=== PATIENT | male | born 1935 | race Caucasian/White ===

== ENCOUNTER → 2016-08-26 | Outpatient (CLI) | payer OTHER ==
[~2016-08-26] MED LIST: ACC10 PO; ASPCH81 PO; ATEN-173 PO; CLR10 PO; DTR5 PO; FAMO20TA11 PO; GLC500 PO; IBUP-1277 PO; NTRGSL/4 UT; NTRSLP4 SL; POLY335040 PO; PRAV20TA PO; REPA0.5T PO; alpha-lipoic acid PO; eye vitamin PO; metamucil PO
--- NOTE | 2016-08-26 11:46 | DIAGNOSTIC IMAGING REPORT ---
MRI OF THE LUMBAR SPINE WITHOUT IV CONTRAST CLINICAL HISTORY: Polyneuropathy. COMPARISON STUDY: Abdominal CT dated 10/19/2011. TECHNIQUE: MRI of the lumbar spine is performed utilizing various T1 and T2-weighted sequences in the axial and sagittal planes. IV contrast was not administered for this examination. The examination is significant degraded by open MRI technique. FINDINGS: Lumbar spine: Marrow signal intensity is heterogeneous. There is a [id number] chronic compression deformity of L1. No marrow edema is seen. This is new from the [address] scan. No retropulsed fragments are identified. Vertebral body height is otherwise maintained throughout the lumbar spine. Alignment is preserved. There is mild straightening of the lumbar lordosis. The transverse and spinous processes are intact as imaged. There is no evidence of spondylolysis. Anterior osteophytes are seen throughout. No destructive bony lesion is seen. Chronic degenerative endplate change with associated endplate edema is seen at L4-L5. There is partial sacralization of the L5 vertebral body. Intervertebral discs: There is degenerative disc desiccation seen throughout the lumbar spine. Advanced loss of height is noted at L3-L4 and L4-L5. Moderate loss of height is seen at the remaining lumbar levels. Spinal cord: Partially imaged spinal cord is normal in morphology and signal intensity. The conus medullaris terminates at the level of L1. The nerve roots of the cauda equina are normal in morphology. Fatty filum terminale is incidentally noted. L1-L2: There is posterior disc bulge with annular fissure. There is mild bilateral subarticular stenosis with no significant acquired compromise of the central canal at this level. Facet arthropathy causes mild bilateral neural foraminal stenosis. L2-L3: There is a small posterior disc bulge with annular fissure. Mild subarticular stenosis is observed. There is no significant acquired compromise of the central canal at this level. Facet arthropathy causes mild bilateral neural foraminal stenosis. L3-L4: There is a large posterior disc bulge with annular fissure. In conjunction with hypertrophy of the ligamentum flavum there is moderate to severe central canal stenosis at this level with a minimum AP diameter of 5 mm. There is severe bilateral subarticular stenosis with probable impingement on the exiting L3 and the transiting bilateral L4 nerve roots. Facet arthropathy causes mild to moderate bilateral neural foraminal stenosis. L4-L5: There is a large posterior disc bulge with annular fissure. In conjunction with hypertrophy of the ligamentum flavum there is moderate central canal stenosis at this level with a minimum AP diameter of 8 mm. There is bilateral subarticular stenosis, right greater than left. There is impingement on the exiting bilateral L4 and the transiting bilateral L5 nerve roots. Facet arthropathy causes severe right and moderate left neural foraminal stenosis. L5-S1: The central canal and neural foramina appear patent. Sacrum: The visualized sacrum shows heterogeneous marrow signal intensity. No marrow edema is identified. Soft tissues: There is fatty atrophy of the paraspinous musculature. The kidneys are atrophic. Right renal cysts are again noted. IMPRESSION: 1. There is a chronic compression deformity of L1. No retropulsed fragments are identified. 2. Moderate to advanced multilevel lumbosacral spondylosis. There is moderate to severe central canal stenosis at L3-L4 and moderate central canal stenosis at L4-L5. See discussion for detailed level by level analysis. 3. There is partial sacralization of L5. No destructive bony process is seen. Electronically signed by: Carlo Herring M.D. 08/26/2016 11:45 AM Dictated Date/Time: 08/26/2016 11:28 AM
== END | disposition home or self-care (01) ==
LOC: C.OPENMRI 10:08
PROVIDERS: ATTEND Internal Medicine
DX: M47.816 Spondylosis without myelopathy or radiculopathy, lumbar region (principal); M43.8X6 Other specified deforming dorsopathies, lumbar region; G63 Polyneuropathy in diseases classified elsewhere

== ENCOUNTER 2017-03-12 18:06 | Inpatient (IN) | payer OTHER ==
[~2017-03-12] VITALS: Ht 175.3 cm; Wt 78.3 kg
--- NOTE | 2017-03-12 18:45 | EMERGENCY ROOM VISIT NOTE ---
History Report prepared by Nereida: Subhash Serrano Under the Supervision of: Dr. Arnav Hernandez M.D. First contact with patient: 18:28 Chief Complaint: STROKE SYMPTOMS Stated Complaint: GARBLED SPEECH History of Present Illness The patient is a 81 year old male who presents to the Emergency Room with complaints of an episode of stroke-like symptoms occurring at 1730. His symptoms included difficulty with words, and slurred speech. Family member states he is unable to answer common questions was having difficult finding his words. Family member at bedside stated that the patient was unable to make any coherent words, he is having difficult finding his words and he was talking in slurred syllables. His symptoms at approximately 1750, he is now able to speak better and answer questions appropriately but he still has some slurred speech.. Per , the patient experienced a similar 15 minute long episode occurring two weeks ago. She notes that the patient has baseline visual problems on the right side due to macular degeneration. Source of History: patient, spouse/significant other () Onset: One hour ago Symptom Intensity: 20 minutes long Quality: other (stroke-like symptoms) Timing: other (episode) Review of Systems See HPI for pertinent positives and negatives. A total of ten systems were reviewed and were otherwise negative. Past Medical & Surgical Medical Problems: (1) A-fib (2) GERD (gastroesophageal reflux disease) (3) HTN (hypertension) (4) Macular degeneration (5) Slurred speech Family History No pertinent family history stated. Social History Smoking Status: Never Smoker Alcohol Use: other Drug Use: none Marital Status: Housing Status: lives with family Occupation Status: retired Current/Historical Medications Scheduled Aspirin (Aspirin Ec), 81 MG PO DAILY Atenolol (Tenormin), 25 MG PO DAILY Famotidine (Pepcid), 20 MG PO DAILY Loratadine (Claritin), 10 MG PO DAILY Metformin Hcl (Glucophage), 500 MG PO BID Multiple Vitamins W/ Minerals (Eye Vitamins), 1 CAP PO DAILY Nitroglycerin (Nitrostat), 0.4 MG UT PRN Oxybutynin Chloride (Ditropan), 5 MG PO BID Polyethylene Glycol 3350 (Miralax), 17 GM PO DAILY Pravastatin (Pravachol ), 20 MG PO DAILY Quinapril Hcl (Accupril), 20 MG PO DAILY Repaglinide (Prandin), 1 MG PO AC Tamsulosin Hcl (Flomax), 0.4 MG PO DAILY Allergies Coded Allergies: No Known Allergies (Unverified , 03/12/17) pt Physical Exam Vital Signs Date Time Temp Pulse Resp B/P (MAP) Pulse Ox O2 Delivery O2 Flow Rate FiO2 03/12/17 20:00 73 16 151/84 03/12/17 19:34 69 16 179/103 97 Room Air 03/12/17 19:01 69 16 166/94 97 Room Air 03/12/17 18:52 96 Room Air 03/12/17 18:40 68 03/12/17 18:10 36.8 69 16 105/62 91 Room Air Physical Exam GENERAL: Awake, alert, well-appearing, in no distress HENT: Normocephalic, Atraumatic. no hemotympanum bilaterally, gomez sign negative bilaterally. Oropharynx unremarkable. EYES: Normal conjunctiva. Sclera non-icteric. PERRL bilaterally. EOMI bilaterally. NECK: Supple. No nuchal rigidity. FROM. No JVD. No C-spine tenderness. RESPIRATORY: Clear to auscultation. CARDIAC: Regular rate, normal rhythm. Extremities warm and well perfused. Equal palpable radial pulses to the bilateral upper extremities. Equal palpable DP pulses to the bilateral lower extremities. ABDOMEN: Soft, non-distended. No tenderness to palpation. No rebound or guarding. No masses. Rovsig Negative. RECTAL: Deferred. MUSCULOSKELETAL: Chest examination reveals no tenderness. The back is symmetrical on inspection without obvious abnormality. There is no CVA tenderness to palpation. No joint edema. LOWER EXTREMITIES: Calves are equal size bilaterally and non-tender. No edema. No discoloration. NEURO: NIHSS of 3. 1 point for RUE limb ataxia. 1 point for mild aphasia. 1 point for mild dysarthria. SKIN: No rash or jaundice noted. Medical Decision & Procedures ER Provider Diagnostic Interpretation: Radiology results as stated below per my review and radiologist interpretation: HEAD CT NONCONTRAST Findings: The paranasal sinuses and mastoid air cells are clear. The calvarium and skull base are intact. There is no mass, hematoma, midline shift, acute infarct. White matter hypodensity is nonspecific but suggestive of microvascular ischemic change. The ventricles and sulci demonstrate mild age-related involutional changes. Impression: No acute intracranial abnormality. Atrophy and microvascular ischemic changes. Electronically signed by: Kareem Henderson M.D. 03/12/2017 7:01 PM CHEST ONE VIEW PORTABLE FINDINGS: The bones soft tissues and hemidiaphragms are normal. The cardiomediastinal silhouette is normal. The lungs are clear. The pulmonary vasculature is normal. IMPRESSION: Negative chest. The above report was generated using voice recognition software. It may contain grammatical, syntax or spelling errors. Electronically signed by: Renan Radford M.D. 03/12/2017 7:30 PM Laboratory Results 03/12/17 18:49 Red Blood Count 4.54, Mean Corpuscular Volume 92.5, Mean Corpuscular Hemoglobin 32.4, Mean Corpuscular Hemoglobin Concent 35.0, Mean Platelet Volume 9.8, Neutrophils (%) (Auto) 63.5, Lymphocytes (%) (Auto) 20.6, Monocytes (%) (Auto) 11.4, Eosinophils (%) (Auto) 3.3, Basophils (%) (Auto) 0.6, Neutrophils # (Auto ) 3.12, Lymphocytes # (Auto) 1.01, Monocytes # (Auto) 0.56, Eosinophils # (Auto ) 0.16, Basophils # (Auto) 0.03 03/12/17 18:49 Test 03/12/17 18:49 03/12/17 19:40 White Blood Count 4.91 K/uL (4.8-10.8) Red Blood Count 4.54 M/uL (4.7-6.1) Hemoglobin 14.7 g/dL (14.0-18.0) Hematocrit 42.0 % (42-52) Mean Corpuscular Volume 92.5 fL (80-100) Mean Corpuscular Hemoglobin 32.4 pg (25-34) Mean Corpuscular Hemoglobin Concent 35.0 g/dl (32-36) Platelet Count 174 K/uL (130-400) Mean Platelet Volume 9.8 fL (7.4-10.4) Neutrophils (%) (Auto) 63.5 % Lymphocytes (%) (Auto) 20.6 % Monocytes (%) (Auto) 11.4 % Eosinophils (%) (Auto) 3.3 % Basophils (%) (Auto) 0.6 % Neutrophils # (Auto) 3.12 K/uL (1.4-6.5) Lymphocytes # (Auto) 1.01 K/uL (1.2-3.4) Monocytes # (Auto) 0.56 K/uL (0.11-0.59) Eosinophils # (Auto) 0.16 K/uL (0-0.5) Basophils # (Auto) 0.03 K/uL (0-0.2) RDW Standard Deviation 45.0 fL (36.4-46.3) RDW Coefficient of Variation 13.3 % (11.5-14.5) Immature Granulocyte % (Auto) 0.6 % Immature Granulocyte # (Auto) 0.03 K/uL (0.00-0.02) Prothrombin Time 10.5 SECONDS (9.0-12.0) Bedside Prothrombin Time INR 1.0 (0.9-1.1) Prothromb Time International Ratio 1.0 (0.9-1.1) Activated Partial Thromboplast Time 25.4 SECONDS (21.0-31.0) Partial Thromboplastin Ratio 1.0 Anion Gap 6.0 mmol/L (3-11) Est Creatinine Clear Calc Drug Dose 52.3 ml/min Estimated GFR () 74.0 Estimated GFR (Non- 63.9 BUN/Creatinine Ratio 18.0 (10-20) Calcium Level 8.7 mg/dl (8.5-10.1) Magnesium Level 2.0 mg/dl (1.8-2.4) Total Creatine Kinase 53 U/L (39-308) Creatine Kinase MB 1.0 ng/ml (0.5-3.6) Creatine Kinase MB Ratio 1.9 (0-3.0) Troponin I < 0.015 ng/ml (0-0.045) Urine Color YELLOW Urine Appearance CLEAR (CLEAR) Urine pH 6.5 (4.5-7.5) Urine Specific [place] 1.010 (1.000-1.030) Urine Protein NEG (NEG) Urine Glucose (UA) NEG (NEG) Urine Ketones NEG (NEG) Urine Occult Blood NEG (NEG) Urine Nitrite NEG (NEG) Urine Bilirubin NEG (NEG) Urine Urobilinogen NEG (NEG) Urine Leukocyte Esterase NEG (NEG) Laboratory results reviewed by me Medications Administered ECG Indication: other (neuro symptoms) Rate (beats per minute): 68 Rhythm: sinus rhythm Findings: 1st degree AV block, no acute ischemic change, no ectopy, other (No ST depression or elevation. TX of 212. QRS of 140. QTC is normal. ) Comparison ECG Date: September 2011 Change: no significant change ED Course 1827: The patient was evaluated in room A4B. A complete history and physical exam was performed. Code stroke called 1901: Upon reassessment, the patients NIHSS is 2. 1 for limb ataxia, 1 for dysarthria, and 0 for aphasia. 1939: Discussed the patient's case with teleneurology. teleneurology and I agree that TPA is not indicated given the patient's rapidly improving symptoms. The patient's family discussed the case with the neurologist as well. The patient will be given 300 mg of Plavix per request of teleneuro and be admitted for MRI/MRA in AM. Medical Decision 1939: Discussed the patient's case with teleneurology. teleneurology and I agree that TPA is not indicated given the patient's rapidly improving symptoms. The patient's family discussed the case with the neurologist as well. The patient will be given 300 mg of Plavix per request of teleneuro and be admitted for MRI/MRA in AM. Hospitalist team agrees to admission Medication Reconcilliation Current Medication List: was personally reviewed by me Blood Pressure Screening Patient's blood pressure: Normal blood pressure Blood pressure disposition: Did not require urgent referral Consults Time Called: 1854 Consulting Physician: Dr. Jerez - Neurology Returned Call: [phone] Discussed the patient's case. Dr. Jerez will evaluate the patient via Telestroke. Additional Consults: Time Called: 2029 Consulted Physician: Dr. Satnam Cristobal Hospitalist Returned Call: [phone] Additional Comments: Discussed the patient's case. The patient will be evaluated for further treatment and disposition. Impression Primary Impression: TIA (transient ischemic attack) Critical Care I have personally spent greater than 60 minutes of critical care time in the direct management of this patient. This includes bedside care, interpretation of diagnostic studies, and testing, discussion with consultants, patient, and family members, and other required patient management activities. This 60 minutes is in excess of all separately billable procedures. Scribe Attestation The scribe's documentation has been prepared under my direction and personally reviewed by me in its entirety. I confirm that the note above accurately reflects all work, treatment, procedures, and medical decision making performed by me. .dragon Departure Information Dispostion Being Evaluated By Hospitalist Referrals Carlton Rowe D.O. (PCP) Patient Instructions My [facility] Stroke History Time Last Known Well 1730 Stroke t-PA Criteria Reviewed Does NOT meet criteria for t-PA Reason t-PA Not Given Treatment not indicated
--- NOTE | 2017-03-12 19:02 | DIAGNOSTIC IMAGING REPORT ---
HEAD CT NONCONTRAST CT DOSE: 638.56 mGycm HISTORY: Stroke symptoms. Difficulty speaking TECHNIQUE: Multiaxial CT images of the head were performed without the use of intravenous contrast. Automated exposure control was utilized for this study. A dose lowering technique was utilized adhering to the principles of ALARA. Comparison: None. Findings: The paranasal sinuses and mastoid air cells are clear. The calvarium and skull base are intact. There is no mass, hematoma, midline shift, acute infarct. White matter hypodensity is nonspecific but suggestive of microvascular ischemic change. The ventricles and sulci demonstrate mild age-related involutional changes. Impression: No acute intracranial abnormality. Atrophy and microvascular ischemic changes. Electronically signed by: Kareem Henderson M.D. 03/12/2017 7:01 PM Dictated Date/Time: 03/12/2017 6:59 PM
[2017-03-12 19:03] LABS: BASO % 0.6 %; BASO ABS # 0.03 K/uL (0-0.2); EOS % 3.3 %; EOS ABS # 0.16 K/uL (0-0.5); HEMOGLOBIN 14.7 g/dL (14.0-18.0); IG# 0.03 K/uL (0.00-0.02); LYMPH % 20.6 %; LYMPH ABS # 1.01 K/uL (1.2-3.4); MEAN CELL VOLUME 92.5 fL (80-100); MEAN CORPUSCULAR HEMOGLOBIN 32.4 pg (25-34); MEAN PLATELET VOLUME 9.8 fL (7.4-10.4); MONO % 11.4 %; MONO ABS # 0.56 K/uL (0.11-0.59); NEUT % 63.5 %; NEUT ABS # 3.12 K/uL (1.4-6.5); PLATELET COUNT 174 K/uL (130-400); RED CELL DISTRIBUTION WIDTH CV 13.3 % (11.5-14.5); WHITE BLOOD COUNT 4.91 K/uL (4.8-10.8)
[2017-03-12 19:13] LABS: PTT PATIENT 25.4 SECONDS (21.0-31.0)
[2017-03-12 19:25] LABS: BLOOD UREA NITROGEN 19 mg/dl (7-18); CALCIUM 8.7 mg/dl (8.5-10.1); CARBON DIOXIDE 27 mmol/L (21-32); CREATININE 1.07 mg/dl (0.60-1.40); GLUCOSE 163 mg/dl (70-99); POTASSIUM 4.7 mmol/L (3.5-5.1); SODIUM 136 mmol/L (136-145)
--- NOTE | 2017-03-12 19:31 | DIAGNOSTIC IMAGING REPORT ---
CHEST ONE VIEW PORTABLE CLINICAL HISTORY: Stroke mental status change COMPARISON STUDY: No previous studies for comparison. FINDINGS: The bones soft tissues and hemidiaphragms are normal. The cardiomediastinal silhouette is normal. The lungs are clear. The pulmonary vasculature is normal. IMPRESSION: Negative chest. The above report was generated using voice recognition software. It may contain grammatical, syntax or spelling errors. Electronically signed by: Renan Radford M.D. 03/12/2017 7:30 PM Dictated Date/Time: 03/12/2017 7:30 PM
[2017-03-12] MEDS ORDERED: REPA1TAB40 PO (19:55)
[2017-03-12] MEDS ORDERED: MULTCAP7 PO (19:55)
[2017-03-12] MEDS ORDERED: POLY335019 PO (19:55)
[2017-03-12] MEDS ORDERED: CLR10 PO (19:55)
[2017-03-12] MEDS ORDERED: GLC/500 PO (19:55)
[2017-03-12] MEDS ORDERED: PRAV20TA PO (19:55)
[2017-03-12] MEDS ORDERED: TAMS0.4C38 PO (19:55)
[2017-03-12] MEDS ORDERED: FAMO20TA11 PO (19:55)
[2017-03-12] MEDS ORDERED: NTRGSL/4 UT (19:55)
[2017-03-12] MEDS ORDERED: ACC/20 PO (19:55)
[2017-03-12] MEDS ORDERED: DTR/5 PO (19:55)
[2017-03-12] MEDS ORDERED: ASPI81TA28 PO (19:55)
[2017-03-12] MEDS ORDERED: ATEN-173 PO (19:55)
[2017-03-12] MEDS ORDERED: NURSING VERBAL MED ORDER ONE (20:00)
[2017-03-12] MEDS ORDERED: SODIUM CHLORIDE 0.9% 500ML 500 ML IV SCH (20:30)
[2017-03-12] MEDS ORDERED: CLOPIDOGREL BISULFATE 300 MG TAB PO SCH (21:00)
[2017-03-12] MEDS ORDERED: SODIUM CHLORIDE 0.9% 1000ML 1,000 ML IV SCH (21:30)
[2017-03-12 22:00] VITALS: BP 167/83; PULSE 73; TEMP 36.8; O2SAT 97; Ht 175.3 cm; Wt 78.3 kg
--- NOTE | 2017-03-12 22:06 | DIAGNOSTIC IMAGING REPORT ---
BILATERAL LOWER EXTREMITY VENOUS DOPPLER HISTORY: Difficulty speaking. rule out DVT COMPARISON STUDY: None. FINDINGS: There is normal compressibility, flow, and augmentation within the bilateral lower extremity deep venous systems. IMPRESSION: No DVT within the right or left lower extremity. Electronically signed by: Kareem Henderson M.D. 03/12/2017 10:05 PM Dictated Date/Time: 03/12/2017 10:04 PM
--- NOTE | 2017-03-12 22:07 | DIAGNOSTIC IMAGING REPORT ---
BILATERAL CAROTID DOPPLER STUDY HISTORY: slurred speech, rule out carotid stenosis COMPARISON: None. TECHNIQUE: Real-time, grayscale, and color Doppler sonography of the carotid arteries was performed. Imaging reviewed in the transverse and longitudinal planes. All measurements were calculated based on NASCET criteria. FINDINGS: Antegrade flow is seen in the bilateral vertebral arteries. The brachial pressures are hemodynamically similar. The peak systolic velocity within the right ICA is 89 cm/s. The right systolic ratio is 1. The peak systolic velocity within the left ICA is 75 cm/s. The left systolic ratio is 1. IMPRESSION: No hemodynamically significant stenosis seen within the carotid arteries. Electronically signed by: Kareem Henderson M.D. 03/12/2017 10:06 PM Dictated Date/Time: 03/12/2017 10:05 PM
--- NOTE | 2017-03-12 22:14 | History and Physical ---
History & Physical Date & Time of Service: Mar 12, 2017 at 22:08 Chief Complaint: Garbled Speech Primary Care Physician: Carlton Rowe D.O. History of Present Illness Slurred speech. Patient reports started around 5 PM on 03/12/17. Patient appears on exam to have facial droop of left face. Patient denies other symptoms of weakness or changes in sensation. stroke code called in ER, ED physician call stroke neurology on teleconference at [facility] who did not recommend TPA. Plavix 300 mg was given. Below is the CT head report: Head CT The paranasal sinuses and mastoid air cells are clear. The calvarium and skull base are intact. There is no mass, hematoma, midline shift, acute infarct. White matter hypodensity is nonspecific but suggestive of microvascular ischemic change. The ventricles and sulci demonstrate mild age-related involutional changes. Impression: No acute intracranial abnormality. Atrophy and microvascular ischemic changes Stroke neurology technical assistance consultant recommended MRI/MRA brain in the morning of 03/13/17 Past Medical/Surgical History Medical Problems: (1) A-fib Status: Chronic (2) GERD (gastroesophageal reflux disease) Status: Chronic (3) HTN (hypertension) Status: Chronic (4) Macular degeneration Status: Chronic Social History Smoking Status: Never Smoker Drug Use: none Marital Status: Housing status: lives with family Occupational Status: retired Immunizations History of Influenza Vaccine: N/A History of Tetanus Vaccine?: needs now History of Pneumococcal: Yes History of Hepatitis B Vaccine: No Multi-Drug Resistant Organisms History of MDRO: No Allergies Coded Allergies: No Known Allergies (Unverified , 03/12/17) pt Home Medications Scheduled Aspirin (Aspirin Ec), 81 MG PO DAILY Atenolol (Tenormin), 25 MG PO DAILY Famotidine (Pepcid), 20 MG PO DAILY Loratadine (Claritin), 10 MG PO DAILY Metformin Hcl (Glucophage), 500 MG PO BID Multiple Vitamins W/ Minerals (Eye Vitamins), 1 CAP PO DAILY Nitroglycerin (Nitrostat), 0.4 MG UT PRN Oxybutynin Chloride (Ditropan), 5 MG PO BID Polyethylene Glycol 3350 (Miralax), 17 GM PO DAILY Pravastatin (Pravachol ), 20 MG PO DAILY Quinapril Hcl (Accupril), 20 MG PO DAILY Repaglinide (Prandin), 1 MG PO AC Tamsulosin Hcl (Flomax), 0.4 MG PO DAILY Review of Systems Constitutional: No fever Eyes: No worsening of vision, No eye pain ENT: + problem reported (slurred speech), No hearing loss, No sore throat, No trouble swallowing Respiratory: No cough, No sputum, No wheezing, No shortness of breath, No dyspnea on exertion, No dyspnea at rest Cardiovascular: No chest pain, No edema, No claudication, No palpitations Abdomen: No pain, No nausea, No vomiting, No diarrhea, No constipation Genitourinary - Male: No dysuria Neurologic: + problem reported (slurred speech), No paralysis, No numbness/ tingling Psychiatric: No substance abuse Endocrine: No fatigue Hematologic / Lymphatic: No abnormal bleeding/bruising Integumentary: No rash, No itch Physical Exam Vital Signs Date Time Temp Pulse Resp B/P (MAP) Pulse Ox O2 Delivery O2 Flow Rate FiO2 03/12/17 20:31 175/82 03/12/17 20:30 67 13 03/12/17 20:00 73 16 151/84 03/12/17 19:34 69 16 179/103 97 Room Air 03/12/17 19:01 69 16 166/94 97 Room Air 03/12/17 18:52 96 Room Air 03/12/17 18:40 68 03/12/17 18:10 36.8 69 16 105/62 91 Room Air General Appearance: no apparent distress Head: normocephalic, atraumatic Eyes: normal inspection, EOMI, sclerae normal ENT: hearing grossly normal, pharynx normal, + pertinent finding (minimally slurred speech, left facial droop) Neck: supple, no adenopathy, no JVD, no carotid bruits, trachea midline Respiratory/Chest: chest non-tender, lungs clear, normal breath sounds, no respiratory distress, no accessory muscle use Cardiovascular: regular rate, rhythm, no edema, no JVD, normal peripheral pulses Abdomen/GI: normal bowel sounds, non tender, soft, no organomegaly, no pulsatile mass Back: normal inspection, no muscle spasm Extremities/Musculoskelatal: normal inspection, no calf tenderness, normal capillary refill, no pedal edema, normal range of motion, non-tender Neurologic/Psych: no motor/sensory deficits, alert, normal mood/affect, oriented x 3, + facial droop (left face), + pertinent finding (slurred speech) Skin: normal color, warm/dry, no rash Diagnostics Laboratory Results Results Past 24 Hours Test 03/12/17 18:49 03/12/17 19:40 Range/Units White Blood Count 4.91 4.8-10.8 K/uL Red Blood Count 4.54 4.7-6.1 M/uL Hemoglobin 14.7 14.0-18.0 g/dL Hematocrit 42.0 42-52 % Mean Corpuscular Volume 92.5 80-100 fL Mean Corpuscular Hemoglobin 32.4 25-34 pg Mean Corpuscular Hemoglobin Concent 35.0 32-36 g/dl Platelet Count 174 130-400 K/uL Mean Platelet Volume 9.8 7.4-10.4 fL Neutrophils (%) (Auto) 63.5 % Lymphocytes (%) (Auto) 20.6 % Monocytes (%) (Auto) 11.4 % Eosinophils (%) (Auto) 3.3 % Basophils (%) (Auto) 0.6 % Neutrophils # (Auto) 3.12 1.4-6.5 K/uL Lymphocytes # (Auto) 1.01 1.2-3.4 K/uL Monocytes # (Auto) 0.56 0.11-0.59 K/uL Eosinophils # (Auto) 0.16 0-0.5 K/uL Basophils # (Auto) 0.03 0-0.2 K/uL RDW Standard Deviation 45.0 36.4-46.3 fL RDW Coefficient of Variation 13.3 11.5-14.5 % Immature Granulocyte % (Auto) 0.6 % Immature Granulocyte # (Auto) 0.03 0.00-0.02 K/uL Prothrombin Time 10.5 9.0-12.0 SECONDS Bedside Prothrombin Time INR 1.0 0.9-1.1 Prothromb Time International Ratio 1.0 0.9-1.1 Activated Partial Thromboplast Time 25.4 21.0-31.0 SECONDS Partial Thromboplastin Ratio 1.0 Sodium Level 136 136-145 mmol/L Potassium Level 4.7 3.5-5.1 mmol/L Chloride Level 103 98-107 mmol/L Carbon Dioxide Level 27 21-32 mmol/L Anion Gap 6.0 3-11 mmol/L Blood Urea Nitrogen 19 7-18 mg/dl Creatinine 1.07 0.60-1.40 mg/dl Est Creatinine Clear Calc Drug Dose 52.3 ml/min Estimated GFR () 74.0 Estimated GFR (Non- 63.9 BUN/Creatinine Ratio 18.0 10-20 Random Glucose 163 70-99 mg/dl Calcium Level 8.7 8.5-10.1 mg/dl Magnesium Level 2.0 1.8-2.4 mg/dl Total Creatine Kinase 53 39-308 U/L Creatine Kinase MB 1.0 0.5-3.6 ng/ml Creatine Kinase MB Ratio 1.9 0-3.0 Troponin I < 0.015 0-0.045 ng/ml Urine Color YELLOW Urine Appearance CLEAR CLEAR Urine pH 6.5 4.5-7.5 Urine Specific Muse 1.010 1.000-1.030 Urine Protein NEG NEG Urine Glucose (UA) NEG NEG Urine Ketones NEG NEG Urine Occult Blood NEG NEG Urine Nitrite NEG NEG Urine Bilirubin NEG NEG Urine Urobilinogen NEG NEG Urine Leukocyte Esterase NEG NEG EKG Sinus rhythm with 1st degree A-V block Right bundle branch block Impression Assessment and Plan Slurred speech (and left facial droop?), stroke code called in ER, ED physician call stroke neurology on teleconference at [facility] who did not recommend TPA. Plavix 300 mg was given. Below is the CT head report: Head CT The paranasal sinuses and mastoid air cells are clear. The calvarium and skull base are intact. There is no mass, hematoma, midline shift, acute infarct. White matter hypodensity is nonspecific but suggestive of microvascular ischemic change. The ventricles and sulci demonstrate mild age-related involutional changes. Impression: No acute intracranial abnormality. Atrophy and microvascular ischemic changes Stroke neurology technical assistance consultant recommended MRI/MRA brain in the morning of . Patient expresses anxiety with being in tight spaces. May need Ativan for MRI/MRA requesting neurology service Sindi to follow the patient Carotid Ultrasound No hemodynamically significant stenosis seen within the carotid arteries Lower extremity US No DVT within the right or left lower extremity On telemetry monitoring Echocardiogram ordered Speech and Swallow evaluated ordered NPO except meds, ice chips and sips for now HTN: initially was not hypertensive in emergency room but blood pressure became elevated, IV vasotec ordered x 1, Hydralazine IV prn, restart home blood pressure medications of oral David inhibitor and atenolol Sinus rhythm with 1st degree A-V block Right bundle branch block, troponin negative x 1, repeat troponin check lipid panel, continue home statin and aspirin DM: hold metformin for now, start sliding scale insulin with fingerstick glucose , check HbA1c DVT ppx: SCD Code Status: DNR/DNI Family [phone], [phone] Level of Care Telemetry Resuscitation Status DO NOT RESUSCITATE VTE Prophylaxis VTE Risk Assessment Done? Y/N: Yes Risk Level: Moderate
[2017-03-12 23:50] VITALS: BP 193/93; PULSE 61; TEMP 36.5; O2SAT 97
[2017-03-13] VITALS (9 sets, daily range): BP systolic 125–187; BP diastolic 74–107; PULSE 48–64; TEMP 36.4–36.6; O2SAT 94–99
[2017-03-13] MEDS: SODIUM CHLORIDE 0.9% 1000ML 1,000 ML IV SCH ×3 (00:27→22:52)
[2017-03-13] MEDS ORDERED: ENALAPRILAT IV 1.25 MG in DEXTROSE 5% 25ML 25 ML IV STA (00:52)
[2017-03-13] MEDS ORDERED: NITROGLYCERIN 0.4 MG SL PER TAB CHARGE UT SCH (01:15)
[2017-03-13 01:50] LABS: BASO % 0.3 %; BASO ABS # 0.02 K/uL (0-0.2); EOS % 1.9 %; EOS ABS # 0.11 K/uL (0-0.5); IG# 0.04 K/uL (0.00-0.02); LYMPH % 15.9 %; LYMPH ABS # 0.93 K/uL (1.2-3.4); MEAN CELL VOLUME 92.3 fL (80-100); MEAN CORPUSCULAR HEMOGLOBIN 32.2 pg (25-34); MEAN PLATELET VOLUME 9.6 fL (7.4-10.4); MONO % 10.1 %; MONO ABS # 0.59 K/uL (0.11-0.59); NEUT % 71.1 %; NEUT ABS # 4.15 K/uL (1.4-6.5); PLATELET COUNT 159 K/uL (130-400); RED CELL DISTRIBUTION WIDTH CV 13.4 % (11.5-14.5); RED CELL DISTRIBUTION WIDTH SD 44.8 fL (36.4-46.3); WHITE BLOOD COUNT 5.84 K/uL (4.8-10.8)
[2017-03-13 02:03] LABS: PTT PATIENT 26.6 SECONDS (21.0-31.0)
[2017-03-13 02:11] LABS: MEAN CORPUSCULAR HGB CONC 34.9 g/dl (32-36)
[2017-03-13 02:23] LABS: ALBUMIN 3.3 gm/dl (3.4-5.0); ALKALINE PHOSPHATASE 66 U/L (45-117); ALT/SGPT 28 U/L (12-78); AST/SGOT 11 U/L (15-37); BLOOD UREA NITROGEN 15 mg/dl (7-18); CALCIUM 8.4 mg/dl (8.5-10.1); CARBON DIOXIDE 27 mmol/L (21-32); CHOLESTEROL 123 mg/dl (0-200); CREATININE 0.97 mg/dl (0.60-1.40); GLUCOSE 120 mg/dl (70-99); LDL CHOLESTEROL CALCULATED 54 mg/dl; POTASSIUM 4.4 mmol/L (3.5-5.1); SODIUM 138 mmol/L (136-145); TOTAL PROTEIN 6.3 gm/dl (6.4-8.2)
[2017-03-13] MEDS: TAMSULOSIN HCL 0.4 MG CAP PO SCH (08:36)
[2017-03-13] MEDS: ENALAPRIL MALEATE 10 MG TAB PO SCH (08:36)
[2017-03-13] MEDS: ASPIRIN 81 MG ECTAB PO SCH (08:37)
[2017-03-13] MEDS: PRAVASTATIN SOD 20 MG TAB PO SCH (08:37)
[2017-03-13] MEDS: LORAZEPAM INJ 1 MG in SYRINGE 0.5 ML IV PRN ×2 (09:45→22:50)
--- NOTE | 2017-03-13 11:09 | DIAGNOSTIC IMAGING REPORT ---
MRA HEAD WITHOUT CONTRAST HISTORY: Mental status change slurred speech TECHNIQUE: 3-D [id number] MRA of the brain was performed without contrast. COMPARISON STUDY: None. FINDINGS: Limited study technically as the patient could not tolerate the exam. Considerable motion artifact is present. Anterior and middle cerebral vasculature appears to be intact. There is a mild to moderate atherosclerotic change with several areas of moderate multifactorial narrowing. Degree of stenosis is not appreciated again within limitations of considerable patient motion. The vertebral basilar system demonstrates the left vertebral artery to be dominant. Right vertebral artery is relatively small residual with a congenital basis. The left posterior cerebral artery is fed primarily via the left posterior communicator. This also is an anatomic variant. IMPRESSION: 1. Very limited study due to considerable patient somatic motion. 2. Moderate atherosclerotic change throughout the bulk of the arterial structures although a major stenotic process centrally is not felt to be present. 3. High-resolution detail is not possible given the artifact present. The above report was generated using voice recognition software. It may contain grammatical, syntax or spelling errors. Electronically signed by: Renan Radford M.D. 03/13/2017 11:07 AM Dictated Date/Time: 03/13/2017 11:03 AM
[2017-03-13] MEDS ORDERED: DEXTROSE 50% 50 ML SYR IV PRN (12:15)
[2017-03-13] MEDS ORDERED: GLUCOSE 40% GEL 15 GM TUBE PO PRN (12:15)
[2017-03-13] MEDS ORDERED: GLUCOSE 10 TABS/TUBE PO PRN (12:15)
[2017-03-13] MEDS ORDERED: GLUCAGON FOR INJ 1 MG VIAL SQ PRN (12:15)
[2017-03-13] MEDS: INSULIN ASPART 100 UNITS/ML 3 ML PEN SC SCH ×3 (13:13→20:30)
--- NOTE | 2017-03-13 13:34 | NEUROLOGY CONSULTATION ---
DATE OF CONSULTATION: 03/13/2017 DATE OF CONSULTATION: 03/13/2017 REQUESTED BY: Dr. Raza. 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 He is known to Dr. Carlton Rowe and has chronic atrial fibrillation, gastroesophageal reflux, hypertension, macular degeneration and underlying diabetes with diabetic polyneuropathy and also has a gait disturbance that probably has a mixture of the polyneuropathy, some leukoencephalopathy, but was treated by Dr. Tran Lakhani on 2 occasions with Parkinsonian medications which he did not respond and both of which may have caused some hallucinations. In this setting, he was brought into the hospital for an episode of dysarthria and perhaps some left arm numbness which lasted perhaps 20 minutes, cleared largely and by the time he got here and was evaluated by the stroke team it was approved to the point that no treatment was recommended. CT scan showed very little other than some microvascular ischemic changes and an MRI and MRA were recommended. Only the MRA could be done. He became a little combative and agitated in the MRI and the actual MRI films were not completed. He has remained pretty much asymptomatic overnight. He does have a mild articulatory disturbance and apparently some low grade confusion, but according to the family members this is baseline. He had a similar event about 3 weeks ago which did not result in bringing him to the hospital and a similar event 2 years ago which apparently was not evaluated either although the family thinks he may have had an MRI at some point in the past that I cannot locate at least on the medical record from [facility]. SOCIAL HISTORY: Reveals him to be a never smoker. He does not consume ethanol. He lives with his family. He is retired. IMMUNIZATIONS: Up-to-date. He does not have a history of drug resistant organisms He does not have any allergies. HOME MEDICATIONS: Include aspirin, atenolol, famotidine, loratadine, metformin, multivitamin, nitroglycerin, oxybutynin, polyethylene, pravastatin, quinapril, Prandin and tamsulosin. He has been on Sinemet and I believe dopamine agonist in the past, though the records are not available and did not respond well to either one. REVIEW OF SYSTEMS: Reveals no recent fevers, sweats, chills. No new issues referable to the head, eyes, ears, nose and throat. 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 He has had some chronic low grade slurring of his speech but nothing new other than the transient worsening yesterday and 3 weeks ago. He has had no cardiovascular, pulmonary, genitourinary, or musculoskeletal issues otherwise, but does have a history of prostate CA, treated with radiation and now quiescent. PHYSICAL EXAMINATION: VITAL SIGNS: Revealed a blood pressure 175/82, pulse was 67, respirations 13 and was in no apparent distress. HEAD, EYES, EARS, NOSE, AND THROAT: No deformities on examination of head, eyes, ears, nose and throat. He had no significant vision function in the right eye. It was felt his speech was slightly slurred. There may have been a left facial asymmetry. LUNGS: Clear. HEART: Had a regular rhythm. No murmurs were appreciated. ABDOMEN: Soft and nontender. EXTREMITIES: Free of edema. NEUROLOGIC: Today neurologically he is awake, alert and oriented, has a mild articulatory disturbance but according to family, this is chronic. He has mild left facial asymmetry and according to family this may be chronic. I do not see any real drift or pronation of the upper extremities. There is no particular tremor, tics or choreiform activity. 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 Lower extremities are strong and uncoordinated movements appears to be good, but he has no reflexes at the ankles or knees. Toe signs are downgoing. Sensory exam is significantly altered with absence of vibratory of appreciation below the knees and significant loss of proprioception of the toes in addition to light touch, temperature and pinprick. Imaging studies have shown some likely longstanding anomalies in the posterior circulation without any clear-cut intracranial stenoses, aneurysms, etc., but motion and movements have degraded the image quality. 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 I do not see anything acute. History certainly suggests this man has had recurrent probable vascular events, possibly the right hemisphere in light of his concurrent left arm paraesthesia when the speech impediment occurs. This is occurring on aspirin and my suggestion would be to add Plavix to the drug regimen. It would be nice to get an MRI to be certain he has not had any acute events and we are waiting for the echocardiographic study to be sure there is no source of emboli and thus far his rhythm has apparently been sinus even though he does apparently have a history of atrial fibrillation. I will check back with him tomorrow, perhaps we will have a little more imaging data and the results of the echo at that point but for now my only recommendation would be to add Plavix and observe him. MOI
--- NOTE | 2017-03-13 15:00 | ECHOCARDIOGRAM REPORT ---
*NOTICE TO RECEIVING [employer] This information is strictly Confidential and protected under [place] law. [place] law prohibits you from making any further disclosure of this information unless further disclosure is expressly permitted by the written consent of the person to whom it pertains or is authorized by law. A general authorization for the release of medical or other information is not sufficient for this purpose. Hospital accepts no responsibility if the information is made available to any other person, INCLUDING THE PATIENT. Interpretation Summary * Name: MAURISIO HANCOCK Study Date: 03/13/2017 11:01 AM BP: 178/92 mmHg * Patient Location: [facility] HR: 64 * : 1935 (M/d/yyyy) Gender: Male Height: 69 in * Age: 81 yrs Ethnicity: CA Weight: 182 lb * Ordering Physician: Yifan Hay * Referring Physician: Self, Referred * Performed By: Kurt Church RDCS * * Reason For Study: Slurred speech, rule out emboli * BSA: 2.0 m2 * -- Conclusions -- * The left ventricle is normal in size. * There is mild concentric left ventricular hypertrophy. * The basal septum is thickened and angulated consistent with sigmoid septum. * The left ventricular wall motion is normal. * Left ventricular systolic function is normal. * The left atrial size is normal. * Aortic valve sclerosis mild, without significant aortic valvular stenosis. Procedure Details * A complete two-dimensional transthoracic echocardiogram was performed (2D, M-mode, Doppler and color flow Doppler). * The study was technically adequate. Left Ventricle * The left ventricle is normal in size. * There is mild concentric left ventricular hypertrophy. * The basal septum is thickened and angulated consistent with sigmoid septum. * Left ventricular systolic function is normal. * Ejection Fraction = 60-65%. * The left ventricular wall motion is normal. Right Ventricle * The right ventricle is normal in size and function. Atria * The left atrial size is normal. * Right atrial size is normal. * No ASD detected; PFO is not assessed. Mitral Valve * The mitral valve anatomy is normal. * There is no mitral valve stenosis. * There is trace mitral regurgitation. Tricuspid Valve * The tricuspid valve anatomy is normal. * There is no tricuspid stenosis. * There is trace tricuspid regurgitation. Aortic Valve * The aortic valve is trileaflet. * Aortic valve sclerosis mild, without significant aortic valvular stenosis. * No hemodynamically significant valvular aortic stenosis. * No aortic regurgitation is present. Pulmonic Valve * The pulmonic valve is not well visualized. Great Vessels * The aortic root is normal size. Pericardium/Pleural * There is no pericardial effusion. Great Vessels * Normal inferior vena cava diameter and respiratory variation suggests normal central venous pressure. MMode 2D Measurements and Calculations IVSd 1.1 cm IVSs 1.8 cm LVIDd 5.0 cm LVIDs 3.5 cm LVPWd 1.1 cm LVPWs 1.8 cm IVS/LVPW 1.0 FS 28.4 % EDV(Teich) 115.9 ml ESV(Teich) 52.5 ml EF(Teich) 54.7 % EDV(cubed) 121.8 ml ESV(cubed) 44.6 ml EF(cubed) 63.4 % % IVS thick 68.0 % % LVPW thick 67.7 % LV mass(C)d 199.6 grams LV mass(C)dI 100.6 grams/m\S\2 LV mass(C)s 271.2 grams LV mass(C)sI 136.7 grams/m\S\2 SV(Teich) 63.4 ml SI(Teich) 31.9 ml/m\S\2 SV(cubed) 77.2 ml SI(cubed) 38.9 ml/m\S\2 Ao root diam 3.7 cm Ao root area 10.7 cm\S\2 ACS 1.5 cm LA dimension 3.8 cm asc Aorta Diam 3.5 cm LA/Ao 1.0 LVAd ap4 20.3 cm\S\2 LVLd ap4 7.5 cm EDV(MOD-sp4) 46.2 ml EDV(sp4-el) 46.5 ml LVAs ap4 10.5 cm\S\2 LVLs ap4 5.5 cm ESV(MOD-sp4) 17.5 ml ESV(sp4-el) 17.0 ml EF(MOD-sp4) 62.1 % EF(sp4-el) 63.4 % LVAd ap2 19.8 cm\S\2 LVLd ap2 7.4 cm EDV(MOD-sp2) 43.5 ml EDV(sp2-el) 44.8 ml LVAs ap2 10.3 cm\S\2 LVLs ap2 5.8 cm ESV(MOD-sp2) 15.0 ml ESV(sp2-el) 15.5 ml EF(MOD-sp2) 65.6 % EF(sp2-el) 65.4 % LVLd %diff -1.59 % EDV(MOD-bp) 45.1 ml LVLs %diff 4.2 % ESV(MOD-bp) 16.4 ml EF(MOD-bp) 63.7 % SV(MOD-sp4) 28.7 ml SI(MOD-sp4) 14.4 ml/m\S\2 SV(MOD-sp2) 28.6 ml SI(MOD-sp2) 14.4 ml/m\S\2 SV(MOD-bp) 28.7 ml SI(MOD-bp) 14.5 ml/m\S\2 SV(sp4-el) 29.5 ml SI(sp4-el) 14.9 ml/m\S\2 SV(sp2-el) 29.3 ml SI(sp2-el) 14.7 ml/m\S\2 Doppler Measurements and Calculations MV E max jonathan 83.6 cm/sec MV A max jonathan 70.1 cm/sec MV E/A 1.2 MV dec time 0.20 sec Ao V2 max 143.8 cm/sec Ao max PG 8.3 mmHg Ao max PG (full) 5.7 mmHg LV V1 max PG 2.6 mmHg LV V1 max 80.6 cm/sec PA V2 max 79.8 cm/sec PA max PG 2.5 mmHg PI end-d jonathan 88.0 cm/sec
[2017-03-13] MEDS: HydrALAZINE HCL 20 MG/ML VIAL IV. PRN ×2 (16:58→23:51)
--- NOTE | 2017-03-13 19:07 | Progress Note ---
Internal Med Progress Note Date of Service: Mar 13, 2017. Provider Documentation: SUBJECTIVE: unable to complete MRI due to anxiety claustrophobia OBJECTIVE: Vital Signs-as noted below Exam: General-no sign of distress, Eyes-sclera non icteric ,PERRLA/EOMI ENT-NAD Neck-no thyromegaly , trachea midline Lungs-CTA , no wheeze or rales Heart-regular S1/S2 Abdomen-soft, non tender Extremities-no rash or deformity Neuro-no focal deficit Lab data as noted below. ASSESSMENT & PLAN: POSSIBLE TIA : presented with episode of slurred speech and left facial droop symptom resolved after 15 mins stroke code called in ER, ED physician call stroke neurology on teleconference at [place] who did not recommend TPA. Plavix 300 mg was given. Head CT with out contrast : The paranasal sinuses and mastoid air cells are clear. The calvarium and skull base are intact. There is no mass, hematoma, midline shift, acute infarct. White matter hypodensity is nonspecific but suggestive of microvascular ischemic change. The ventricles and sulci demonstrate mild age-related involutional changes. Impression: No acute intracranial abnormality. Atrophy and microvascular ischemic changes Carotid Ultrasound No hemodynamically significant stenosis seen within the carotid arteries Lower extremity US No DVT within the right or left lower extremity Neurology consulted , appreciate input recommend MRI/MRA of brain -pt could not complete today due anxiety added Plavix to regimen pt will cont Aspirin , Plavix , statin PT/OT Speech and Swallow eval appreciate -AHA diet HTN: ACEI and atenolol DM: hold metformin for now, sliding scale insulin with fingerstick glucose, HbA1c DVT ppx: SCD Code Status: DNR/DNI Family [phone], [phone] DISPOSITION lives at home -in [place] very supportive and 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 PT /OT eval requested possible discharge home with home PT medicine follow up with Dr Rowe Neurology follow up with Dr Lakhani Vital Signs: Date Time Temp Pulse Resp B/P (MAP) Pulse Ox O2 Delivery O2 Flow Rate FiO2 03/14/17 14:44 36.4 62 16 96 Room Air 03/14/17 12:15 Room Air 03/14/17 11:33 36.4 62 16 145/78 (100) 96 Room Air 03/14/17 08:19 36.5 84 16 170/87 (114) 96 Room Air 03/14/17 08:00 99 Room Air 03/14/17 08:00 Room Air 03/14/17 04:57 36.7 99 20 126/83 (97) 94 Room Air 03/14/17 04:00 Room Air 03/14/17 00:05 Room Air 03/13/17 23:45 36.5 64 20 177/89 (118) 98 Room Air 03/13/17 20:05 Room Air 03/13/17 16:46 182/74 (110) 152/74 (100) 03/13/17 16:37 36.5 48 16 187/93 (124) 97 Room Air 169/87 (114) 03/13/17 16:00 Room Air Lab Results: Results Past 24 Hours Test 03/13/17 16:26 03/13/17 19:52 03/14/17 08:17 03/14/17 12:18 Range/Units Bedside Glucose 130 160 140 136 70-99 mg/dl
[2017-03-14 04:57] VITALS: BP 126/83; PULSE 99; TEMP 36.7; O2SAT 94
[2017-03-14 08:00] VITALS: O2SAT 99
[2017-03-14 08:19] VITALS: BP 170/87; PULSE 84; TEMP 36.5; O2SAT 96
[2017-03-14] MEDS: INSULIN ASPART 100 UNITS/ML 3 ML PEN SC SCH ×2 (08:19→13:35)
[2017-03-14] MEDS: ENALAPRIL MALEATE 10 MG TAB PO SCH (08:20)
[2017-03-14] MEDS: ASPIRIN 81 MG ECTAB PO SCH (08:20)
[2017-03-14] MEDS: TAMSULOSIN HCL 0.4 MG CAP PO SCH (08:21)
[2017-03-14] MEDS: PRAVASTATIN SOD 20 MG TAB PO SCH (08:21)
[2017-03-14 11:33] VITALS: BP 145/78; PULSE 62; TEMP 36.4; O2SAT 96
--- NOTE | 2017-03-14 12:01 | DIAGNOSTIC IMAGING REPORT ---
Brain MRI WITH AND WITHOUT CONTRAST HISTORY: slurred speech TECHNIQUE: Multiplanar multisequence MRI of the brain was performed both before and after the intravenous administration of contrast. COMPARISON STUDY: Head CT 03/12/2017. FINDINGS: There is no mass, hematoma, midline shift, or acute infarct. The paranasal sinuses are clear. The mastoid air cells are clear. The ventricles and sulci demonstrate mild age-related involutional changes. Scattered foci of T2 hyperintensity seen within the periventricular and subcortical white matter are nonspecific but suggestive of mild microvascular ischemic changes. The major vascular flow voids at the skull base are well-maintained. IMPRESSION: No acute intracranial abnormality. Scattered foci of T2 hyperintensity seen within the periventricular and subcortical white matter are nonspecific but favor microvascular ischemic change. Electronically signed by: Kareem Henderson M.D. 03/14/2017 11:59 AM Dictated Date/Time: 03/14/2017 11:54 AM
--- NOTE | 2017-03-14 13:34 | PROGRESS NOTE ---
DATE: 03/14/2017 SUBJECTIVE: I did not see Ramu today. He was down in the MRI and is actually undergoing the examination without sedation. I have looked at some of the preliminary images. There looks to be some atrophy and some low grade chronic small vessel disease in the subcortical white matter and periventricular white matter, but I do not see any evidence for an acute event on diffusion imaging. Radiology has larger PACKS imaging units; however, they may be able to see a subtle abnormality assumed to be in the right hemisphere, but at this point I do not. The issue is somewhat academic. 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 They feel he is probably going to be better off at home and their assessment this morning is that he is more confused and more cooperative than he was. All things being equal my suggestion would be to let him be discharged today on the aspirin and Plavix and let him equilibrate in his home environment rather than keep him here in the hospital and subject into potentially sedative hypnotic medications, which apparently generally affect him adversely. I will defer his course to the interniste who may be keeping him for other reasons, but at this point, from a neurologic point of view I think it would be best to discharge him to the home environment, and he can follow up with his primary care physician and Dr. 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 MOI
[2017-03-14] MEDS ORDERED: CLOP1TAB15 PO (13:49)
--- NOTE | 2017-03-14 13:51 | Discharge Instructions ---
Discharge Instructions Date of Service Mar 14, 2017. Admission Reason for Admission: Slurred Speech Discharge Discharge Diagnosis / Problem: TIA /STROKE LIKE SYMPTOM Discharge Goals Goal(s): Decrease discomfort, Improve disease control, Diagnostic testing, Therapeutic intervention Activity Recommendations Activity Limitations: as noted below ( TOLERATED ) . Instructions / Follow-Up Instructions / Follow-Up Risk Factors for Stroke: You can reduce your chances of stroke by working with your medical provider to adopt a healthy lifestyle. Some specific ways to lower your chance of stroke are: * If you are a smoker, now is the time to stop smoking cigarettes * If you are diabetic, improve the control of your blood sugars * Avoid excessive amounts of alcohol * Control high blood pressure * Lose weight if you are overweight * Be sure to lead an active lifestyle * Eat a healthy diet low in salt, cholesterol and fat You should know about other risk factors for stroke that you are unable to control. These include: * Age 55 years or older * Male gender * Certain racial groups: , or / * Family History of Stroke, Mini stroke or Heart Attack * Sickle Cell Disease Follow Up: It is important for you to keep your follow up appointments with your medical provider. HOSPITAL FOLLOW UP : 03/22/2017 11:20 AM Carlton Rowe DO General Internal Medicine [facility] 06/17/2017 10:40 AM Tran Howard PA-C Neurology [facility] Current Hospital Diet Patient's current hospital diet: AHA Diet (Heart Healthy), Diabetes Type 2 Diet Discharge Diet Recommended Diet: AHA Diet (Heart Healthy), Diabetes Type 2 Diet Pending Studies Studies pending at discharge: no Laboratory Results Hemoglobin A1c Test 03/13/17 01:22 Range/Units Estimated Average Glucose 154 mg/dl Hemoglobin A1c 7.0 H 4.5-5.6 % Lipid Panel Test 03/13/17 01:22 Range/Units Triglycerides Level 96 0-150 mg/dl Cholesterol Level 123 0-200 mg/dl HDL Cholesterol 50 mg/dl Cholesterol/HDL Ratio 2.5 LDL Cholesterol, Calculated 54 mg/dl Medical Emergencies . Who to Call and When: Medical Emergencies: Call 911 immediately if you experience any of the following warning signs and symptoms of Stroke: * Sudden numbness or weakness of the face, arm or leg, especially on one side of the body * Sudden confusion, trouble speaking or understanding * Sudden trouble seeing in one or both eyes * Sudden trouble walking, dizziness, loss of balance or coordination * Sudden severe headache with no cause Do not delay calling 911 if you experience any warning signs or symptoms of a stroke. Delay in seeking medical attention may affect what treatments can be given to you. . Non-Emergent Contact Non-Emergency issues call your: Primary Care Provider . . "Provider Documentation" section prepared by Georgiana Raza. . Stroke Core Measures Reason no t-PA for Stroke: Treatment not indicated Reason no antithrom by day 2: Treatment provided - N/A Reason no antithrom at D/C: Treatment provided - N/A Reason no statin at D/C: Treatment provided - N/A Reason no anticoag w/a fib: Treatment not indicated VTE Core Measure Inpt VTE Proph given/why not?: Unfractionated heparin SQ
[2017-03-14 14:44] VITALS: BP 145/78; PULSE 62; TEMP 36.4; O2SAT 96
--- NOTE | 2017-03-14 15:54 | Discharge Summary ---
Discharge Summary Date of Service Mar 14, 2017. Discharge Summary Admission Date: Mar 12, 2017 at 20:24 Discharge Date: Mar 14, 2017 Discharge Disposition: Home Principal Diagnosis: TIA /STROKE LIKE SYMPTOM Procedures: MRI OF BRAIN : IMPRESSION: No acute intracranial abnormality. Scattered foci of T2 hyperintensity seen within the periventricular and subcortical white matter are nonspecific but favor microvascular ischemic change. Head CT with out contrast : The paranasal sinuses and mastoid air cells are clear. The calvarium and skull base are intact. There is no mass, hematoma, midline shift, acute infarct. White matter hypodensity is nonspecific but suggestive of microvascular ischemic change. The ventricles and sulci demonstrate mild age-related involutional changes. Impression: No acute intracranial abnormality. Atrophy and microvascular ischemic changes Carotid Ultrasound No hemodynamically significant stenosis seen within the carotid arteries Lower extremity US No DVT within the right or left lower extremity Consultations: NEUROLOGY DR MATTER Medication Reconciliation New Medications: Clopidogrel (Plavix) 75 Mg Tab 75 MG PO DAILY for 30 Days, #30 TAB 3 Refills Continued Medications: Aspirin (Aspirin Ec) 81 Mg Tab 81 MG PO DAILY Atenolol (Tenormin) 25 Mg Tab 25 MG PO DAILY, TAB Famotidine (Pepcid) 20 Mg Tab 20 MG PO DAILY, TAB Loratadine (Claritin) 10 Mg Tab 10 MG PO DAILY, TAB Metformin Hcl (Glucophage) 500 Mg Tab 500 MG PO BID, TAB Multiple Vitamins W/ Minerals (Eye Vitamins) 1 Cap Cap 1 CAP PO DAILY Nitroglycerin (Nitrostat) 0.4 Mg Tab 0.4 MG UT PRN, BTL Oxybutynin Chloride (Ditropan) 5 Mg Tab 5 MG PO BID, TAB Polyethylene Glycol 3350 (Miralax) 1 Pow Pow 17 GM PO DAILY, GM Pravastatin (Pravachol ) 20 Mg Tab 20 MG PO DAILY, TAB Quinapril Hcl (Accupril) 20 Mg Tab 20 MG PO DAILY, TAB Repaglinide (Prandin) 1 Mg Tab 1 MG PO AC, TAB Tamsulosin Hcl (Flomax) 0.4 Mg Cap 0.4 MG PO DAILY, CAP Admission Information HPI (per Admitting provider): Slurred speech. Patient reports started around 5 PM on 03/12/17. Patient appears on exam to have facial droop of left face. Patient denies other symptoms of weakness or changes in sensation. stroke code called in ER, ED physician call stroke neurology on teleconference at [facility] who did not recommend TPA. Plavix 300 mg was given. Below is the CT head report: Head CT The paranasal sinuses and mastoid air cells are clear. The calvarium and skull base are intact. There is no mass, hematoma, midline shift, acute infarct. White matter hypodensity is nonspecific but suggestive of microvascular ischemic change. The ventricles and sulci demonstrate mild age-related involutional changes. Impression: No acute intracranial abnormality. Atrophy and microvascular ischemic changes Stroke neurology organizational consultant recommended MRI/MRA brain in the morning of 03/13/17 Physical Exam (per Admitting): General Appearance: no apparent distress Head: normocephalic, atraumatic Eyes: normal inspection, EOMI, sclerae normal ENT: hearing grossly normal, pharynx normal, + pertinent finding (minimally slurred speech, left facial droop) Neck: supple, no adenopathy, no JVD, no carotid bruits, trachea midline Respiratory/Chest: chest non-tender, lungs clear, normal breath sounds, no respiratory distress, no accessory muscle use Cardiovascular: regular rate, rhythm, no edema, no JVD, normal peripheral pulses Abdomen/GI: normal bowel sounds, non tender, soft, no organomegaly, no pulsatile mass Back: normal inspection, no muscle spasm Extremities/Musculoskelatal: normal inspection, no calf tenderness, normal capillary refill, no pedal edema, normal range of motion, non-tender Neurologic/Psych: no motor/sensory deficits, alert, normal mood/affect, oriented x 3, + facial droop (left face), + pertinent finding (slurred speech) Skin: normal color, warm/dry, no rash Hospital Course POSSIBLE TIA : presented with episode of slurred speech and left facial droop symptom resolved after 15 mins stroke code called in ER, ED physician call stroke neurology on teleconference at [facility] who did not recommend TPA. Plavix 300 mg was [address]. Head CT with out contrast : The paranasal sinuses and mastoid air cells are clear. The calvarium and skull base are intact. There is no mass, hematoma, midline shift, acute infarct. White matter hypodensity is nonspecific but suggestive of microvascular ischemic change. The ventricles and sulci demonstrate mild age-related involutional changes. Impression: No acute intracranial abnormality. Atrophy and microvascular ischemic changes Carotid Ultrasound No hemodynamically significant stenosis seen within the carotid arteries Lower extremity US No DVT within the right or left lower extremity MRI OF BRAIN : IMPRESSION: No acute intracranial abnormality. Scattered foci of T2 hyperintensity seen within the periventricular and subcortical white matter are nonspecific but favor microvascular ischemic change. Neurology consulted , appreciate input added Plavix to regimen pt will cont Aspirin , Plavix , statin PT/OT eval appreciated stable to return home with home health Speech and Swallow eval appreciate -AHA diet CONFUSION /DELIRIUM : possible due to change environment /sun downing effect was agitated last night pulled out IV site very pleasant and Co operative today pt will be discharge home with family support ( lives with -very supportive and primary dialysis patient care technician ) HTN: BP stable cont ACEI and atenolol DM: resume metformin on discharge sliding scale insulin with fingerstick glucose, HbA1c DVT ppx: SCD Code Status: DNR/DNI Family [phone], [phone] DISPOSITION stable to be discharge home today medicine follow up with Dr Rowe Neurology follow up with Dr Lakhani Total time spent on discharge = 40 MINS This includes examination of the patient, discharge planning, medication reconciliation, and communication with other providers. Discharge Instructions Discharge Instructions Date of Service Mar 14, 2017. Admission Reason for Admission: Slurred Speech Discharge Discharge Diagnosis / Problem: TIA /STROKE LIKE SYMPTOM Discharge Goals Goal(s): Decrease discomfort, Improve disease control, Diagnostic testing, Therapeutic intervention Activity Recommendations Activity Limitations: as noted below ( TOLERATED ) . Instructions / Follow-Up Instructions / Follow-Up Risk Factors for Stroke: You can reduce your chances of stroke by working with your medical provider to adopt a healthy lifestyle. Some specific ways to lower your chance of stroke are: * If you are a smoker, now is the time to stop smoking cigarettes * If you are diabetic, improve the control of your blood sugars * Avoid excessive amounts of alcohol * Control high blood pressure * Lose weight if you are overweight * Be sure to lead an active lifestyle * Eat a healthy diet low in salt, cholesterol and fat You should know about other risk factors for stroke that you are unable to control. These include: * Age 55 years or older * Male gender * Certain racial groups: , or / * Family History of Stroke, Mini stroke or Heart Attack * Sickle Cell Disease Follow Up: It is important for you to keep your follow up appointments with your medical provider. HOSPITAL FOLLOW UP : 03/22/2017 11:20 AM Carlton Rowe DO General Internal Medicine [facility] 06/17/2017 10:40 AM Tran Howard PA-C Neurology [facility] Current Hospital Diet Patient's current hospital diet: AHA Diet (Heart Healthy), Diabetes Type 2 Diet Discharge Diet Recommended Diet: AHA Diet (Heart Healthy), Diabetes Type 2 Diet Pending Studies Studies pending at discharge: no Laboratory Results Hemoglobin A1c Test 03/13/17 01:22 Range/Units Estimated Average Glucose 154 mg/dl Hemoglobin A1c 7.0 H 4.5-5.6 % Lipid Panel Test 03/13/17 01:22 Range/Units Triglycerides Level 96 0-150 mg/dl Cholesterol Level 123 0-200 mg/dl HDL Cholesterol 50 mg/dl Cholesterol/HDL Ratio 2.5 LDL Cholesterol, Calculated 54 mg/dl Medical Emergencies . Who to Call and When: Medical Emergencies: Call 911 immediately if you experience any of the following warning signs and symptoms of Stroke: * Sudden numbness or weakness of the face, arm or leg, especially on one side of the body * Sudden confusion, trouble speaking or understanding * Sudden trouble seeing in one or both eyes * Sudden trouble walking, dizziness, loss of balance or coordination * Sudden severe headache with no cause Do not delay calling 911 if you experience any warning signs or symptoms of a stroke. Delay in seeking medical attention may affect what treatments can be given to you. . Non-Emergent Contact Non-Emergency issues call your: Primary Care Provider . . "Provider Documentation" section prepared by Georgiana Raza. . Stroke Core Measures Reason no t-PA for Stroke: Treatment not indicated Reason no antithrom by day 2: Treatment provided - N/A Reason no antithrom at D/C: Treatment provided - N/A Reason no statin at D/C: Treatment provided - N/A Reason no anticoag w/a fib: Treatment not indicated VTE Core Measure Inpt VTE Proph given/why not?: Unfractionated heparin SQ
== END 2017-03-14 15:09 | disposition home or self-care (01) | DRG 69 ==
LOC: C.EDB 18:07 → C.MED 20:24 → ENRESERV 20:30
PROVIDERS: ADMIT Hospitalist; ATTEND Hospitalist
DX: G45.9 Transient cerebral ischemic attack, unspecified (principal); Z79.82 Long term (current) use of aspirin; I10 Essential (primary) hypertension; E11.9 Type 2 diabetes mellitus without complications; R41.0 Disorientation, unspecified

== ENCOUNTER → 2017-06-09 | Outpatient (CLI) | payer OTHER ==
[~2017-06-09] MED LIST changes: +ACC/20 PO; -ACC10 PO; -ASPCH81 PO; +ASPI81TA28 PO; +CLOP1TAB15 PO; +DTR/5 PO; -DTR5 PO; +GLC/500 PO; -GLC500 PO; -IBUP-1277 PO; +MULTCAP7 PO; -NTRSLP4 SL; +POLY335019 PO; -POLY335040 PO; -REPA0.5T PO; +REPA1TAB40 PO; +TAMS0.4C38 PO; -alpha-lipoic acid PO; -eye vitamin PO; -metamucil PO
== END | disposition home or self-care (01) ==
LOC: C.PATHSPEC 16:32
PROVIDERS: ATTEND Physician Assistant
DX: L82.1 Other seborrheic keratosis (principal)

== ENCOUNTER 2019-04-30 13:27 | Inpatient (IN) ==
--- OUTSIDE RECORDS SUMMARY | 2019-04-30 13:31 | External Medical Summary | Continuity of Care Document ---
:1935 Author Name Shirley Barton, Provider Address Unavailable Unavailable , Care Team Providers Name Role Phone Unavailable Unavailable Unavailable [email or web address] Barby ANNE, Lynn Unavailable [email or web address] THERESA GUTHRIE Unavailable Unavailable Unavailable Unavailable Unavailable Problems Verruca (078.19) (B07.8) Actinic keratosis (702.0) (L57.0) Squamous cell carcinoma Basal cell carcinoma of skin of trunk (173.51) (C44.519) History of basal cell carcinoma (V10.83) (Z85.828) Psoriasis (696.1) (L40.9) Neoplasm of uncertain behavior of skin (238.2) (D48.5) History of SCC (squamous cell carcinoma) of skin (V10.83) (Z 85.828) History of basal cell carcinoma (V10.83) (Z85.828) Allergies and Adverse Reactions No Known Drug Allergies (Allergy) Medications Clobetasol Propionate 0.05 % External Oi ntment; APPLY AND GENTLY MASSAGE INTO AFFECTED AREA(S) TWICE DAILY. Oralia Ga Start: 13-Jan-2017 Quantity: 1 60 GM Tube Refills: 3 Clopidogrel Bisulfate 75 MG Oral Tablet , M.DPetr Refills: 0 Fluorouracil 5 % External Cream; Apply t o left forearm, back of left hand, and nose once daily at bedtime for 3 weeks OMID Dior Start: 09-Jun-2017 Quantity: 1 40 GM Tube Refills: 0 Fluocinonide 0.05 % External Ointment; A PPLY SPARINGLY TO AFFECTED AREA(S) ONCE DAILY Oralia Ga 60 GM Tube Quantity: 1 Refills: 2 Accupril 20 MG Oral Tablet , M.DPetr Refills: 0 FreeStyle Test Oralia WHEELER Refills: 0 MiraLax POWD , M.D. Refills: 0 Advil 200 MG Oral Tablet , M.D. Refills: 0 Nitrostat 0.4 MG Sublingual Tablet Sublingual , M.D. Refills: 0 Metamucil POWD , M.D. Refills: 0 Eye Vitamins CAPS , M.D. Refills: 0 Claritin 10 MG Oral Tablet , M.D. Refills: 0 Clopidogrel Bisulfate 75 MG Oral Tablet , M.D. Refills: 0 metFORMIN HCl - 500 MG Oral Tablet; TAKE 1 TABLET TWICE RONI Y. , M.D. Refills: 0 Famotidine 20 MG Oral Tablet; TAKE 1 TABLET DAILY DIRECTE D. , M.D. Refills: 0 Prandin 1 MG TABS; TAKE 1 TABLET 3 TIMES DAILY, 15-30 MINUTES BEFORE MEALS. , M.D. Refills: 0 Pravastatin Sodium 20 MG Oral Tablet; TAKE 1 TABLET DAILY DIRECTED. , M.D. Refills: 0 Tenormin 25 MG Oral Tablet; TAKE 1 TABLET DAILY. , M.D. Refills: 0 Oxybutynin Chloride 5 MG Oral Tablet , M.D. Refills: 0 Accupril 20 MG Oral Tablet , M.D. Refills: 0 Flomax 0.4 MG Oral Capsule , M.D. Refills: 0 Procedures Procedures not documented Immunizations Immunizations not documented Social History - Smoking Status Ex-smoker Plan of Treatment Planned Observations Planned Goals not documented Results No Known Results Results not documented Encounters Appointment; Lynn Dior PA-C 10-Aug-2017 9:00 Encounter Diagnosis: Problem not documented Appointment; Lynn Dior PA-C 09-Jun-2017 11:30 Encounter Diagnosis: Problem not documented
[2019-04-30] MEDS ORDERED: SODIUM CHLORIDE 0.9% 1000ML 500 ML IV ONE (13:34)
--- NOTE | 2019-04-30 13:44 | Emergency Department Note ---
Entered by Lakesha Monreal acting as a scribe for Gadiel Acuña DO History of Present Illness General Chief complaint: Weakness Stated complaint: tia Time Seen by Provider: 04/30/19 13:29 Source: patient and EMS History of Present Illness Onset (ago): hour(s) (5.5) Location: head Severity: similar to prior episodes Pain Consistency: + other (persistent ) Quality: + other (stroke-like symptoms ) Associated symptoms: + weakness and + other (positive now resolved unable to stand; positive unable to talk; positive facial droop; negative abdominal pain; positive increased urination ); no chest pain and no shortness of breath The patient is a 83 year old male who presents to the Emergency Room with complaints of persistent stroke-like symptoms that began 5.5 hours prior to arrival, per EMS. EMS states that the patient became weak today and was unable to stand or talk. EMS states that the paitent's symptoms began to improve and he was able to stand for EMS upon their arrival. EMS reports facial droop at this time. Per EMS, the patient has a history of TIAs, and states that these symptoms are similar to prior episodes for the patient. EMS states that the patient's sy mptoms usually resolve by this time, and state that today the patient's symptoms are not resolving. The patient denies chest pain, shortness of breath, and abdominal pain. He reports that he has been urinating more than usual. Home Medications Home Medications Medication Instructions Recorded Confirmed Type atenolol 25 mg PO DAILY 04/30/19 04/30/19 History clopidogrel 75 mg PO DAILY 04/30/19 04/30/19 History fluocinonide 1 applic TOPICAL BID 04/30/19 04/30/19 History ibuprofen [Advil] 200 mg PO HS PRN 04/30/19 04/30/19 History loratadine [Claritin] 10 mg PO DAILY PRN 04/30/19 04/30/19 History metformin 500 mg PO BID 04/30/19 04/30/19 History multivitamin with minerals 2 tab PO DAILY 04/30/19 04/30/19 History nitroglycerin [Nitrostat] 0.4 mg SUBLINGUAL DIRECTED PRN 04/30/19 04/30/19 History omeprazole 20 mg PO DAILYBB 04/30/19 04/30/19 History oxybutynin chloride 5 mg PO BID 04/30/19 04/30/19 History polyethylene glycol 3350 225 g PO DAILY PRN 04/30/19 04/30/19 History pravastatin 20 mg PO DAILY 04/30/19 04/30/19 History quinapril 20 mg PO DAILY 04/30/19 04/30/19 History repaglinide 1 mg PO AC 04/30/19 04/30/19 History tamsulosin 0.4 mg PO DAILY 04/30/19 04/30/19 History Allergies Allergy/AdvReac Type Severity Reaction Status Date / Time No Known Allergies Allergy Verified 04/30/19 15:04 Past Med/Surg History Medical History A-fib (Chronic) GERD (gastroesophageal reflux disease) (Chronic) HTN (hypertension) (Chronic) Macular degeneration (Chronic) Slurred speech Family History Other No pertinent family history in first degree relatives Social History Preferred Language: Surinamese Communication Ability: Effective Paperhanger Assistant Required: No Beliefs That Will Affect Care: None marital status: Current Living Situation: Spouse Other Information That Helps Us Care for You: No Feels Safe at Home: Yes Safety Concerns: Feels Safe At This Time Smoking Status: Former smoker Hx Alcohol Use: No Hx Substance Use: No Review of Systems See HPI for pertinent positives & negatives. and A total of 10 systems reviewed and were otherwise negative Physical Exam Vital Signs Vital Signs - 24 hr 04/30/19 13:34 04/30/19 13:37 04/30/19 13:40 Temperature 36.7 C Temperature Source Oral Pulse Rate 100 H 111 H 108 H Pulse Rate [Apical] 91 H Pulse Rate from SpO2 Sensor 114 H 110 H Pulse Rhythm Irregular Pulse Rhythm [Apical] Regular Pulse Strength Normal Pulse Strength [Apical] Normal Respiratory Rate 20 20 25 H Respiratory Effort / Characteristics Non-Labored Respiratory Depth Normal Blood Pressure 111/66 111/66 Blood Pressure [Left Arm] 111/66 Blood Pressure Mean 81 72 Blood Pressure Mean [Left Arm] 81 Blood Pressure Position Lying Blood Pressure Position [Left Arm] Lying Pulse Oximetry 95 96 96 Oxygen Delivery Method Room Air Sepsis Action Taken by Nursing No Action Required 04/30/19 13:41 04/30/19 13:50 04/30/19 14:00 Temperature Temperature Source Pulse Rate 95 H 100 H 97 H Pulse Rate [Apical] Pulse Rate from SpO2 Sensor 102 H Pulse Rhythm Pulse Rhythm [Apical] Pulse Strength Pulse Strength [Apical] Respiratory Rate 19 20 21 Respiratory Effort / Characteristics Respiratory Depth Blood Pressure 107/76 Blood Pressure [Left Arm] Blood Pressure Mean 92 Blood Pressure Mean [Left Arm] Blood Pressure Position Blood Pressure Position [Left Arm] Pulse Oximetry 96 Oxygen Delivery Method Sepsis Action Taken by Nursing 04/30/19 14:01 04/30/19 14:10 04/30/19 14:20 Temperature Temperature Source Pulse Rate 97 H 94 H 96 H Pulse Rate [Apical] Pulse Rate from SpO2 Sensor 98 H 102 H 99 H Pulse Rhythm Pulse Rhythm [Apical] Pulse Strength Pulse Strength [Apical] Respiratory Rate 21 19 18 Respiratory Effort / Characteristics Respiratory Depth Blood Pressure Blood Pressure [Left Arm] Blood Pressure Mean Blood Pressure Mean [Left Arm] Blood Pressure Position Blood Pressure Position [Left Arm] Pulse Oximetry 98 96 96 Oxygen Delivery Method Sepsis Action Taken by Nursing 04/30/19 14:30 04/30/19 14:31 Temperature Temperature Source Pulse Rate 100 H 96 H Pulse Rate [Apical] Pulse Rate from SpO2 Sensor 91 H 95 H Pulse Rhythm Pulse Rhythm [Apical] Pulse Strength Pulse Strength [Apical] Respiratory Rate 19 16 Respiratory Effort / Characteristics Respiratory Depth Blood Pressure 74/53 L Blood Pressure [Left Arm] Blood Pressure Mean 60 Blood Pressure Mean [Left Arm] Blood Pressure Position Blood Pressure Position [Left Arm] Pulse Oximetry 96 97 Oxygen Delivery Method Sepsis Action Taken by Nursing GENERAL: The patient is listless and slow to respond to questions. He responds appropriately but slowly. He does not appear to be uncomfortable. EYES: The conjunctivae are clear. The pupils are round and reactive. EARS, NOSE, MOUTH AND THROAT: The nose is without any evidence of any deformity. Mucous membranes are dry. NECK: The neck is nontender and supple. RESPIRATORY: Diminished breath sounds are noted at both bases. There is no tachypnea or conversational dyspnea. CARDIOVASCULAR: Regular rate and rhythm noted there no murmurs rubs or gallops normal S1 normal S2. GASTROINTESTINAL: The abdomen is soft. Abdomen is nontender. MUSCULOSKELETAL/EXTREMITIES: There is no evidence of gross deformity full range of motion is noted in the hips and shoulders. SKIN: Skin is cool and dry. There is pedal edema bilaterally. NEUROLOGIC: Patient is oriented to person place and situation. Strength is diminished but symmetric. There is no drift. Utility Assembler strength is symmetric. Course Course 1330: Past medical records reviewed. The patient was evaluated in room C10. A complete history and physical exam was performed. 1552: Upon reevaluation, the patient's blood pressure is improving. 1646: [facility] evaluation. Administered Medications Atenolol (Tenormin) 25 mg PO DAILY JAMES Stop: 05/31/19 08:59 Last Admin: 05/01/19 07:43 Dose: 25 mg Documented by: [id number] Clopidogrel Bisulfate (Plavix) 75 mg PO DAILY JAMES Stop: 05/31/19 08:59 Last Admin: 05/01/19 07:42 Dose: 75 mg Documented by: [id number] Fluocinonide (Lidex 0.5%) 1 appln EXT BID JAMES Stop: 05/30/19 20:59 Last Admin: 05/01/19 07:43 Dose: 1 appln Documented by: [id number] Admin: 04/30/19 23:11 Dose: 1 appln Documented by: [id number] Heparin Sodium (Porcine) (Heparin Sodium (Porcine)) 5,000 units SQ Q8 JAMES Stop: 05/31/19 05:59 Last Admin: 05/01/19 14:13 Dose: 5,000 units Documented by: [id number] Cosigned by: [id number] Admin: 05/01/19 05:53 Dose: 5,000 units Documented by: [id number] Cosigned by: [id number] Sodium Chloride (Nss 1000ml) 1,000 mls @ 80 mls/hr IV .[id number] JAMES Stop: 05/30/19 19:14 Last Admin: 05/01/19 19:42 Dose: 80 mls/hr Documented by: [id number] Infusion: 05/01/19 19:42 Dose: 80 mls/hr Documented by: [id number] Admin: 05/01/19 07:42 Dose: 80 mls/hr Documented by: [id number] Infusion: 05/01/19 07:42 Dose: 80 mls/hr Documented by: [id number] Infusion: 05/01/19 06:06 Dose: 80 mls/hr Documented by: [id number] Admin: 04/30/19 19:19 Dose: 80 mls/hr Documented by: [id number] Doxycycline Hyclate 100 mg/ (Dextrose) 110 mls @ 50 mls/hr IV Q12H JAMES Stop: 05/02/19 18:59 Last Admin: 05/01/19 18:01 Dose: 50 mls/hr Documented by: [id number] Infusion: 05/01/19 10:09 Dose: 0 mls/hr Documented by: [id number] Admin: 05/01/19 07:42 Dose: 50 mls/hr Documented by: [id number] Infusion: 04/30/19 23:40 Dose: 0 mls/hr Documented by: [id number] Admin: 04/30/19 19:19 Dose: 50 mls/hr Documented by: [id number] Piperacillin Sod/Tazobactam (Sod 3.375 gm/ Dextrose) 115 mls @ 28.75 mls/hr IV Q8H JAMES; Protocol Stop: 05/02/19 20:59 Last Infusion: 05/01/19 18:00 Dose: 0 mls/hr Documented by: [id number] Admin: 05/01/19 14:13 Dose: 29 mls/hr Documented by: [id number] Infusion: 05/01/19 10:09 Dose: 0 mls/hr Documented by: [id number] Admin: 05/01/19 05:52 Dose: 28.8 mls/hr Documented by: [id number] Infusion: 05/01/19 04:14 Dose: 0 mls/hr Documented by: [id number] Admin: 04/30/19 23:11 Dose: 28.8 mls/hr Documented by: [id number] Insulin Aspart (Novolog Flexpen) 0 units SC ACHS JAMES Stop: 05/30/19 22:34 Last Admin: 05/01/19 17:47 Dose: Not Given Documented by: [id number] Cosigned by: [id number] Admin: 05/01/19 12:37 Dose: Not Given Documented by: [id number] Cosigned by: [id number] Admin: 05/01/19 08:54 Dose: 2 units Documented by: [id number] Cosigned by: [id number] Admin: 04/30/19 23:10 Dose: 5 units Documented by: [id number] Cosigned by: [id number] Multivitamins/Minerals (Multivitamin W/ Minerals Tab) 1 tab PO DAILY JAMES Stop: 05/31/19 08:59 Last Admin: 05/01/19 07:43 Dose: 1 tab Documented by: [id number] Oxybutynin Chloride (Ditropan) 5 mg PO BID JAMES Stop: 05/31/19 08:59 Last Admin: 05/01/19 07:43 Dose: 5 mg Documented by: [id number] Pantoprazole Sodium (Protonix) 40 mg PO DAILYBB JAMES Stop: 05/31/19 06:29 Last Admin: 05/01/19 05:53 Dose: 40 mg Documented by: [id number] Tamsulosin HCl (Flomax) 0.4 mg PO DAILY JAMES Stop: 05/31/19 08:59 Last Admin: 05/01/19 07:43 Dose: 0.4 mg Documented by: [id number] Discontinued Medications Sodium Chloride (Nss 1000ml) 500 mls @ 999 mls/hr IV .Q31M ONE Stop: 04/30/19 14:04 Last Infusion: 04/30/19 20:11 Dose: 0 mls/hr Documented by: [id number] Admin: 04/30/19 14:15 Dose: 999 mls/hr Documented by: [id number] Sodium Chloride (Nss 1000ml) 1,000 mls @ 999 mls/hr IV .Q1H1M ONE Stop: 04/30/19 15:59 Last Infusion: 04/30/19 20:11 Dose: 0 mls/hr Documented by: [id number] Admin: 04/30/19 16:10 Dose: 999 mls/hr Documented by: [id number] Piperacillin Sod/Tazobactam Sod (Zosyn) 4.5 gm in 120 mls @ 240 mls/hr IV NOW ONE Stop: 04/30/19 15:28 Last Infusion: 04/30/19 20:11 Dose: 0 mls/hr Documented by: [id number] Admin: 04/30/19 15:33 Dose: 240 mls/hr Documented by: [id number] Magnesium Sulfate/Dextrose (Magnesium Sulfate / D5w) 1 gm in 100 mls @ 100 mls/hr IV Q1H JAMES Stop: 04/30/19 17:44 Last Infusion: 04/30/19 20:11 Dose: 0 mls/hr Documented by: [id number] Admin: 04/30/19 17:11 Dose: 100 mls/hr Documented by: [id number] Infusion: 04/30/19 17:10 Dose: 100 mls/hr Documented by: [id number] Admin: 04/30/19 16:10 Dose: 100 mls/hr Documented by: [id number] Sodium Chloride (Nss 1000ml) 1,000 mls @ 999 mls/hr IV .Q1H1M ONE Stop: 04/30/19 17:05 Last Infusion: 04/30/19 20:11 Dose: 0 mls/hr Documented by: [id number] Admin: 04/30/19 17:13 Dose: 999 mls/hr Documented by: [id number] Insulin Glargine (Lantus Solostar Pen) 5 units SC NOW STA Stop: 04/30/19 22:34 Last Admin: 04/30/19 23:10 Dose: 5 units Documented by: [id number] Cosigned by: [id number] Critical Care Time Critical Care Time: Yes Total Critical Care Time: 62 I have personally spent 62 minutes of critical care time in the direct management of this patient. This includes bedside care, interpretation of diagnostic studies, and testing, discussion with consultants, patient, and fami ly members, and other required patient management activities. This 62 minutes is in excess of all separately billable procedures. Medical Decision Making Differential Diagnosis Differential Diagnosis includes but is not limited to ischemic Stroke, hemorrhagic stroke, bells palsy, mass, neoplasm, migraine headache, seizure, subarachnoid hemorrhage, TIA, and transient global amnesia. Medical Records Attestation: I reviewed the patient's medical records. Home Medications Current Medication List: was personally reviewed by me Laboratory Data Attestation: I reviewed the patient's lab results. Result diagrams: 05/01/19 07:21 05/01/19 07:21 Lab Results 04/30/19 04/30/19 04/30/19 Range/Units 13:50 13:55 13:55 WBC 20.39 H (4.8-10.8) K/uL RBC 4.57 L (4.7-6.1) M/uL Hgb 14.5 (14.0-18.0) g/dL Hct 42.4 (42-52) % MCV 92.8 (80-100) fL MCH 31.7 (25-34) pg MCHC 34.2 (32-36) g/dL RDW Std Deviation 47.4 H (36.4-46.3) fL RDW Coeff of Adiel 14.1 (11.5-14.5) % Plt Count 160 (130-400) K/uL MPV 10.3 (7.4-10.4) fL Immature Gran % (Auto) 4.9 % Neut % (Auto) 88.3 % Lymph % (Auto) 1.5 % [place] % (Auto) 5.2 % Eos % (Auto) 0.0 % Baso % (Auto) 0.1 % Immature Gran # (Auto) 0.99 H (0.00-0.02) K/uL Neut # (Auto) 18.01 H (1.4-6.5) K/uL Lymph # (Auto) 0.31 L (1.2-3.4) K/uL [place] # (Auto) 1.06 H (0.11-0.59) K/uL Eos # (Auto) 0.00 (0-0.5) K/uL Baso # (Auto) 0.02 (0-0.2) K/uL PT 11.2 (9.0-12.0) Seconds INR 1.1 (0.9-1.1) APTT 24.2 (21.0-31.0) Seconds PTT Ratio 0.9 Sodium (136-145) mmol/L Potassium (3.5-5.1) mmol/L Chloride (98-107) mmol/L Carbon Dioxide (21-32) mmol/L Anion Gap (3-11) BUN (7-18) mg/dl Creatinine (0.6-1.4) mg/dl Est Cr Clr Drug Dosing ml/min Est GFR ( Amer) Est GFR (Non-Af Amer) BUN/Creatinine Ratio (10-20) Glucose (70-99) mg/dl Lactate (0.4-2.0) mmol/L Calcium (8.5-10.1) mg/dl Magnesium (1.8-2.4) mg/dl Total Bilirubin (0.2-1) mg/dl Direct Bilirubin (0-0.2) mg/dl AST (15-37) U/L ALT (12-78) U/L Alkaline Phosphatase (45-117) U/L Troponin I (0-0.045) ng/ml Total Protein (6.4-8.2) gm/dl Albumin (3.4-5.0) gm/dl Globulin (2.5-4.0) gm/dl Albumin/Globulin Ratio (0.9-2) Procalcitonin (0-0.5) ng/ml Influenza Type A (PCR) Neg for Influ A (Neg) Influenza Type B (PCR) Neg for Influ B (Neg) 04/30/19 04/30/19 04/30/19 Range/Units 13:55 14:49 14:49 WBC (4.8-10.8) K/uL RBC (4.7-6.1) M/uL Hgb (14.0-18.0) g/dL Hct (42-52) % MCV (80-100) fL MCH (25-34) pg MCHC (32-36) g/dL RDW Std Deviation (36.4-46.3) fL RDW Coeff of Adiel (11.5-14.5) % Plt Count (130-400) K/uL MPV (7.4-10.4) fL Immature Gran % (Auto) % Neut % (Auto) % Lymph % (Auto) % [place] % (Auto) % Eos % (Auto) % Baso % (Auto) % Immature Gran # (Auto) (0.00-0.02) K/uL Neut # (Auto) (1.4-6.5) K/uL Lymph # (Auto) (1.2-3.4) K/uL [place] # (Auto) (0.11-0.59) K/uL Eos # (Auto) (0-0.5) K/uL Baso # (Auto) (0-0.2) K/uL PT (9.0-12.0) Seconds INR (0.9-1.1) APTT (21.0-31.0) Seconds PTT Ratio Sodium 133 L (136-145) mmol/L Potassium (3.5-5.1) mmol/L Chloride 100 (98-107) mmol/L Carbon Dioxide 20 L (21-32) mmol/L Anion Gap 13.0 H (3-11) BUN 18 (7-18) mg/dl Creatinine 1.79 H (0.6-1.4) mg/dl Est Cr Clr Drug Dosing 32.2 ml/min Est GFR ( Amer) 39.2 Est GFR (Non-Af Amer) 33.8 BUN/Creatinine Ratio 9.9 L (10-20) Glucose 227 H (70-99) mg/dl Lactate 4.8 H* (0.4-2.0) mmol/L Calcium 8.4 L (8.5-10.1) mg/dl Magnesium (1.8-2.4) mg/dl Total Bilirubin 7.1 H (0.2-1) mg/dl Direct Bilirubin (0-0.2) mg/dl AST (15-37) U/L ALT 273 H (12-78) U/L Alkaline Phosphatase 414 H (45-117) U/L Troponin I 0.018 (0-0.045) ng/ml Total Protein 5.8 L (6.4-8.2) gm/dl Albumin 2.7 L (3.4-5.0) gm/dl Globulin 3.1 (2.5-4.0) gm/dl Albumin/Globulin Ratio 0.9 (0.9-2) Procalcitonin 40.47 H (0-0.5) ng/ml Influenza Type A (PCR) (Neg) Influenza Type B (PCR) (Neg) 04/30/19 04/30/19 04/30/19 Range/Units 14:49 16:33 16:33 WBC (4.8-10.8) K/uL RBC (4.7-6.1) M/uL Hgb (14.0-18.0) g/dL Hct (42-52) % MCV (80-100) fL MCH (25-34) pg MCHC (32-36) g/dL RDW Std Deviation (36.4-46.3) fL RDW Coeff of Adiel (11.5-14.5) % Plt Count (130-400) K/uL MPV (7.4-10.4) fL Immature Gran % (Auto) % Neut % (Auto) % Lymph % (Auto) % [place] % (Auto) % Eos % (Auto) % Baso % (Auto) % Immature Gran # (Auto) (0.00-0.02) K/uL Neut # (Auto) (1.4-6.5) K/uL Lymph # (Auto) (1.2-3.4) K/uL [place] # (Auto) (0.11-0.59) K/uL Eos # (Auto) (0-0.5) K/uL Baso # (Auto) (0-0.2) K/uL PT (9.0-12.0) Seconds INR (0.9-1.1) APTT (21.0-31.0) Seconds PTT Ratio Sodium (136-145) mmol/L Potassium 4.3 (3.5-5.1) mmol/L Chloride (98-107) mmol/L Carbon Dioxide (21-32) mmol/L Anion Gap (3-11) BUN (7-18) mg/dl Creatinine (0.6-1.4) mg/dl Est Cr Clr Drug Dosing ml/min Est GFR ( Amer) Est GFR (Non-Af Amer) BUN/Creatinine Ratio (10-20) Glucose (70-99) mg/dl Lactate 4.8 H* (0.4-2.0) mmol/L Calcium (8.5-10.1) mg/dl Magnesium 1.4 L (1.8-2.4) mg/dl Total Bilirubin (0.2-1) mg/dl Direct Bilirubin 6.4 H (0-0.2) mg/dl AST 177 H (15-37) U/L ALT (12-78) U/L Alkaline Phosphatase (45-117) U/L Troponin I (0-0.045) ng/ml Total Protein (6.4-8.2) gm/dl Albumin (3.4-5.0) gm/dl Globulin (2.5-4.0) gm/dl Albumin/Globulin Ratio (0.9-2) Procalcitonin (0-0.5) ng/ml Influenza Type A (PCR) (Neg) Influenza Type B (PCR) (Neg) Imaging Data Radiologist's Impression: Radiology results as stated below per my review and the radiologist's interpretation: XR chest 1V portable HISTORY: 83 years-old Male SEPSIS acute sepsis COMPARISON: Chest radiograph 03/12/2018 TECHNIQUE: Portable AP view of the chest FINDINGS: Cardiac silhouette is mildly enlarged. No pneumothorax, pleural effusion, focal airspace consolidation or overt pulmonary edema. Minimal left lung base atelecta sis. Degenerative changes of the shoulders and spine. IMPRESSION: No acute process. ACT 112: Negative or not required by law. The above report was generated using voice recognition software. It may contain grammatical, syntax or spelling errors. Electronically signed by: Garrett Perez M.D. 04/30/2019 2:[address] CT DOSE: 537.48 mGy.cm HISTORY: weakness TECHNIQUE: Multiaxial CT images of the head were performed without the use of intravenous contrast. Automated exposure control was utilized for this study. A dose lowering technique was utilized adhering to the principles of ALARA. Comparison: Head CT 03/12/2017. Findings: The paranasal sinuses and mastoid air cells are clear. The calvarium and skull base are intact. There is no mass, hematoma, midline shift, acute infarct. White matter hypodensity is nonspecific but suggestive of microvascular ischemic change. The ventricles and sulci demonstrate mild age-related inv olutional changes. Impression: No acute intracranial abnormality. Atrophy and microvascular ischemic changes. ACT 112: Negative or not required by law. Electronically signed by: Kareem Henderson M.D. 04/30/2019 3:40 PM [address] AND PELVIS CT WITHOUT CONTRAST CT DOSE: 462.56 mGy.cm HISTORY: Urinary tract infection. TECHNIQUE: Multiaxial CT images of the abdomen and pelvis were performed without contrast. A dose lowering technique was utilized adhering to the principles of ALARA. COMPARISON STUDY: Abdomen and pelvis CT 10/19/2011. FINDINGS: The heart is mildly enlarged. Bibasilar subsegmental atelectasis. No pneumoperitoneum. No pneumatosis. Hepatic steatosis. The unenhanced gallbladder, spleen, adrenal glands, and pancreas are unremarkable. A 7.9 cm right lower pole hypodense lesion. This has significantly increased in size. This is technically indeterminate on this noncontrast study but favors a cyst. No renal or ureteral stones. No hydronephrosis. There is mild bilateral perinephric edema, unchanged. This is likely chronic. Mild bladder wall thickening. A 5.7 cm fat-containing lesion within the right gluteus medius muscle. This likely represents a lipoma. This remains unchanged. The prostate gland is mildly enlarged. Suboptimal evaluation for bowel pathology due to the lack of intravenous and oral contrast. However, there is no definite bowel wall thickening or obstruction. Normal appendix. Extensive colonic diverticulosis. No evidence for diverticulitis. No retroperitoneal lymphadenopathy. IMPRESSION: 1. Mild bladder wall thickening. This may be due to underdistention or a cystitis. Recommend correlation with urinalysis. 2. Chronic bilateral perinephric edema, unchanged. 3. No renal or ureteral stones. No hydronephrosis. 4. Interval increase in size in the 7.9 cm right lower pole hypodense lesion. This is incompletely characterized on this noncontrast study but favors a cyst. 5. No definite bowel wall thickening or obstruction. 6. Extensive colonic diverticulosis. No evidence for diverticulitis. ACT 112: Negative or not required by law. Electronically signed by: Kareem Henderson M.D. 04/30/2019 3:30 PM ECG Data Attestation: I personally reviewed and interpreted this ECG as follows: Indication: + weakness Rate (beats per minute): 71 Rhythm: + sinus rhythm ECG Intervals/blocks: + First degree AV block ECG ST segments: + ST depression (diffuse) ECG Findings: + Q waves (anterior) Comparison ECG Date: from (03/12/17) Change: no significant change Additional Comments: REPEAT ECG: Atrial fibrillation with RVR with a rate of 106. Right bundle branch block. Inferior Q waves. Blood Pressure Blood Pressure Findings: Low blood pressure Blood Pressure Disposition: further management by hospitalist [facility] Narrative The patient is an 83-year-old male who presented to the emergency department for an evaluation of generalized weakness. His family members brought him to the emergency department for fear of stroke. The patient was globally weak and did not have any focal neurologic deficits. He was also hypotensive and appeared to have signs of sepsis. The patient was treated with IV fluids and IV antibiotics for presumed sepsis. I discussed the patient's laboratory and radiographic studies with the family members. The patient appears to have an elevation in his liver function studies although CT the abdomen and pelvis did not reveal any acute intra-abdominal pathology. Chest x-ray did not reveal signs of pneumonia. CT the head did not reveal any acute findings that would explain the patient's presentation. The patient was reevaluated multiple times. I discussed the patient's condition with his family members. I also discussed this case with the on-call [facility] hospitalist group. They have agreed to evaluate the patient in the emergency department for further management and disposition. Impression & Plan Sepsis, Abnormal results of liver function studies, Hyperbilirubinemia, Weakness, Hypomagnesemia Discharge Plan Visit Data *Final* Discharge Date/Time: 04/30/19 19:15 Chief Complaint: Weakness Stated Complaint: tia ED Provider: Gadiel Acuña Discharge Problem: Sepsis, Abnormal results of liver function studies, Hyperbilirubinemia, Weakness, Hypomagnesemia Patient Disposition: Admitted As Inpatient Discharge Instructions Interventions: ED Discharge Assessment Last Done: 04/30/19 19:15 Discharge Problem: Sepsis Qualifiers: Sepsis type: sepsis due to unspecified organism Sepsis acute organ dysfunction status: with acute organ dysfunction Severe sepsis acute organ dysfunction type: encephalopathy Severe sepsis shock status: without septic shock Qualified Code(s): A41.9 - Sepsis, unspecified organism The scribe's documentation has been prepared under my direction and personally reviewed by me in its entirety. I confirm that the note above accurately re flects all work, treatment, procedures, and medical decision making performed by me.
[2019-04-30 14:10] LABS: Basophils # (auto) 0.02 K/uL (0-0.2); Basophils % (auto) 0.1 %; Hematocrit (blood only) 42.4 % (42-52); Hemoglobin 14.5 g/dL (14.0-18.0); Immature Granulocytes # (auto) 0.99 K/uL (0.00-0.02); Immature Granulocytes % (auto) 4.9 %; Lymphocytes # (auto) 0.31 K/uL (1.2-3.4); Lymphocytes % (auto) 1.5 %; Mean Corpuscular Hemoglobin 31.7 pg (25-34); Mean Corpuscular Hgb Conc 34.2 g/dL (32-36); Mean Corpuscular Volume 92.8 fL (80-100); Mean Platelet Volume 10.3 fL (7.4-10.4); Monocytes # (auto) 1.06 K/uL (0.11-0.59); Monocytes % (auto) 5.2 %; Neutrophils # (auto) 18.01 K/uL (1.4-6.5); Neutrophils % (auto) 88.3 %; Platelet Count 160 K/uL (130-400); RDW Coefficient of Variation 14.1 % (11.5-14.5); RDW Standard Deviation 47.4 fL (36.4-46.3); Red Blood Count 4.57 M/uL (4.7-6.1); White Blood Count 20.39 K/uL (4.8-10.8)
--- NOTE | 2019-04-30 14:12 | XRay Report ---
XR chest 1V portable HISTORY: 83 years-old Male SEPSIS acute sepsis COMPARISON: Chest radiograph 03/12/2018 TECHNIQUE: Portable AP view of the chest FINDINGS: Cardiac silhouette is mildly enlarged. No pneumothorax, pleural effusion, focal airspace consolidatio n or overt pulmonary edema. Minimal left lung base atelectasis. Degenerative changes of the shoulders and spine. IMPRESSION: No acute process. ACT 112: Negative or not required by law. The above report was generated using voice recognition software. It may contain grammatical, syntax o r spelling errors. Electronically signed by: Garrett Perez M.D. 04/30/2019 2:10 PM
[2019-04-30 14:20] LABS: INR 1.1 (0.9-1.1); Partial Thromboplastin Ratio 0.9; Partial Thromboplastin Time 24.2 Seconds (21.0-31.0); Prothrombin Time 11.2 Seconds (9.0-12.0)
[2019-04-30 14:32] LABS: Albumin Level 2.7 gm/dl (3.4-5.0); BUN Creatinine Ratio 9.9 (10-20); Calcium 8.4 mg/dl (8.5-10.1); Creatinine Clr Calc Pharmacy 32.2 ml/min; Est GFR (African American) 39.2; Est GFR (Non-African American) 33.8
[2019-04-30 14:33] LABS: Influenza A virus by PCR Neg for Influ A (Neg); Influenza B virus by PCR Neg for Influ B (Neg)
[2019-04-30 14:33] LABS: Albumin Globulin Ratio 0.9 (0.9-2); Bilirubin,Total 7.1 mg/dl (0.2-1); Globulin 3.1 gm/dl (2.5-4.0); Total Protein 5.8 gm/dl (6.4-8.2); Troponin I 0.018 ng/ml (0-0.045)
[2019-04-30] MEDS ORDERED: PIPERACILL/TAZOBAC CONSULT ACTIVE PRN ×2 (14:59→20:07)
[2019-04-30] MEDS ORDERED: PIPERACILLIN/TAZOBACTAM 4.5 GM/120 ML BAG IV ONE (14:59)
[2019-04-30] MEDS ORDERED: SODIUM CHLORIDE 0.9% 1000ML 1,000 ML IV ONE ×2 (14:59→16:05)
[2019-04-30 15:25] LABS: Magnesium 1.4 mg/dl (1.8-2.4); Potassium 4.3 mmol/L (3.5-5.1)
--- NOTE | 2019-04-30 15:31 | CT Scan Report ---
ABDOMEN AND PELVIS CT WITHOUT CONTRAST CT DOSE: 462.56 mGy.cm HISTORY: Urinary tract infection. TECHNIQUE: Multiaxial CT images of the abdomen and pelvis were performed without contrast. A dose lo wering technique was utilized adhering to the principles of ALARA. COMPARISON STUDY: Abdomen and pelvis CT 10/19/2011. FINDINGS: The heart is mildly enlarged. Bibasilar subsegmental atelectasis. No pneumoperitoneum. No p neumatosis. Hepatic steatosis. The unenhanced gallbladder, spleen, adrenal glands, and pancreas are u nremarkable. A 7.9 cm right lower pole hypodense lesion. This has significantly increased in size. Th is is technically indeterminate on this noncontrast study but favors a cyst. No renal or ureteral sto shanta. No hydronephrosis. There is mild bilateral perinephric edema, unchanged. This is likely chronic. Mild bladder wall thickening. A 5.7 cm fat-containing lesion within the right gluteus medius muscle. This likely represents a lipoma. This remains unchanged. The prostate gland is mildly enlarged. Subo ptimal evaluation for bowel pathology due to the lack of intravenous and oral contrast. However, ther e is no definite bowel wall thickening or obstruction. Normal appendix. Extensive colonic diverticulo sis. No evidence for diverticulitis. No retroperitoneal lymphadenopathy. IMPRESSION: 1. Mild bladder wall thickening. This may be due to underdistention or a cystitis. Recommend correlat ion with urinalysis. 2. Chronic bilateral perinephric edema, unchanged. 3. No renal or ureteral stones. No hydronephrosis. 4. Interval increase in size in the 7.9 cm right lower pole hypodense lesion. This is incompletely ch aracterized on this noncontrast study but favors a cyst. 5. No definite bowel wall thickening or obstruction. 6. Extensive colonic diverticulosis. No evidence for diverticulitis. ACT 112: Negative or not required by law. Electronically signed by: Kareem Henderson M.D. 04/30/2019 3:30 PM
--- NOTE | 2019-04-30 15:41 | CT Scan Report ---
HEAD CT NONCONTRAST CT DOSE: 537.48 mGy.cm HISTORY: weakness TECHNIQUE: Multiaxial CT images of the head were performed without the use of intravenous contrast. A utomated exposure control was utilized for this study. A dose lowering technique was utilized adheri ng to the principles of ALARA. Comparison: Head CT 03/12/2017. Findings: The paranasal sinuses and mastoid air cells are clear. The calvarium and skull base are int act. There is no mass, hematoma, midline shift, acute infarct. White matter hypodensity is nonspecifi c but suggestive of microvascular ischemic change. The ventricles and sulci demonstrate mild age-rela germaine involutional changes. Impression: No acute intracranial abnormality. Atrophy and microvascular ischemic changes. ACT 112: Negative or not required by law. Electronically signed by: Kareem Henderson M.D. 04/30/2019 3:40 PM
[2019-04-30] MEDS: MAGNESIUM SULFATE / D5W 1 GM/100 ML BAG IV SCH ×2 (16:10→17:11)
--- NOTE | 2019-04-30 18:05 | History & Physical Report ---
Date of Service April 30, 2019 Assessment & Plan (1) Sepsis: Met Sepsis criteria on admission with Elevated WBC, Tachycardia, elevated Lactate and Procalcitonin Presented on admission with worsening weakness CXR showed no infiltrate CT abd/pelvis showed mild bladder wall thickening. This may be due to underdistention or a cystitis. Recommend correlation with urinalysis. UA positive for nitrite, + trace leukocyte and no bacteria WBC 20k on admission ( Lab collected at PCP yesterday showed WBC wnl ), Lactic acid 4.8 and procalcitonin 40.4 Received Zosyn in the ER Blood cx collected in the ER Will check urine cx Will continue IV Zosyn and adding Doxy Received IVF, will continue IVF Continue monitor closely Generalized Weakness Ambulatory dysfunction Related to acute illness CT head showed no acute intracranial abnormality PT/OT eval Fall precaution Hypotension BP ropped to 74/53 Mostly due to dehydration/sepsis Received 3L IVF fluid in the ER BP improves Continue IVF Will hold quinapril Acute Kidney injury Related to Sepis/dehydration Creatinine on admission 1.7 Quinapril on hold Continue IVF Will avoid nephrotoxic agents Monitor BMP Transaminitis CT abd showed no acute finding Denies any abdominal discomfort Will hold statin Consider Liver u/s if LFT worsening Monitor Liver enzymes DM type 2 Most recent Hab1c 7.5 on 04/29/19 Will hold oral DM med Will place on insulin sliding scale and lantus Monitor BS Hypomagnesemia Mg on admissin 1.4 Mg replaced Monitor BMP DVT px on Heparin subq Code Status Full code History of Present Illness Chief Complaint: Generalized Weakness Primary Care Provider: Carlton Rowe, 83 yo Male with PMH of Afib, HTN, type 2 DM, paroxysmal afib present to the ER for generalized weakness. Most of the history obtained from due to pt dementia. said that pt was doing fine last night. She said that pt woke up this morning, he felt very weak. He was so weak that he was not able to ambulate. said that he took 3 people to try to get him up this morning. said that early this morning, pt said that he felt cold and chills and was shaking. Pt saw his PCP yesterday for urinary frequency. UA was checked yesterday at PCP office was negative and culture was sent showed no growth. said that pt used his cane yesterday to ambulate. Denies any recent travel or sick contact. Denies any chest pain, palpitation, dizziness, fever and SOB. Allergies Allergy/AdvReac Type Severity Reaction Status Date / Time No Known Allergies Allergy Verified 04/30/19 15:04 Home Medications Home Medications Medication Instructions Recorded Confirmed Type atenolol 25 mg PO DAILY 04/30/19 04/30/19 History clopidogrel 75 mg PO DAILY 04/30/19 04/30/19 History fluocinonide 1 applic TOPICAL BID 04/30/19 04/30/19 History ibuprofen [Advil] 200 mg PO HS PRN 04/30/19 04/30/19 History loratadine [Claritin] 10 mg PO DAILY PRN 04/30/19 04/30/19 History metformin 500 mg PO BID 04/30/19 04/30/19 History multivitamin with minerals 2 tab PO DAILY 04/30/19 04/30/19 History nitroglycerin [Nitrostat] 0.4 mg SUBLINGUAL DIRECTED PRN 04/30/19 04/30/19 History omeprazole 20 mg PO DAILYBB 04/30/19 04/30/19 History oxybutynin chloride 5 mg PO BID 04/30/19 04/30/19 History polyethylene glycol 3350 225 g PO DAILY PRN 04/30/19 04/30/19 History pravastatin 20 mg PO DAILY 04/30/19 04/30/19 History quinapril 20 mg PO DAILY 04/30/19 04/30/19 History repaglinide 1 mg PO AC 04/30/19 04/30/19 History tamsulosin 0.4 mg PO DAILY 04/30/19 04/30/19 History Past Med/Surg History Medical History A-fib (Chronic) GERD (gastroesophageal reflux disease) (Chronic) HTN (hypertension) (Chronic) Macular degeneration (Chronic) Slurred speech Family History Other No pertinent family history in first degree relatives Social History Preferred Language: [place]otho Communication Ability: Effective Staffing Assistant Required: No Beliefs That Will Affect Care: None marital status: Current Living Situation: Spouse Other Information That Helps Us Care for You: No Feels Safe at Home: Yes Safety Concerns: Feels Safe At This Time Smoking Status: Former smoker Hx Alcohol Use: No Hx Substance Use: No Review of Systems Review of Systems: All systems reviewed & are unremarkable except as noted in HPI & below Physical Exam Physical Exam: General- No acute distress Head- atraumatic Eyes- PERRL, EOMI, ENT- decrease hearing function Neck- supple, no JVD Lungs- clear to auscultation Heart- regular rhythm; no murmur Abdomen- normal bowel sounds, soft, nontender Extremities- no calf tenderness Neuro- alert, oriented x 3; PERRL, EOMI; no facial palsy; no dysarthria, follow commands Skin- warm & dry Results & Data Vital Signs (Past 12 Hours) Vital Signs Temp Pulse Pulse Resp BP BP Pulse Ox 04/30/19 17:31 84 23 04/30/19 17:30 105 H 17 117/80 04/30/19 17:20 82 17 86 L 04/30/19 17:10 83 16 98 04/30/19 17:01 89 19 99 04/30/19 17:00 91 H 21 121/79 96 04/30/19 16:50 87 19 99 04/30/19 16:40 84 16 04/30/19 16:31 93 H 22 04/30/19 16:30 92 H 20 111/85 04/30/19 16:20 91 H 26 H 04/30/19 16:10 92 H 22 04/30/19 16:01 89 20 04/30/19 16:00 88 18 127/79 04/30/19 15:50 93 H 19 04/30/19 15:40 87 19 100 04/30/19 15:33 94 H 17 105/79 100 04/30/19 15:32 95 H 04/30/19 15:01 92 H 20 98 04/30/19 15:00 86 20 104/72 99 04/30/19 14:51 93 H 18 96/67 L 99 04/30/19 14:50 93 H 16 99 04/30/19 14:40 95 H 19 04/30/19 14:31 96 H 16 97 04/30/19 14:30 100 H 19 74/53 L 96 04/30/19 14:20 96 H 18 96 04/30/19 14:10 94 H 19 96 04/30/19 14:01 97 H 21 98 04/30/19 14:00 97 H 21 107/76 04/30/19 13:50 100 H 20 04/30/19 13:41 95 H 19 96 04/30/19 13:40 108 H 25 H 111/66 96 04/30/19 13:37 111 H 20 96 04/30/19 13:34 36.7 C 100 H 91 H 20 111/66 111/66 95 Diagnostic Findings XR chest 1V portable HISTORY: 83 years-old Male SEPSIS acute sepsis COMPARISON: Chest radiograph 03/12/2018 TECHNIQUE: Portable AP view of the chest FINDINGS: Cardiac silhouette is mildly enlarged. No pneumothorax, pleural effusion, focal airspace consolidation or overt pulmonary edema. Minimal left lung base atelectasis. Degenerative changes of the shoulders and spine. IMPRESSION: No acute process. ACT 112: Negative or not required by law. The above report was generated using voice recognition software. It may contain grammatical, syntax or spelling errors. Electronically signed by: Garrett Perez M.D. 04/30/2019 2:10 PM Dictated: 04/30/19 1408 Transcribed: 04/30/[address] DOSE: 537.48 mGy.cm HISTORY: weakness TECHNIQUE: Multiaxial CT images of the head were performed without the use of intravenous contrast. Automated exposure control was utilized for this study. A dose lowering technique was utilized adhering to the principles of ALARA. Comparison: Head CT 03/12/2017. Findings: The paranasal sinuses and mastoid air cells are clear. The calvarium and skull base are intact. There is no mass, hematoma, midline shift, acute infarct. White matter hypodensity is nonspecific but suggestive of microvascular ischemic change. The ventricles and sulci demonstrate mild age-related involutional changes. Impression: No acute intracranial abnormality. Atrophy and microvascular ischemic changes. ACT 112: Negative or not required by law. Electronically signed by: Kareem Henderson M.D. 04/30/2019 3:40 PM Dictated: 04/30/19 1537 Transcribed: 04/30/[address] WITHOUT CONTRAST CT DOSE: 462.56 mGy.cm HISTORY: Urinary tract infection. TECHNIQUE: Multiaxial CT images of the abdomen and pelvis were performed without contrast. A dose lowering technique was utilized adhering to the principles of ALARA. COMPARISON STUDY: Abdomen and pelvis CT 10/19/2011. FINDINGS: The heart is mildly enlarged. Bibasilar subsegmental atelectasis. No pneumoperitoneum. No pneumatosis. Hepatic steatosis. The unenhanced gallbladder, spleen, adrenal glands, and pancreas are unremarkable. A 7.9 cm right lower pole hypodense lesion. This has significantly increased in size. This is technically indeterminate on this noncontrast study but favors a cyst. No renal or ureteral stones. No hydronephrosis. There is mild bilateral perinephric edema, unchanged. This is likely chronic. Mild bladder wall thickening. A 5.7 cm fat-containing lesion within the right gluteus medius muscle. This likely represents a lipoma. This remains unchanged. The prostate gland is mildly enlarged. Suboptimal evaluation for bowel pathology due to the lack of intravenous and oral contrast. However, there is no definite bowel wall thickening or obstruction. Normal appendix. Extensive colonic diverticulosis. No evidence for diverticulitis. No retroperitoneal lymphadenopathy. IMPRESSION: 1. Mild bladder wall thickening. This may be due to underdistention or a cystitis. Recommend correlation with urinalysis. 2. Chronic bilateral perinephric edema, unchanged. 3. No renal or ureteral stones. No hydronephrosis. 4. Interval increase in size in the 7.9 cm right lower pole hypodense lesion. This is incompletely characterized on this noncontrast study but favors a cyst. 5. No definite bowel wall thickening or obstruction. 6. Extensive colonic diverticulosis. No evidence for diverticulitis. ACT 112: Negative or not required by law. Electronically signed by: Kareem Henderson M.D. 04/30/2019 3:30 PM Dictated: 04/30/19 1525 Transcribed: 04/30/19 1525 (1) Sepsis Sepsis acute organ dysfunction status: with acute organ dysfunction Sepsis type: sepsis due to unspecified organism Severe sepsis acute organ dysfunction type: encephalopathy Severe sepsis shock status: without septic shock Qualified Code(s): A41.9 - Sepsis, unspecified organism; R65.20 - Severe sepsis without septic shock; G93.40 - Encephalopathy, unspecified
[2019-04-30] MEDS: SODIUM CHLORIDE 0.9% 1000ML 1,000 ML IV SCH (19:19)
[2019-04-30] MEDS: DOXYCYCLINE HYCLATE 100 MG in DEXTROSE 5% 100 ML IV SCH (19:19)
[2019-04-30] MEDS ORDERED: INSULIN GLARGINE SOLOSTAR 100 UNITS/ML 3 ML PEN SC STA (22:33)
[2019-04-30] MEDS ORDERED: GLUCAGON FOR INJ 1 MG VIAL SQ PRN (22:33)
[2019-04-30] MEDS ORDERED: DEXTROSE 50% 50 ML SYRINGE IV PRN (22:33)
[2019-04-30] MEDS ORDERED: GLUCOSE 40% GEL 15 GM TUBE PO PRN (22:33)
[2019-04-30] MEDS ORDERED: CARBOHYDRATES FOR HYPOGLYCEMIA PO PRN (22:33)
[2019-04-30] MEDS ORDERED: GLUCOSE 10 TABS/TUBE PO PRN (22:33)
[2019-04-30 22:46] LABS: Appearance Urine Clear (Clear); Bacteria Urine Automated Negative (Negative); Blood Urine Negative (Negative); Color Urine Dark Yellow; Epithelial Cell Urine Auto 20-30 /lpf (0-5); Glucose Urine UA 2+ (Negative); Ketones Urine Trace (Negative); Leukocyte Esterase Urine Trace (Negative); Nitrite Urine Positive (Negative); Protein Urine 1+ (Negative); Specific Gravity Urine 1.023 (1.000-1.030); Urobilinogen Urine Positive (Negative); pH Urine 5.5 (4.5-7.5)
[2019-04-30 22:49] LABS: Bilirubin Urine 2+ (Negative)
[2019-04-30 22:50] LABS: Ictotest Urine Positive (Negative)
[2019-04-30] MEDS: INSULIN ASPART 100 UNITS/ML 3 ML PEN SC SCH (23:10)
[2019-04-30] MEDS: PIPERACILLIN/TAZOBACTAM 3.375 GM in DEXTROSE 5% 100 ML IV SCH (23:11)
[2019-04-30] MEDS: FLUOCINONIDE 0.05% CR 15 GM TUBE EXT SCH (23:11)
[2019-05-01] MEDS: PIPERACILLIN/TAZOBACTAM 3.375 GM in DEXTROSE 5% 100 ML IV SCH ×3 (05:52→21:54)
[2019-05-01] MEDS: HEPARIN SOD 5,000 UNIT/0.5 ML VIAL SQ SCH ×3 (05:53→21:03)
[2019-05-01] MEDS: PANTOprazole 40 MG TAB PO SCH (05:53)
[2019-05-01 07:37] LABS: Hemoglobin 13.8 g/dL (14.0-18.0); Mean Corpuscular Hemoglobin 32.1 pg (25-34); Mean Corpuscular Hgb Conc 34.5 g/dL (32-36); Mean Platelet Volume 10.2 fL (7.4-10.4); Platelet Count 151 K/uL (130-400); RDW Coefficient of Variation 14.9 % (11.5-14.5); RDW Standard Deviation 49.9 fL (36.4-46.3); White Blood Count 18.09 K/uL (4.8-10.8)
[2019-05-01] MEDS: CLOPIDOGREL BISULFATE 75 MG TAB PO SCH (07:42)
[2019-05-01] MEDS: SODIUM CHLORIDE 0.9% 1000ML 1,000 ML IV SCH ×2 (07:42→19:42)
[2019-05-01] MEDS: DOXYCYCLINE HYCLATE 100 MG in DEXTROSE 5% 100 ML IV SCH ×2 (07:42→18:01)
[2019-05-01] MEDS: OXYBUTYNIN CHLORIDE 5 MG TAB PO SCH ×2 (07:43→21:00)
[2019-05-01] MEDS: ATENOLOL 25 MG TABLET PO SCH (07:43)
[2019-05-01] MEDS: CEROVITE ADV FORMULA TAB PO SCH (07:43)
[2019-05-01] MEDS: TAMSULOSIN HCL 0.4 MG CAP PO SCH (07:43)
[2019-05-01] MEDS: FLUOCINONIDE 0.05% CR 15 GM TUBE EXT SCH ×2 (07:43→21:01)
[2019-05-01 08:17] LABS: Albumin Level 2.4 gm/dl (3.4-5.0); Calcium 8.1 mg/dl (8.5-10.1); Est GFR (African American) 44.5; Est GFR (Non-African American) 38.4
[2019-05-01 08:18] LABS: Albumin Globulin Ratio 0.7 (0.9-2); Bilirubin,Total 6.1 mg/dl (0.2-1); Globulin 3.2 gm/dl (2.5-4.0); Total Protein 5.6 gm/dl (6.4-8.2)
[2019-05-01] MEDS: INSULIN ASPART 100 UNITS/ML 3 ML PEN SC SCH ×4 (08:54→21:52)
--- NOTE | 2019-05-01 10:42 | Electrocardiogram Report ---
Test Reason : Blood Pressure : / mmHG Vent. Rate : 106 BPM Atrial Rate : 115 BPM P-R Int : 000 ms QRS Dur : 132 ms QT Int : 322 ms P-R-T Axes : 000 019 -47 degrees QTc Int : 427 ms Atrial fibrillation with rapid ventricular response Right bundle branch block Septal infarct , age undetermined Inferior infarct (cited on or before 12-MAR-2017) T wave abnormality, consider lateral ischemia Abnormal ECG When compared with ECG of 12-MAR-2017 19:04, Atrial fibrillation has replaced Sinus rhythm Vent. rate has increased BY 38 BPM Septal infarct is now Present Confirmed by Gadiel Osman ([id number]) on 05/01/2019 10:42:03 AM Referred By: Carlton Rowe Confirmed By:Gadiel Osman
--- NOTE | 2019-05-01 10:46 | Electrocardiogram Report ---
Test Reason : Blood Pressure : / mmHG Vent. Rate : 071 BPM Atrial Rate : 071 BPM P-R Int : 220 ms QRS Dur : 112 ms QT Int : 426 ms P-R-T Axes : 001 051 034 degrees QTc Int : 462 ms Sinus rhythm with 1st degree A-V block with Premature supraventricular complexes Right bundle branch block Possible Anteroseptal infarct (cited on or before 12-MAR-2017) Abnormal ECG When compared with ECG of 30-APR-2019 13:34, (unconfirmed) Significant changes have occurred Confirmed by Gadiel Osman ([id number]) on 05/01/2019 10:46:36 AM Referred By: Carlton Rowe Confirmed By:Gadiel Osman
--- NOTE | 2019-05-01 13:51 | Ultrasound Report ---
ABDOMINAL ULTRASOUND, RIGHT UPPER QUADRANT HISTORY: Elevated Liver enzymes. COMPARISON: Abdomen and pelvis CT 04/30/2019. FINDINGS: Pancreas: Obscured by overlying bowel gas. Liver: The liver is echogenic consistent with fatty change. 14.6 cm in length. No hepatic masses. Gallbladder: Borderline thickened and slightly irregular gallbladder wall measures 3 mm. Small amount of sludge wi thin the gallbladder. No gallstones. CBD: 5 mm. Right kidney: Bilobed parapelvic cyst is noted. IMPRESSION: 1. Hepatic steatosis. 2. Borderline thickened and slightly irregular gallbladder wall measuring 3 mm. Small amount of sludg e within the gallbladder. No gallstones. Clinical correlation recommended to assess for a developing acute cholecystitis. 3. The pancreas is obscured by overlying bowel gas. ACT 112: Negative or not required by law. Electronically signed by: Kareem Henderson M.D. 05/01/2019 1:50 PM
--- NOTE | 2019-05-01 16:25 | Hospitalist Progress Note ---
Date of Service May 01, 2019 Assessment & Plan (1) Sepsis: Met Sepsis criteria on admission with Elevated WBC, Tachycardia, elevated Lactate and Procalcitonin Presented on admission with worsening weakness CXR showed no infiltrate CT abd/pelvis showed mild bladder wall thickening. This may be due to underdistention or a cystitis. Recommend correlation with urinalysis. UA positive for nitrite, + trace leukocyte and no bacteria WBC 20k on admission ( Lab collected at PCP yesterday showed WBC wnl ), Lactic acid 4.8 and procalcitonin 40.4 Received Zosyn in the ER Blood cx and urine cx pending WBC trending down and lactic acid normal Continue IV Zosyn and Doxy for now Continue gentle hydration Continue monitor closely Generalized Weakness Ambulatory dysfunction Related to acute illness CT head showed no acute intracranial abnormality PT/OT eval Fall precaution Hypotension BP ropped to 74/53 Mostly due to dehydration/sepsis Received 3L IVF fluid in the ER BP improves Continue IVF Continue to hold quinapril Acute Kidney injury Related to Sepis/dehydration Creatinine on admission 1.7 Quinapril on hold Continue IVF Creatinine 1.6 today Will avoid nephrotoxic agents Monitor BMP Transaminitis CT abd showed no acute finding said that he was complaint of abdominal discomfort over the weekend that pt usually described as gas No pain on exam Liver U/S showed borderline thickened and slightly irregular gallbladder wall measuring 3 mm. Small amount of sludge within the gallbladder. No gallstones. GI consult Case discussed with GI team and agreed to get MRCP Continue to hold statin Monitor Liver enzymes and Lipase in am Will make NPO after midnight DM type 2 Most recent Hab1c 7.5 on 04/29/19 Continue to hold oral DM med on insulin sliding scale and lantus Monitor BS Hypomagnesemia Mg on admission 1.4 Mg 2.2 today Continue Monitor electrolytes DVT px on Heparin subq Code Status Full code Admission and Anticipated Discharge Date Admission Date: April 30, 2019 Subjective Pt was seen and examined Lying in bed with no distress Pt said that he feels much better today He said that his strength is a little better said that he was able to stand and using the walker to do therapy said that pt was complaint of abdominal discomfort over the weekend She said that pt described the discomfort as gas Currently denies any chest pain, palpitation, dizziness and SOB Physical Exam Physical Exam: General- No acute distress Head- atraumatic Eyes- PERRL, EOMI, ENT- decrease hearing function Neck- supple, no JVD Lungs- clear to auscultation Heart- regular rhythm; no murmur Abdomen- normal bowel sounds, soft, nontender Extremities- no calf tenderness Neuro- alert, oriented x 3; PERRL, EOMI; no facial palsy; no dysarthria, follow commands Skin- warm & dry Results & Data ([facility]) Vital Signs (Past 12 Hours) Vital Signs Temp Pulse Pulse Resp BP BP Pulse Ox 05/01/19 16:08 36.4 C L 80 20 142/99 H 97 05/01/19 15:10 77 05/01/19 11:28 36.4 C L 115 H 18 122/75 93 05/01/19 07:29 36.3 C L 75 18 128/92 99 05/01/19 05:00 36.9 C 78 20 133/87 99 (1) Sepsis Sepsis acute organ dysfunction status: with acute organ dysfunction Sepsis type: sepsis due to unspecified organism Severe sepsis acute organ dysfunction type: encephalopathy Severe sepsis shock status: without septic shock Qualified Code(s): A41.9 - Sepsis, unspecified organism; R65.20 - Severe sepsis without septic shock; G93.40 - Encephalopathy, unspecified
[2019-05-01] MEDS: INSULIN GLARGINE SOLOSTAR 100 UNITS/ML 3 ML PEN SQ SCH (21:51)
--- NOTE | 2019-05-01 21:58 | Magnetic Resonance Report ---
MRCP CLINICAL HISTORY: Elevated Liver Enzymes/ Gallbladder sludge TECHNIQUE: Utilizing a 1.5 Sophia magnet and dedicated coil, multiplanar, multiecho imaging of the [facility] er abdomen was performed utilizing heavily T2 weighted pulsing sequences without IV contrast. COMPARISON STUDY: MRCP October 25, 2011. CT of the abdomen and pelvis April 30, 2019. Right upper quad rant ultrasound May 01, 2019. FINDINGS: Imaged portions of the lower chest demonstrate trace bilateral pleural effusions and modera te cardiomegaly. No hepatic lesions are identified as unenhanced exam. There is no intra or extrahepa tic biliary ductal dilatation. This exam is mildly compromised by motion artifact. No common bile julia t calculi are identified. Pancreatic glandular atrophy is noted. There is no pancreatic ductal dilata tion. The course and caliber of the main pancreatic duct is normal. There are numerous T2 hyperintens e lesions within the pancreas, largest of which is a 1.2 cm lesion within the pancreatic head. Mild g allbladder wall thickening is noted. No gallstones are identified by MRI. No abdominal lymphadenopath y is present. 7.7 cm T2 hyperintense right renal lesion is suboptimally assessed on this unenhanced e xam but favors a cyst. There is no hydronephrosis. Caliber and wall thickness of visualized small and large bowel are normal. IMPRESSION: 1. No biliary or pancreatic ductal dilatation. No gallstones. No common bile duct calculi. 2. Mild gallbladder wall thickening, a nonspecific finding. 3. Numerous T2 hyperintense pancreatic lesions, the largest of which is a 1.2 cm pancreatic head les ion. 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 A follow-up MRCP in 6 months is recomm ended to ensure stability. ACT 112: Negative or not required by law. Electronically signed by: Michael Angela M.D. 05/01/2019 9:57 PM
[2019-05-02] MEDS: PIPERACILLIN/TAZOBACTAM 3.375 GM in DEXTROSE 5% 100 ML IV SCH ×3 (05:09→20:31)
[2019-05-02] MEDS: DOXYCYCLINE HYCLATE 100 MG in DEXTROSE 5% 100 ML IV SCH (05:51)
[2019-05-02] MEDS: HEPARIN SOD 5,000 UNIT/0.5 ML VIAL SQ SCH ×3 (05:52→20:29)
[2019-05-02] MEDS: PANTOprazole 40 MG TAB PO SCH (05:52)
[2019-05-02 06:54] LABS: Basophils # (auto) 0.01 K/uL (0-0.2); Basophils % (auto) 0.1 %; Eosinophils # (auto) 0.11 K/uL (0-0.5); Eosinophils % (auto) 0.9 %; Hemoglobin 13.2 g/dL (14.0-18.0); Immature Granulocytes # (auto) 0.06 K/uL (0.00-0.02); Immature Granulocytes % (auto) 0.5 %; Lymphocytes # (auto) 0.72 K/uL (1.2-3.4); Lymphocytes % (auto) 5.6 %; Mean Corpuscular Hemoglobin 31.5 pg (25-34); Mean Corpuscular Hgb Conc 33.8 g/dL (32-36); Mean Corpuscular Volume 93.1 fL (80-100); Mean Platelet Volume 10.6 fL (7.4-10.4); Monocytes % (auto) 3.9 %; Neutrophils # (auto) 11.53 K/uL (1.4-6.5); Platelet Count 151 K/uL (130-400); RDW Coefficient of Variation 14.6 % (11.5-14.5); RDW Standard Deviation 49.5 fL (36.4-46.3); Red Blood Count 4.19 M/uL (4.7-6.1); White Blood Count 12.93 K/uL (4.8-10.8)
[2019-05-02 07:24] LABS: Albumin Level 2.2 gm/dl (3.4-5.0); BUN Creatinine Ratio 21.5 (10-20); Calcium 7.8 mg/dl (8.5-10.1); Creatinine Clr Calc Pharmacy 48.5 ml/min; Est GFR (African American) 63.5; Est GFR (Non-African American) 54.8; Potassium 3.8 mmol/L (3.5-5.1)
[2019-05-02 07:29] LABS: Albumin Globulin Ratio 0.7 (0.9-2); Bilirubin,Total 4.3 mg/dl (0.2-1); Globulin 3.3 gm/dl (2.5-4.0); Total Protein 5.5 gm/dl (6.4-8.2)
[2019-05-02] MEDS: SODIUM CHLORIDE 0.9% 1000ML 1,000 ML IV SCH (08:45)
[2019-05-02] MEDS: INSULIN ASPART 100 UNITS/ML 3 ML PEN SC SCH ×4 (08:45→20:31)
[2019-05-02] MEDS: ATENOLOL 25 MG TABLET PO SCH (08:46)
[2019-05-02] MEDS: OXYBUTYNIN CHLORIDE 5 MG TAB PO SCH ×2 (08:46→20:29)
[2019-05-02] MEDS: TAMSULOSIN HCL 0.4 MG CAP PO SCH (08:46)
[2019-05-02] MEDS: FLUOCINONIDE 0.05% CR 15 GM TUBE EXT SCH ×2 (08:46→20:30)
[2019-05-02] MEDS: CLOPIDOGREL BISULFATE 75 MG TAB PO SCH (08:46)
[2019-05-02] MEDS: CEROVITE ADV FORMULA TAB PO SCH (08:46)
--- NOTE | 2019-05-02 12:44 | Gastrointestinal Consultation ---
Date of Consultation May 02, 2019 Assessment & Plan (1) Elevated LFTs: Likely secondary to sepsis, shock liver (some suggestion of symptoms of hypotension at home before arrival though no syncopal event) or LFTs may be caused by passage of microthiliasis as imaging with gallbladder sludge. 1. Trend LFTs daily 2. Recommend surgical consult to consider cholecystectomy. 3. Advance diet. 4. No indication for ERCP or other GI procedures at this time. Present on Admission?: Yes History of Present Illness Reason for Consultation: Elevated LFTs Requesting Physician: Dr. Herring Attending Physician: Guillermina Herring MD History of Present Illness Mr. Ramu Ordaz is an 83 yr old male pt of Dr. 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 I was able to speak with the pt as well as the . They tell me that the pt had some "indigestion," on last Wednesday (a week ago). On Wednesday, two days ago, he was weak (so family suspects possibly hypotension), and was first noticed to be jaundice yesterday. No current abdominal pain. He has not had any nausea, vomiting. He was noted to have dark urine and light stools over the weekend. He has not been on any antibiotics. No new medications. Although he has a hx of increased alcohol intake, for several years (2-3 beers/night), ion the past 3 yrs, he drinks very minimally, only drinks 1-2 alcoholic beverages/month. Regarding tylenol intake, 1gram/24 hrs: 500mg BID. US with gallbladder sludge and fatty liver, CT with fatty liver. US, CT and MRCP w/o bile duct abnormalities. LFTs are elevated, having peaked late yesterday: T Bili 7.1 (yesterday) ->4 (today), AST 177-> 255->135; ALT 273->316->257; Alk Phos 414->368->393. Allergies Allergy/AdvReac Type Severity Reaction Status Date / Time No Known Allergies Allergy Verified 04/30/19 15:04 Home Medications Home Medications Medication Instructions Recorded Confirmed Type atenolol 25 mg PO DAILY 04/30/19 04/30/19 History clopidogrel 75 mg PO DAILY 04/30/19 04/30/19 History fluocinonide 1 applic TOPICAL BID 04/30/19 04/30/19 History ibuprofen [Advil] 200 mg PO HS PRN 04/30/19 04/30/19 History loratadine [Claritin] 10 mg PO DAILY PRN 04/30/19 04/30/19 History metformin 500 mg PO BID 04/30/19 04/30/19 History multivitamin with minerals 2 tab PO DAILY 04/30/19 04/30/19 History nitroglycerin [Nitrostat] 0.4 mg SUBLINGUAL DIRECTED PRN 04/30/19 04/30/19 History omeprazole 20 mg PO DAILYBB 04/30/19 04/30/19 History oxybutynin chloride 5 mg PO BID 04/30/19 04/30/19 History polyethylene glycol 3350 225 g PO DAILY PRN 04/30/19 04/30/19 History pravastatin 20 mg PO DAILY 04/30/19 04/30/19 History quinapril 20 mg PO DAILY 04/30/19 04/30/19 History repaglinide 1 mg PO AC 04/30/19 04/30/19 History tamsulosin 0.4 mg PO DAILY 04/30/19 04/30/19 History Patient History Medical History A-fib (Chronic) GERD (gastroesophageal reflux disease) (Chronic) HTN (hypertension) (Chronic) Macular degeneration (Chronic) Slurred speech Family History Other No pertinent family history in first degree relatives Social History Preferred Language: [place] Communication Ability: Effective Information Management Specialist Required: No Beliefs That Will Affect Care: None marital status: Current Living Situation: Spouse Other Information That Helps Us Care for You: No Feels Safe at Home: Yes Safety Concerns: Feels Safe At This Time Smoking Status: Former smoker Hx Alcohol Use: No Hx Substance Use: No Review of Systems Review of Systems: ROS: Gen: + weakness, no fevers, may have some mild weight loss Eyes: + yellow eyes, no eye redness, or pain, no recent vision changes Resp: No SOB, no cough Cardio: No palpitations/irregular beats, no chest pain GI: See HPI : Freq urination on Wednesday but denies pain on urination; + dark urine Skin: +jaundice, no itching or new rashes Physical Exam Constitutional: Hypertensive at 152/96, otherwise VS normal, afebrile, O2 sat at 97 on room air. Mildly overweight. Was sleeping soundly, snoring on my arrival but wakened easily. Eyes: icterus; PERRL ENMT: external ear and nose normal, oropharynx normal Neck: trachea midline, no thyromegaly normal visual inspection Respiratory: normal respiratory effort, lungs clear to auscultation Cardiovascular: RRR, no murmur, no edema Gastrointestinal (Abdomen): normal bowel sounds, soft, nontender, no hepatosplenomegaly Skin: + jaundice Neurologic: PERRL, EOMI, accommodation nl, no face palsy, no dysarthria Psychiatric: Orientation: alert and oriented x 3 Affect: + flat affect Lymphatic: no cervical or axillary lymphadenopathy Results & Data ([facility]) Vital Signs (Past 12 Hours) Vital Signs Temp Pulse Resp BP BP Pulse Ox 05/02/19 11:41 36.5 C 72 18 152/96 H 97 05/02/19 07:15 37 C 71 18 151/98 H 100 05/02/19 03:00 36.9 C 94 H 16 109/75 94 05/02/19 01:01 36.4 C L 87 20 150/102 H 97 Laboratory Results WBC 20->12 See HPI Diagnostic Findings Non contrast CT abd/pelvis on 04/30/19: 1. Mild bladder wall thickening. This may be due to underdistention or a cystitis. Recommend correlation with urinalysis. 2. Chronic bilateral perinephric edema, unchanged. 3. No renal or ureteral stones. No hydronephrosis. 4. Interval increase in size in the 7.9 cm right lower pole hypodense lesion. This is incompletely characterized on this noncontrast study but favors a cyst. 5. No definite bowel wall thickening or obstruction. 6. Extensive colonic diverticulosis. No evidence for diverticulitis. Liver US 05/01/19: 1. Hepatic steatosis. 2. Borderline thickened and slightly irregular gallbladder wall measuring 3 mm. Small amount of sludge within the gallbladder. No gallstones. Clinical correlation recommended to assess for a developing acute cholecystitis. 3. The pancreas is obscured by overlying bowel gas. MRCP 05/02/19: 1. No biliary or pancreatic ductal dilatation. No gallstones. No common bile duct calculi. 2. Mild gallbladder wall thickening, a nonspecific finding. 3. Numerous T2 hyperintense pancreatic lesions, the largest of which is a 1.2 cm pancreatic head lesion. 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 A follow-up MRCP in 6 months is recommended to ensure stability.
--- NOTE | 2019-05-02 15:11 | Hospitalist Progress Note ---
Date of Service May 02, 2019 Assessment & Plan (1) Sepsis: Met Sepsis criteria on admission with Elevated WBC, Tachycardia, elevated Lactate and Procalcitonin Presented on admission with worsening weakness CXR showed no infiltrate CT abd/pelvis showed mild bladder wall thickening. This may be due to underdistention or a cystitis. Recommend correlation with urinalysis. UA positive for nitrite, + trace leukocyte and no bacteria WBC 20k on admission ( Lab collected at PCP on showed WBC wnl ), Lactic acid 4.8 and procalcitonin 40.4 Received Zosyn in the ER Blood cx no growth Urine cx growth pinpoint WBC continue trending down and lactic acid normal Will continue IV Zosyn for now Doxy discontinued today Will d/C IVF Continue monitor closely Generalized Weakness Ambulatory dysfunction Related to acute illness CT head showed no acute intracranial abnormality Continue PT/OT eval Fall precaution Clinically improves Hypotension BP ropped to 74/53 Mostly due to dehydration/sepsis Received 3L IVF fluid in the ER BP Stable IVF discontinued Will consider to resume quinapril if BP starts to elevate Acute Kidney injury Related to Sepis/dehydration Creatinine on admission 1.7 Quinapril on hold Received IVF Creatinine 1.2 today Will avoid nephrotoxic agents resolved Transaminitis CT abd showed no acute finding said that he was complaint of abdominal discomfort over the weekend that pt usually described as gas No Abdominal pain on exam Liver U/S showed borderline thickened and slightly irregular gallbladder wall measuring 3 mm. Small amount of sludge within the gallbladder. No gallstones. GI consult Case discussed with GI team and agreed to get MRCP yestereday MRCP showed no biliary or pancreatic ductal dilatation. No gallstones. No common bile duct calculi. gallbladder wall thickening, a nonspecific finding. Numerous T2 hyperintense pancreatic lesions, the largest of which is a 1.2 cm pancreatic head lesion. Continue to hold statin Liver enzymes continue trending down with AST 135, ALT 257 and ALK 393 Continue monitor liver enzymes Pancreatic Head Lesion MRCP showed Numerous T2 hyperintense pancreatic lesions, the largest of which is a 1.2 cm pancreatic head lesion. 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 Rowe Admission and Anticipated Discharge Date Admission Date: April 30, 2019 Subjective Pt was seen and examined Lying in bed with no distress with with at bedside Pt said that he feels much better said that he is almost back to his baseline He said that strength is better and walked with the therapist today Denies any chest pain, palpitation, dizziness, abdominal pain and SOB Physical Exam Physical Exam: General- No acute distress Head- atraumatic Eyes- PERRL, EOMI, ENT- decrease hearing function Neck- supple, no JVD Lungs- clear to auscultation Heart- regular rhythm; no murmur Abdomen- normal bowel sounds, soft, nontender Extremities- no calf tenderness Neuro- alert, oriented x 3; PERRL, EOMI; no facial palsy; no dysarthria, follow commands Skin- warm & dry Results & Data ([facility]) Vital Signs (Past 12 Hours) Vital Signs Temp Pulse Resp BP Pulse Ox 05/02/19 11:41 36.5 C 72 18 152/96 H 97 05/02/19 07:15 37 C 71 18 151/98 H 100 (1) Sepsis Sepsis acute organ dysfunction status: with acute organ dysfunction Sepsis type: sepsis due to unspecified organism Severe sepsis acute organ dysfunction type: encephalopathy Severe sepsis shock status: without septic shock Qualified Code(s): A41.9 - Sepsis, unspecified organism; R65.20 - Severe sepsis without septic shock; G93.40 - Encephalopathy, unspecified
[2019-05-02] MEDS: INSULIN GLARGINE SOLOSTAR 100 UNITS/ML 3 ML PEN SQ SCH (20:30)
[2019-05-03] MEDS: PIPERACILLIN/TAZOBACTAM 3.375 GM in DEXTROSE 5% 100 ML IV SCH ×3 (04:20→20:53)
[2019-05-03] MEDS: HEPARIN SOD 5,000 UNIT/0.5 ML VIAL SQ SCH ×3 (05:14→20:58)
[2019-05-03] MEDS: PANTOprazole 40 MG TAB PO SCH (05:14)
[2019-05-03 06:41] LABS: Est GFR (African American) 79.2; Est GFR (Non-African American) 68.3
[2019-05-03] MEDS: CEROVITE ADV FORMULA TAB PO SCH (08:45)
[2019-05-03] MEDS: OXYBUTYNIN CHLORIDE 5 MG TAB PO SCH ×2 (08:45→20:55)
[2019-05-03] MEDS: CLOPIDOGREL BISULFATE 75 MG TAB PO SCH (08:45)
[2019-05-03] MEDS: INSULIN ASPART 100 UNITS/ML 3 ML PEN SC SCH ×4 (08:45→20:57)
[2019-05-03] MEDS: TAMSULOSIN HCL 0.4 MG CAP PO SCH (08:45)
[2019-05-03] MEDS: ATENOLOL 25 MG TABLET PO SCH (08:45)
[2019-05-03] MEDS: FLUOCINONIDE 0.05% CR 15 GM TUBE EXT SCH ×2 (08:49→20:57)
[2019-05-03 09:20] LABS: Albumin Level 2.3 gm/dl (3.4-5.0); Bilirubin Direct 2.2 mg/dl (0-0.2); Bilirubin,Total 3.7 mg/dl (0.2-1); Total Protein 5.6 gm/dl (6.4-8.2)
--- NOTE | 2019-05-03 13:01 | Gastroenterology Progress Note ---
Date of Service May 03, 2019 Assessment & Plan (1) Elevated LFTs: Likely secondary to sepsis, shock liver (some suggestion of symptoms of hypotension at home before arrival though no syncopal event) or LFTs may be caused by passage of microthiliasis as imaging with gallbladder sludge. 1. Trend LFTs intermittently. 2. Consider surgical consult to consider cholecystectomy. Though pt's tells me they are not eager to procede with cholecystectomy. 3. Regular diet. 4. No indication for ERCP or other GI procedures at this time. 5. GI will sign off. Please notify us is new/worsening GI issues. Admission and Anticipated Discharge Date Admission Date: April 30, 2019 Subjective Mr. Ordaz is an 83 yr old male who was admitted with weakness, met sepsis crit erlucas. Did have two episodes of "indigestion," last week on and Wednesday (mentioned by today, only Tuesdays's episode mentioned when we talked yesterday). LFTs elevated, trending down. US with gallbladder sludge. MRCP w/o choledocholithiasis. Pt clinically improving - getting stronger. Review of Systems Review of Systems: ROS: Gen: improving but has some weakness, no fevers, may have some mild weight loss Eyes: + yellow eyes (improved), no eye redness, or pain, no recent vision changes Resp: No SOB, no cough Cardio: No palpitations/irregular beats, no chest pain GI: See HPI : Freq urination on Wednesday but denies pain on urination; + dark urine Skin: +jaundice, no itching or new rashes Physical Exam ENMT: external ear and nose normal, oropharynx normal Neck: trachea midline, no thyromegaly normal visual inspection Respiratory: normal respiratory effort, lungs clear to auscultation Cardiovascular: RRR, no murmur, no edema Gastrointestinal (Abdomen): normal bowel sounds, soft, nontender, no hepatosplenomegaly Skin: + jaundice Neurologic: PERRL, EOMI, accommodation nl, no face palsy, no dysarthria Psychiatric: Orientation: alert and oriented x 3 More personable affect and more interactive today than yesterday. Lymphatic: no cervical or axillary lymphadenopathy Results & Data ([facility]) Vital Signs (Past 12 Hours) Vital Signs Temp Pulse Pulse Resp BP BP Pulse Ox 03/04/20 11:00 36.4 C L 79 20 154/100 H 98 05/03/19 07:50 72 05/03/19 07:00 36.3 C L 80 20 176/104 H 167/103 H 99 05/03/19 04:00 36.5 C 74 20 155/96 H 92
--- NOTE | 2019-05-03 20:22 | Hospitalist Progress Note ---
Date of Service May 03, 2019 Assessment & Plan (1) Severe sepsis: Met criteria for sepsis at time of presentation per current [facility] guidelines- tachycardia, leukocytosis. Blood cultures were obtained. Received broad-spectrum antibiotic coverage with piperacillin/tazobactam. Initial serum lactate 4.8, repeat 4.8. Blood pressure as low as 74/53. Received fluid resuscitation with improvement of hemodynamics. Did not require pressor support. Procalcitonin was 40. LFTs were elevated, suggesting biliary tract source of infection as discussed below. No infiltrates on chest x-ray. UA showed only 5-10 WBCs, trace leukocyte Estrace, no bacteria. (2) Sepsis associated hypotension: Blood pressure as low as 74/53. Received fluid resuscitation with improvement of hemodynamics. Did not require pressor support. (3) Elevated LFTs: Onset of symptoms after eating a fatty meal. reports similar episode a few years ago. LFTs at time of admission showed a total bilirubin of 7.1, AST 177, ALT 273, alk merrill phosphatase 414. CT of abdomen did not show any obvious abnormalities of biliary tract. Abdominal ultrasound showed hepatic steatosis, borderline thickened and slightly irregular gallbladder wall measuring 3 mm, small amount of sludge within the gallbladder, no gallstones. MRCP showed mild gallbladder wall thickening, no biliary or pancreatic ductal dilatation, no cholelithiasis or choledocholithiasis. GI consulted. LFTs improving. No indication for ERCP. GI recommended consideration of cholecystectomy, but patient and family hope to avoid any procedures. Consider passed stone, possible cholecystitis, possible cholangitis despite absence of significant radiographic findings. Continue to follow. (4) Altered mental status: Confused at time of admission. No acute findings on CT of chest. Probable metabolic encephalopathy secondary to sepsis. Improving. (5) Hypertension: Hypotensive day of admission due to apparent sepsis. Quinapril held. Blood pressure is now improved and a bit high. Continue atenolol. Resume WILLIE inhibitor and titrate. (6) Atrial fibrillation: Rate controlled on atenolol. No anticoagulation because of fall risk. (7) Diabetes mellitus type 2, controlled: Diabetes mellitus type 2 managed with metformin. Hgb A1C in clinic on 04/29/19 7.5. Lantus/NovoLog per protocol. Fasting blood sugar this morning = 120. (8) Dementia: Ongoing monitoring for delirium. (9) DVT prophylaxis: SQ heparin. Ambulate. (10) Discharge planning issues: Anticipated discharge to home with home health services. Internal Medicine follow-up with Dr. Rowe. Admission and Anticipated Discharge Date Admission Date: April 30, 2019 Subjective Recheck for multiple problems. Patient seen in their room around 1600. visiting. Doing somewhat better. No fever. No further hypotension. Occasional cough. No abdominal pain, nausea, vomiting, diarrhea. No dysuria. Confusion improved, but not back to baseline. Review of Systems: Constitutional- as noted above. Cardiac- no chest pain. Pulmonary- as noted above. GI- as noted above. - as noted above. Otherwise, as noted above. Physical Exam Constitutional: no acute distress Respiratory: no respiratory distress Auscultation: lungs clear to auscultation bilaterally Cardiovascular: Rate/Rhythm: + irregularly irregular Heart Sounds: no gallop Vessels: no JVD Extremities: + edema (trace pretibial); no calf tenderness Gastrointestinal (Abdomen): normal bowel sounds, soft, nontender, no hepatosplenomegaly Musculoskeletal: Extremities: no cyanosis Skin: no rashes, warm and dry Psychiatric: Orientation: + not alert (somnolent, but arousable and conversant) and + not oriented x 3 (confuse, oriented to person, hospital, not exact date) Results & Data ([facility]) Vital Signs (Past 12 Hours) Vital Signs Temp Pulse Pulse Resp BP BP Pulse Ox 05/03/19 19:01 36.6 C 79 19 164/94 H 95 05/03/19 16:00 68 05/03/19 15:24 36.7 C 70 16 144/89 H 96 05/03/19 11:00 36.4 C L 79 20 154/100 H 98 Laboratory Results Total bilirubin 3.7, direct bilirubin 2.2, AST 73, ALT 27, alkaline phosphatase 462.
[2019-05-03] MEDS ORDERED: lisinopriL 5 MG TAB PO ONE (20:45)
[2019-05-03] MEDS: INSULIN GLARGINE SOLOSTAR 100 UNITS/ML 3 ML PEN SQ SCH (20:56)
[2019-05-03] MEDS ORDERED: MoRPHine SULFATE 2 MG/ML CARP IV STA (23:55)
[2019-05-04] MEDS: PIPERACILLIN/TAZOBACTAM 3.375 GM in DEXTROSE 5% 100 ML IV SCH ×2 (04:30→12:38)
[2019-05-04] MEDS: HEPARIN SOD 5,000 UNIT/0.5 ML VIAL SQ SCH ×3 (06:01→21:10)
[2019-05-04] MEDS: PANTOprazole 40 MG TAB PO SCH (06:04)
[2019-05-04 06:22] LABS: Hematocrit (blood only) 40.8 % (42-52); Hemoglobin 13.8 g/dL (14.0-18.0); Mean Corpuscular Hemoglobin 31.5 pg (25-34); Mean Corpuscular Hgb Conc 33.8 g/dL (32-36); Mean Corpuscular Volume 93.2 fL (80-100); Mean Platelet Volume 10.1 fL (7.4-10.4); Platelet Count 159 K/uL (130-400); RDW Coefficient of Variation 14.4 % (11.5-14.5); Red Blood Count 4.38 M/uL (4.7-6.1)
[2019-05-04 06:55] LABS: Albumin Level 2.1 gm/dl (3.4-5.0); Bilirubin Direct 1.9 mg/dl (0-0.2); Calcium 8.3 mg/dl (8.5-10.1); Creatinine Clr Calc Pharmacy 66.9 ml/min; Est GFR (African American) 91.6; Est GFR (Non-African American) 79.1; Potassium 3.6 mmol/L (3.5-5.1)
[2019-05-04 07:00] LABS: Albumin Globulin Ratio 0.6 (0.9-2); Bilirubin,Total 3.1 mg/dl (0.2-1); Globulin 3.6 gm/dl (2.5-4.0); Total Protein 5.7 gm/dl (6.4-8.2)
[2019-05-04] MEDS: INSULIN ASPART 100 UNITS/ML 3 ML PEN SC SCH ×4 (08:49→21:10)
[2019-05-04] MEDS: CEROVITE ADV FORMULA TAB PO SCH (08:51)
[2019-05-04] MEDS: OXYBUTYNIN CHLORIDE 5 MG TAB PO SCH ×2 (08:51→21:11)
[2019-05-04] MEDS: CLOPIDOGREL BISULFATE 75 MG TAB PO SCH (08:51)
[2019-05-04] MEDS: ATENOLOL 25 MG TABLET PO SCH (08:51)
[2019-05-04] MEDS: lisinopriL 5 MG TAB PO SCH (08:51)
[2019-05-04] MEDS: TAMSULOSIN HCL 0.4 MG CAP PO SCH (08:51)
[2019-05-04] MEDS: FLUOCINONIDE 0.05% CR 15 GM TUBE EXT SCH ×2 (08:51→21:11)
[2019-05-04] MEDS: INSULIN GLARGINE SOLOSTAR 100 UNITS/ML 3 ML PEN SQ SCH (21:10)
[2019-05-04] MEDS ORDERED: lisinopriL 5 MG TAB PO ONE (21:15)
--- NOTE | 2019-05-04 21:48 | Hospitalist Progress Note ---
Date of Service May 04, 2019 Assessment & Plan (1) Severe sepsis: Met criteria for sepsis at time of presentation per current CMS guidelines- tachycardia, leukocytosis. Blood cultures were obtained. Received broad-spectrum antibiotic coverage with piperacillin/tazobactam. Initial serum lactate 4.8, repeat 4.8. Blood pressure as low as 74/53. Received fluid resuscitation with improvement of hemodynamics. Did not require pressor support. Procalcitonin was 40. LFTs were elevated, suggesting biliary tract source of infection as discussed below. No infiltrates on chest x-ray. UA showed only 5-10 WBCs, trace leukocyte Estrace, no bacteria. (2) Sepsis associated hypotension: Blood pressure as low as 74/53. Received fluid resuscitation with improvement of hemodynamics. Did not require pressor support. (3) Elevated LFTs: Onset of symptoms after eating a fatty meal. reports similar episode a few years ago. LFTs at time of admission showed a total bilirubin of 7.1, AST 177, ALT 273, alk merrill phosphatase 414. CT of abdomen did not show any obvious abnormalities of biliary tract. Abdominal ultrasound showed hepatic steatosis, borderline thickened and slightly irregular gallbladder wall measuring 3 mm, small amount of sludge within the gallbladder, no gallstones. MRCP showed mild gallbladder wall thickening, no biliary or pancreatic ductal dilatation, no cholelithiasis or choledocholithiasis. GI consulted. No indication for ERCP. GI recommended consideration of cholecystectomy, but patient and family hope to avoid any procedures. Consider passed stone, possible cholecystitis, possible cholangitis despite absence of significant radiographic findings. LFTs improving: Laboratory Tests 04/30/19 04/30/19 05/01/19 13:55 14:49 07:21 Total Bilirubin 7.1 H 6.1 H AST 177 H 225 H ALT 273 H 316 H Alkaline Phosphatase 414 H 368 H 05/02/19 05/03/19 05/04/19 06:25 05:47 05:57 Total Bilirubin 4.3 H 3.7 H 3.1 H AST 135 H 73 H 51 H ALT 257 H 207 H 159 H Alkaline Phosphatase 393 H 462 H 428 H Continue to follow. (4) Altered mental status: Confused at time of admission. No acute findings on CT of chest. Probable metabolic encephalopathy secondary to sepsis. Improving. (5) Hypertension: Hypotensive day of admission due to apparent sepsis. Quinapril held. Blood pressure is now improved and a bit high. Continue atenolol. Resuming WILLIE inhibitor and titrating dose. (6) Atrial fibrillation: Rate controlled on atenolol. No anticoagulation because of fall risk. (7) Diabetes mellitus type 2, controlled: Diabetes mellitus type 2 managed with metformin. Hgb A1C in clinic on 04/29/19 7.5. Lantus/NovoLog per protocol. Fasting blood sugar this morning = 115. (8) Dementia: Ongoing monitoring for delirium. (9) DVT prophylaxis: SQ heparin. Ambulate. (10) Discharge planning issues: Anticipated discharge to home with home health services. Internal Medicine follow-up with Dr. Rowe. Admission and Anticipated Discharge Date Admission Date: April 30, 2019 Subjective Recheck for multiple problems. Patient seen in their room around 1450. visiting. Napping- not unusual for him. Appetite fair. Occasional cough. No nausea, vomiting, diarrhea. No abdominal pain. No dysuria. Still somewhat more confused than baseline. Review of Systems: Constitutional- as noted above. Cardiac- no chest pain. Pulmonary- as noted above. GI- as noted above. - as noted above. Otherwise, as noted above. Physical Exam Constitutional: no acute distress Eyes: + scleral abnormality (icteric) Respiratory: no respiratory distress Auscultation: lungs clear to auscultation bilaterally Cardiovascular: Rate/Rhythm: + irregularly irregular Heart Sounds: no gallop Vessels: no JVD Extremities: + edema (trace pretibial); no calf tenderness Gastrointestinal (Abdomen): normal bowel sounds, soft, nontender, no hepatosplenomegaly Musculoskeletal: Extremities: no cyanosis Skin: no rashes, warm and dry Psychiatric: Orientation: + not alert (somnolent, but arousable and conversant) and + not oriented x 3 (mild-moderate confusion) Results & Data ([facility]) Vital Signs (Past 12 Hours) Vital Signs Temp Pulse Pulse Resp BP Pulse Ox 05/04/19 19:44 36.4 C L 77 20 176/106 H 97 05/04/19 16:00 62 05/04/19 15:54 36.5 C 82 20 112/76 98 05/04/19 11:24 36.5 C 71 18 158/105 H 98 Laboratory Results Laboratory Results - last 24 hr 05/04/19 05/04/19 05/04/19 05:57 05:57 05:57 WBC 6.80 RBC 4.38 L Hgb 13.8 L Hct 40.8 L MCV 93.2 MCH 31.5 MCHC 33.8 RDW Std Deviation 49.0 H RDW Coeff of Daiel 14.4 Plt Count 159 MPV 10.1 Sodium 138 Potassium 3.6 Chloride 108 H Carbon Dioxide 24 Anion Gap 6.0 BUN 17 Creatinine 0.86 Est Cr Clr Drug Dosing 66.9 Est GFR ( Amer) 91.6 Est GFR (Non-Af Amer) 79.1 BUN/Creatinine Ratio 20.0 Glucose 112 H POC Glucose Calcium 8.3 L Total Bilirubin 3.1 H Direct Bilirubin 1.9 H AST 51 H ALT 159 H Alkaline Phosphatase 428 H Total Protein 5.7 L Albumin 2.1 L Globulin 3.6 Albumin/Globulin Ratio 0.6 L Procalcitonin 3.70 H 05/04/19 05/04/19 05/04/19 07:36 11:30 16:35 WBC RBC Hgb Hct MCV MCH MCHC RDW Std Deviation RDW Coeff of Adiel Plt Count MPV Sodium Potassium Chloride Carbon Dioxide Anion Gap BUN Creatinine Est Cr Clr Drug Dosing Est GFR ( Amer) Est GFR (Non-Af Amer) BUN/Creatinine Ratio Glucose POC Glucose 115 H 185 H 141 H Calcium Total Bilirubin Direct Bilirubin AST ALT Alkaline Phosphatase Total Protein Albumin Globulin Albumin/Globulin Ratio Procalcitonin 05/04/19 20:16 WBC RBC Hgb Hct MCV MCH MCHC RDW Std Deviation RDW Coeff of Adiel Plt Count MPV Sodium Potassium Chloride Carbon Dioxide Anion Gap BUN Creatinine Est Cr Clr Drug Dosing Est GFR ( Amer) Est GFR (Non-Af Amer) BUN/Creatinine Ratio Glucose POC Glucose 141 H Calcium Total Bilirubin Direct Bilirubin AST ALT Alkaline Phosphatase Total Protein Albumin Globulin Albumin/Globulin Ratio Procalcitonin
[2019-05-05] MEDS: PANTOprazole 40 MG TAB PO SCH (05:45)
[2019-05-05] MEDS: HEPARIN SOD 5,000 UNIT/0.5 ML VIAL SQ SCH ×3 (05:45→20:52)
[2019-05-05 06:24] LABS: Hematocrit (blood only) 43.3 % (42-52); Hemoglobin 14.7 g/dL (14.0-18.0); Mean Corpuscular Hemoglobin 31.7 pg (25-34); Mean Corpuscular Hgb Conc 33.9 g/dL (32-36); Mean Corpuscular Volume 93.3 fL (80-100); Mean Platelet Volume 10.3 fL (7.4-10.4); Platelet Count 176 K/uL (130-400); RDW Coefficient of Variation 14.5 % (11.5-14.5); RDW Standard Deviation 49.1 fL (36.4-46.3); Red Blood Count 4.64 M/uL (4.7-6.1); White Blood Count 7.52 K/uL (4.8-10.8)
[2019-05-05 06:54] LABS: Albumin Level 2.3 gm/dl (3.4-5.0); Bilirubin Direct 1.3 mg/dl (0-0.2); Calcium 8.7 mg/dl (8.5-10.1); Creatinine Clr Calc Pharmacy 70.8 ml/min; Est GFR (African American) 93.9; Potassium 3.7 mmol/L (3.5-5.1)
[2019-05-05 07:06] LABS: Albumin Globulin Ratio 0.6 (0.9-2); Bilirubin,Total 2.4 mg/dl (0.2-1); Globulin 3.8 gm/dl (2.5-4.0); Total Protein 6.1 gm/dl (6.4-8.2)
[2019-05-05] MEDS: ATENOLOL 25 MG TABLET PO SCH (08:14)
[2019-05-05] MEDS: TAMSULOSIN HCL 0.4 MG CAP PO SCH (08:14)
[2019-05-05] MEDS: lisinopriL 5 MG TAB PO SCH (08:14)
[2019-05-05] MEDS: AMOXICILLIN/CLAVULANATE 875 MG TAB PO SCH ×2 (08:15→17:22)
[2019-05-05] MEDS: OXYBUTYNIN CHLORIDE 5 MG TAB PO SCH ×2 (08:15→20:52)
[2019-05-05] MEDS: INSULIN ASPART 100 UNITS/ML 3 ML PEN SC SCH ×4 (08:15→20:53)
[2019-05-05] MEDS: FLUOCINONIDE 0.05% CR 15 GM TUBE EXT SCH ×2 (08:15→20:52)
[2019-05-05] MEDS: CEROVITE ADV FORMULA TAB PO SCH (08:15)
[2019-05-05] MEDS: CLOPIDOGREL BISULFATE 75 MG TAB PO SCH (08:15)
[2019-05-05] MEDS: INSULIN GLARGINE SOLOSTAR 100 UNITS/ML 3 ML PEN SQ SCH (20:52)
--- NOTE | 2019-05-05 22:40 | Hospitalist Progress Note ---
Date of Service May 05, 2019 Assessment & Plan (1) Severe sepsis: Met criteria for sepsis at time of presentation per current [facility] guidelines- tachycardia, leukocytosis. Blood cultures were obtained. Received broad-spectrum antibiotic coverage with piperacillin/tazobactam. Initial serum lactate 4.8, repeat 4.8. Blood pressure as low as 74/53. Received fluid resuscitation with improvement of hemodynamics. Did not require pressor support. Procalcitonin was 40. LFTs were elevated, suggesting biliary tract source of infection as discussed below. No infiltrates on chest x-ray. UA showed only 5-10 WBCs, trace leukocyte esterace, no bacteria. (2) Sepsis associated hypotension: Blood pressure as low as 74/53. Received fluid resuscitation with improvement of hemodynamics. Did not require pressor support. (3) Elevated LFTs: Onset of symptoms after eating a fatty meal. reports similar episode a few years ago. LFTs at time of admission showed a total bilirubin of 7.1, AST 177, ALT 273, al kaline phosphatase 414. CT of abdomen did not show any obvious abnormalities of biliary tract. Abdominal ultrasound showed hepatic steatosis, borderline thickened and slightly irregular gallbladder wall measuring 3 mm, small amount of sludge within the gallbladder, no gallstones. MRCP showed mild gallbladder wall thickening, no biliary or pancreatic ductal dilatation, no cholelithiasis or choledocholithiasis. GI consulted. No indication for ERCP. GI recommended consideration of cholecystectomy, but patient and family hope to avoid any procedures. Consider passed stone, possible cholecystitis, possible cholangitis despite absence of significant radiographic findings. LFTs improving: Laboratory Tests 04/30/19 04/30/19 05/05/19 13:55 14:49 05:52 Total Bilirubin 7.1 H 2.4 H AST 177 H 51 H ALT 273 H 142 H Alkaline Phosphatase 414 H 433 H Continue to follow. (4) Altered mental status: Confused at time of admission. No acute findings on CT of chest. Probable metabolic encephalopathy secondary to sepsis. Improving. (5) Hypertension: Hypotensive day of admission due to apparent sepsis. Quinapril held. Blood pressure is now improved and a bit high. Continue atenolol. Resuming WILLIE inhibitor and titrating dose. (6) Atrial fibrillation: Rate controlled on atenolol. No anticoagulation because of fall risk. (7) Diabetes mellitus type 2, controlled: Diabetes mellitus type 2 managed with metformin. Hgb A1C in clinic on 04/29/19 7.5. Lantus/NovoLog per protocol. Fasting blood sugar this morning = 130. (8) Dementia: Ongoing monitoring for delirium. Uses Advil PM as home- advised to avoid meds with diphenydramine. Uses oxybutynin for urinary frequency- advised trial without if urinary symptoms permit. (9) DVT prophylaxis: SQ heparin. Ambulate. (10) Discharge planning issues: Anticipated discharge to home with home health services. Internal Medicine follow-up with Dr. Rowe. Admission and Anticipated Discharge Date Admission Date: April 30, 2019 Subjective Recheck for multiple problems. Patient seen in their room around 1600. visiting. Feels better. More alert today. Occasional cough without SOB. No nausea, vomiting, diarrhea. No abdominal pain. No dysuria. Ambulating in room with walker. Review of Systems: Constitutional- as noted above. Cardiac- no chest pain. Pulmonary- as noted above. GI- as noted above. - as noted above. Otherwise, as noted above. 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) Results & Data ([facility]) Vital Signs (Past 12 Hours) Vital Signs Temp Pulse Pulse Resp BP Pulse Ox 05/05/19 19:15 36.8 C 82 19 159/80 H 98 05/05/19 16:00 70 05/05/19 15:25 36.6 C 65 18 143/91 H 97 05/05/19 12:12 36.5 C 75 18 154/95 H 97 Laboratory Results Laboratory Results - last 24 hr 05/05/19 05/05/19 05/05/19 05:52 05:52 07:37 WBC 7.52 RBC 4.64 L Hgb 14.7 Hct 43.3 MCV 93.3 MCH 31.7 MCHC 33.9 RDW Std Deviation 49.1 H RDW Coeff of Adiel 14.5 Plt Count 176 MPV 10.3 Sodium 138 Potassium 3.7 Chloride 107 Carbon Dioxide 23 Anion Gap 7.0 BUN 16 Creatinine 0.81 Est Cr Clr Drug Dosing 70.8 Est GFR ( Amer) 93.9 Est GFR (Non-Af Amer) 81.0 BUN/Creatinine Ratio 20.0 Glucose 122 H POC Glucose 130 H Calcium 8.7 Total Bilirubin 2.4 H Direct Bilirubin 1.3 H AST 51 H ALT 142 H Alkaline Phosphatase 433 H Total Protein 6.1 L Albumin 2.3 L Globulin 3.8 Albumin/Globulin Ratio 0.6 L 05/05/19 05/05/19 05/05/19 11:39 16:54 20:10 WBC RBC Hgb Hct MCV MCH MCHC RDW Std Deviation RDW Coeff of Adiel Plt Count MPV Sodium Potassium Chloride Carbon Dioxide Anion Gap BUN Creatinine Est Cr Clr Drug Dosing Est GFR ( Amer) Est GFR (Non-Af Amer) BUN/Creatinine Ratio Glucose POC Glucose 198 H 148 H 156 H Calcium Total Bilirubin Direct Bilirubin AST ALT Alkaline Phosphatase Total Protein Albumin Globulin Albumin/Globulin Ratio
[2019-05-06] MEDS ORDERED: ACETAMINOPHEN 325 MG TAB PO PRN (04:26)
[2019-05-06] MEDS ORDERED: TRAMADOL HCL 50 MG TABLET PO STA (04:45)
[2019-05-06] MEDS: PANTOprazole 40 MG TAB PO SCH (05:57)
[2019-05-06] MEDS: HEPARIN SOD 5,000 UNIT/0.5 ML VIAL SQ SCH ×2 (05:57→13:41)
[2019-05-06] MEDS: CEROVITE ADV FORMULA TAB PO SCH (07:35)
[2019-05-06] MEDS: OXYBUTYNIN CHLORIDE 5 MG TAB PO SCH (07:35)
[2019-05-06] MEDS: TAMSULOSIN HCL 0.4 MG CAP PO SCH (07:36)
[2019-05-06] MEDS: AMOXICILLIN/CLAVULANATE 875 MG TAB PO SCH (07:36)
[2019-05-06] MEDS: ATENOLOL 25 MG TABLET PO SCH (07:36)
[2019-05-06] MEDS: lisinopriL 5 MG TAB PO SCH (07:36)
[2019-05-06] MEDS: CLOPIDOGREL BISULFATE 75 MG TAB PO SCH (07:36)
[2019-05-06] MEDS ORDERED: cloNIDine HCL 0.1 MG TAB PO ONE (08:02)
[2019-05-06] MEDS: FLUOCINONIDE 0.05% CR 15 GM TUBE EXT SCH (08:35)
[2019-05-06] MEDS: INSULIN ASPART 100 UNITS/ML 3 ML PEN SC SCH ×2 (08:36→12:39)
[2019-05-06] MEDS ORDERED: lisinopriL 10 MG TAB PO SCH (09:00)
[2019-05-06 10:52] VITALS: TEMP 97.7
--- NOTE | 2019-05-06 14:51 | Hospitalist Progress Note ---
Date of Service May 06, 2019 Assessment & Plan (1) Severe sepsis: Met criteria for sepsis at time of presentation per current CMS guidelines- tachycardia, leukocytosis. Blood cultures were obtained. Received broad-spectrum antibiotic coverage with piperacillin/tazobactam. Initial serum lactate 4.8, repeat 4.8. Blood pressure as low as 74/53. Received fluid resuscitation with improvement of hemodynamics. Did not require pressor support. Procalcitonin was 40. LFTs were elevated, suggesting biliary tract source of infection as discussed below. No infiltrates on chest x-ray. UA showed only 5-10 WBCs, trace leukocyte esterace, no bacteria. (2) Sepsis associated hypotension: Blood pressure as low as 74/53. Received fluid resuscitation with improvement of hemodynamics. Did not require pressor support. (3) Elevated LFTs: Onset of symptoms after eating a fatty meal. reports similar episode a few years ago. LFTs at time of admission showed a total bilirubin of 7.1, AST 177, ALT 273, al kaline phosphatase 414. CT of abdomen did not show any obvious abnormalities of biliary tract. Abdominal ultrasound showed hepatic steatosis, borderline thickened and slightly irregular gallbladder wall measuring 3 mm, small amount of sludge within the gallbladder, no gallstones. MRCP showed mild gallbladder wall thickening, no biliary or pancreatic ductal dilatation, no cholelithiasis or choledocholithiasis. GI consulted. No indication for ERCP. GI recommended consideration of cholecystectomy, but patient and family hope to avoid any procedures. Consider passed stone, possible cholecystitis, possible cholangitis despite absence of significant radiographic findings. LFTs improving: Laboratory Tests 04/30/19 04/30/19 05/05/19 13:55 14:49 05:52 Total Bilirubin 7.1 H 2.4 H AST 177 H 51 H ALT 273 H 142 H Alkaline Phosphatase 414 H 433 H Continue to follow. (4) Altered mental status: Confused at time of admission. No acute findings on CT of chest. Probable metabolic encephalopathy secondary to sepsis. Improving. (5) Hypertension: Hypotensive day of admission due to apparent sepsis. Quinapril held. Blood pressure improved and high at times. Continue atenolol. Resumed WILLIE inhibitor and titrated dose. (6) Atrial fibrillation: Rate controlled on atenolol. No anticoagulation because of fall risk. (7) Diabetes mellitus type 2, controlled: Diabetes mellitus type 2 managed with metformin. Hgb A1C in clinic on 2/29/20 7.5. Lantus/NovoLog per protocol. Fasting blood sugar this morning = 178. (8) Dementia: Ongoing monitoring for delirium. Uses Advil PM as home- advised to avoid meds with diphenydramine. Uses oxybutynin for urinary frequency- advised trial without if urinary symptoms permit. (9) DVT prophylaxis: SQ heparin. Ambulate. (10) Discharge planning issues: Discharge to home with home health services. Internal Medicine follow-up with Dr. Rowe. Admission and Anticipated Discharge Date Admission Date: April 30, 2019 Subjective Recheck for multiple problems. Patient seen in their room around 1400. visiting. Feels better. More alert today. Minimal cough. No SOB. Good appetite. No nausea, vomiting, diarrhea. No abdominal pain. No dysuria. Transferring and ambulating with walker + minimal assistance. Patient would like to go home. feels comfortable caring for him and feels that he will do best in home environment. Physical Exam Constitutional: no acute distress Eyes: + scleral abnormality (icteric) Respiratory: no respiratory distress Auscultation: lungs clear to auscultation bilaterally Cardiovascular: Rate/Rhythm: + irregularly irregular Heart Sounds: no gallop Vessels: no JVD Extremities: + edema (trace pretibial); no calf tenderness Gastrointestinal (Abdomen): normal bowel sounds, soft, nontender, no hepatosplenomegaly Musculoskeletal: Extremities: no cyanosis Skin: no rashes, warm and dry Psychiatric: Orientation: alert; + not oriented x 3 (mild confusion) Results & Data ([facility]) Vital Signs (Past 12 Hours) Vital Signs Temp Pulse Pulse Resp BP BP Pulse Ox 05/06/19 10:51 36.5 C 81 18 158/94 H 98 05/06/19 08:45 88 160/114 H 162/97 H 05/06/19 07:17 80 05/06/19 07:16 36.7 C 76 18 176/118 H 176/100 H 97 05/06/19 03:13 36.6 C 70 18 147/91 H 100 Laboratory Results Laboratory Results - last 24 hr 05/06/19 05/06/19 07:44 11:41 POC Glucose 178 H 209 H
[2019-05-06 15:23] VITALS: BP 128/80; PULSE 73; O2SAT 99
--- NOTE | 2019-05-06 22:04 | Discharge Summary ---
Date of Service Date of Admission: 04/30/19 Date of Discharge: 05/06/19 Admission HPI Per Admitting Provider 83 yo Male with PMH of Afib, HTN, type 2 DM, paroxysmal afib present to the ER for generalized weakness. Most of the history obtained from due to pt dementia. said that pt was doing fine last night. She said that pt woke up this morning, he felt very weak. He was so weak that he was not able to ambulate. said that he took 3 people to try to get him up this morning. said that early this morning, pt said that he felt cold and chills and was shaking. Pt saw his PCP yesterday for urinary frequency. UA was checked yesterday at PCP office was negative and culture was sent showed no growth. said that pt used his cane yesterday to ambulate. Denies any recent travel or sick contact. Denies any chest pain, palpitation, dizziness, fever and SOB. 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 Blood cultures were obtained. Received broad-spectrum antibiotic coverage with piperacillin/tazobactam. Initial serum lactate 4.8, repeat 4.8. Blood pressure as low as 74/53. Received fluid resuscitation with improvement of hemodynamics. Did not require pressor support. Procalcitonin was 40. LFTs were elevated, suggesting biliary tract source of infection as discussed below. No infiltrates on chest x-ray. UA showed only 5-10 WBCs, trace leukocyte esterace, no bacteria. (2) Sepsis associated hypotension: Blood pressure as low as 74/53. Received fluid resuscitation with improvement of hemodynamics. Did not require pressor support. (3) Elevated LFTs: Onset of symptoms after eating a fatty meal. reports similar episode a few years ago. LFTs at time of admission showed a total bilirubin of 7.1, AST 177, ALT 273, alkaline phosphatase 414. CT of abdomen did not show any obvious abnormalities of biliary tract. Abdominal ultrasound showed hepatic steatosis, borderline thickened and slightly irregular gallbladder wall measuring 3 mm, small amount of sludge within the gallbladder, no gallstones. MRCP showed mild gallbladder wall thickening, no biliary or pancreatic ductal dilatation, no cholelithiasis or choledocholithiasis. GI consulted. No indication for ERCP. GI recommended consideration of cholecystectomy, but patient and family hope to avoid any procedures. Consider passed stone, possible cholecystitis, possible cholangitis despite absence of significant radiographic findings. LFTs improving: Laboratory Tests 04/30/19 04/30/19 05/05/19 13:55 14:49 05:52 Total Bilirubin 7.1 H 2.4 H AST 177 H 51 H ALT 273 H 142 H Alkaline Phosphatase 414 H 433 H Continue to follow. (4) Altered mental status: Confused at time of admission. No acute findings on CT of chest. Probable metabolic encephalopathy secondary to sepsis. Improving. (5) Hypertension: Hypotensive day of admission due to apparent sepsis. Quinapril held. Blood pressure improved and high at times. Continue atenolol. Resumed WILLIE inhibitor and titrated dose. (6) Atrial fibrillation: Rate controlled on atenolol. No anticoagulation because of fall risk. (7) Diabetes mellitus type 2, controlled: Diabetes mellitus type 2 managed with metformin + repaglinide. Hgb A1C in clinic on 04/29/19 7.5. Lantus/NovoLog per protocol. Fasting blood sugar day of discharge 178. Discharged on usual regimen. (8) Dementia: Ongoing monitoring for delirium. Uses Advil PM as home- advised to avoid meds with diphenydramine. Uses oxybutynin for urinary frequency- advised trial without if urinary symptoms permit. (9) Pancreatic lesion: MRCP 05/01/19 showed "Numerous T2 hyperintense pancreatic lesions, the largest of which is a 1.2 cm pancreatic head lesion. 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 A follow-up MRCP in 6 months is recommended to ensure stability. Discussed with patient and . Recheck MRCP in 6 months. (10) DVT prophylaxis: SQ heparin. Ambulate. (11) Discharge planning issues: Discharge to home with home health services. Internal Medicine follow-up with Dr. Rowe. Total Time Total Time Spent Total Time Spent (In Minutes): 50 Discharge Plan Discharge Items Patient Disposition: Home - Home Health Services Reason For Visit: weakness Discharge Diagnosis: probable sepsis from infection in bile duct or gallbladder Condition on Discharge: Fair Activity: As commented below Activity Comment: Be careful when walking. Use a walker. Non-emergency contact: Primary Care Provider and Hospitalist Call non-emergency contact if: you have any medication questions, your symptoms worsen and your temperature is above 101 Follow-up/Referrals: Carlton Rowe DO [Primary Care Provider] - (05/12/2019 3:00 PM Carlton Rowe DO ) Diet: Carb Consistent or DM2, Heart Healthy and Low Fat Addtl Attending Provider Instructions: MEDICATION CHANGES: Stop Advil PM- it can cause sleepiness, confusion, bladder problems. Avoid any medications that contain diphenhydramine (Advil PM, Tylenol PM, Benadryl, and others). Tamsulosin (Flomax) can make you dizzy and cause falls. Take it at bedtime to minimize side effects. Amoxicillin / clavulanic acid twice a day with food until gone. SUMMARY OF TEST RESULTS: Tests suggested probable sepsis from a gallbladder or bile duct infection. MRI scan showed some small spots in you pancreas. RECOMMENDATIONS FOR FOLLOW-UP: Repeat MRCP (MRI scan of pancreas) recommended in [address] Rowe to schedule. Please ask Dr. Rowe to check lab tests in clinic: comprehensive metabolic profile CBC OTHER INSTRUCTIONS: Seek medical attention if you have: * temperature above 101 * chest pain or trouble breathing * abdominal pain, nausea, vomiting * diarrhea, dark stools or bloody stools * any unanswered questions or concerns Call 911 if symptoms are severe. Please take good care of yourself. Call if you have any questions or problems. You can reach a [facility] hospitalist on duty at [facility] 24 hours a day by calling [phone]. My cell # is [phone]. Pending Studies at Discharge: No Stand-Alone Forms: [facility], Smoking Cessation Medications and DC Order Prescriptions: New amoxicillin-pot clavulanate [Augmentin] 875-125 mg tablet 1 tab PO BID Qty: 8 RF: 0 Continued metformin 500 mg Tablet 500 mg PO BID RF: 0 atenolol 25 mg Tablet 25 mg PO DAILY RF: 0 clopidogrel 75 mg Tablet 75 mg PO DAILY RF: 0 tamsulosin 0.4 mg Capsule 0.4 mg PO HS RF: 0 nitroglycerin [Nitrostat] 0.4 mg Tablet, Sublingual 0.4 mg sublingual DIRECTED PRN (Reason: Chest Pain) RF: 0 omeprazole 20 mg Capsule,Delayed Release(Dr/Ec) 20 mg PO DAILYBB RF: 0 quinapril 20 mg Tablet 20 mg PO DAILY RF: 0 pravastatin 20 mg Tablet 20 mg PO DAILY RF: 0 multivitamin with minerals Tablet 2 tab PO DAILY RF: 0 polyethylene glycol 3350 17 gram/dose Powder 225 g PO DAILY PRN (Reason: SEVERE CONSTIPATION) RF: 0 oxybutynin chloride 5 mg Tablet 5 mg PO BID RF: 0 fluocinonide 0.05 % Cream 1 applic TOPICAL BID RF: 0 loratadine [Claritin] 10 mg Tablet 10 mg PO DAILY PRN (Reason: Congestion) RF: 0 repaglinide 1 mg Tablet 1 mg PO AC RF: 0 Discontinued ibuprofen [Advil] 200 mg Tablet 200 mg PO HS PRN (Reason: NEEDED) RF: 0 Discharge Orders: Discharge Order (Routine); Ordered 05/06/19 Ordered By: Julio Ponce Admission Data Admit Date/Time: 04/30/19 18:06 Attending Provider: Julio Ponce Admit Provider: Guillermina Herring Primary Care Provider: Carlton Rowe Other Providers: Guillermina Herring ; Ira Miller ; [facility] ; [facility] Other Interventions: Discharge Summary Assessment (RN) Last Done: 05/06/19 15:20 DC Date/Time DO NOT enter until pt leaves facility: 05/06/19 16:02
== END 2019-05-06 16:02 | disposition home health service (06) | DRG 872 ==
LOC: ED 13:27 → 2N 18:06 → SUATTDRO 18:06 → 2N 19:15

== ENCOUNTER 2020-03-05 14:05 | Inpatient (IN) ==
[2020-03-05] MEDS ORDERED: SODIUM CHLORIDE 0.9% 1000ML 1,000 ML IV ONE ×2 (14:11→16:15)
[2020-03-05] MEDS ORDERED: ACETAMINOPHEN 650 MG SUPP PR STA (14:14)
--- NOTE | 2020-03-05 14:40 | Emergency Department Note ---
Impression & Plan Sepsis, Ascending cholangitis, Acute alteration in mental status, Fever ED Provider Note NAME: MAURISIO HANCOCK AGE: 84 SEX: M : 1935 ARRIVES VIA: Ambulance INFORMANT: Patient, prehospital personnel, the patient's significant other ED PROVIDER(S): Gadiel Acuña DO CHIEF COMPLAINT: Altered mental status HPI: Patient is an 84-year-old male who presented to the emergency department for an evaluation of altered mental status. The history is obtained from the prehospital personnel as well as the patient's significant other. The patient does have some underlying dementia as well as diabetes. He also has a history of atrial fibrillation. His states that he had a very similar episode in April of this year where he was evaluated in the emergency department for possible stroke. I did receive a prehospital notification about this patient. The patient was febrile. The patient was noted to have slurred speech. The patient's significant other states that he was complaining of some abdominal pain earlier today but took antiacid and felt better. There is been no nausea or vomiting. There was no history of fever. His significant other states that since the first of the year the patient's been having altered mental status as well as generalized weakness. He is had difficulty ambulating. He does have a history of essential tremor but this is been noticed to be worsened over the last few days. He denies having any chest pain. He said no difficulty breathing. He has no exposure to COVID-19 or cough according to the prehospital personnel or the significant other. ROS: See above HPI for pertinent positives & negatives. A total of 10 systems reviewed and were otherwise negative. PAST MEDICAL HISTORY: See Below PAST SURGICAL HISTORY: See Below FAMILY HISTORY: See Below SOCIAL HISTORY: See Below HOME MEDICATIONS: See Below ALLERGIES: See Below VITALS: See Below PHYSICAL EXAMINATION: GENERAL: Patient is listless and does not follow commands. He appears to be mildly anxious. EYES: The conjunctivae are clear. The pupils are round and reactive. EARS, NOSE, MOUTH AND THROAT: The nose is without any evidence of any deformity. Mucous membranes are dry. NECK: The neck is nontender and supple. RESPIRATORY: Shallow respirations were noted. Diminished breath sounds noted throughout. CARDIOVASCULAR: Tachycardic and irregular heart sounds were noted to auscultation. GASTROINTESTINAL: Abdomen is moderately distended. There is right-sided tenderness to palpation but no guarding rigidity. MUSCULOSKELETAL/EXTREMITIES: There is no evidence of gross deformity full range of motion is noted in the hips and shoulders. SKIN: Skin is warm. Skin is dry. There is venous stasis changes in both lower extremities. Pedal edema was noted bilaterally. NEUROLOGIC: Patient is able to follow commands with moving extremities. He does not answer questions appropriately. MEDICAL DECISION MAKING: The patient is an 84-year-old male who presented to the emergency department for an acute alteration of mental status. According to his significant other over the last 4 to 5 days the patient has been noticing difficulty ambulating. She has been having very significant difficulty trying to get him out of bed. She is noticed that he is also had some slurred speech. The patient arrived and was found to have hypotension as well as fever. He was treated with the usual sepsis protocol. He was treated with IV fluids and IV antibiotics. He was reevaluated multiple times. He was found to have abnormal liver function studies which could be consistent with cholangitis however the patient's CAT scan did not show any acute abnormality. It is difficult to ascertain if another radiographic study would be required. I discussed the patient's condition with his significant other. At this time the patient's significant other states that the patient has had similar episodes in the past and was felt to have a liver infection. At that time they did not wish to pursue surgical intervention and they continue to want the patient to be comfortable but still not sure they want surgical intervention. I discussed the patient's laboratory and radiographic studies with the on-call [facility] hospitalist group. They have agreed to evaluate the patient in the emergency department for further management and disposition. The patient did have a central line placed and was started on IV pressors. Triage Nursing notes reviewed. Prior medical records reviewed Vital Signs: reviewed and remarkable for hypotension and tachycardia. Differential diagnosis: Infection, hypoglycemia, electrolyte abnormalities, overdose, toxicologic, cardiac sources, intracerebral event, neurologic, trauma, as well as other pathologies. ER treatment provided: See below Diagnostics interpreted by me: ECG: EKG was obtained in the emergency department. My interpretation is atrial fibrillation at 142 bpm. There were no PVCs noted. Right bundle branch block pattern was noted. Diffuse ST segment depressions were also noted. This was compared to a tracing from April 292019. Atrial fibrillation has replaced sinus rhythm. The right bundle branch block pattern appears new as well. Cardiac Monitoring: An order was placed for continuous cardiac monitoring. The monitor shows a rate of 125 bpm with atrial fibrillation rhythm. Laboratory studies: As stated above and show below. Imaging studies: See below Consultation(s): [id number]: I discussed this case with Janine Rowan who is on-call for the [facility] Hospitalist group. ED COURSE: Procedures: Femoral Central Venous Catheter Indication: Sepsis Catheter Type: Triple-lumen Location: Right femoral vein Verbal consent was obtained after the risks and benefits were explained, including but not limited to intra-abdominal injury, vessel injury, bleeding, scarring, infection, pain, and bone/joint/nerve damage. At this time, the risks of the procedure are less than the risks of NOT performing the procedure. A ti me out was taken and the correct patient and site identified. The patient was placed in the supine position and the skin was prepped in the standard fashion with chlorhexidine and full sterile drapes applied. The proper landmarks were identified with ultrasound, anesthetized with 1% lidocaine without epinephrine, and the needle was inserted through the skin in the standard fashion. The needle was carefully advanced into blood vessel lumen with ultrasound guidance. The guidewire was placed uneventfully. The vessel is dilated and the catheter was placed. It was sutured into position. There was good blood return from all ports. The patient tolerated the procedure well and there were no com plications. Critical Care: I have personally spent greater than 65 minutes of critical care time in the direct management of this patient. This includes bedside care, interpretation of diagnostic studies, and testing, discussion with consultants, patient, and family members, and other required patient management activities. This 65 minutes is in excess of all separately billable procedures. 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 repeat MRCP recommended in 6 months Family History Other No pertinent family history in first degree relatives Social History Smoking Status: Unknown if ever smoked Hx Alcohol Use: No Hx Substance Use: No Preferred Language: Maltese Communication Ability: Unable Co Founder Required: No Beliefs That Will Affect Care: None marital status: Current Living Situation: Spouse Feels Safe at Home: Yes Assistive Devices: Glasses and Walker Allergies Allergies Allergy/AdvReac Type Severity Reaction Status Date / Time No Known Allergies Allergy Verified 03/05/20 15:50 Home Meds Home Medications Medication Instructions Recorded Confirmed atenolol 25 mg PO DAILY 04/30/19 03/05/20 clopidogrel 75 mg PO DAILY 04/30/19 03/05/20 loratadine [Claritin] 10 mg PO DAILY PRN 04/30/19 03/05/20 metformin 1,000 mg PO BID 04/30/19 03/05/20 multivitamin with minerals 2 tab PO DAILY 04/30/19 03/05/20 nitroglycerin [Nitrostat] 0.4 mg SUBLINGUAL DIRECTED PRN 04/30/19 03/05/20 omeprazole 20 mg PO DAILYBB 04/30/19 03/05/20 oxybutynin chloride 5 mg PO BID 04/30/19 03/05/20 pravastatin 20 mg PO DAILY 04/30/19 03/05/20 quinapril 20 mg PO DAILY 04/30/19 03/05/20 repaglinide 1 mg PO AC 04/30/19 03/05/20 tamsulosin 0.4 mg PO HS 04/30/19 03/05/20 acetaminophen [Tylenol Extra 500 mg PO TID 03/05/20 03/05/20 Strength] furosemide 40 mg PO QAM 03/05/20 03/05/20 Results & Data (ED) Vital Signs Vital Signs - 24 hr 03/05/20 14:07 03/05/20 14:26 03/05/20 14:30 Temperature Temperature Source Pulse Rate 146 H 143 H 139 H Pulse Rate [Apical] Pulse Rate from SpO2 Sensor Pulse Rhythm [Apical] Respiratory Rate 19 Respiratory Effort / Characteristics Respiratory Depth Blood Pressure 100/73 Blood Pressure [Left Arm] Blood Pressure Mean 78 Blood Pressure Mean [Left Arm] Blood Pressure Position [Left Arm] Pulse Oximetry Oxygen Delivery Method Oxygen Flow Rate Sepsis Recent Fever Within 48 Hours Sepsis New/Unexplained Change in Mental Status Sepsis Action Taken by Nursing 03/05/20 14:34 03/05/20 14:35 03/05/20 14:40 Temperature Temperature Source Pulse Rate 119 H 134 H 146 H Pulse Rate [Apical] Pulse Rate from SpO2 Sensor 155 H Pulse Rhythm [Apical] Respiratory Rate 22 Respiratory Effort / Characteristics Respiratory Depth Blood Pressure 75/39 L 77/62 L Blood Pressure [Left Arm] Blood Pressure Mean 56 65 Blood Pressure Mean [Left Arm] Blood Pressure Position [Left Arm] Pulse Oximetry 96 Oxygen Delivery Method Oxygen Flow Rate Sepsis Recent Fever Within 48 Hours Sepsis New/Unexplained Change in Mental Status Sepsis Action Taken by Nursing 03/05/20 14:46 03/05/20 14:50 03/05/20 14:51 Temperature 39.3 C H Temperature Source Rectal Pulse Rate 121 H 121 H 116 H Pulse Rate [Apical] Pulse Rate from SpO2 Sensor 138 H 125 H Pulse Rhythm [Apical] Respiratory Rate 29 H 24 Respiratory Effort / Characteristics Respiratory Depth Blood Pressure 90/68 L 100/73 Blood Pressure [Left Arm] Blood Pressure Mean 70 82 Blood Pressure Mean [Left Arm] Blood Pressure Position [Left Arm] Pulse Oximetry 96 96 98 Oxygen Delivery Method Room Air Oxygen Flow Rate Sepsis Recent Fever Within 48 Hours Yes Sepsis New/Unexplained Change in Mental Status Yes Sepsis Action Taken by Nursing Physician Notified 03/05/20 16:30 03/05/20 16:37 Temperature Temperature Source Pulse Rate Pulse Rate [Apical] 86 92 H Pulse Rate from SpO2 Sensor Pulse Rhythm [Apical] Regular Respiratory Rate 24 24 Respiratory Effort / Characteristics Non-Labored Non-Labored Spontaneous Respiratory Depth Normal Normal Blood Pressure Blood Pressure [Left Arm] 63/42 L 91/69 L Blood Pressure Mean Blood Pressure Mean [Left Arm] 49 76 Blood Pressure Position [Left Arm] Lying Pulse Oximetry Oxygen Delivery Method Oxymask Oxygen Flow Rate 6 Sepsis Recent Fever Within 48 Hours Sepsis New/Unexplained Change in Mental Status Sepsis Action Taken by Fpc Medications Current Medication List: was personally reviewed by me Laboratory Data Attestation: I reviewed the patient's lab results. Result diagrams: 03/05/20 14:27 03/05/20 14:27 Lab Results 03/05/20 03/05/20 03/05/20 Range/Units 14:27 14:27 14:27 WBC 3.31 L (4.8-10.8) K/uL RBC 4.41 L (4.7-6.1) M/uL Hgb 14.3 (14.0-18.0) g/dL POC Hgb (14.0-18.0) g/dl Hct 42.6 (42-52) % POC Hct (42-52) % MCV 96.6 (80-100) fL MCH 32.4 (25-34) pg MCHC 33.6 (32-36) g/dL RDW Std Deviation 49.9 H (36.4-46.3) fL RDW Coeff of Adiel 14.0 (11.5-14.5) % Plt Count 146 (130-400) K/uL MPV 9.1 (7.4-10.4) fL Immature Gran % (Auto) 0.0 % Neut % (Auto) 94.9 % Lymph % (Auto) 3.3 % [place] % (Auto) 1.5 % Eos % (Auto) 0.3 % Baso % (Auto) 0.0 % Neut # (Auto) 3.14 (1.4-6.5) K/uL Lymph # (Auto) 0.11 L (1.2-3.4) K/uL [place] # (Auto) 0.05 L (0.11-0.59) K/uL Eos # (Auto) 0.01 (0-0.5) K/uL Baso # (Auto) 0.00 (0-0.2) K/uL Immature Gran # (Auto) 0.00 (0.00-0.02) K/uL PT 11.4 (9.0-12.0) Seconds INR 1.1 (0.9-1.1) APTT 24.8 (21.0-31.0) Seconds PTT Ratio 0.9 VBG pH (7.36-7.41) VBG pCO2 (38-50) mmHg VBG pO2 mmHg VBG HCO3 mmol/L VBG O2 Saturation % VBG Base Excess mEq/L Barometric Pressure mm/Hg POC Sodium (135-144) mmol/L Sodium 136 (136-145) mmol/L POC Potassium (3.3-5.0) mmol/L Potassium 4.0 (3.5-5.1) mmol/L POC Chloride (101-112) mmol/L Chloride 101 (98-107) mmol/L Carbon Dioxide 18 L (21-32) mmol/L POC Total CO2 (24-31) mmol/L Anion Gap 17.0 H (3-11) POC Anion Gap (16-25) mmol/L POC BUN (7-18) mg/dl BUN 20 H (7-18) mg/dl Creatinine 1.85 H (0.6-1.4) mg/dl POC Creatinine (0.6-1.3) mg/dl Est Cr Clr Drug Dosing 30.5 ml/min Est GFR ( Amer) 37.4 Est GFR (Non-Af Amer) 32.3 BUN/Creatinine Ratio 10.8 (10-20) Glucose 244 H (70-99) mg/dl POC Glucose (other) (70-99) mg/dl Lactate (0.4-2.0) mmol/L Calcium 8.9 (8.5-10.1) mg/dl POC Ioniz Calcium Niall (1.12-1.32) mmol/l Magnesium 1.6 L (1.8-2.4) mg/dl Total Bilirubin 5.1 H (0.2-1) mg/dl AST 422 H (15-37) U/L ALT 433 H (12-78) U/L Alkaline Phosphatase 184 H (45-117) U/L Troponin I < 0.015 (0-0.045) ng/ml NT-Pro-B Natriuret Pep 4413 H (0-1800) pg/ml Total Protein 6.2 L (6.4-8.2) gm/dl Albumin 3.2 L (3.4-5.0) gm/dl Globulin 3.0 (2.5-4.0) gm/dl Albumin/Globulin Ratio 1.1 (0.9-2) Procalcitonin (0-0.5) ng/ml Urine Color Urine Appearance (Clear) Urine pH (4.5-7.5) Ur Specific Graham (1.000-1.030) Urine Protein (Negative) Urine Glucose (UA) (Negative) Urine Ketones (Negative) Urine Blood (Negative) Urine Nitrite (Negative) Urine Bilirubin (Negative) Urine Urobilinogen (Negative) Ur Leukocyte Esterase (Negative) Urine WBC (Auto) (0-5) /hpf Urine RBC (Auto) (0-4) /hpf U Hyaline Cast (Auto) (0-5) /lpf U Epithel Cells (Auto) (0-5) /lpf Urine Bacteria (Auto) (Negative) Ur Renal Epithelial Cell COVID-19 Eval Order SARS-CoV-2, RNA, NAAT (NEGATIVE) 03/05/20 03/05/20 03/05/20 Range/Units 14:27 14:27 14:27 WBC (4.8-10.8) K/uL RBC (4.7-6.1) M/uL Hgb (14.0-18.0) g/dL POC Hgb (14.0-18.0) g/dl Hct (42-52) % POC Hct (42-52) % MCV (80-100) fL MCH (25-34) pg MCHC (32-36) g/dL RDW Std Deviation (36.4-46.3) fL RDW Coeff of Adiel (11.5-14.5) % Plt Count (130-400) K/uL MPV (7.4-10.4) fL Immature Gran % (Auto) % Neut % (Auto) % Lymph % (Auto) % [place] % (Auto) % Eos % (Auto) % Baso % (Auto) % Neut # (Auto) (1.4-6.5) K/uL Lymph # (Auto) (1.2-3.4) K/uL [place] # (Auto) (0.11-0.59) K/uL Eos # (Auto) (0-0.5) K/uL Baso # (Auto) (0-0.2) K/uL Immature Gran # (Auto) (0.00-0.02) K/uL PT (9.0-12.0) Seconds INR (0.9-1.1) APTT (21.0-31.0) Seconds PTT Ratio VBG pH 7.27 L (7.36-7.41) VBG pCO2 44 (38-50) mmHg VBG pO2 16 mmHg VBG HCO3 20 mmol/L VBG O2 Saturation < 60.0 % VBG Base Excess -6.8 mEq/L Barometric Pressure 729.2 mm/Hg POC Sodium (135-144) mmol/L Sodium (136-145) mmol/L POC Potassium (3.3-5.0) mmol/L Potassium (3.5-5.1) mmol/L POC Chloride (101-112) mmol/L Chloride (98-107) mmol/L Carbon Dioxide (21-32) mmol/L POC Total CO2 (24-31) mmol/L Anion Gap (3-11) POC Anion Gap (16-25) mmol/L POC BUN (7-18) mg/dl BUN (7-18) mg/dl Creatinine (0.6-1.4) mg/dl POC Creatinine (0.6-1.3) mg/dl Est Cr Clr Drug Dosing ml/min Est GFR ( Amer) Est GFR (Non-Af Amer) BUN/Creatinine Ratio (10-20) Glucose (70-99) mg/dl POC Glucose (other) (70-99) mg/dl Lactate 12.7 H* (0.4-2.0) mmol/L Calcium (8.5-10.1) mg/dl POC Ioniz Calcium Niall (1.12-1.32) mmol/l Magnesium (1.8-2.4) mg/dl Total Bilirubin (0.2-1) mg/dl AST (15-37) U/L ALT (12-78) U/L Alkaline Phosphatase (45-117) U/L Troponin I (0-0.045) ng/ml NT-Pro-B Natriuret Pep (0-1800) pg/ml Total Protein (6.4-8.2) gm/dl Albumin (3.4-5.0) gm/dl Globulin (2.5-4.0) gm/dl Albumin/Globulin Ratio (0.9-2) Procalcitonin 42.07 H (0-0.5) ng/ml Urine Color Urine Appearance (Clear) Urine pH (4.5-7.5) Ur Specific Graham (1.000-1.030) Urine Protein (Negative) Urine Glucose (UA) (Negative) Urine Ketones (Negative) Urine Blood (Negative) Urine Nitrite (Negative) Urine Bilirubin (Negative) Urine Urobilinogen (Negative) Ur Leukocyte Esterase (Negative) Urine WBC (Auto) (0-5) /hpf Urine RBC (Auto) (0-4) /hpf U Hyaline Cast (Auto) (0-5) /lpf U Epithel Cells (Auto) (0-5) /lpf Urine Bacteria (Auto) (Negative) Ur Renal Epithelial Cell COVID-19 Eval Order SARS-CoV-2, RNA, NAAT (NEGATIVE) 03/05/20 03/05/20 03/05/20 Range/Units 14:41 14:45 15:14 WBC (4.8-10.8) K/uL RBC (4.7-6.1) M/uL Hgb (14.0-18.0) g/dL POC Hgb 14.6 (14.0-18.0) g/dl Hct (42-52) % POC Hct 43 (42-52) % MCV (80-100) fL MCH (25-34) pg MCHC (32-36) g/dL RDW Std Deviation (36.4-46.3) fL RDW Coeff of Adiel (11.5-14.5) % Plt Count (130-400) K/uL MPV (7.4-10.4) fL Immature Gran % (Auto) % Neut % (Auto) % Lymph % (Auto) % [place] % (Auto) % Eos % (Auto) % Baso % (Auto) % Neut # (Auto) (1.4-6.5) K/uL Lymph # (Auto) (1.2-3.4) K/uL [place] # (Auto) (0.11-0.59) K/uL Eos # (Auto) (0-0.5) K/uL Baso # (Auto) (0-0.2) K/uL Immature Gran # (Auto) (0.00-0.02) K/uL PT (9.0-12.0) Seconds INR (0.9-1.1) APTT (21.0-31.0) Seconds PTT Ratio VBG pH (7.36-7.41) VBG pCO2 (38-50) mmHg VBG pO2 mmHg VBG HCO3 mmol/L VBG O2 Saturation % VBG Base Excess mEq/L Barometric Pressure mm/Hg POC Sodium 135 (135-144) mmol/L Sodium (136-145) mmol/L POC Potassium 4.0 (3.3-5.0) mmol/L Potassium (3.5-5.1) mmol/L POC Chloride 100 L (101-112) mmol/L Chloride (98-107) mmol/L Carbon Dioxide (21-32) mmol/L POC Total CO2 18 L (24-31) mmol/L Anion Gap (3-11) POC Anion Gap 21.0 (16-25) mmol/L POC BUN 20 H (7-18) mg/dl BUN (7-18) mg/dl Creatinine (0.6-1.4) mg/dl POC Creatinine 1.3 (0.6-1.3) mg/dl Est Cr Clr Drug Dosing ml/min Est GFR ( Amer) Est GFR (Non-Af Amer) BUN/Creatinine Ratio (10-20) Glucose (70-99) mg/dl POC Glucose (other) 255 H (70-99) mg/dl Lactate (0.4-2.0) mmol/L Calcium (8.5-10.1) mg/dl POC Ioniz Calcium Niall 1.09 L (1.12-1.32) mmol/l Magnesium (1.8-2.4) mg/dl Total Bilirubin (0.2-1) mg/dl AST (15-37) U/L ALT (12-78) U/L Alkaline Phosphatase (45-117) U/L Troponin I (0-0.045) ng/ml NT-Pro-B Natriuret Pep (0-1800) pg/ml Total Protein (6.4-8.2) gm/dl Albumin (3.4-5.0) gm/dl Globulin (2.5-4.0) gm/dl Albumin/Globulin Ratio (0.9-2) Procalcitonin (0-0.5) ng/ml Urine Color Dark Yellow Urine Appearance Clear (Clear) Urine pH 7.0 (4.5-7.5) Ur Specific [place] 1.018 (1.000-1.030) Urine Protein Negative (Negative) Urine Glucose (UA) Negative (Negative) Urine Ketones Trace H (Negative) Urine Blood 2+ H (Negative) Urine Nitrite Negative (Negative) Urine Bilirubin Negative (Negative) Urine Urobilinogen Negative (Negative) Ur Leukocyte Esterase Negative (Negative) Urine WBC (Auto) 1-5 (0-5) /hpf Urine RBC (Auto) 10-30 H (0-4) /hpf U Hyaline Cast (Auto) 5-10 H (0-5) /lpf U Epithel Cells (Auto) >30 H (0-5) /lpf Urine Bacteria (Auto) Negative (Negative) Ur Renal Epithelial Cell Not Reportable COVID[facility] SARS-CoV-2, RNA, NAAT (NEGATIVE) 03/05/20 03/05/20 Range/Units 15:14 16:52 WBC (4.8-10.8) K/uL RBC (4.7-6.1) M/uL Hgb (14.0-18.0) g/dL POC Hgb (14.0-18.0) g/dl Hct (42-52) % POC Hct (42-52) % MCV (80-100) fL MCH (25-34) pg MCHC (32-36) g/dL RDW Std Deviation (36.4-46.3) fL RDW Coeff of Adiel (11.5-14.5) % Plt Count (130-400) K/uL MPV (7.4-10.4) fL Immature Gran % (Auto) % Neut % (Auto) % Lymph % (Auto) % [place] % (Auto) % Eos % (Auto) % Baso % (Auto) % Neut # (Auto) (1.4-6.5) K/uL Lymph # (Auto) (1.2-3.4) K/uL [place] # (Auto) (0.11-0.59) K/uL Eos # (Auto) (0-0.5) K/uL Baso # (Auto) (0-0.2) K/uL Immature Gran # (Auto) (0.00-0.02) K/uL PT (9.0-12.0) Seconds INR (0.9-1.1) APTT (21.0-31.0) Seconds PTT Ratio VBG pH (7.36-7.41) VBG pCO2 (38-50) mmHg VBG pO2 mmHg VBG HCO3 mmol/L VBG O2 Saturation % VBG Base Excess mEq/L Barometric Pressure mm/Hg POC Sodium (135-144) mmol/L Sodium (136-145) mmol/L POC Potassium (3.3-5.0) mmol/L Potassium (3.5-5.1) mmol/L POC Chloride (101-112) mmol/L Chloride (98-107) mmol/L Carbon Dioxide (21-32) mmol/L POC Total CO2 (24-31) mmol/L Anion Gap (3-11) POC Anion Gap (16-25) mmol/L POC BUN (7-18) mg/dl BUN (7-18) mg/dl Creatinine (0.6-1.4) mg/dl POC Creatinine (0.6-1.3) mg/dl Est Cr Clr Drug Dosing ml/min Est GFR ( Amer) Est GFR (Non-Af Amer) BUN/Creatinine Ratio (10-20) Glucose (70-99) mg/dl POC Glucose (other) (70-99) mg/dl Lactate 9.4 H* (0.4-2.0) mmol/L Calcium (8.5-10.1) mg/dl POC Ioniz Calcium Niall (1.12-1.32) mmol/l Magnesium (1.8-2.4) mg/dl Total Bilirubin (0.2-1) mg/dl AST (15-37) U/L ALT (12-78) U/L Alkaline Phosphatase (45-117) U/L Troponin I (0-0.045) ng/ml NT-Pro-B Natriuret Pep (0-1800) pg/ml Total Protein (6.4-8.2) gm/dl Albumin (3.4-5.0) gm/dl Globulin (2.5-4.0) gm/dl Albumin/Globulin Ratio (0.9-2) Procalcitonin (0-0.5) ng/ml Urine Color Urine Appearance (Clear) Urine pH (4.5-7.5) Ur Specific [place] (1.000-1.030) Urine Protein (Negative) Urine Glucose (UA) (Negative) Urine Ketones (Negative) Urine Blood (Negative) Urine Nitrite (Negative) Urine Bilirubin (Negative) Urine Urobilinogen (Negative) Ur Leukocyte Esterase (Negative) Urine WBC (Auto) (0-5) /hpf Urine RBC (Auto) (0-4) /hpf U Hyaline Cast (Auto) (0-5) /lpf U Epithel Cells (Auto) (0-5) /lpf Urine Bacteria (Auto) (Negative) Ur Renal Epithelial Cell COVID-19 Eval Order SARS-CoV-2, RNA, NAAT NEGATIVE (NEGATIVE) Administered Medications Norepinephrine Bitartrate (Levophed/D5w) 8 mg in 508 mls @ 16.631 mls/hr IV .Q24H JAMES; Protocol Stop: 04/04/20 16:14 Last Titration: 03/05/20 19:10 Dose: 0.1 mcg/kg/min, 33.3 mls/hr Documented by: [id number] Cosigned by: [id number] Titration: 03/05/20 17:16 Dose: 0.1 mcg/kg/min, 33.3 mls/hr Documented by: [id number] Titration: 03/05/20 17:02 Dose: 0.05 mcg/kg/min, 16.6 mls/hr Documented by: [id number] Titration: 03/05/20 16:36 Dose: 0.1 mcg/kg/min, 33.3 mls/hr Documented by: [id number] Admin: 03/05/20 16:28 Dose: 0.05 mcg/kg/min, 16.6 mls/hr Documented by: [id number] Cosigned by: [id number] Discontinued Medications Acetaminophen (Acetaminophen 650 Mg Supp) 650 mg AL NOW STA Stop: 03/05/20 14:15 Last Admin: 03/05/20 15:20 Dose: 650 mg Documented by: [id number] Sodium Chloride (Nss 1000ml) 1,000 mls @ 999 mls/hr IV .Q1H1M ONE Stop: 03/05/20 15:11 Last Infusion: 03/05/20 16:20 Dose: 0 mls/hr Documented by: [id number] Admin: 03/05/20 15:19 Dose: 999 mls/hr Documented by: [id number] Piperacillin Sod/Tazobactam Sod (Zosyn) 4.5 gm in 120 mls @ 240 mls/hr IV NOW ONE Stop: 03/05/20 15:12 Last Infusion: 03/05/20 16:40 Dose: 0 mls/hr Documented by: [id number] Admin: 03/05/20 15:20 Dose: 240 mls/hr Documented by: [id number] Magnesium Sulfate/Dextrose (Magnesium Sulfate / D5w) 1 gm in 100 mls @ 100 mls/hr IV Q1H JAMES Stop: 03/05/20 17:13 Last Admin: 03/05/20 18:30 Dose: 100 mls/hr Documented by: [id number] Infusion: 03/05/20 18:03 Dose: 0 mls/hr Documented by: [id number] Admin: 03/05/20 15:20 Dose: 100 mls/hr Documented by: [id number] Sodium Chloride (Nss 1000ml) 1,000 mls @ 999 mls/hr IV .Q1H1M ONE Stop: 03/05/20 17:15 Last Infusion: 03/05/20 17:30 Dose: 0 mls/hr Documented by: [id number] Admin: 03/05/20 16:29 Dose: 999 mls/hr Documented by: [id number] Vancomycin HCl 1,750 mg/ (Sodium Chloride) 535 mls @ 200 mls/hr IV NOW ONE Stop: 03/05/20 18:55 Last Infusion: 03/05/20 19:12 Dose: 0 mls/hr Documented by: [id number] Admin: 03/05/20 16:31 Dose: 200 mls/hr Documented by: [id number] Sodium Chloride (Nss 1000ml) 500 mls @ 999 mls/hr IV .Q31M ONE Stop: 03/05/20 18:22 Last Infusion: 03/05/20 19:10 Dose: 0 mls/hr Documented by: [id number] Admin: 03/05/20 18:39 Dose: 999 mls/hr Documented by: [id number] Miscellaneous (Stat Iv Infusion Titration Per Protocol) 1 ea N/A NOW STA Stop: 03/05/20 16:16 Last Admin: 03/05/20 18:30 Dose: 1 ea Documented by: [id number] Miscellaneous Information (Consult Pharmacy) 1 ea N/A NOW STA Stop: 03/05/20 17:53 Last Admin: 03/05/20 19:16 Dose: Not Given Documented by: [id number] Imaging Data Radiologist's Impression: Patient: MAURISIO HANCOCK Date: 03/05/20MR#: [id number][id number][id number]: Date: [address] [place] [address] Zip: [place], [place] [address]Hbg: 84Location: EDSex: MRoom/Bed:Att Phy:Diagnosis: ILLNESSPri Phy: Carlton Rowe, DOService Date: 03/05/20Fam Phy:Interpreting Phy: Kareem Henderson [facility] Phy: Ordering Phy: Gadiel Acuña DO cc: ~ HEAD CT NONCONTRAST CT DOSE: HISTORY: Altered mental status. TECHNIQUE: Multiaxial CT images of the head were performed without the use of intravenous contrast. Automated exposure control was utilized for this study. A dose lowering technique was utilized adhering to the principles of ALARA. Comparison: Head CT 04/30/2019. Findings: The paranasal sinuses and mastoid air cells are clear. The calvarium and skull base are intact. There is no mass, hematoma, midline shift, acute infarct. White matter hypodensity is nonspecific but suggestive of microvascular ischemic change. The ventricles and sulci demonstrate moderate age-related invol utional changes. Impression: No significant change compared to the prior study. No acute intracranial abnormality. ACT 112: Negative or not required by law. Electronically signed by: Kareem Henderson M.D. 03/05/2020 3:50 PM Dictated: 03/05/20 1546Transcribed: 03/05/20 1546 Patient: MAURISIO HANCOCK Date: 03/05/20MR#: [id number]: [address] [facility] ID:[id number]: Date: [address] [place] [address] Zip: [place], [place] [address]Xbz: [id number]: EDSex: MRoom/Bed:Att Phy:Diagnosis: ILLNESSPri Phy: Carlton Rowe, DOService Date: 03/05/20Fa Phy:Interpreting Phy: Carlo Herring [facility] Phy: Ordering Phy: Gadiel Acuña DO cc: ~ CT SCAN OF THE ABDOMEN AND PELVIS WITHOUT IV CONTRAST CLINICAL HISTORY: Right-sided abdominal pain. COMPARISON STUDY: Abdominal CT dated 04/30/2019. TECHNIQUE: CT scan of the abdomen and pelvis is performed from the lung bases to the proximal femora. Images are reviewed in the axial, sagittal, and coronal planes. IV contrast was not administered for this examination. Note that the examination was performed in suboptimal fashion without oral and IV contrast. The examination is also degraded by motion artifact, and by streak artifact from the arms which could not be elevated above the abdomen. A dose lowering technique was utilized adhering to the principles of ALARA. CT DOSE: 1973.62 mGycm FINDINGS: Lung bases: The heart is enlarged and without pericardial effusion. The coronary arteries are densely calcified. The lung bases are clear noting dependent atelectasis. There is a small hiatal hernia. Liver: Evaluation of the liver is degraded by motion artifact. The unenhanced liver is mildly enlarged and demonstrates diffusely diminished attenuation consistent with hepatic steatosis. Fatty sparing is noted adjacent to gallbladder fossa. There is no intrahepatic biliary ductal dilatation. Gallbladder: Unremarkable. Spleen: Normal in size and attenuation. Pancreas: The unenhanced pancreas is atrophic and grossly unremarkable. Adrenal glands: Unremarkable. Kidneys: The unenhanced kidneys demonstrate cortical atrophy and are without hydronephrosis. There are no renal calculi identified. Right renal cysts are unchanged and measure up to 5.7 cm. Abdominal vasculature: There is advanced atherosclerotic calcification and mild ectasia of the abdominal aorta. Bowel: There is moderate colonic diverticulosis without CT evidence of acute diverticulitis. No bowel obstruction is seen. There is a small duodenal diverticulum. Mild fecal retention is seen throughout the colon. The appendix is well-visualized and normal. Peritoneum: There is no intraperitoneal free air or abdominal ascites. Lymphadenopathy: None. Pelvic viscera: The prostate gland is enlarged and heterogeneous measuring 5.[address] The bladder is decompressed around a Cadet catheter. Intraluminal gas is likely related to instrumentation. The bladder wall appears thickened and trabeculated suggesting chronic outlet obstruction. There are small bilateral fat-containing inguinal hernias. Skeletal structures: The skeletal structures are osteopenic. There are chronic compression deformities of T11 and L1. Moderate to advanced lumbosacral spondylosis is observed. No lytic or blastic lesions are seen. IMPRESSION: 1. Suboptimal examination without oral and IV contrast. The examination is also compromised by streak and motion artifact. 2. No acute infectious or inflammatory findings are identified in the abdomen or pelvis. 3. Hepatomegaly and hepatic steatosis. 4. Mild colonic fecal retention. No bowel obstruction is seen. 5. Moderate colonic diverticulosis without CT evidence of acute diverticulitis. 6. Additional findings as above. ACT 112: Negative or not required by law. Electronically signed by: Carlo Herring M.D. 03/05/2020 3:50 PM Dictated: 03/05/20 154Transcribed: 03/05/20 154 Patient: MAURISIO HANCOCK Date: 03/05/20#: [id number][facility] [address] [facility] ID[facility][id number]: [facility] Zip: [place], [place] [address]Etf: [address]Location: EDSex: MRoom/Bed:Att Phy:Diagnosis: ILLNESSPri Phy: Carlton Rowe, DOService Date: 03/05/20Fa Phy:Interpreting Phy: Kareem Henderson MDAdmit Phy: Ordering Phy: Gadiel Acuña, DO cc: ~ XR chest 1V portable HISTORY: SEPSIS COMPARISON: Chest 04/30/2019. FINDINGS: No pneumothorax. No pleural effusions. There are low lung volumes. The heart remains enlarged. No new focal lung consolidations to suggest pneumonia. No evidence for pulmonary edema. The right lung is clear. Possible 1.7 cm nodule within the left upper lobe. IMPRESSION: 1. No acute process within the chest. 2. Possible 1.7 cm left upper lobe nodule. Follow-up nonemergent chest CT is recommended for further evaluation. 3. Stable mild cardiomegaly. ACT 112: Positive. There are findings on this exam that require communication between the performing entity and the patient following Patient Test Result Information Act [place] Act 112) guidelines. Electronically signed by: Kareem Henderson M.D. 03/05/2020 3:02 PM Dictated: 03/05/20 1501Transcribed: 03/05/20 1501 Blood Pressure Blood Pressure Findings: Low blood pressure Discharge Plan Visit Data Chief Complaint: Illness ED Provider: Gadiel Acuña Discharge Problem: Sepsis, Ascending cholangitis, Acute alteration in mental status, Fever Patient Disposition: Admitted As Inpatient Condition: Fair Discharge Instructions Interventions: ED Discharge Assessment Last Done: 03/05/20 17:26
[2020-03-05 14:43] LABS: Eosinophils # (auto) 0.01 K/uL (0-0.5); Eosinophils % (auto) 0.3 %; Hematocrit (blood only) 42.6 % (42-52); Hemoglobin 14.3 g/dL (14.0-18.0); Lymphocytes # (auto) 0.11 K/uL (1.2-3.4); Lymphocytes % (auto) 3.3 %; Mean Corpuscular Hemoglobin 32.4 pg (25-34); Mean Corpuscular Hgb Conc 33.6 g/dL (32-36); Mean Corpuscular Volume 96.6 fL (80-100); Mean Platelet Volume 9.1 fL (7.4-10.4); Monocytes # (auto) 0.05 K/uL (0.11-0.59); Monocytes % (auto) 1.5 %; Neutrophils # (auto) 3.14 K/uL (1.4-6.5); Neutrophils % (auto) 94.9 %; Platelet Count 146 K/uL (130-400); RDW Standard Deviation 49.9 fL (36.4-46.3); Red Blood Count 4.41 M/uL (4.7-6.1); White Blood Count 3.31 K/uL (4.8-10.8)
[2020-03-05] MEDS ORDERED: PIPERACILLIN/TAZOBACTAM 4.5 GM/120 ML BAG IV ONE (14:43)
[2020-03-05] MEDS ORDERED: PIPERACILL/TAZOBAC CONSULT ACTIVE PRN (14:43)
[2020-03-05 14:47] LABS: Base Excess VBG -6.8 mEq/L; HCO3 VBG 20 mmol/L; PCO2 VBG 44 mmHg (38-50); PO2 VBG 16 mmHg; pH VBG 7.27 (7.36-7.41)
[2020-03-05 14:48] LABS: Oxygen Saturation VBG < 60.0 %
[2020-03-05 14:53] LABS: INR 1.1 (0.9-1.1); Partial Thromboplastin Ratio 0.9; Partial Thromboplastin Time 24.8 Seconds (21.0-31.0); Prothrombin Time 11.4 Seconds (9.0-12.0)
[2020-03-05 14:53] LABS: iSTAT Creatinine 1.3 mg/dl (0.6-1.3); iSTAT Hemoglobin 14.6 g/dl (14.0-18.0); iSTAT Ionized Calcium 1.09 mmol/l (1.12-1.32)
--- NOTE | 2020-03-05 15:04 | XRay Report ---
XR chest 1V portable HISTORY: SEPSIS COMPARISON: Chest 04/30/2019. FINDINGS: No pneumothorax. No pleural effusions. There are low lung volumes. The heart remains enlarg ed. No new focal lung consolidations to suggest pneumonia. No evidence for pulmonary edema. The right lung is clear. Possible 1.7 cm nodule within the left upper lobe. IMPRESSION: 1. No acute process within the chest. 2. Possible 1.7 cm left upper lobe nodule. Follow-up nonemergent chest CT is recommended for further evaluation. 3. Stable mild cardiomegaly. ACT 112: Positive. There are findings on this exam that require communication between the performing entity and the patient following Patient Test Result Information Act [place] Act 112) guidelines. Electronically signed by: Kareem Henderson M.D. 03/05/2020 3:02 PM
[2020-03-05 15:06] LABS: Alanine Aminotransferase 433 U/L (12-78); Albumin Level 3.2 gm/dl (3.4-5.0); BUN Creatinine Ratio 10.8 (10-20); Blood Urea Nitrogen 20 mg/dl (7-18); Calcium 8.9 mg/dl (8.5-10.1); Carbon Dioxide 18 mmol/L (21-32); Chloride 101 mmol/L (98-107); Creatinine Clr Calc Pharmacy 30.5 ml/min; Est GFR (African American) 37.4; Est GFR (Non-African American) 32.3; Glucose 244 mg/dl (70-99); Magnesium 1.6 mg/dl (1.8-2.4); Sodium 136 mmol/L (136-145)
[2020-03-05 15:13] LABS: Albumin Globulin Ratio 1.1 (0.9-2); Alkaline Phosphatase 184 U/L (45-117); Bilirubin,Total 5.1 mg/dl (0.2-1); NT Pro B Type Natriuretic Pept 4413 pg/ml (0-1800); Total Protein 6.2 gm/dl (6.4-8.2); Troponin I < 0.015 ng/ml (0-0.045)
[2020-03-05 15:20] LABS: Appearance Urine Clear (Clear); Bacteria Urine Automated Negative (Negative); Bilirubin Urine Negative (Negative); Blood Urine 2+ (Negative); Color Urine Dark Yellow; Epithelial Cell Urine Auto >30 /lpf (0-5); Glucose Urine UA Negative (Negative); Ketones Urine Trace (Negative); Leukocyte Esterase Urine Negative (Negative); Nitrite Urine Negative (Negative); Protein Urine Negative (Negative); Specific Gravity Urine 1.018 (1.000-1.030); Urobilinogen Urine Negative (Negative)
[2020-03-05] MEDS: MAGNESIUM SULFATE / D5W 1 GM/100 ML BAG IV SCH ×2 (15:20→18:30)
--- NOTE | 2020-03-05 15:51 | CT Scan Report ---
CT SCAN OF THE ABDOMEN AND PELVIS WITHOUT IV CONTRAST CLINICAL HISTORY: Right-sided abdominal pain. COMPARISON STUDY: Abdominal CT dated 04/30/2019. TECHNIQUE: CT scan of the abdomen and pelvis is performed from the lung bases to the proximal femora. Images are reviewed in the axial, sagittal, and coronal planes. IV contrast was not administered for this examination. Note that the examination was performed in suboptimal fashion without oral and IV contrast. The examination is also degraded by motion artifact, and by streak artifact from the arms w hich could not be elevated above the abdomen. A dose lowering technique was utilized adhering to the principles of ALARA. CT DOSE: 1973.62 mGycm FINDINGS: Lung bases: The heart is enlarged and without pericardial effusion. The coronary arteries are densely calcified. The lung bases are clear noting dependent atelectasis. There is a small hiatal hernia. Liver: Evaluation of the liver is degraded by motion artifact. The unenhanced liver is mildly enlarge d and demonstrates diffusely diminished attenuation consistent with hepatic steatosis. Fatty sparing is noted adjacent to gallbladder fossa. There is no intrahepatic biliary ductal dilatation. Gallbladder: Unremarkable. Spleen: Normal in size and attenuation. Pancreas: The unenhanced pancreas is atrophic and grossly unremarkable. Adrenal glands: Unremarkable. Kidneys: The unenhanced kidneys demonstrate cortical atrophy and are without hydronephrosis. There ar e no renal calculi identified. Right renal cysts are unchanged and measure up to 5.7 cm. Abdominal vasculature: There is advanced atherosclerotic calcification and mild ectasia of the abdomi nal aorta. Bowel: There is moderate colonic diverticulosis without CT evidence of acute diverticulitis. No bowel obstruction is seen. There is a small duodenal diverticulum. Mild fecal retention is seen throughout the colon. The appendix is well-visualized and normal. Peritoneum: There is no intraperitoneal free air or abdominal ascites. Lymphadenopathy: None. Pelvic viscera: The prostate gland is enlarged and heterogeneous measuring 5.[address] The bladder is decompressed around a Cadet catheter. Intraluminal gas is likely related to instr umentation. The bladder wall appears thickened and trabeculated suggesting chronic outlet obstruction . There are small bilateral fat-containing inguinal hernias. Skeletal structures: The skeletal structures are osteopenic. There are chronic compression deformitie s of T11 and L1. Moderate to advanced lumbosacral spondylosis is observed. No lytic or blastic lesion s are seen. IMPRESSION: 1. Suboptimal examination without oral and IV contrast. The examination is also compromised by streak and motion artifact. 2. No acute infectious or inflammatory findings are identified in the abdomen or pelvis. 3. Hepatomegaly and hepatic steatosis. 4. Mild colonic fecal retention. No bowel obstruction is seen. 5. Moderate colonic diverticulosis without CT evidence of acute diverticulitis. 6. Additional findings as above. ACT 112: Negative or not required by law. Electronically signed by: Carlo Herring M.D. 03/05/2020 3:50 PM
--- NOTE | 2020-03-05 15:52 | CT Scan Report ---
HEAD CT NONCONTRAST CT DOSE: HISTORY: Altered mental status. TECHNIQUE: Multiaxial CT images of the head were performed without the use of intravenous contrast. A utomated exposure control was utilized for this study. A dose lowering technique was utilized adheri ng to the principles of ALARA. Comparison: Head CT 04/30/2019. Findings: The paranasal sinuses and mastoid air cells are clear. The calvarium and skull base are int act. There is no mass, hematoma, midline shift, acute infarct. White matter hypodensity is nonspecifi c but suggestive of microvascular ischemic change. The ventricles and sulci demonstrate moderate age- related involutional changes. Impression: No significant change compared to the prior study. No acute intracranial abnormality. ACT 112: Negative or not required by law. Electronically signed by: Kareem Henderson M.D. 03/05/2020 3:50 PM
--- NOTE | 2020-03-05 15:54 | Electrocardiogram Report ---
Test Reason : Blood Pressure : / mmHG Vent. Rate : 142 BPM Atrial Rate : 163 BPM P-R Int : 000 ms QRS Dur : 116 ms QT Int : 320 ms P-R-T Axes : 000 063 -44 degrees QTc Int : 492 ms Poor data quality, interpretation may be adversely affected Atrial fibrillation with rapid ventricular response Low voltage QRS Right bundle branch block T wave abnormality, consider lateral ischemia Abnormal ECG When compared with ECG of 30-APR-2019 15:19, Significant changes have occurred Confirmed by Gadiel Osman ([id number]) on 03/05/2020 3:54:24 PM Referred By: Confirmed By:Gadiel Osman
[2020-03-05 15:55] LABS: Aspartate Aminotransferase 422 U/L (15-37)
[2020-03-05] MEDS ORDERED: VANCOMYCIN HCL 1,750 MG in SODIUM CHLORIDE 0.9% 500 ML IV ONE (16:15)
[2020-03-05] MEDS ORDERED: VANCOMYCIN CONSULT ACTIVE PRN (16:15)
[2020-03-05] MEDS ORDERED: STAT IV Infusion **Titration per Protocol STA (16:15)
[2020-03-05] MEDS: NOREPINEPHRINE/D5W 8 MG/508 ML BAG IV SCH (16:28)
--- NOTE | 2020-03-05 17:15 | History & Physical Report ---
Date of Service March 05, 2020 Assessment & Plan (1) Septic shock: (2) Ascending cholangitis: (3) Acute metabolic encephalopathy: (4) Pancreatic lesion: (5) Metabolic acidosis: (6) Atrial fibrillation with rapid ventricular response: (7) Dementia: (8) Hypertension: This is an 84-year-old male with PMH of vascular dementia, paroxysmal atrial fibrillation, hypertension, type 2 diabetes, IPMN, history of prostate cancer and other medical problems listed below who presents from home with abdominal pain and fatigue since yesterday and was found to have septic shock and A Fib with RVR. Initially hypotensive with SBP in 70s. Received 2.5 L NSS but remained hypotensive and central line with placed and Levophed started with improvement of BP Hypoxic initially but improved with oxymask. Now 98% on 4L mask Febrile at 39.3 C. Lactic acid significantly elevated at 12.7, procalcitonin elevated at 42, T bili 5.1. AST 422. ALT 433 CT abd/pelvis without contrast limited but no abnormalities of biliary tract or pancreas seen History of sepsis and elevated LFTs in the past - found to have numerous hyperintense pancreatic lesions consistent with IPMN on imaging. Repeat MRCP recommended but family did not pursue due to patient's age/advanced dementia Discussed case with GI, who will follow. Not a candidate for MRCP until more stable. Family hesitant when discussing any intervention like ERCP Continue broad spectrum antibiotic coverage with zosyn, vanc. 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 fib with RVR but improved to 110s with IV fluids Dementia Vascular dementia at baseline with some behavioral disturbances Discussed goals of care with and daughter, who confirmed patient's previously stated wishes for DNR/DNI. Okay to continue IV fluids, antibiotics and pressor support with continued conversation during admission DVT Ppx: SQ heparin Code status: DNR PCP: Jae Dispo: Admitted to ICU. Discharge planning ordered. Patient seen in collaboration with Dr. Herring. Please see addendum. History of Present Illness Chief Complaint: abdominal pain,, weakness Primary Care Provider: Carlton fierro, DO This is an 84-year-old male with PMH of vascular dementia, paroxysmal atrial fibrillation, hypertension, type 2 diabetes, IPMN, history of prostate cancer and other medical problems listed below who presents from home with abdominal pain and fatigue since yesterday. states that patient was oriented to self at baseline but otherwise confused. She has noticed decline since New Year's where patient is more fatigued and generally weak. Was complaining of abdominal pain yesterday. Had a similar admission back in April when patient presented with lethargy and confusion and was admitted to [facility] with sepsis. No abnormalities were present in the biliary tract on CT. The patient had mild gallbladder wall thickening, no biliary or pancreatic duct dilatation on MRCP. Patient had numerous hyperintense pancreatic lesions consistent with IPMN. Follow up MRCP was recommended in 6 months but was not pursued due to frail condition. In ED, patient found to be hypotensive and hypoxic. Received 2 L NSS remained hypotensive so central line was placed and nor epi started with improvement of BP. Heart rate initially 146 with ECG showing A. fib with RVR but improved to 110s with IV fluids. Saturating 95% on oxygen mask 6 L/min. Leukocytosis of 3.31. VBG pH 7.27. Lactic acid significantly elevated at 12.7. Procalcitonin elevated at 42. T bili 5.1. AST 422 ALT 433. Discussed case with Dr. Toussaint who will manage patient in ICU while receiving pressor support. Unable to obtain ROS 2/2 cognitive state. Discussed goals of care with and daughter, who confirmed patient's previously stated wishes for DNR/DNI. Okay to continue IV fluids, antibiotics and pressor support with continued conversation during admission. Allergies Allergy/AdvReac Type Severity Reaction Status Date / Time No Known Allergies Allergy Verified 03/05/20 15:50 Home Medications Medication Instructions Recorded Confirmed Type atenolol 25 mg PO DAILY 04/30/19 03/05/20 History clopidogrel 75 mg PO DAILY 04/30/19 03/05/20 History loratadine [Claritin] 10 mg PO DAILY PRN 04/30/19 03/05/20 History metformin 1,000 mg PO BID 04/30/19 03/05/20 History multivitamin with minerals 2 tab PO DAILY 04/30/19 03/05/20 History nitroglycerin [Nitrostat] 0.4 mg SUBLINGUAL DIRECTED PRN 04/30/19 03/05/20 History omeprazole 20 mg PO DAILYBB 04/30/19 03/05/20 History oxybutynin chloride 5 mg PO BID 04/30/19 03/05/20 History pravastatin 20 mg PO DAILY 04/30/19 03/05/20 History quinapril 20 mg PO DAILY 04/30/19 03/05/20 History repaglinide 1 mg PO AC 04/30/19 03/05/20 History tamsulosin 0.4 mg PO HS 04/30/19 03/05/20 History acetaminophen [Tylenol Extra 500 mg PO TID 03/05/20 03/05/20 History Strength] furosemide 40 mg PO QAM 03/05/20 03/05/20 History atenolol 25 mg PO QAM #30 tab 03/12/20 Rx potassium chloride 20 meq PO BID #473 ml 03/12/20 Rx 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 repeat MRCP recommended in 6 months Surgical History H/O prostate biopsy Family History Other No pertinent family history in first degree relatives Social History Smoking Status: Unknown if ever smoked Hx Alcohol Use: No Hx Substance Use: No Preferred Language: Indonesian Communication Ability: Impaired Medical Information Specialist Required: No Beliefs That Will Affect Care: None marital status: Current Living Situation: Spouse Feels Safe at Home: Yes Assistive Devices: Denture - Upper and Denture - Lower Review of Systems Review of Systems: Unobtainable due to cognitive status Physical Exam Physical Exam: General Appearance: vitals as above, acutely ill, does not respond to commands Head: normocephalic, atraumatic Eyes: normal inspection, PERRL, conjunctivae normal, anicteric sclerae ENT: external ear and nose normal, oropharynx normal Neck: normal visual inspection, trachea midline, no thyromegaly Respiratory: normal respiratory effort, lungs clear to auscultation but diminished at bases. No rales or rhonchi. No accessory muscle use Cardiovascular: Tachycardic, regular rate and rhythm, no murmur appreciated, normal peripheral pulses, no BLE edema. Vessels: no JVD Chest: normal inspection of chest Abdomen/GI: normal bowel sounds, TTP of RUQ but no guarding, no hepatosplenomegaly Extremities/Musculoskeletal: Venous stasis changes to BLE. No cyanosis or clubbing, extremities motor strength 5/5 Neurologic: PERRL, grimacing and nodding hear but unable to follow commands. Moves all extremities spontaneously Psychiatric: Lethargic, not able to answer questions appropriately Skin: no rashes, normal color, cool extremities with dusky appearance Results & Data Results & Data ([facility]) Vital Signs (Past 12 Hours) Vital Signs Temp Pulse Pulse Resp BP BP Pulse Ox 03/05/20 17:06 120 H 24 90/63 L 92 03/05/20 16:37 92 H 24 91/69 L 03/05/20 16:30 86 24 63/42 L 03/05/20 14:51 39.3 C H 116 H 24 100/73 98 03/05/20 14:50 121 H 29 H 96 03/05/20 14:46 121 H 90/68 L 96 03/05/20 14:40 146 H 03/05/20 14:35 134 H 22 77/62 L 03/05/20 14:34 119 H 75/39 L 96 03/05/20 14:30 139 H 03/05/20 14:26 143 H 03/05/20 14:07 146 H 19 100/73 Laboratory Results Short CBC 03/05/20 03/05/20 03/05/20 Range/Units 14:27 14:27 20:31 WBC 3.31 L (4.8-10.8) K/uL Hgb 14.3 (14.0-18.0) g/dL Hct 42.6 (42-52) % Plt Count 146 (130-400) K/uL Creatinine 1.85 H 1.83 H (0.6-1.4) mg/dl BMP 03/05/20 03/05/20 14:27 20:31 Sodium 136 137 Potassium 4.0 3.8 Chloride 101 107 Carbon Dioxide 18 L 18 L BUN 20 H 22 H Creatinine 1.85 H 1.83 H Glucose 244 H 253 H Calcium 8.9 7.6 L Cardiac Enzymes 03/05/20 Range/Units 14:27 Troponin I < 0.015 (0-0.045) ng/ml Liver Function 03/05/20 Range/Units 14:27 Total Bilirubin 5.1 H (0.2-1) mg/dl AST 422 H (15-37) U/L ALT 433 H (12-78) U/L Alkaline Phosphatase 184 H (45-117) U/L Albumin 3.2 L (3.4-5.0) gm/dl Urine 03/05/20 Range/Units 14:45 Urine Color Dark Yellow Urine Appearance Clear (Clear) Urine pH 7.0 (4.5-7.5) Ur Specific [place] 1.018 (1.000-1.030) Urine Protein Negative (Negative) Urine Glucose (UA) Negative (Negative) Diagnostic Findings Head CT: Impression: No significant change compared to the prior study. No acute intracranial abnormality. CT abd/pelvis: IMPRESSION: 1. Suboptimal examination without oral and IV contrast. The examination is also compromised by streak and motion artifact. 2. No acute infectious or inflammatory findings are identified in the abdomen or pelvis. 3. Hepatomegaly and hepatic steatosis. 4. Mild colonic fecal retention. No bowel obstruction is seen. 5. Moderate colonic diverticulosis without CT evidence of acute diverticulitis. 6. Additional findings as above. CXR: IMPRESSION: 1. No acute process within the chest. 2. Possible 1.7 cm left upper lobe nodule. Follow-up nonemergent chest CT is recommended for further evaluation. 3. Stable mild cardiomegaly. Code Status & VTE Plan VTE Prophylaxis Plan VTE Prophylaxis will be ordered: Yes Supervising Physician Co-Signing Physician Notes Pt was seen and examined. Agreed with Janine ANNE exam, assessment and plan. 84-year-old male with PMH of vascular dementia, paroxysmal atrial fibrillation, hypertension, type 2 diabetes, IPMN, history of prostate cancer was brought to the ER for abdominal pain and fatigue started yesterday. History obtained from at bedside due since pt was snoring. said that for the last few days, pt has been feeling very weak and fatigue. said that pt was admitted for sepsis back in April for sepsis. said that pt was complaint of abdominal discomfort that started last night. Lab in the ER showed elevated procalcitonin 42, Lactic acid 12.7, AST [address] abd/pelvis without contrast limited but no abnormalities of biliary tract or pancreas seen. Pt was found to be hypotensive. Received IV fluid and was started on pressors. Case discussed with the that does not want any heroic or surgical intervention. okay to continue IV fluids, antibiotics and pressor support. Will manage in the ICU for septic shock and possible acute cholangitis. ICU team was notified. Case discussed with GI. Received IV abx in the ER with IV Zosyn and Vancomycin, Will continue broad spectrum abx. Continue IVF. Will continue pressors since BP in the low side. Will monitor closely in the ICU. MD Nima
[2020-03-05] MEDS ORDERED: SODIUM CHLORIDE 0.9% 1000ML 500 ML IV ONE (17:52)
[2020-03-05] MEDS ORDERED: CONSULT PHARMACY STA (17:52)
[2020-03-05] MEDS ORDERED: ICU PROTOCOL FOR HYPERGLYCEMIA PRN (17:52)
--- NOTE | 2020-03-05 18:25 | Pharmacy Report ---
Pharmacy Abx Initial Consult - Date of Service March 05, 2020 - Pharmacy Dosing Scope Date of Consult: 03/05/20 Consultation requested by: Janine Rowan PA-C Pharmacy is consulted to initiate Vancomycin + Zosyn IV dosing therapy, order appropriate labs and adjust drug dose/frequency. - Subjective The patient is a 84 year old M admitted on 03/05/20 16:58. - Objective Height: 5 ft 11 in Weight: 87.5 kg Vital Signs (Past 12hrs): Vital Signs Temp Pulse Pulse Resp BP BP Pulse Ox 03/05/20 18:00 36.7 C 118 H 86/60 L 98 03/05/20 17:06 120 H 24 90/63 L 92 03/05/20 16:37 92 H 24 91/69 L 03/05/20 16:30 86 24 63/42 L 03/05/20 14:51 39.3 C H 116 H 24 100/73 98 03/05/20 14:50 121 H 29 H 96 03/05/20 14:46 121 H 90/68 L 96 03/05/20 14:40 146 H 03/05/20 14:35 134 H 22 77/62 L 03/05/20 14:34 119 H 75/39 L 96 03/05/20 14:30 139 H 03/05/20 14:26 143 H 03/05/20 14:07 146 H 19 100/73 Lab Results (24hrs): Laboratory Tests (24 Hours) 03/05/20 03/05/20 03/05/20 14:27 14:27 14:27 WBC 3.31 L Neut # (Auto) 3.14 Creatinine 1.85 H Est Cr Clr Drug Dosing 30.5 Procalcitonin 42.07 H Micro Results: 03/05/20 14:27 Aerobic Blood Culture - Pending Blood Anaerobic Blood Culture - Pending 03/05/20 14:27 Aerobic Blood Culture - Pending Blood Anaerobic Blood Culture - Pending - Risk Factors for Resistance * None - Assessment & Plan Assessment 84 year old M admitted today from home secondary to abdominal pain and fatigue. * PMHx significant for dementia, Afib, HTN, T2DM, IPMN, and h/o prostate cancer. * Chest XR unremarkable. CT A/P showed hyperintense pancreatic lesions consistent with IPMN. * Leukopenia upon admission (3.31k). SCr was 1.85 mg/dL which is significantly elevated from baseline SCr of 1.0 mg/dL. Lactate was 12.7 initially and trended down to 9.4. Procalcitonin at 42.07. * Blood cultures pending. Empiric vanc and zosyn ordered (48 hour stop date). Plan Vancomycin IV * Loading dose: 1750 mg (20 mg/kg) * Given patient's current SANJEEV, calculated an estimated half life of ~24 hours for vancomycin. Even with improved POC SCr that was drawn after admission, half life was still ~17 hours. Therefore, I will order a random vancomycin level for tomorrow morning with AM labs which will be approximately 12 hours after loading dose. * Goal trough level: 15 to 20 mcg/mL Piperacillin/tazobactam * 4.5 g bolus administered over 30 minutes, then 4.5 g IV extended infusion every 8 hours for CrCl greater than 20 mL/min * Aggressive dosing selected due to severity of illness. Pharmacy will continue to follow and will adjust dose/frequency as necessary. Thank you.
--- NOTE | 2020-03-05 19:41 | Critical Care Consultation ---
Date of Consultation March 05, 2020 Assessment & Plan (1) Admitted to intensive care unit: Reason Critically Ill: 84-year-old male presents to the ICU with septic shock requiring vasopressor support. Neuro - Dementia/metabolic encephalopathypatient confused at baseline per family report but is normally alert to person. Family reports Cardiac - Hypotension/shocksuspect this is most likely septic etiology, see ID management below -Last echo from 2018 with EF 65%, will repeat on this admission -Troponin negative -Random cortisol level appropriately elevated -Currently maintaining maps greater than 65 with Levophed drip. Central line inserted in ED, will hold on A-line insertion for the time being. -Patient to remain in ICU for management of vasopressors at this time A. fib RVRnot currently issue, will maximize electrolytes and continuous monitoring on telemetry -Patient does have history of proximal A. fib and does not appear to be on any long-term anticoagulation Respiratory - Hypoxiacurrently maintaining oxygen saturation on 3 L oxygen mask -Noted that patient is DNI if he were to decompensate -Chest x-ray without active disease -Continuous monitoring on pulse ox GI - N.p.o. 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 A repeat MRCP was recommended but family did not pursue due to patient's advanced age/advanced dementia GI following, currently patient not candidate for MRCP until more stable. According to hospitalist note, family hesitant when discussing interventions such as ERCP. RENAL/LYTES - AKImost likely ATN secondary to hypotension -Creatinine elevated 1.8, showed some mild improvement with IV fluids resuscitation -Maintain maps greater than 65 -Avoid nephrotoxins and renally adjust medication -Trend BMPs Replete electrolytes as indicated - Foleystrict I's note ENDO - DM type IIholding oral home meds and will transition to subcu insulin -Follow-up A1c -ICU hyperglycemic protocol No history of thyroid disease HEME - H&H within normal limits, monitor routine CBCs ID - Sepsis?Patient with significantly elevated procalcitonin and lactate with fever of 39.3 and hypotension on admission -UA unremarkable, blood cultures pending -CT abdomen without obvious source of infection, and no active disease noted on chest x-ray -Continue broad-spectrum antibiotic, vancomycin and Zosyn LINES/IV ACCESS - Right femoral central venous catheter DVT PROPHYLAXIS - SCDs, heparin CODE STATUSDNR/DNI I have personally spent 45 minutes of critical care time in the direct management of this patient. This is a life/limb threatening event. This includes time spent evaluating patient, direct bedside care, chart review, placing orders, interpretation of diagnostic studies, discussion with consultants, patient, and family members, as well as other required patient management activities. This time is exclusive of all separately billable procedures, and teaching time and separate from and in addition to any other critical care service time. Thank you for allowing us to participate in the care of this patient. Please refer to my attending physician's documentation for any further recommendations. (2) Septic shock: (3) Metabolic acidosis: (4) Acute metabolic encephalopathy: (5) Pancreatic lesion: (6) Diabetes mellitus type 2, controlled: (7) Atrial fibrillation: (8) Dementia: (9) Hypertension: (10) Elevated LFTs: (11) GERD (gastroesophageal reflux disease): History of Present Illness Attending Physician: Guillermina Herring MD History of Present Illness Patient is a 84-year-old male with PMH of vascular dimension, proximal A. fib, HTN, DM type II, IPMN, and history of prostate cancer. He was brought into the emergency department by his who states that the patient has become increasingly fatigued since New Year's and has been complaining of abdominal pain and fatigue since yesterday. Patient's baseline mental status is confused and oriented to self. He had a previous admission in April where he was treated for sepsis. He was found to be hypotensive and hypoxic in the emergency department and was placed on supplemental oxygen and vasopressors. A central line was inserted in the ED. He had a very elevated lactate of 12.7 and a pro- Bill that was elevated at 42. LFTs were also elevated and he had an SANJEEV. Patient is DNR/DNI CODE STATUS, however family was okay with continuing pressor support and medical management. Patient had admitted to the ICU for further management at this time. Allergies Allergy/AdvReac Type Severity Reaction Status Date / Time No Known Allergies Allergy Verified 03/05/20 15:50 Home Medications Medication Instructions Recorded Confirmed Type atenolol 25 mg PO DAILY 04/30/19 03/05/20 History clopidogrel 75 mg PO DAILY 04/30/19 03/05/20 History loratadine [Claritin] 10 mg PO DAILY PRN 04/30/19 03/05/20 History metformin 1,000 mg PO BID 04/30/19 03/05/20 History multivitamin with minerals 2 tab PO DAILY 04/30/19 03/05/20 History nitroglycerin [Nitrostat] 0.4 mg SUBLINGUAL DIRECTED PRN 04/30/19 03/05/20 History omeprazole 20 mg PO DAILYBB 04/30/19 03/05/20 History oxybutynin chloride 5 mg PO BID 04/30/19 03/05/20 History pravastatin 20 mg PO DAILY 04/30/19 03/05/20 History quinapril 20 mg PO DAILY 04/30/19 03/05/20 History repaglinide 1 mg PO AC 04/30/19 03/05/20 History tamsulosin 0.4 mg PO HS 04/30/19 03/05/20 History acetaminophen [Tylenol Extra 500 mg PO TID 03/05/20 03/05/20 History Strength] furosemide 40 mg PO QAM 03/05/20 03/05/20 History Patient History Medical History (Updated 03/06/20 @ 00:14 by JOHNNY Ruzi) Atrial fibrillation Dementia Diabetes mellitus type 2, controlled GERD (gastroesophageal reflux disease) HTN (hypertension) Hypertension Macular degeneration 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 repeat MRCP recommended in 6 months Surgical History H/O prostate biopsy Family History Other No pertinent family history in first degree relatives Social History Smoking Status: Unknown if ever smoked Hx Alcohol Use: No Hx Substance Use: No Preferred Language: Nigerien Communication Ability: Unable Redevelopment Manager Required: No Beliefs That Will Affect Care: None marital status: Current Living Situation: Spouse Feels Safe at Home: Yes Assistive Devices: Denture - Upper Review of Systems Review of Systems: Unobtainable due to cognitive status Physical Exam Constitutional: + lethargic and + overweight Confused Eyes: PERRL, conjunctivae normal, anicteric sclerae ENMT: external ear and nose normal, oropharynx normal Neck: trachea midline, no thyromegaly Respiratory: normal respiratory effort, lungs clear to auscultation symmetric chest movement Auscultation: no crackles and no wheezes Cardiovascular: RRR, no murmur, no edema Heart Sounds: normal S1 and normal S2 Vessels: no JVD Extremities: normal capillary refill +1 pedal edema bilaterally Gastrointestinal (Abdomen): Abdomen obese, distended, not firm. Nontender and without guarding with deep palpation. Bowel sounds auscultated all 4 quadrants Skin: No rashes, skin is warm and dry. No ulcers, lesions, or wounds identified on exam Neurologic: Exam limited due to patient's confusion/lethargy. PERRLA, no facial droop, cough gag corneals intact. Moves all extremities equally. Does have a mild tremor in upper extremities which according to history is chronic. Psychiatric: Patient confused and lethargic. Is arousable to voice but does not answer questions appropriately or follow commands. Genitourinary: Indwelling Cadet catheter present Results & Data Results & Data ([facility]) Vital Signs (Past 12 Hours) Vital Signs Temp Pulse Pulse Resp BP BP Pulse Ox 03/05/20 18:20 112 H 19 98 03/05/20 18:13 122 H 20 123/78 98 03/05/20 18:10 115 H 20 98 03/05/20 18:00 36.7 C 124 H 118 H 19 86/60 L 99 03/05/20 17:52 113 H 21 86/60 L 99 03/05/20 17:50 116 H 17 100 03/05/20 17:48 114 H 10 L 03/05/20 17:06 120 H 24 90/63 L 92 03/05/20 16:37 92 H 24 91/69 L 03/05/20 16:30 86 24 63/42 L 03/05/20 14:51 39.3 C H 116 H 24 100/73 98 03/05/20 14:50 121 H 29 H 96 03/05/20 14:46 121 H 90/68 L 96 03/05/20 14:40 146 H 03/05/20 14:35 134 H 22 77/62 L 03/05/20 14:34 119 H 75/39 L 96 03/05/20 14:30 139 H 03/05/20 14:26 143 H 03/05/20 14:07 146 H 19 100/73 Coding Level of Care Code Critical Care 1st 30-74 mins Diagnoses Admitted to intensive care unit Z78.9 Septic shock A41.9; R65.21 Metabolic acidosis E87.2 Acute metabolic encephalopathy G93.41 Pancreatic lesion K86.9 Diabetes mellitus type 2, controlled E11.9 Atrial fibrillation I48.91 Dementia F03.90 Hypertension I10 Elevated LFTs R94.5 GERD (gastroesophageal reflux disease) K21.9
[2020-03-05] MEDS: PIPERACILLIN/TAZOBACTAM 4.5 GM in DEXTROSE 5% 100 ML IV SCH (20:41)
[2020-03-05 20:55] LABS: BUN Creatinine Ratio 11.7 (10-20); Calcium 7.6 mg/dl (8.5-10.1); Creatinine Clr Calc Pharmacy 30.9 ml/min; Est GFR (African American) 37.9; Est GFR (Non-African American) 32.7; Magnesium 2.3 mg/dl (1.8-2.4); Phosphorus 1.9 mg/dl (2.5-4.9); Potassium 3.8 mmol/L (3.5-5.1)
[2020-03-05] MEDS ORDERED: GLUCOSE 40% GEL 15 GM TUBE PO PRN (21:16)
[2020-03-05] MEDS ORDERED: GLUCOSE 10 TABS/TUBE PO PRN (21:16)
[2020-03-05] MEDS ORDERED: POTASSIUM PHOS 3 MMOL/1 ML INFUSION IV STA (21:16)
[2020-03-05] MEDS ORDERED: GLUCAGON FOR INJ 1 MG VIAL SQ PRN (21:16)
[2020-03-05] MEDS ORDERED: CARBOHYDRATES FOR HYPOGLYCEMIA PO PRN (21:16)
[2020-03-05] MEDS ORDERED: PHARMACY GLYCEMIC MGMT CONSULT PRN (21:28)
[2020-03-05] MEDS ORDERED: POTASSIUM PHOSPHATE 9 MMOL in SODIUM CHLORIDE 0.9% 250 ML IV ONE (21:30)
[2020-03-05] MEDS: INSULIN ASPART 100 UNITS/ML 3 ML PEN SC SCH (21:52)
[2020-03-06] MEDS ORDERED: INSULIN ASPART 100 UNITS/ML 3 ML PEN SC SCH
[2020-03-06] MEDS: NORMOSOL-R 1,000 ML IV SCH ×3 (01:02→20:08)
[2020-03-06] MEDS: INSULIN ASPART 100 UNITS/ML 3 ML PEN SC SCH ×6 (02:08→20:14)
[2020-03-06] MEDS: PIPERACILLIN/TAZOBACTAM 4.5 GM in DEXTROSE 5% 100 ML IV SCH ×3 (03:44→20:08)
[2020-03-06 05:22] LABS: Hematocrit (blood only) 40.3 % (42-52); Hemoglobin 13.6 g/dL (14.0-18.0); Mean Corpuscular Hemoglobin 32.2 pg (25-34); Mean Corpuscular Hgb Conc 33.7 g/dL (32-36); Mean Corpuscular Volume 95.5 fL (80-100); Mean Platelet Volume 10.2 fL (7.4-10.4); Platelet Count 152 K/uL (130-400); RDW Coefficient of Variation 14.7 % (11.5-14.5); RDW Standard Deviation 51.5 fL (36.4-46.3); Red Blood Count 4.22 M/uL (4.7-6.1); White Blood Count 26.47 K/uL (4.8-10.8)
[2020-03-06] MEDS: HEPARIN SOD 5,000 UNIT/0.5 ML VIAL SQ SCH ×3 (05:35→22:28)
[2020-03-06 06:21] LABS: Albumin Level 2.5 gm/dl (3.4-5.0); BUN Creatinine Ratio 15.2 (10-20); Bilirubin,Total 5.6 mg/dl (0.2-1); Calcium 7.6 mg/dl (8.5-10.1); Creatinine Clr Calc Pharmacy 32.6 ml/min; Est GFR (African American) 40.5; Globulin 2.6 gm/dl (2.5-4.0); Magnesium 2.5 mg/dl (1.8-2.4); Phosphorus 3.1 mg/dl (2.5-4.9); Potassium 3.8 mmol/L (3.5-5.1); Total Protein 5.1 gm/dl (6.4-8.2)
[2020-03-06 07:22] LABS: Estimated Average Glucose 143 mg/dl; Hemoglobin A1C 6.6 % (4.5-5.6)
[2020-03-06] MEDS ORDERED: INSULIN GLARGINE SOLOSTAR 100 UNITS/ML 3 ML PEN SC ONE (08:00)
[2020-03-06] MEDS ORDERED: INFLUENZA VACCINE HIGH DOSE 65+ 0.7 ML SYR IM ONE (09:00)
[2020-03-06] MEDS ORDERED: VANCOMYCIN HCL 1,250 MG in SODIUM CHLORIDE 0.9% 250 ML IV ONE (09:00)
--- NOTE | 2020-03-06 09:49 | Critical Care Progress Note ---
Date of Service March 06, 2020 Assessment & Plan (1) Admitted to intensive care unit: Reason Critically Ill: 84-year-old male presents to the ICU with septic shock requiring vasopressor support. Neuro - Dementia/metabolic encephalopathypatient confused at baseline per family report but is normally alert to person. Family reports Cardiac - Hypotension/shocksuspect this is most likely septic etiology, see ID management below -Last echo from 2018 with EF 65%, repeat echo completed on 1/6 AM -Vasoactive requirements coming down Central line inserted in ED, will hold on A-line insertion for the time being. A. fib RVRnot currently issue, will maximize electrolytes and continuous monitoring on telemetry -Patient does have history of proximal A. fib and does not appear to be on any long-term anticoagulation Respiratory - Hypoxiaresolved -Noted that patient is DNI if he were to decompensate -On room air GI - N.p.o. 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 A repeat MRCP was recommended but family did not pursue due to patient's advanced age/advanced dementia Discussed with GI, similar presentation previously no desire for active interventions they have signed off appreciate their input RENAL/LYTES - AKIimproving Relative hypokalemia -20 M EQ's KCl x1 - Foleystrict I's note ENDO - DM type IIholding oral home meds and will transition to subcu insulin -A1c: 6.6 -ICU hyperglycemic protocol No history of thyroid disease HEME - H&H within normal limits, monitor routine CBCs ID - Sepsisgram-negative bacteremia -UA unremarkable, blood cultures pending -Discontinue vancomycin, continue Zosyn until speciation and sensitivities LINES/IV ACCESS - Right femoral central venous catheter placed 1/ DVT PROPHYLAXIS - SCDs, heparin CODE STATUSDNR/DNI Patient was discussed in multidisciplinary rounds I have personally spent 45 minutes of critical care time in the direct management of this patient. This is a life/limb threatening event. This includes time spent evaluating patient, direct bedside care, chart review, placing orders, interpretation of diagnostic studies, discussion with consultants, patient, and family members, as well as other required patient management activities. This time is exclusive of all separately billable procedures, and teaching time and separate from and in addition to any other critical care service time. (2) Septic shock: (3) Metabolic acidosis: (4) Acute metabolic encephalopathy: (5) Pancreatic lesion: (6) Diabetes mellitus type 2, controlled: (7) Atrial fibrillation: (8) Dementia: (9) Hypertension: (10) Elevated LFTs: (11) GERD (gastroesophageal reflux disease): Admission and Anticipated Discharge Date Admission Date: March 05, 2020 Subjective Patient not able to participate with expressing complaints, no overnight events. Review of Systems Review of Systems: Unobtainable due to reduced consciousness Results & Data Results & Data ([facility]) Vital Signs (Past 12 Hours) Vital Signs Temp Pulse Resp BP Pulse Ox 03/06/20 09:01 37.1 C 89 21 97 03/06/20 09:00 37.1 C 84 22 135/67 98 03/06/20 08:45 37.1 C 92 H 20 109/66 97 03/06/20 08:30 37.2 C 87 23 97 03/06/20 08:29 37.2 C 95 H 21 111/82 97 03/06/20 08:16 37.1 C 94 H 21 98 03/06/20 08:15 37.1 C 103 H 20 110/97 96 03/06/20 08:01 37.1 C 21 97 03/06/20 07:59 37.1 C 23 109/97 97 03/06/20 07:46 37.1 C 119 H 20 96 03/06/20 07:45 37.1 C 92 H 20 109/82 95 03/06/20 07:31 37.1 C 84 21 96 03/06/20 07:29 37.1 C 85 20 122/91 96 03/06/20 07:15 37.1 C 102 H 24 96 03/06/20 07:14 37.1 C 99 H 20 139/72 97 03/06/20 07:00 37.1 C 93 H 21 98 03/06/20 06:14 37.2 C 93 H 21 94/72 L 95 03/06/20 06:00 37.2 C 85 24 96 03/06/20 05:59 37.2 C 92 H 25 H 106/74 96 03/06/20 05:44 37.3 C 92 H 19 100/78 98 03/06/20 05:30 37.3 C 92 H 26 H 95 03/06/20 05:29 37.3 C 92 H 24 86/68 L 94 03/06/20 05:14 37.3 C 93 H 24 99/67 L 97 03/06/20 05:00 37.3 C 92 H 28 H 96 03/06/20 04:59 37.3 C 91 H 26 H 95/72 L 96 03/06/20 04:47 37.4 C 91 H 26 H 97 03/06/20 04:46 37.4 C 86 25 H 80/61 L 97 03/06/20 04:44 37.4 C 91 H 26 H 73/60 L 97 03/06/20 04:30 37.4 C 94 H 19 97 03/06/20 04:29 37.4 C 88 26 H 85/64 L 96 03/06/20 04:14 37.4 C 91 H 25 H 117/75 97 03/06/20 04:00 37.5 C 98 H 25 H 95 03/06/20 03:59 37.5 C 88 22 89/64 L 96 03/06/20 03:44 37.5 C 91 H 26 H 99/73 L 96 03/06/20 03:30 37.5 C 102 H 18 98 03/06/20 03:29 37.5 C 96 H 18 90/69 L 96 03/06/20 03:14 37.6 C H 96 H 30 H 93/71 L 95 03/06/20 03:00 37.6 C H 96 H 22 96 03/06/20 02:59 37.6 C H 95 H 25 H 91/68 L 96 03/06/20 02:44 37.6 C H 104 H 28 H 90/66 L 96 03/06/20 02:30 37.6 C H 101 H 26 H 96 03/06/20 02:29 37.6 C H 94 H 28 H 116/80 95 03/06/20 02:14 37.7 C H 97 H 25 H 107/78 96 03/06/20 02:00 37.7 C H 114 H 16 96 03/06/20 01:59 37.7 C H 100 H 17 105/76 96 03/06/20 01:44 37.7 C H 106 H 27 H 96/84 L 97 03/06/20 01:30 37.8 C H 97 H 28 H 95 03/06/20 01:29 37.8 C H 108 H 25 H 95/73 L 95 03/06/20 01:14 37.8 C H 101 H 24 95/72 L 96 03/06/20 01:13 101 H 03/06/20 01:00 37.9 C H 101 H 25 H 95 03/06/20 00:59 37.9 C H 107 H 25 H 95/68 L 94 03/06/20 00:45 38.0 C H 101 H 29 H 95 03/06/20 00:44 38.0 C H 98 H 28 H 96/69 L 95 03/06/20 00:33 38.1 C H 104 H 28 H 91/67 L 95 03/06/20 00:30 38.2 C H 100 H 26 H 95 03/06/20 00:29 38.2 C H 97 H 26 H 95 03/06/20 00:27 38.2 C H 105 H 30 H 93/71 L 95 03/06/20 00:24 38.2 C H 108 H 30 H 69/48 L 95 03/06/20 00:18 100 H 31 H 68/51 L 95 03/06/20 00:17 117 H 29 H 74/56 L 93 03/06/20 00:01 93 H 27 H 96 03/06/20 00:00 94 H 24 75/61 L 95 03/05/20 23:59 93 H 28 H 79/53 L 97 03/05/20 23:44 98 H 25 H 83/58 L 100 03/05/20 23:30 99 H 24 100 03/05/20 23:28 112 H 22 91/65 L 100 03/05/20 23:13 107 H 24 87/54 L 100 03/05/20 23:00 101 H 23 100 03/05/20 22:59 97 H 24 82/60 L 100 03/05/20 22:43 103 H 21 87/65 L 100 03/05/20 22:30 98 H 21 100 03/05/20 22:29 101 H 21 91/66 L 100 03/05/20 22:16 98 H 23 88/55 L 100 03/05/20 22:14 97 H 26 H 100 03/05/20 22:00 99 H 23 100 03/05/20 21:58 101 H 23 78/56 L 99 Laboratory Results 03/06/20 03/06/20 03/06/20 Range/Units 08:20 07:55 05:34 WBC (4.8-10.8) K/uL RBC (4.7-6.1) M/uL Hgb (14.0-18.0) g/dL POC Hgb (14.0-18.0) g/dl Hct (42-52) % POC Hct (42-52) % MCV (80-100) fL MCH (25-34) pg MCHC (32-36) g/dL RDW Std Deviation (36.4-46.3) fL RDW Coeff of Adiel (11.5-14.5) % Plt Count (130-400) K/uL MPV (7.4-10.4) fL Immature Gran % (Auto) % Neut % (Auto) % Lymph % (Auto) % [place] % (Auto) % Eos % (Auto) % Baso % (Auto) % Neut # (Auto) (1.4-6.5) K/uL Lymph # (Auto) (1.2-3.4) K/uL [place] # (Auto) (0.11-0.59) K/uL Eos # (Auto) (0-0.5) K/uL Baso # (Auto) (0-0.2) K/uL Immature Gran # (Auto) (0.00-0.02) K/uL PT (9.0-12.0) Seconds INR (0.9-1.1) APTT (21.0-31.0) Seconds PTT Ratio VBG pH (7.36-7.41) VBG pCO2 (38-50) mmHg VBG pO2 mmHg VBG HCO3 mmol/L VBG O2 Saturation % VBG Base Excess mEq/L Barometric Pressure mm/Hg POC Sodium (135-144) mmol/L Sodium (136-145) mmol/L POC Potassium (3.3-5.0) mmol/L Potassium (3.5-5.1) mmol/L POC Chloride (101-112) mmol/L Chloride (98-107) mmol/L Carbon Dioxide (21-32) mmol/L POC Total CO2 (24-31) mmol/L Anion Gap (3-11) POC Anion Gap (16-25) mmol/L POC BUN (7-18) mg/dl BUN (7-18) mg/dl Creatinine (0.6-1.4) mg/dl POC Creatinine (0.6-1.3) mg/dl Est Cr Clr Drug Dosing ml/min Est GFR ( Amer) Est GFR (Non-Af Amer) BUN/Creatinine Ratio (10-20) Glucose (70-99) mg/dl POC Glucose 152 H 224 H (70-99) mg/dl POC Glucose (other) (70-99) mg/dl Estimat Average Glucose mg/dl Hemoglobin A1c (4.5-5.6) % Lactate 5.8 H* (0.4-2.0) mmol/L Calcium (8.5-10.1) mg/dl POC Ioniz Calcium Niall (1.12-1.32) mmol/l Phosphorus (2.5-4.9) mg/dl Magnesium (1.8-2.4) mg/dl Total Bilirubin (0.2-1) mg/dl AST (15-37) U/L ALT (12-78) U/L Alkaline Phosphatase (45-117) U/L Ammonia (11-32) umol/L Troponin I (0-0.045) ng/ml NT-Pro-B Natriuret Pep (0-1800) pg/ml Total Protein (6.4-8.2) gm/dl Albumin (3.4-5.0) gm/dl Globulin (2.5-4.0) gm/dl Albumin/Globulin Ratio (0.9-2) Procalcitonin (0-0.5) ng/ml Random Cortisol mcg/dl Urine Color Urine Appearance (Clear) Urine pH (4.5-7.5) Ur Specific [place] (1.000-1.030) Urine Protein (Negative) Urine Glucose (UA) (Negative) Urine Ketones (Negative) Urine Blood (Negative) Urine Nitrite (Negative) Urine Bilirubin (Negative) Urine Urobilinogen (Negative) Ur Leukocyte Esterase (Negative) Urine WBC (Auto) (0-5) /hpf Urine RBC (Auto) (0-4) /hpf U Hyaline Cast (Auto) (0-5) /lpf U Epithel Cells (Auto) (0-5) /lpf Urine Bacteria (Auto) (Negative) Ur Renal Epithelial Cell Nasal Screen MRSA (PCR) (Negative) Random Vancomycin mcg/ml COVID-19 Eval Order SARS-CoV-2, RNA, NAAT (NEGATIVE) 03/06/20 03/06/20 03/06/20 Range/Units 04:37 04:37 04:37 WBC 26.47 H D (4.8-10.8) K/uL RBC 4.22 L (4.7-6.1) M/uL Hgb 13.6 L (14.0-18.0) g/dL POC Hgb (14.0-18.0) g/dl Hct 40.3 L (42-52) % POC Hct (42-52) % MCV 95.5 (80-100) fL MCH 32.2 (25-34) pg MCHC 33.7 (32-36) g/dL RDW Std Deviation 51.5 H (36.4-46.3) fL RDW Coeff of Adiel 14.7 H (11.5-14.5) % Plt Count 152 (130-400) K/uL MPV 10.2 (7.4-10.4) fL Immature Gran % (Auto) % Neut % (Auto) % Lymph % (Auto) % [place] % (Auto) % Eos % (Auto) % Baso % (Auto) % Neut # (Auto) (1.4-6.5) K/uL Lymph # (Auto) (1.2-3.4) K/uL [place] # (Auto) (0.11-0.59) K/uL Eos # (Auto) (0-0.5) K/uL Baso # (Auto) (0-0.2) K/uL Immature Gran # (Auto) (0.00-0.02) K/uL PT (9.0-12.0) Seconds INR (0.9-1.1) APTT (21.0-31.0) Seconds PTT Ratio VBG pH (7.36-7.41) VBG pCO2 (38-50) mmHg VBG pO2 mmHg VBG HCO3 mmol/L VBG O2 Saturation % VBG Base Excess mEq/L Barometric Pressure mm/Hg POC Sodium (135-144) mmol/L Sodium (136-145) mmol/L POC Potassium (3.3-5.0) mmol/L Potassium (3.5-5.1) mmol/L POC Chloride (101-112) mmol/L Chloride (98-107) mmol/L Carbon Dioxide (21-32) mmol/L POC Total CO2 (24-31) mmol/L Anion Gap (3-11) POC Anion Gap (16-25) mmol/L POC BUN (7-18) mg/dl BUN (7-18) mg/dl Creatinine (0.6-1.4) mg/dl POC Creatinine (0.6-1.3) mg/dl Est Cr Clr Drug Dosing ml/min Est GFR ( Amer) Est GFR (Non-Af Amer) BUN/Creatinine Ratio (10-20) Glucose (70-99) mg/dl POC Glucose (70-99) mg/dl POC Glucose (other) (70-99) mg/dl Estimat Average Glucose 143 mg/dl Hemoglobin A1c 6.6 H (4.5-5.6) % Lactate (0.4-2.0) mmol/L Calcium (8.5-10.1) mg/dl POC Ioniz Calcium Niall (1.12-1.32) mmol/l Phosphorus (2.5-4.9) mg/dl Magnesium (1.8-2.4) mg/dl Total Bilirubin (0.2-1) mg/dl AST (15-37) U/L ALT (12-78) U/L Alkaline Phosphatase (45-117) U/L Ammonia (11-32) umol/L Troponin I (0-0.045) ng/ml NT-Pro-B Natriuret Pep (0-1800) pg/ml Total Protein (6.4-8.2) gm/dl Albumin (3.4-5.0) gm/dl Globulin (2.5-4.0) gm/dl Albumin/Globulin Ratio (0.9-2) Procalcitonin (0-0.5) ng/ml Random Cortisol mcg/dl Urine Color Urine Appearance (Clear) Urine pH (4.5-7.5) Ur Specific [place] (1.000-1.030) Urine Protein (Negative) Urine Glucose (UA) (Negative) Urine Ketones (Negative) Urine Blood (Negative) Urine Nitrite (Negative) Urine Bilirubin (Negative) Urine Urobilinogen (Negative) Ur Leukocyte Esterase (Negative) Urine WBC (Auto) (0-5) /hpf Urine RBC (Auto) (0-4) /hpf U Hyaline Cast (Auto) (0-5) /lpf U Epithel Cells (Auto) (0-5) /lpf Urine Bacteria (Auto) (Negative) Ur Renal Epithelial Cell Nasal Screen MRSA (PCR) (Negative) Random Vancomycin 16.4 mcg/ml COVID-19 Eval Order SARS-CoV-2, RNA, NAAT (NEGATIVE) 03/06/20 03/06/20 03/06/20 Range/Units 04:37 02:05 00:17 WBC (4.8-10.8) K/uL RBC (4.7-6.1) M/uL Hgb (14.0-18.0) g/dL POC Hgb (14.0-18.0) g/dl Hct (42-52) % POC Hct (42-52) % MCV (80-100) fL MCH (25-34) pg MCHC (32-36) g/dL RDW Std Deviation (36.4-46.3) fL RDW Coeff of Adiel (11.5-14.5) % Plt Count (130-400) K/uL MPV (7.4-10.4) fL Immature Gran % (Auto) % Neut % (Auto) % Lymph % (Auto) % [place] % (Auto) % Eos % (Auto) % Baso % (Auto) % Neut # (Auto) (1.4-6.5) K/uL Lymph # (Auto) (1.2-3.4) K/uL [place] # (Auto) (0.11-0.59) K/uL Eos # (Auto) (0-0.5) K/uL Baso # (Auto) (0-0.2) K/uL Immature Gran # (Auto) (0.00-0.02) K/uL PT (9.0-12.0) Seconds INR (0.9-1.1) APTT (21.0-31.0) Seconds PTT Ratio VBG pH (7.36-7.41) VBG pCO2 (38-50) mmHg VBG pO2 mmHg VBG HCO3 mmol/L VBG O2 Saturation % VBG Base Excess mEq/L Barometric Pressure mm/Hg POC Sodium (135-144) mmol/L Sodium 136 (136-145) mmol/L POC Potassium (3.3-5.0) mmol/L Potassium 3.8 (3.5-5.1) mmol/L POC Chloride (101-112) mmol/L Chloride 106 (98-107) mmol/L Carbon Dioxide 22 (21-32) mmol/L POC Total CO2 (24-31) mmol/L Anion Gap 8.0 (3-11) POC Anion Gap (16-25) mmol/L POC BUN (7-18) mg/dl BUN 26 H (7-18) mg/dl Creatinine 1.73 H (0.6-1.4) mg/dl POC Creatinine (0.6-1.3) mg/dl Est Cr Clr Drug Dosing 32.6 ml/min Est GFR ( Amer) 40.5 Est GFR (Non-Af Amer) 35.0 BUN/Creatinine Ratio 15.2 (10-20) Glucose 173 H (70-99) mg/dl POC Glucose 222 H (70-99) mg/dl POC Glucose (other) (70-99) mg/dl Estimat Average Glucose mg/dl Hemoglobin A1c (4.5-5.6) % Lactate 7.0 H* (0.4-2.0) mmol/L Calcium 7.6 L (8.5-10.1) mg/dl POC Ioniz Calcium Niall (1.12-1.32) mmol/l Phosphorus 3.1 D (2.5-4.9) mg/dl Magnesium 2.5 H (1.8-2.4) mg/dl Total Bilirubin 5.6 H (0.2-1) mg/dl AST 235 H (15-37) U/L ALT 400 H (12-78) U/L Alkaline Phosphatase 145 H (45-117) U/L Ammonia (11-32) umol/L Troponin I (0-0.045) ng/ml NT-Pro-B Natriuret Pep (0-1800) pg/ml Total Protein 5.1 L (6.4-8.2) gm/dl Albumin 2.5 L (3.4-5.0) gm/dl Globulin 2.6 (2.5-4.0) gm/dl Albumin/Globulin Ratio 1.0 (0.9-2) Procalcitonin (0-0.5) ng/ml Random Cortisol mcg/dl Urine Color Urine Appearance (Clear) Urine pH (4.5-7.5) Ur Specific [place] (1.000-1.030) Urine Protein (Negative) Urine Glucose (UA) (Negative) Urine Ketones (Negative) Urine Blood (Negative) Urine Nitrite (Negative) Urine Bilirubin (Negative) Urine Urobilinogen (Negative) Ur Leukocyte Esterase (Negative) Urine WBC (Auto) (0-5) /hpf Urine RBC (Auto) (0-4) /hpf U Hyaline Cast (Auto) (0-5) /lpf U Epithel Cells (Auto) (0-5) /lpf Urine Bacteria (Auto) (Negative) Ur Renal Epithelial Cell Nasal Screen MRSA (PCR) (Negative) Random Vancomycin mcg/ml COVID-19 Eval Order SARS-CoV-2, RNA, NAAT (NEGATIVE) 03/05/20 03/05/20 03/05/20 Range/Units 21:49 20:31 20:31 WBC (4.8-10.8) K/uL RBC (4.7-6.1) M/uL Hgb (14.0-18.0) g/dL POC Hgb (14.0-18.0) g/dl Hct (42-52) % POC Hct (42-52) % MCV (80-100) fL MCH (25-34) pg MCHC (32-36) g/dL RDW Std Deviation (36.4-46.3) fL RDW Coeff of Adiel (11.5-14.5) % Plt Count (130-400) K/uL MPV (7.4-10.4) fL Immature Gran % (Auto) % Neut % (Auto) % Lymph % (Auto) % [place] % (Auto) % Eos % (Auto) % Baso % (Auto) % Neut # (Auto) (1.4-6.5) K/uL Lymph # (Auto) (1.2-3.4) K/uL [place] # (Auto) (0.11-0.59) K/uL Eos # (Auto) (0-0.5) K/uL Baso # (Auto) (0-0.2) K/uL Immature Gran # (Auto) (0.00-0.02) K/uL PT (9.0-12.0) Seconds INR (0.9-1.1) APTT (21.0-31.0) Seconds PTT Ratio VBG pH (7.36-7.41) VBG pCO2 (38-50) mmHg VBG pO2 mmHg VBG HCO3 mmol/L VBG O2 Saturation % VBG Base Excess mEq/L Barometric Pressure mm/Hg POC Sodium (135-144) mmol/L Sodium 137 (136-145) mmol/L POC Potassium (3.3-5.0) mmol/L Potassium 3.8 (3.5-5.1) mmol/L POC Chloride (101-112) mmol/L Chloride 107 (98-107) mmol/L Carbon Dioxide 18 L (21-32) mmol/L POC Total CO2 (24-31) mmol/L Anion Gap 12.0 H (3-11) POC Anion Gap (16-25) mmol/L POC BUN (7-18) mg/dl BUN 22 H (7-18) mg/dl Creatinine 1.83 H (0.6-1.4) mg/dl POC Creatinine (0.6-1.3) mg/dl Est Cr Clr Drug Dosing 30.9 ml/min Est GFR ( Amer) 37.9 Est GFR (Non-Af Amer) 32.7 BUN/Creatinine Ratio 11.7 (10-20) Glucose 253 H (70-99) mg/dl POC Glucose 256 H (70-99) mg/dl POC Glucose (other) (70-99) mg/dl Estimat Average Glucose mg/dl Hemoglobin A1c (4.5-5.6) % Lactate (0.4-2.0) mmol/L Calcium 7.6 L (8.5-10.1) mg/dl POC Ioniz Calcium Niall (1.12-1.32) mmol/l Phosphorus 1.9 L (2.5-4.9) mg/dl Magnesium 2.3 (1.8-2.4) mg/dl Total Bilirubin (0.2-1) mg/dl AST (15-37) U/L ALT (12-78) U/L Alkaline Phosphatase (45-117) U/L Ammonia 29.1 (11-32) umol/L Troponin I (0-0.045) ng/ml NT-Pro-B Natriuret Pep (0-1800) pg/ml Total Protein (6.4-8.2) gm/dl Albumin (3.4-5.0) gm/dl Globulin (2.5-4.0) gm/dl Albumin/Globulin Ratio (0.9-2) Procalcitonin (0-0.5) ng/ml Random Cortisol mcg/dl Urine Color Urine Appearance (Clear) Urine pH (4.5-7.5) Ur Specific [place] (1.000-1.030) Urine Protein (Negative) Urine Glucose (UA) (Negative) Urine Ketones (Negative) Urine Blood (Negative) Urine Nitrite (Negative) Urine Bilirubin (Negative) Urine Urobilinogen (Negative) Ur Leukocyte Esterase (Negative) Urine WBC (Auto) (0-5) /hpf Urine RBC (Auto) (0-4) /hpf U Hyaline Cast (Auto) (0-5) /lpf U Epithel Cells (Auto) (0-5) /lpf Urine Bacteria (Auto) (Negative) Ur Renal Epithelial Cell Nasal Screen MRSA (PCR) (Negative) Random Vancomycin mcg/ml COVID-19 Eval Order SARS-CoV-2, RNA, NAAT (NEGATIVE) 03/05/20 03/05/20 03/05/20 Range/Units 20:31 20:30 17:50 WBC (4.8-10.8) K/uL RBC (4.7-6.1) M/uL Hgb (14.0-18.0) g/dL POC Hgb (14.0-18.0) g/dl Hct (42-52) % POC Hct (42-52) % MCV (80-100) fL MCH (25-34) pg MCHC (32-36) g/dL RDW Std Deviation (36.4-46.3) fL RDW Coeff of Adiel (11.5-14.5) % Plt Count (130-400) K/uL MPV (7.4-10.4) fL Immature Gran % (Auto) % Neut % (Auto) % Lymph % (Auto) % [place] % (Auto) % Eos % (Auto) % Baso % (Auto) % Neut # (Auto) (1.4-6.5) K/uL Lymph # (Auto) (1.2-3.4) K/uL [place] # (Auto) (0.11-0.59) K/uL Eos # (Auto) (0-0.5) K/uL Baso # (Auto) (0-0.2) K/uL Immature Gran # (Auto) (0.00-0.02) K/uL PT (9.0-12.0) Seconds INR (0.9-1.1) APTT (21.0-31.0) Seconds PTT Ratio VBG pH (7.36-7.41) VBG pCO2 (38-50) mmHg VBG pO2 mmHg VBG HCO3 mmol/L VBG O2 Saturation % VBG Base Excess mEq/L Barometric Pressure mm/Hg POC Sodium (135-144) mmol/L Sodium (136-145) mmol/L POC Potassium (3.3-5.0) mmol/L Potassium (3.5-5.1) mmol/L POC Chloride (101-112) mmol/L Chloride (98-107) mmol/L Carbon Dioxide (21-32) mmol/L POC Total CO2 (24-31) mmol/L Anion Gap (3-11) POC Anion Gap (16-25) mmol/L POC BUN (7-18) mg/dl BUN (7-18) mg/dl Creatinine (0.6-1.4) mg/dl POC Creatinine (0.6-1.3) mg/dl Est Cr Clr Drug Dosing ml/min Est GFR ( Amer) Est GFR (Non-Af Amer) BUN/Creatinine Ratio (10-20) Glucose (70-99) mg/dl POC Glucose (70-99) mg/dl POC Glucose (other) (70-99) mg/dl Estimat Average Glucose mg/dl Hemoglobin A1c (4.5-5.6) % Lactate 7.7 H* (0.4-2.0) mmol/L Calcium (8.5-10.1) mg/dl POC Ioniz Calcium Niall (1.12-1.32) mmol/l Phosphorus (2.5-4.9) mg/dl Magnesium (1.8-2.4) mg/dl Total Bilirubin (0.2-1) mg/dl AST (15-37) U/L ALT (12-78) U/L Alkaline Phosphatase (45-117) U/L Ammonia (11-32) umol/L Troponin I (0-0.045) ng/ml NT-Pro-B Natriuret Pep (0-1800) pg/ml Total Protein (6.4-8.2) gm/dl Albumin (3.4-5.0) gm/dl Globulin (2.5-4.0) gm/dl Albumin/Globulin Ratio (0.9-2) Procalcitonin (0-0.5) ng/ml Random Cortisol 71.69 mcg/dl Urine Color Urine Appearance (Clear) Urine pH (4.5-7.5) Ur Specific [place] (1.000-1.030) Urine Protein (Negative) Urine Glucose (UA) (Negative) Urine Ketones (Negative) Urine Blood (Negative) Urine Nitrite (Negative) Urine Bilirubin (Negative) Urine Urobilinogen (Negative) Ur Leukocyte Esterase (Negative) Urine WBC (Auto) (0-5) /hpf Urine RBC (Auto) (0-4) /hpf U Hyaline Cast (Auto) (0-5) /lpf U Epithel Cells (Auto) (0-5) /lpf Urine Bacteria (Auto) (Negative) Ur Renal Epithelial Cell Nasal Screen MRSA (PCR) Negative (Negative) Random Vancomycin mcg/ml COVID-19 Eval Order SARS-CoV-2, RNA, NAAT (NEGATIVE) 03/05/20 03/05/20 03/05/20 Range/Units 16:52 15:14 15:14 WBC (4.8-10.8) K/uL RBC (4.7-6.1) M/uL Hgb (14.0-18.0) g/dL POC Hgb (14.0-18.0) g/dl Hct (42-52) % POC Hct (42-52) % MCV (80-100) fL MCH (25-34) pg MCHC (32-36) g/dL RDW Std Deviation (36.4-46.3) fL RDW Coeff of Adiel (11.5-14.5) % Plt Count (130-400) K/uL MPV (7.4-10.4) fL Immature Gran % (Auto) % Neut % (Auto) % Lymph % (Auto) % [place] % (Auto) % Eos % (Auto) % Baso % (Auto) % Neut # (Auto) (1.4-6.5) K/uL Lymph # (Auto) (1.2-3.4) K/uL [place] # (Auto) (0.11-0.59) K/uL Eos # (Auto) (0-0.5) K/uL Baso # (Auto) (0-0.2) K/uL Immature Gran # (Auto) (0.00-0.02) K/uL PT (9.0-12.0) Seconds INR (0.9-1.1) APTT (21.0-31.0) Seconds PTT Ratio VBG pH (7.36-7.41) VBG pCO2 (38-50) mmHg VBG pO2 mmHg VBG HCO3 mmol/L VBG O2 Saturation % VBG Base Excess mEq/L Barometric Pressure mm/Hg POC Sodium (135-144) mmol/L Sodium (136-145) mmol/L POC Potassium (3.3-5.0) mmol/L Potassium (3.5-5.1) mmol/L POC Chloride (101-112) mmol/L Chloride (98-107) mmol/L Carbon Dioxide (21-32) mmol/L POC Total CO2 (24-31) mmol/L Anion Gap (3-11) POC Anion Gap (16-25) mmol/L POC BUN (7-18) mg/dl BUN (7-18) mg/dl Creatinine (0.6-1.4) mg/dl POC Creatinine (0.6-1.3) mg/dl Est Cr Clr Drug Dosing ml/min Est GFR ( Amer) Est GFR (Non-Af Amer) BUN/Creatinine Ratio (10-20) Glucose (70-99) mg/dl POC Glucose (70-99) mg/dl POC Glucose (other) (70-99) mg/dl Estimat Average Glucose mg/dl Hemoglobin A1c (4.5-5.6) % Lactate 9.4 H* (0.4-2.0) mmol/L Calcium (8.5-10.1) mg/dl POC Ioniz Calcium Niall (1.12-1.32) mmol/l Phosphorus (2.5-4.9) mg/dl Magnesium (1.8-2.4) mg/dl Total Bilirubin (0.2-1) mg/dl AST (15-37) U/L ALT (12-78) U/L Alkaline Phosphatase (45-117) U/L Ammonia (11-32) umol/L Troponin I (0-0.045) ng/ml NT-Pro-B Natriuret Pep (0-1800) pg/ml Total Protein (6.4-8.2) gm/dl Albumin (3.4-5.0) gm/dl Globulin (2.5-4.0) gm/dl Albumin/Globulin Ratio (0.9-2) Procalcitonin (0-0.5) ng/ml Random Cortisol mcg/dl Urine Color Urine Appearance (Clear) Urine pH (4.5-7.5) Ur Specific [place] (1.000-1.030) Urine Protein (Negative) Urine Glucose (UA) (Negative) Urine Ketones (Negative) Urine Blood (Negative) Urine Nitrite (Negative) Urine Bilirubin (Negative) Urine Urobilinogen (Negative) Ur Leukocyte Esterase (Negative) Urine WBC (Auto) (0-5) /hpf Urine RBC (Auto) (0-4) /hpf U Hyaline Cast (Auto) (0-5) /lpf U Epithel Cells (Auto) (0-5) /lpf Urine Bacteria (Auto) (Negative) Ur Renal Epithelial Cell Nasal Screen MRSA (PCR) (Negative) Random Vancomycin mcg/ml COVID-19 Eval Order Covid19 IDNow [facility] SARS-CoV-2, RNA, NAAT NEGATIVE (NEGATIVE) 03/05/20 03/05/20 03/05/20 Range/Units 14:45 14:41 14:27 WBC (4.8-10.8) K/uL RBC (4.7-6.1) M/uL Hgb (14.0-18.0) g/dL POC Hgb 14.6 (14.0-18.0) g/dl Hct (42-52) % POC Hct 43 (42-52) % MCV (80-100) fL MCH (25-34) pg MCHC (32-36) g/dL RDW Std Deviation (36.4-46.3) fL RDW Coeff of Adiel (11.5-14.5) % Plt Count (130-400) K/uL MPV (7.4-10.4) fL Immature Gran % (Auto) % Neut % (Auto) % Lymph % (Auto) % [place] % (Auto) % Eos % (Auto) % Baso % (Auto) % Neut # (Auto) (1.4-6.5) K/uL Lymph # (Auto) (1.2-3.4) K/uL [place] # (Auto) (0.11-0.59) K/uL Eos # (Auto) (0-0.5) K/uL Baso # (Auto) (0-0.2) K/uL Immature Gran # (Auto) (0.00-0.02) K/uL PT (9.0-12.0) Seconds INR (0.9-1.1) APTT (21.0-31.0) Seconds PTT Ratio VBG pH 7.27 L (7.36-7.41) VBG pCO2 44 (38-50) mmHg VBG pO2 16 mmHg VBG HCO3 20 mmol/L VBG O2 Saturation < 60.0 % VBG Base Excess -6.8 mEq/L Barometric Pressure 729.2 mm/Hg POC Sodium 135 (135-144) mmol/L Sodium (136-145) mmol/L POC Potassium 4.0 (3.3-5.0) mmol/L Potassium (3.5-5.1) mmol/L POC Chloride 100 L (101-112) mmol/L Chloride (98-107) mmol/L Carbon Dioxide (21-32) mmol/L POC Total CO2 18 L (24-31) mmol/L Anion Gap (3-11) POC Anion Gap 21.0 (16-25) mmol/L POC BUN 20 H (7-18) mg/dl BUN (7-18) mg/dl Creatinine (0.6-1.4) mg/dl POC Creatinine 1.3 (0.6-1.3) mg/dl Est Cr Clr Drug Dosing ml/min Est GFR ( Amer) Est GFR (Non-Af Amer) BUN/Creatinine Ratio (10-20) Glucose (70-99) mg/dl POC Glucose (70-99) mg/dl POC Glucose (other) 255 H (70-99) mg/dl Estimat Average Glucose mg/dl Hemoglobin A1c (4.5-5.6) % Lactate (0.4-2.0) mmol/L Calcium (8.5-10.1) mg/dl POC Ioniz Calcium Niall 1.09 L (1.12-1.32) mmol/l Phosphorus (2.5-4.9) mg/dl Magnesium (1.8-2.4) mg/dl Total Bilirubin (0.2-1) mg/dl AST (15-37) U/L ALT (12-78) U/L Alkaline Phosphatase (45-117) U/L Ammonia (11-32) umol/L Troponin I (0-0.045) ng/ml NT-Pro-B Natriuret Pep (0-1800) pg/ml Total Protein (6.4-8.2) gm/dl Albumin (3.4-5.0) gm/dl Globulin (2.5-4.0) gm/dl Albumin/Globulin Ratio (0.9-2) Procalcitonin (0-0.5) ng/ml Random Cortisol mcg/dl Urine Color Dark Yellow Urine Appearance Clear (Clear) Urine pH 7.0 (4.5-7.5) Ur Specific [place] 1.018 (1.000-1.030) Urine Protein Negative (Negative) Urine Glucose (UA) Negative (Negative) Urine Ketones Trace H (Negative) Urine Blood 2+ H (Negative) Urine Nitrite Negative (Negative) Urine Bilirubin Negative (Negative) Urine Urobilinogen Negative (Negative) Ur Leukocyte Esterase Negative (Negative) Urine WBC (Auto) 1-5 (0-5) /hpf Urine RBC (Auto) 10-30 H (0-4) /hpf U Hyaline Cast (Auto) 5-10 H (0-5) /lpf U Epithel Cells (Auto) >30 H (0-5) /lpf Urine Bacteria (Auto) Negative (Negative) Ur Renal Epithelial Cell Not Reportable Nasal Screen MRSA (PCR) (Negative) Random Vancomycin mcg/ml COVID-19 Eval Order SARS-CoV-2, RNA, NAAT (NEGATIVE) 03/05/20 03/05/20 03/05/20 Range/Units 14:27 14:27 14:27 WBC (4.8-10.8) K/uL RBC (4.7-6.1) M/uL Hgb (14.0-18.0) g/dL POC Hgb (14.0-18.0) g/dl Hct (42-52) % POC Hct (42-52) % MCV (80-100) fL MCH (25-34) pg MCHC (32-36) g/dL RDW Std Deviation (36.4-46.3) fL RDW Coeff of Adiel (11.5-14.5) % Plt Count (130-400) K/uL MPV (7.4-10.4) fL Immature Gran % (Auto) % Neut % (Auto) % Lymph % (Auto) % [place]land % (Auto) % Eos % (Auto) % Baso % (Auto) % Neut # (Auto) (1.4-6.5) K/uL Lymph # (Auto) (1.2-3.4) K/uL [place] # (Auto) (0.11-0.59) K/uL Eos # (Auto) (0-0.5) K/uL Baso # (Auto) (0-0.2) K/uL Immature Gran # (Auto) (0.00-0.02) K/uL PT (9.0-12.0) Seconds INR (0.9-1.1) APTT (21.0-31.0) Seconds PTT Ratio VBG pH (7.36-7.41) VBG pCO2 (38-50) mmHg VBG pO2 mmHg VBG HCO3 mmol/L VBG O2 Saturation % VBG Base Excess mEq/L Barometric Pressure mm/Hg POC Sodium (135-144) mmol/L Sodium 136 (136-145) mmol/L POC Potassium (3.3-5.0) mmol/L Potassium 4.0 (3.5-5.1) mmol/L POC Chloride (101-112) mmol/L Chloride 101 (98-107) mmol/L Carbon Dioxide 18 L (21-32) mmol/L POC Total CO2 (24-31) mmol/L Anion Gap 17.0 H (3-11) POC Anion Gap (16-25) mmol/L POC BUN (7-18) mg/dl BUN 20 H (7-18) mg/dl Creatinine 1.85 H (0.6-1.4) mg/dl POC Creatinine (0.6-1.3) mg/dl Est Cr Clr Drug Dosing 30.5 ml/min Est GFR ( Amer) 37.4 Est GFR (Non-Af Amer) 32.3 BUN/Creatinine Ratio 10.8 (10-20) Glucose 244 H (70-99) mg/dl POC Glucose (70-99) mg/dl POC Glucose (other) (70-99) mg/dl Estimat Average Glucose mg/dl Hemoglobin A1c (4.5-5.6) % Lactate 12.7 H* (0.4-2.0) mmol/L Calcium 8.9 (8.5-10.1) mg/dl POC Ioniz Calcium Niall (1.12-1.32) mmol/l Phosphorus (2.5-4.9) mg/dl Magnesium 1.6 L (1.8-2.4) mg/dl Total Bilirubin 5.1 H (0.2-1) mg/dl AST 422 H (15-37) U/L ALT 433 H (12-78) U/L Alkaline Phosphatase 184 H (45-117) U/L Ammonia (11-32) umol/L Troponin I < 0.015 (0-0.045) ng/ml NT-Pro-B Natriuret Pep 4413 H (0-1800) pg/ml Total Protein 6.2 L (6.4-8.2) gm/dl Albumin 3.2 L (3.4-5.0) gm/dl Globulin 3.0 (2.5-4.0) gm/dl Albumin/Globulin Ratio 1.1 (0.9-2) Procalcitonin 42.07 H (0-0.5) ng/ml Random Cortisol mcg/dl Urine Color Urine Appearance (Clear) Urine pH (4.5-7.5) Ur Specific [place] (1.000-1.030) Urine Protein (Negative) Urine Glucose (UA) (Negative) Urine Ketones (Negative) Urine Blood (Negative) Urine Nitrite (Negative) Urine Bilirubin (Negative) Urine Urobilinogen (Negative) Ur Leukocyte Esterase (Negative) Urine WBC (Auto) (0-5) /hpf Urine RBC (Auto) (0-4) /hpf U Hyaline Cast (Auto) (0-5) /lpf U Epithel Cells (Auto) (0-5) /lpf Urine Bacteria (Auto) (Negative) Ur Renal Epithelial Cell Nasal Screen MRSA (PCR) (Negative) Random Vancomycin mcg/ml COVID-19 Eval Order SARS-CoV-2, RNA, NAAT (NEGATIVE) 03/05/20 03/05/20 Range/Units 14:27 14:27 WBC 3.31 L (4.8-10.8) K/uL RBC 4.41 L (4.7-6.1) M/uL Hgb 14.3 (14.0-18.0) g/dL POC Hgb (14.0-18.0) g/dl Hct 42.6 (42-52) % POC Hct (42-52) % MCV 96.6 (80-100) fL MCH 32.4 (25-34) pg MCHC 33.6 (32-36) g/dL RDW Std Deviation 49.9 H (36.4-46.3) fL RDW Coeff of Adiel 14.0 (11.5-14.5) % Plt Count 146 (130-400) K/uL MPV 9.1 (7.4-10.4) fL Immature Gran % (Auto) 0.0 % Neut % (Auto) 94.9 % Lymph % (Auto) 3.3 % Garland % (Auto) 1.5 % Eos % (Auto) 0.3 % Baso % (Auto) 0.0 % Neut # (Auto) 3.14 (1.4-6.5) K/uL Lymph # (Auto) 0.11 L (1.2-3.4) K/uL [place] # (Auto) 0.05 L (0.11-0.59) K/uL Eos # (Auto) 0.01 (0-0.5) K/uL Baso # (Auto) 0.00 (0-0.2) K/uL Immature Gran # (Auto) 0.00 (0.00-0.02) K/uL PT 11.4 (9.0-12.0) Seconds INR 1.1 (0.9-1.1) APTT 24.8 (21.0-31.0) Seconds PTT Ratio 0.9 VBG pH (7.36-7.41) VBG pCO2 (38-50) mmHg VBG pO2 mmHg VBG HCO3 mmol/L VBG O2 Saturation % VBG Base Excess mEq/L Barometric Pressure mm/Hg POC Sodium (135-144) mmol/L Sodium (136-145) mmol/L POC Potassium (3.3-5.0) mmol/L Potassium (3.5-5.1) mmol/L POC Chloride (101-112) mmol/L Chloride (98-107) mmol/L Carbon Dioxide (21-32) mmol/L POC Total CO2 (24-31) mmol/L Anion Gap (3-11) POC Anion Gap (16-25) mmol/L POC BUN (7-18) mg/dl BUN (7-18) mg/dl Creatinine (0.6-1.4) mg/dl POC Creatinine (0.6-1.3) mg/dl Est Cr Clr Drug Dosing ml/min Est GFR ( Amer) Est GFR (Non-Af Amer) BUN/Creatinine Ratio (10-20) Glucose (70-99) mg/dl POC Glucose (70-99) mg/dl POC Glucose (other) (70-99) mg/dl Estimat Average Glucose mg/dl Hemoglobin A1c (4.5-5.6) % Lactate (0.4-2.0) mmol/L Calcium (8.5-10.1) mg/dl POC Ioniz Calcium Niall (1.12-1.32) mmol/l Phosphorus (2.5-4.9) mg/dl Magnesium (1.8-2.4) mg/dl Total Bilirubin (0.2-1) mg/dl AST (15-37) U/L ALT (12-78) U/L Alkaline Phosphatase (45-117) U/L Ammonia (11-32) umol/L Troponin I (0-0.045) ng/ml NT-Pro-B Natriuret Pep (0-1800) pg/ml Total Protein (6.4-8.2) gm/dl Albumin (3.4-5.0) gm/dl Globulin (2.5-4.0) gm/dl Albumin/Globulin Ratio (0.9-2) Procalcitonin (0-0.5) ng/ml Random Cortisol mcg/dl Urine Color Urine Appearance (Clear) Urine pH (4.5-7.5) Ur Specific [place] (1.000-1.030) Urine Protein (Negative) Urine Glucose (UA) (Negative) Urine Ketones (Negative) Urine Blood (Negative) Urine Nitrite (Negative) Urine Bilirubin (Negative) Urine Urobilinogen (Negative) Ur Leukocyte Esterase (Negative) Urine WBC (Auto) (0-5) /hpf Urine RBC (Auto) (0-4) /hpf U Hyaline Cast (Auto) (0-5) /lpf U Epithel Cells (Auto) (0-5) /lpf Urine Bacteria (Auto) (Negative) Ur Renal Epithelial Cell Nasal Screen MRSA (PCR) (Negative) Random Vancomycin mcg/ml COVID-19 Eval Order SARS-CoV-2, RNA, NAAT (NEGATIVE) Coding Level of Care Code Critical Care 1st 30-74 mins Diagnoses Admitted to intensive care unit Z78.9 Septic shock A41.9; R65.21 Metabolic acidosis E87.2 Acute metabolic encephalopathy G93.41 Pancreatic lesion K86.9 Diabetes mellitus type 2, controlled E11.9 Atrial fibrillation I48.91 Dementia F03.90 Hypertension I10 Elevated LFTs R94.5 GERD (gastroesophageal reflux disease) K21.9
[2020-03-06] MEDS ORDERED: POTASSIUM CHLORIDE / WTR 20 MEQ/100 ML PLCT IV ONE (10:00)
--- NOTE | 2020-03-06 11:10 | Gastrointestinal Consultation ---
Date of Consultation March 06, 2020 Assessment & Plan (1) Septic shock: Pt is a 84 y/o male admitted w septic shock, currently on pressors, and broad spectrum antibx. LFTs up, blood cx growing gram negative bacilli. 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 Non contrasted CT abd/pelvis during this admission also w/o biliary dilation or CBD dilation though study non optimal due to lack of contrast and motion degraded artifact. - Continue Zosyn IV, pressor support - Trend LFTs - Suspect possible cholangitis. I discussed plans of care w pt's family ( and daughter) and review options of repeating MRCP (once pt can cooperate w e xam), and possible ERCP. Family however would like us to proceed w conservative measures only and avoid additional MRI studies & invasive procedures. - Please recall GI prn Supervising Physician Co-Signing Physician Notes I have seen and examined the patient and discussed the management with JOHNNY Tai. Consult for elevated lft's Chart review PE oriented to person but not to place, time, HEENT - perrla, abd - soft nt nd +bs Labs reviewed/prior mrcp reviewed/recent imaging (ct non contrast) reviewed Agree with further plan of care as delineated in Ghada's assessment and plan. History of Present Illness Reason for Consultation: Suspect cholangitis Requesting Physician: Dr. Arden Toussaint Attending Physician: Dr. Gem Curtis History of Present Illness Pt is a 84 y/o male w PMHx as noted above who presented to ED yesterday w c/o abd pain and increasing fatigue, weakness per family's report. Upon evaluation noted to be in septic shock managed w IVF and pressors, Zosyn IV. Labs notable for WBC of 26K, Lactic acid 5, procalcitonin 42. LFTs elevated: Tbili 5.6, AST 235, ALT 400, alk phos 145. Blood cx growing gram negative bacilli. Had similar symptoms during admission back in April. He had MRCP back in April showed no signs of gallstone, CBD calculi, + mild gallbladder wall thickening. There were numerous pancreas lesion, largest is 1.2cm pancreatic head lesion, favoring side branch IPMN. Recommended for f/u MRCP in 6 months. GI was involved in pt's case back in April , ERCP deferred at that time. During this admission, he had non contrasted CT abd/pelvis w/o acute infectious/inflammatory findings in abd/pelvis, + hepatomegaly, hepatic steatosis. On exam, pt appears confused, oriented mostly only self. No tenderness on palpation to abdomen. Allergies Allergy/AdvReac Type Severity Reaction Status Date / Time No Known Allergies Allergy Verified 03/05/20 15:50 Home Medications Medication Instructions Recorded Confirmed Type atenolol 25 mg PO DAILY 04/30/19 03/05/20 History clopidogrel 75 mg PO DAILY 04/30/19 03/05/20 History loratadine [Claritin] 10 mg PO DAILY PRN 04/30/19 03/05/20 History metformin 1,000 mg PO BID 04/30/19 03/05/20 History multivitamin with minerals 2 tab PO DAILY 04/30/19 03/05/20 History nitroglycerin [Nitrostat] 0.4 mg SUBLINGUAL DIRECTED PRN 04/30/19 03/05/20 History omeprazole 20 mg PO DAILYBB 04/30/19 03/05/20 History oxybutynin chloride 5 mg PO BID 04/30/19 03/05/20 History pravastatin 20 mg PO DAILY 04/30/19 03/05/20 History quinapril 20 mg PO DAILY 04/30/19 03/05/20 History repaglinide 1 mg PO AC 04/30/19 03/05/20 History tamsulosin 0.4 mg PO HS 04/30/19 03/05/20 History acetaminophen [Tylenol Extra 500 mg PO TID 03/05/20 03/05/20 History Strength] furosemide 40 mg PO QAM 03/05/20 03/05/20 History Patient History Medical History Atrial fibrillation Dementia Diabetes mellitus type 2, controlled GERD (gastroesophageal reflux disease) HTN (hypertension) Hypertension Macular degeneration 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 repeat MRCP recommended in 6 months Surgical History H/O prostate biopsy Family History Other No pertinent family history in first degree relatives Social History Smoking Status: Unknown if ever smoked Hx Alcohol Use: No Hx Substance Use: No Preferred Language: Bulgarian Communication Ability: Unable General Cargo Clerk Required: No Beliefs That Will Affect Care: None marital status: Current Living Situation: Spouse Feels Safe at Home: Yes Assistive Devices: Denture - Upper Review of Systems Review of Systems: All systems reviewed & are unremarkable except as noted in HPI & below Physical Exam Constitutional: + frail appearing, well groomed, cooperative and comfortable Eyes: PERRL, conjunctivae normal, anicteric sclerae ENMT: external ear and nose normal, oropharynx normal Respiratory: no respiratory distress and does not use accessory muscles Auscultation: + diminished lung sounds Cardiovascular: RRR, no murmur, no edema Gastrointestinal (Abdomen): Inspection/Auscultation: + hypoactive bowel sounds Percussion/Palpation: abdomen soft; abdomen nontender Skin: no rashes, warm and dry no jaundice Psychiatric: oriented to self only Lymphatic: no lymphedema Results & Data ([facility]) Vital Signs (Past 12 Hours) Vital Signs Temp Pulse Resp BP Pulse Ox 03/06/20 09:01 37.1 C 89 21 97 03/06/20 09:00 37.1 C 84 22 135/67 98 03/06/20 08:45 37.1 C 92 H 20 109/66 97 03/06/20 08:30 37.2 C 87 23 97 03/06/20 08:29 37.2 C 95 H 21 111/82 97 03/06/20 08:16 37.1 C 94 H 21 98 03/06/20 08:15 37.1 C 103 H 20 110/97 96 03/06/20 08:01 37.1 C 21 97 03/06/20 07:59 37.1 C 23 109/97 97 03/06/20 07:46 37.1 C 119 H 20 96 03/06/20 07:45 37.1 C 92 H 20 109/82 95 03/06/20 07:31 37.1 C 84 21 96 03/06/20 07:29 37.1 C 85 20 122/91 96 03/06/20 07:15 37.1 C 102 H 24 96 03/06/20 07:14 37.1 C 99 H 20 139/72 97 03/06/20 07:00 37.1 C 93 H 21 98 03/06/20 06:14 37.2 C 93 H 21 94/72 L 95 03/06/20 06:00 37.2 C 85 24 96 03/06/20 05:59 37.2 C 92 H 25 H 106/74 96 03/06/20 05:44 37.3 C 92 H 19 100/78 98 03/06/20 05:30 37.3 C 92 H 26 H 95 03/06/20 05:29 37.3 C 92 H 24 86/68 L 94 03/06/20 05:14 37.3 C 93 H 24 99/67 L 97 03/06/20 05:00 37.3 C 92 H 28 H 96 03/06/20 04:59 37.3 C 91 H 26 H 95/72 L 96 03/06/20 04:47 37.4 C 91 H 26 H 97 03/06/20 04:46 37.4 C 86 25 H 80/61 L 97 03/06/20 04:44 37.4 C 91 H 26 H 73/60 L 97 03/06/20 04:30 37.4 C 94 H 19 97 03/06/20 04:29 37.4 C 88 26 H 85/64 L 96 03/06/20 04:14 37.4 C 91 H 25 H 117/75 97 03/06/20 04:00 37.5 C 98 H 25 H 95 03/06/20 03:59 37.5 C 88 22 89/64 L 96 03/06/20 03:44 37.5 C 91 H 26 H 99/73 L 96 03/06/20 03:30 37.5 C 102 H 18 98 03/06/20 03:29 37.5 C 96 H 18 90/69 L 96 03/06/20 03:14 37.6 C H 96 H 30 H 93/71 L 95 03/06/20 03:00 37.6 C H 96 H 22 96 03/06/20 02:59 37.6 C H 95 H 25 H 91/68 L 96 03/06/20 02:44 37.6 C H 104 H 28 H 90/66 L 96 03/06/20 02:30 37.6 C H 101 H 26 H 96 03/06/20 02:29 37.6 C H 94 H 28 H 116/80 95 03/06/20 02:14 37.7 C H 97 H 25 H 107/78 96 03/06/20 02:00 37.7 C H 114 H 16 96 03/06/20 01:59 37.7 C H 100 H 17 105/76 96 03/06/20 01:44 37.7 C H 106 H 27 H 96/84 L 97 03/06/20 01:30 37.8 C H 97 H 28 H 95 03/06/20 01:29 37.8 C H 108 H 25 H 95/73 L 95 03/06/20 01:14 37.8 C H 101 H 24 95/72 L 96 03/06/20 01:13 101 H 03/06/20 01:00 37.9 C H 101 H 25 H 95 03/06/20 00:59 37.9 C H 107 H 25 H 95/68 L 94 03/06/20 00:45 38.0 C H 101 H 29 H 95 03/06/20 00:44 38.0 C H 98 H 28 H 96/69 L 95 03/06/20 00:33 38.1 C H 104 H 28 H 91/67 L 95 03/06/20 00:30 38.2 C H 100 H 26 H 95 03/06/20 00:29 38.2 C H 97 H 26 H 95 03/06/20 00:27 38.2 C H 105 H 30 H 93/71 L 95 03/06/20 00:24 38.2 C H 108 H 30 H 69/48 L 95 03/06/20 00:18 100 H 31 H 68/51 L 95 03/06/20 00:17 117 H 29 H 74/56 L 93 03/06/20 00:01 93 H 27 H 96 03/06/20 00:00 94 H 24 75/61 L 95 03/05/20 23:59 93 H 28 H 79/53 L 97 03/05/20 23:44 98 H 25 H 83/58 L 100 03/05/20 23:30 99 H 24 100 03/05/20 23:28 112 H 22 91/65 L 100 03/05/20 23:13 107 H 24 87/54 L 100
--- NOTE | 2020-03-06 11:17 | Hospitalist Progress Note ---
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 Initially hypotensive with SBP in 70s. Received 2.5 L NSS but remained hypotensive and central line with placed and Levophed started with improvement of BP Hypoxic initially but improved with oxymask. Now 98% on 4L mask Febrile at 39.3 C. Lactic acid significantly elevated at 12.7, procalcitonin elevated at 42, T bili 5.1. AST 422. ALT 433 CT abd/pelvis without contrast limited but no abnormalities of biliary tract or pancreas seen History of sepsis and elevated LFTs in the past - found to have numerous hyperintense pancreatic lesions consistent with IPMN on imaging. Repeat MRCP recommended but family did not pursue due to patient's age/advanced dementia Discussed case with GI, who will follow. Not a candidate for MRCP until more stable. Family hesitant when discussing any intervention like ERCP Continue broad spectrum antibiotic coverage with zosyn, vanc. 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 fib with RVR but improved to 110s with IV fluids, HR currently 89 Dementia Vascular dementia at baseline with some behavioral disturbances Goals of care d/w with and daughter by Dr Cochran who confirmed patient's previously stated wishes for DNR/DNI. Okay to continue IV fluids, antibiotics and pressor support with continued conversation during admission DVT Ppx: SQ heparin Code status: DNR PCP: Jae Dispo: ICU. Discharge planning ordered. Case D/W briefly c ICU team Labs Checked ROS-Offers no reliable history Physical Exam Gen-Somnolent, NAD, Afebrile Head-NCAT, EOMI, PERRLA, Anicteric Sclera, No Posterior Pharyngeal Erythema Neck-Supple, No JVD, No Thyromegaly, No Masses, No LAD, No Bruits Lungs-Clear to Auscultation Bilaterally, No Rales, No Rhonchi, No Wheezing, No Crepitus Chest-No S4, +S1, +S2, No S3, No Murmurs, No Rubs, No Gallops, No Ectopy Abdomen-Soft, Bowel Sounds Present, Non Tender, Non Distended, No Hepatomegaly, No Splenomegaly, No Palpable Masses, No Rebound, No Rigidity, No Guarding Musculoskeletal-Full Range of Motion Bilaterally, No CVAT Extremities-No Cyanosis, No Clubbing, No Edema Nuero-Cranial Nerves II-XII grossly intact, Motor WNL, DTRs WNL, Strength WNL, Non Focal Psych-Cooperative Admission and Anticipated Discharge Date Admission Date: March 05, 2020 Results & Data Results & Data ([facility]) Vital Signs (Past 12 Hours) Vital Signs Temp Pulse Resp BP Pulse Ox 03/06/20 09:01 37.1 C 89 21 97 03/06/20 09:00 37.1 C 84 22 135/67 98 03/06/20 08:45 37.1 C 92 H 20 109/66 97 03/06/20 08:30 37.2 C 87 23 97 03/06/20 08:29 37.2 C 95 H 21 111/82 97 03/06/20 08:16 37.1 C 94 H 21 98 03/06/20 08:15 37.1 C 103 H 20 110/97 96 03/06/20 08:01 37.1 C 21 97 03/06/20 07:59 37.1 C 23 109/97 97 03/06/20 07:46 37.1 C 119 H 20 96 03/06/20 07:45 37.1 C 92 H 20 109/82 95 03/06/20 07:31 37.1 C 84 21 96 03/06/20 07:29 37.1 C 85 20 122/91 96 03/06/20 07:15 37.1 C 102 H 24 96 03/06/20 07:14 37.1 C 99 H 20 139/72 97 03/06/20 07:00 37.1 C 93 H 21 98 03/06/20 06:14 37.2 C 93 H 21 94/72 L 95 03/06/20 06:00 37.2 C 85 24 96 03/06/20 05:59 37.2 C 92 H 25 H 106/74 96 03/06/20 05:44 37.3 C 92 H 19 100/78 98 03/06/20 05:30 37.3 C 92 H 26 H 95 03/06/20 05:29 37.3 C 92 H 24 86/68 L 94 03/06/20 05:14 37.3 C 93 H 24 99/67 L 97 03/06/20 05:00 37.3 C 92 H 28 H 96 03/06/20 04:59 37.3 C 91 H 26 H 95/72 L 96 03/06/20 04:47 37.4 C 91 H 26 H 97 03/06/20 04:46 37.4 C 86 25 H 80/61 L 97 03/06/20 04:44 37.4 C 91 H 26 H 73/60 L 97 03/06/20 04:30 37.4 C 94 H 19 97 03/06/20 04:29 37.4 C 88 26 H 85/64 L 96 03/06/20 04:14 37.4 C 91 H 25 H 117/75 97 03/06/20 04:00 37.5 C 98 H 25 H 95 03/06/20 03:59 37.5 C 88 22 89/64 L 96 03/06/20 03:44 37.5 C 91 H 26 H 99/73 L 96 03/06/20 03:30 37.5 C 102 H 18 98 03/06/20 03:29 37.5 C 96 H 18 90/69 L 96 03/06/20 03:14 37.6 C H 96 H 30 H 93/71 L 95 03/06/20 03:00 37.6 C H 96 H 22 96 03/06/20 02:59 37.6 C H 95 H 25 H 91/68 L 96 03/06/20 02:44 37.6 C H 104 H 28 H 90/66 L 96 03/06/20 02:30 37.6 C H 101 H 26 H 96 03/06/20 02:29 37.6 C H 94 H 28 H 116/80 95 03/06/20 02:14 37.7 C H 97 H 25 H 107/78 96 03/06/20 02:00 37.7 C H 114 H 16 96 03/06/20 01:59 37.7 C H 100 H 17 105/76 96 03/06/20 01:44 37.7 C H 106 H 27 H 96/84 L 97 03/06/20 01:30 37.8 C H 97 H 28 H 95 03/06/20 01:29 37.8 C H 108 H 25 H 95/73 L 95 03/06/20 01:14 37.8 C H 101 H 24 95/72 L 96 03/06/20 01:13 101 H 03/06/20 01:00 37.9 C H 101 H 25 H 95 03/06/20 00:59 37.9 C H 107 H 25 H 95/68 L 94 03/06/20 00:45 38.0 C H 101 H 29 H 95 03/06/20 00:44 38.0 C H 98 H 28 H 96/69 L 95 03/06/20 00:33 38.1 C H 104 H 28 H 91/67 L 95 03/06/20 00:30 38.2 C H 100 H 26 H 95 03/06/20 00:29 38.2 C H 97 H 26 H 95 03/06/20 00:27 38.2 C H 105 H 30 H 93/71 L 95 03/06/20 00:24 38.2 C H 108 H 30 H 69/48 L 95 03/06/20 00:18 100 H 31 H 68/51 L 95 03/06/20 00:17 117 H 29 H 74/56 L 93 03/06/20 00:01 93 H 27 H 96 03/06/20 00:00 94 H 24 75/61 L 95 03/05/20 23:59 93 H 28 H 79/53 L 97 03/05/20 23:44 98 H 25 H 83/58 L 100 03/05/20 23:30 99 H 24 100 03/05/20 23:28 112 H 22 91/65 L 100
--- NOTE | 2020-03-06 13:18 | XCELERA ---
[id number] \\[id number]
[2020-03-06] MEDS: DEXTROSE 50% 50 ML SYRINGE IV PRN ×2 (16:49→20:13)
[2020-03-06] MEDS: NOREPINEPHRINE/D5W 8 MG/508 ML BAG IV SCH (18:22)
[2020-03-07] MEDS: INSULIN ASPART 100 UNITS/ML 3 ML PEN SC SCH ×6 (01:02→20:53)
[2020-03-07] MEDS: NOREPINEPHRINE/D5W 8 MG/508 ML BAG IV SCH (01:03)
[2020-03-07] MEDS ORDERED: ALBUT/IPRATROP 3MG/0.5MG NEB 3 ML VIAL ONE (01:18)
[2020-03-07] MEDS: ALBUT/IPRATROP 3MG/0.5MG NEB 3 ML VIAL NEB PRN ×2 (01:22→13:35)
[2020-03-07] MEDS: NORMOSOL-R 1,000 ML IV SCH ×3 (03:59→20:52)
[2020-03-07] MEDS: PIPERACILLIN/TAZOBACTAM 4.5 GM in DEXTROSE 5% 100 ML IV SCH ×3 (04:34→20:52)
[2020-03-07 05:03] LABS: INR 1.2 (0.9-1.1)
[2020-03-07] MEDS: HEPARIN SOD 5,000 UNIT/0.5 ML VIAL SQ SCH ×3 (05:12→21:49)
[2020-03-07 05:16] LABS: Albumin Level 2.2 gm/dl (3.4-5.0); BUN Creatinine Ratio 18.3 (10-20); Calcium 7.6 mg/dl (8.5-10.1); Creatinine Clr Calc Pharmacy 46.3 ml/min; Est GFR (African American) 61.8; Est GFR (Non-African American) 53.4; Magnesium 2.6 mg/dl (1.8-2.4); Potassium 4.1 mmol/L (3.5-5.1)
[2020-03-07 05:44] LABS: Albumin Globulin Ratio 0.8 (0.9-2); Bilirubin,Total 3.8 mg/dl (0.2-1); Globulin 2.9 gm/dl (2.5-4.0); Total Protein 5.1 gm/dl (6.4-8.2)
[2020-03-07 07:33] LABS: Hematocrit (blood only) 37.1 % (42-52); Hemoglobin 12.7 g/dL (14.0-18.0); Mean Corpuscular Hemoglobin 32.4 pg (25-34); Mean Corpuscular Hgb Conc 34.2 g/dL (32-36); Mean Corpuscular Volume 94.6 fL (80-100); Mean Platelet Volume 10.2 fL (7.4-10.4); Platelet Count 104 K/uL (130-400); RDW Standard Deviation 52.2 fL (36.4-46.3); Red Blood Count 3.92 M/uL (4.7-6.1); White Blood Count 14.53 K/uL (4.8-10.8)
[2020-03-07 07:53] LABS: Basophils # (auto) 0.02 K/uL (0-0.2); Basophils % (auto) 0.1 %; Echinocytes 1+; Eosinophils # (auto) 0.02 K/uL (0-0.5); Eosinophils % (auto) 0.1 %; Immature Granulocytes % (auto) 6.9 %; Lymphocytes # (auto) 0.54 K/uL (1.2-3.4); Lymphocytes % (auto) 3.7 %; Monocytes # (auto) 0.67 K/uL (0.11-0.59); Monocytes % (auto) 4.6 %; Neutrophils # (auto) 12.28 K/uL (1.4-6.5); Neutrophils % (auto) 84.6 %; Toxic Vacuolation 1+
--- NOTE | 2020-03-07 08:06 | Critical Care Progress Note ---
Date of Service March 07, 2020 Assessment & Plan (1) Admitted to intensive care unit: Reason Critically Ill: 84-year-old male presents to the ICU with septic shock requiring vasopressor support. Neuro - Dementia/metabolic encephalopathy: Improved Cardiac - Hypotension/shock: Resolved A. fib RVRnot currently issue, -Patient does have history of proximal A. fib and does not appear to be on any long-term anticoagulation Respiratory - Hypoxiaresolved -Noted that patient is DNI if he were to decompensate -On room air GI - N.p.o.: Speech and swallow eval -Can have diet patient was not intubated at baseline Transaminitismost likely related to shock liver in the setting of hypotension -Patient did demonstrate hepatomegaly and hepatic steatosis on CT abdomen, Patient has history of numerous hyperintense pancreatic lesions consistent with IPMN on imaging. A repeat MRCP was recommended but family did not pursue due to patient's advanced age/advanced dementia Discussed with GI, similar presentation previously no desire for active interventions they have signed off appreciate their input RENAL/LYTES - AKIresolved -9 mmol K-Phos - Foleystrict I's note -Discontinue Cadet ENDO - DM type IIholding oral home meds and will transition to subcu insulin -A1c: 6.6 -ICU hyperglycemic protocol No history of thyroid disease HEME - H&H within normal limits, monitor routine CBCs ID - Sepsisgram-negative bacteremia -Repeat blood cultures ordered -Discontinue vancomycin, continue Zosyn until speciation and sensitivities LINES/IV ACCESS - Right femoral central venous catheter placed /: Discontinue today DVT PROPHYLAXIS - SCDs, heparin CODE STATUSDNR/DNI Patient was discussed in multidisciplinary rounds Patient remains off vasoactive's which have been discontinued early this morning he will be stable for downgrade out of the ICU later this afternoon I have personally spent 45 minutes of critical care time in the direct management of this patient. This is a life/limb threatening event. This includes time spent evaluating patient, direct bedside care, chart review, placing orders, interpretation of diagnostic studies, discussion with consultants, patient, and family members, as well as other required patient management activities. This time is exclusive of all separately billable procedures, and teaching time and separate from and in addition to any other critical care service time. (2) Septic shock: (3) Metabolic acidosis: (4) Acute metabolic encephalopathy: (5) Pancreatic lesion: (6) Diabetes mellitus type 2, controlled: (7) Atrial fibrillation: (8) Dementia: (9) Hypertension: (10) Elevated LFTs: (11) GERD (gastroesophageal reflux disease): Admission and Anticipated Discharge Date Admission Date: March 05, 2020 Subjective Mental status continues to improve Review of Systems Review of Systems: Unobtainable due to reduced consciousness Physical Exam Physical Exam: General: Alert. nontoxic. Skin: Warm, dry, Head: Atraumatic Ears, nose, mouth and throat: airway patent Cardiovascular: Normal peripheral perfusion Respiratory: no respiratory distress Gastrointestinal: Non distended Musculoskeletal: No deformity Results & Data Results & Data ([facility]) Vital Signs (Past 12 Hours) Vital Signs Temp Pulse Pulse Resp BP Pulse Ox 03/07/20 07:30 37.3 C 91 H 20 98 03/07/20 07:14 37.3 C 90 18 97/59 L 97 03/07/20 06:44 37.4 C 98 H 19 81/55 L 95 03/07/20 06:15 37.5 C 100 H 20 131/67 94 03/07/20 05:48 37.6 C H 103 H 17 125/77 95 03/07/20 05:30 37.6 C H 107 H 18 95 03/07/20 05:18 37.6 C H 106 H 20 133/83 96 03/07/20 05:00 37.5 C 106 H 25 H 97 03/07/20 04:49 37.5 C 103 H 24 108/88 96 03/07/20 04:30 37.5 C 96 H 17 96 03/07/20 04:14 37.4 C 101 H 17 122/74 96 03/07/20 03:44 37.4 C 101 H 17 120/73 95 03/07/20 03:30 37.3 C 102 H 17 95 03/07/20 03:13 37.4 C 114 H 17 111/69 94 03/07/20 02:44 37.4 C 109 H 19 89/67 L 95 03/07/20 02:30 37.4 C 121 H 20 95 03/07/20 02:19 37.3 C 107 H 24 134/96 95 03/07/20 01:45 37.3 C 103 H 18 158/99 H 94 03/07/20 01:22 92 H 18 95 03/07/20 00:43 37.3 C 88 20 79/54 L 95 03/07/20 00:32 37.3 C 84 24 91/58 L 97 03/07/20 00:30 37.3 C 84 22 96 03/07/20 00:29 37.3 C 80 21 66/42 L 97 03/07/20 00:14 37.3 C 81 20 78/56 L 97 03/06/20 23:44 37.3 C 85 20 83/61 L 96 03/06/20 23:11 94 H 03/06/20 23:00 37.3 C 82 20 98 03/06/20 22:44 37.3 C 81 25 H 90/58 L 100 03/06/20 22:30 37.3 C 90 18 98 03/06/20 22:13 37.3 C 86 20 98/61 L 98 03/06/20 22:00 37.3 C 93 H 20 98 03/06/20 21:17 37.5 C 88 20 88/57 L 96 03/06/20 20:44 37.6 C H 90 17 93/70 L 97 03/06/20 20:13 37.6 C H 101 H 27 H 111/76 95 Laboratory Results 03/07/20 03/07/20 03/07/20 Range/Units 07:45 04:48 04:46 WBC 14.53 H (4.8-10.8) K/uL RBC 3.92 L (4.7-6.1) M/uL Hgb 12.7 L (14.0-18.0) g/dL Hct 37.1 L (42-52) % MCV 94.6 (80-100) fL MCH 32.4 (25-34) pg MCHC 34.2 (32-36) g/dL RDW Std Deviation 52.2 H (36.4-46.3) fL RDW Coeff of Adiel 15.0 H (11.5-14.5) % Plt Count 104 L (130-400) K/uL MPV 10.2 (7.4-10.4) fL Immature Gran % (Auto) 6.9 % Neut % (Auto) 84.6 % Lymph % (Auto) 3.7 % [place] % (Auto) 4.6 % Eos % (Auto) 0.1 % Baso % (Auto) 0.1 % Neut # (Auto) 12.28 H (1.4-6.5) K/uL Lymph # (Auto) 0.54 L (1.2-3.4) K/uL [place] # (Auto) 0.67 H (0.11-0.59) K/uL Eos # (Auto) 0.02 (0-0.5) K/uL Baso # (Auto) 0.02 (0-0.2) K/uL Immature Gran # (Auto) 1.00 H (0.00-0.02) K/uL Toxic Vacuolation 1+ Echinocytes 1+ PT 13.0 H (9.0-12.0) Seconds INR 1.2 H (0.9-1.1) Sodium (136-145) mmol/L Potassium (3.5-5.1) mmol/L Chloride (98-107) mmol/L Carbon Dioxide (21-32) mmol/L Anion Gap (3-11) BUN (7-18) mg/dl Creatinine (0.6-1.4) mg/dl Est Cr Clr Drug Dosing ml/min Est GFR ( Amer) Est GFR (Non-Af Amer) BUN/Creatinine Ratio (10-20) Glucose (70-99) mg/dl POC Glucose 91 (70-99) mg/dl Lactate (0.4-2.0) mmol/L Calcium (8.5-10.1) mg/dl Phosphorus (2.5-4.9) mg/dl Magnesium (1.8-2.4) mg/dl Total Bilirubin (0.2-1) mg/dl AST (15-37) U/L ALT (12-78) U/L Alkaline Phosphatase (45-117) U/L Total Protein (6.4-8.2) gm/dl Albumin (3.4-5.0) gm/dl Globulin (2.5-4.0) gm/dl Albumin/Globulin Ratio (0.9-2) 03/07/20 03/07/20 03/07/20 Range/Units 04:46 04:00 00:21 WBC (4.8-10.8) K/uL RBC (4.7-6.1) M/uL Hgb (14.0-18.0) g/dL Hct (42-52) % MCV (80-100) fL MCH (25-34) pg MCHC (32-36) g/dL RDW Std Deviation (36.4-46.3) fL RDW Coeff of Adiel (11.5-14.5) % Plt Count (130-400) K/uL MPV (7.4-10.4) fL Immature Gran % (Auto) % Neut % (Auto) % Lymph % (Auto) % [place] % (Auto) % Eos % (Auto) % Baso % (Auto) % Neut # (Auto) (1.4-6.5) K/uL Lymph # (Auto) (1.2-3.4) K/uL Kingman # (Auto) (0.11-0.59) K/uL Eos # (Auto) (0-0.5) K/uL Baso # (Auto) (0-0.2) K/uL Immature Gran # (Auto) (0.00-0.02) K/uL Toxic Vacuolation Echinocytes PT (9.0-12.0) Seconds INR (0.9-1.1) Sodium 137 (136-145) mmol/L Potassium 4.1 (3.5-5.1) mmol/L Chloride 108 H (98-107) mmol/L Carbon Dioxide 24 (21-32) mmol/L Anion Gap 5.0 (3-11) BUN 22 H (7-18) mg/dl Creatinine 1.22 D (0.6-1.4) mg/dl Est Cr Clr Drug Dosing 46.3 ml/min Est GFR ( Amer) 61.8 Est GFR (Non-Af Amer) 53.4 BUN/Creatinine Ratio 18.3 (10-20) Glucose 92 (70-99) mg/dl POC Glucose 92 77 (70-99) mg/dl Lactate (0.4-2.0) mmol/L Calcium 7.6 L (8.5-10.1) mg/dl Phosphorus 2.0 L D (2.5-4.9) mg/dl Magnesium 2.6 H (1.8-2.4) mg/dl Total Bilirubin 3.8 H (0.2-1) mg/dl AST 116 H (15-37) U/L ALT 283 H (12-78) U/L Alkaline Phosphatase 149 H (45-117) U/L Total Protein 5.1 L (6.4-8.2) gm/dl Albumin 2.2 L (3.4-5.0) gm/dl Globulin 2.9 (2.5-4.0) gm/dl Albumin/Globulin Ratio 0.8 L (0.9-2) 03/06/20 03/06/20 03/06/20 Range/Units 20:27 20:10 20:09 WBC (4.8-10.8) K/uL RBC (4.7-6.1) M/uL Hgb (14.0-18.0) g/dL Hct (42-52) % MCV (80-100) fL MCH (25-34) pg MCHC (32-36) g/dL RDW Std Deviation (36.4-46.3) fL RDW Coeff of Adiel (11.5-14.5) % Plt Count (130-400) K/uL MPV (7.4-10.4) fL Immature Gran % (Auto) % Neut % (Auto) % Lymph % (Auto) % [place] % (Auto) % Eos % (Auto) % Baso % (Auto) % Neut # (Auto) (1.4-6.5) K/uL Lymph # (Auto) (1.2-3.4) K/uL Kingman # (Auto) (0.11-0.59) K/uL Eos # (Auto) (0-0.5) K/uL Baso # (Auto) (0-0.2) K/uL Immature Gran # (Auto) (0.00-0.02) K/uL Toxic Vacuolation Echinocytes PT (9.0-12.0) Seconds INR (0.9-1.1) Sodium (136-145) mmol/L Potassium (3.5-5.1) mmol/L Chloride (98-107) mmol/L Carbon Dioxide (21-32) mmol/L Anion Gap (3-11) BUN (7-18) mg/dl Creatinine (0.6-1.4) mg/dl Est Cr Clr Drug Dosing ml/min Est GFR ( Amer) Est GFR (Non-Af Amer) BUN/Creatinine Ratio (10-20) Glucose (70-99) mg/dl POC Glucose 106 H 62 L* 55 L* (70-99) mg/dl Lactate (0.4-2.0) mmol/L Calcium (8.5-10.1) mg/dl Phosphorus (2.5-4.9) mg/dl Magnesium (1.8-2.4) mg/dl Total Bilirubin (0.2-1) mg/dl AST (15-37) U/L ALT (12-78) U/L Alkaline Phosphatase (45-117) U/L Total Protein (6.4-8.2) gm/dl Albumin (3.4-5.0) gm/dl Globulin (2.5-4.0) gm/dl Albumin/Globulin Ratio (0.9-2) 03/06/20 03/06/20 03/06/20 Range/Units 16:46 16:20 16:19 WBC (4.8-10.8) K/uL RBC (4.7-6.1) M/uL Hgb (14.0-18.0) g/dL Hct (42-52) % MCV (80-100) fL MCH (25-34) pg MCHC (32-36) g/dL RDW Std Deviation (36.4-46.3) fL RDW Coeff of Adiel (11.5-14.5) % Plt Count (130-400) K/uL MPV (7.4-10.4) fL Immature Gran % (Auto) % Neut % (Auto) % Lymph % (Auto) % [place] % (Auto) % Eos % (Auto) % Baso % (Auto) % Neut # (Auto) (1.4-6.5) K/uL Lymph # (Auto) (1.2-3.4) K/uL [place] # (Auto) (0.11-0.59) K/uL Eos # (Auto) (0-0.5) K/uL Baso # (Auto) (0-0.2) K/uL Immature Gran # (Auto) (0.00-0.02) K/uL Toxic Vacuolation Echinocytes PT (9.0-12.0) Seconds INR (0.9-1.1) Sodium (136-145) mmol/L Potassium (3.5-5.1) mmol/L Chloride (98-107) mmol/L Carbon Dioxide (21-32) mmol/L Anion Gap (3-11) BUN (7-18) mg/dl Creatinine (0.6-1.4) mg/dl Est Cr Clr Drug Dosing ml/min Est GFR ( Amer) Est GFR (Non-Af Amer) BUN/Creatinine Ratio (10-20) Glucose (70-99) mg/dl POC Glucose 89 57 L* 69 L* (70-99) mg/dl Lactate (0.4-2.0) mmol/L Calcium (8.5-10.1) mg/dl Phosphorus (2.5-4.9) mg/dl Magnesium (1.8-2.4) mg/dl Total Bilirubin (0.2-1) mg/dl AST (15-37) U/L ALT (12-78) U/L Alkaline Phosphatase (45-117) U/L Total Protein (6.4-8.2) gm/dl Albumin (3.4-5.0) gm/dl Globulin (2.5-4.0) gm/dl Albumin/Globulin Ratio (0.9-2) 03/06/20 03/06/20 Range/Units 11:18 08:20 WBC (4.8-10.8) K/uL RBC (4.7-6.1) M/uL Hgb (14.0-18.0) g/dL Hct (42-52) % MCV (80-100) fL MCH (25-34) pg MCHC (32-36) g/dL RDW Std Deviation (36.4-46.3) fL RDW Coeff of Adiel (11.5-14.5) % Plt Count (130-400) K/uL MPV (7.4-10.4) fL Immature Gran % (Auto) % Neut % (Auto) % Lymph % (Auto) % [place] % (Auto) % Eos % (Auto) % Baso % (Auto) % Neut # (Auto) (1.4-6.5) K/uL Lymph # (Auto) (1.2-3.4) K/uL [place] # (Auto) (0.11-0.59) K/uL Eos # (Auto) (0-0.5) K/uL Baso # (Auto) (0-0.2) K/uL Immature Gran # (Auto) (0.00-0.02) K/uL Toxic Vacuolation Echinocytes PT (9.0-12.0) Seconds INR (0.9-1.1) Sodium (136-145) mmol/L Potassium (3.5-5.1) mmol/L Chloride (98-107) mmol/L Carbon Dioxide (21-32) mmol/L Anion Gap (3-11) BUN (7-18) mg/dl Creatinine (0.6-1.4) mg/dl Est Cr Clr Drug Dosing ml/min Est GFR ( Amer) Est GFR (Non-Af Amer) BUN/Creatinine Ratio (10-20) Glucose (70-99) mg/dl POC Glucose 113 H (70-99) mg/dl Lactate 5.8 H* (0.4-2.0) mmol/L Calcium (8.5-10.1) mg/dl Phosphorus (2.5-4.9) mg/dl Magnesium (1.8-2.4) mg/dl Total Bilirubin (0.2-1) mg/dl AST (15-37) U/L ALT (12-78) U/L Alkaline Phosphatase (45-117) U/L Total Protein (6.4-8.2) gm/dl Albumin (3.4-5.0) gm/dl Globulin (2.5-4.0) gm/dl Albumin/Globulin Ratio (0.9-2) Coding Level of Care Code Critical Care 1st 30-74 mins Diagnoses Admitted to intensive care unit Z78.9 Septic shock A41.9; R65.21 Metabolic acidosis E87.2 Acute metabolic encephalopathy G93.41 Pancreatic lesion K86.9 Diabetes mellitus type 2, controlled E11.9 Atrial fibrillation I48.91 Dementia F03.90 Hypertension I10 Elevated LFTs R94.5 GERD (gastroesophageal reflux disease) K21.9
[2020-03-07] MEDS ORDERED: INSULIN GLARGINE SOLOSTAR 100 UNITS/ML 3 ML PEN SC SCH (09:00)
--- NOTE | 2020-03-07 11:20 | Hospitalist Progress Note ---
Date of Service March 07, 2020 Assessment & Plan (1) Septic shock: (2) Ascending cholangitis: (3) Acute metabolic encephalopathy: (4) Pancreatic lesion: (5) Metabolic acidosis: (6) Atrial fibrillation with rapid ventricular response: (7) Dementia: (8) Hypertension: This is an 84-year-old male with PMH of vascular dementia, paroxysmal atrial fibrillation, hypertension, type 2 diabetes, IPMN, history of prostate cancer and other medical problems listed below who presents from home with abdominal pain and fatigue since one [employer] and was found to have septic shock and A Fib with RVR. He has grown out pansensitive E. coli in his blood, repeat blood cultures been ordered for today, his white blood cell count is coming down. Initially hypotensive with SBP in 70s. Received 2.5 L NSS but remained hypotensive and central line with placed and Levophed started with improvement o f BP Hypoxic initially but improved with oxymask. Now 98% on 4L mask Febrile at 39.3 C. Lactic acid significantly elevated at 12.7, procalcitonin elevated at 42, T bili 5.1. AST 422. ALT 433 CT abd/pelvis without contrast limited but no abnormalities of biliary tract or pancreas seen History of sepsis and elevated LFTs in the past - found to have numerous hyperintense pancreatic lesions consistent with IPMN on imaging. Repeat MRCP recommended but family did not pursue due to patient's age/advanced dementia Discussed case with GI, who will follow. Not a candidate for MRCP until more stable. Family hesitant when discussing any intervention like ERCP Continue antibiotic per ICU team Pressor management per caregiver services home, currently off pressors and maintaining his MAP Atrial fibrillation with RVR HR initially 146 with ECG showing A. fib with RVR but improved to 110s with IV fluids, HR currently 87 Dementia Vascular dementia at baseline with some behavioral disturbances Goals of care d/w with and daughter by Dr Cochran who confirmed patient's previously stated wishes for DNR/DNI. Okay to continue IV fluids, antibiotics and pressor support with continued conversation during admission DVT Ppx: SQ heparin Code status: DNR PCP: Jae Dispo: ICU. Discharge planning ordered. Case D/W briefly c ICU team Labs Checked Possibly go to telemetry tomorrow ROS-he states that he is feeling a lot better, ready to eat, denies nausea vomiting fevers chills chest pain shortness of breath melena hematochezia hematemesis hemoptysis hematuria odynophagia dysphagia cough or sputum production. Physical Exam Gen-more alert today, NAD, Afebrile, pleasant Head-NCAT, EOMI, PERRLA, Anicteric Sclera, No Posterior Pharyngeal Erythema Neck-Supple, No JVD, No Thyromegaly, No Masses, No LAD, No Bruits Lungs-Clear to Auscultation Bilaterally, No Rales, No Rhonchi, No Wheezing, No Crepitus Chest-No S4, +S1, +S2, No S3, No Murmurs, No Rubs, No Gallops, No Ectopy Abdomen-Soft, Bowel Sounds Present, Non Tender, Non Distended, No Hepatomegaly, No Splenomegaly, No Palpable Masses, No Rebound, No Rigidity, No Guarding Musculoskeletal-Full Range of Motion Bilaterally, No CVAT Extremities-No Cyanosis, No Clubbing, No Edema Nuero-Cranial Nerves II-XII grossly intact, Motor WNL, DTRs WNL, Strength WNL, Non Focal Psych-Cooperative Admission and Anticipated Discharge Date Admission Date: March 05, 2020 Results & Data Results & Data ([facility]) Vital Signs (Past 12 Hours) Vital Signs Temp Pulse Pulse Resp BP Pulse Ox 03/07/20 09:37 37.2 C 87 23 102/64 99 03/07/20 09:25 37.3 C 99 H 23 86/59 L 97 03/07/20 09:14 37.3 C 95 H 17 85/54 L 97 03/07/20 08:44 37.3 C 91 H 21 96/57 L 95 03/07/20 08:14 37.2 C 87 20 112/69 96 03/07/20 07:44 37.2 C 92 H 22 87/64 L 99 03/07/20 07:30 37.3 C 91 H 20 98 03/07/20 07:14 37.3 C 90 18 97/59 L 97 03/07/20 06:44 37.4 C 98 H 19 81/55 L 95 03/07/20 06:15 37.5 C 100 H 20 131/67 94 03/07/20 05:48 37.6 C H 103 H 17 125/77 95 03/07/20 05:30 37.6 C H 107 H 18 95 03/07/20 05:18 37.6 C H 106 H 20 133/83 96 03/07/20 05:00 37.5 C 106 H 25 H 97 03/07/20 04:49 37.5 C 103 H 24 108/88 96 03/07/20 04:30 37.5 C 96 H 17 96 03/07/20 04:14 37.4 C 101 H 17 122/74 96 03/07/20 03:44 37.4 C 101 H 17 120/73 95 03/07/20 03:30 37.3 C 102 H 17 95 03/07/20 03:13 37.4 C 114 H 17 111/69 94 03/07/20 02:44 37.4 C 109 H 19 89/67 L 95 03/07/20 02:30 37.4 C 121 H 20 95 03/07/20 02:19 37.3 C 107 H 24 134/96 95 03/07/20 01:45 37.3 C 103 H 18 158/99 H 94 03/07/20 01:22 92 H 18 95 03/07/20 00:43 37.3 C 88 20 79/54 L 95 03/07/20 00:32 37.3 C 84 24 91/58 L 97 03/07/20 00:30 37.3 C 84 22 96 03/07/20 00:29 37.3 C 80 21 66/42 L 97 03/07/20 00:14 37.3 C 81 20 78/56 L 97 03/06/20 23:44 37.3 C 85 20 83/61 L 96
[2020-03-07] MEDS: ATENOLOL 25 MG TABLET PO SCH (11:50)
[2020-03-07] MEDS ORDERED: POTASSIUM PHOSPHATE 9 MMOL in SODIUM CHLORIDE 0.9% 250 ML IV ONE (12:00)
--- NOTE | 2020-03-07 15:02 | Pharmacy Report ---
Pharmacy Glycemic Short Note 2 - Date of Service March 07, 2020 - Glycemic Short BSG Results (Last 24 hours): 03/06/20 03/06/20 03/06/20 16:19 16:20 16:46 Glucose POC Glucose 69 L* 57 L* 89 03/06/20 03/06/20 03/06/20 20:09 20:10 20:27 Glucose POC Glucose 55 L* 62 L* 106 H 03/07/20 03/07/20 03/07/20 00:21 04:00 04:46 Glucose 92 POC Glucose 77 92 03/07/20 03/07/20 07:45 11:42 Glucose POC Glucose 91 78 OUTPATIENT ANTIDIABETIC REGIMEN: * Metformin 1gm BID * Repaglinide 1mg PO TID w/ meals * A1c = 6.6% ASSESSMENT: * Well controlled type 2 diabetic, remains in ICU for septic shock, bacteremia, possible ascending cholangitis * Broad spectrum abx continue, Norepi has been weaned off and he is ordered a diet. * Patient was acutely hyperglycemic on admission and failed to correct with multiple SQ Novolog doses. Lantus "moderate" stress dosing was given yesterday AM. Unfortunately this led to multiple episodes of hypoglycemia (BSGs 55-69). BSGs did recover however w/ treatment and fasting BSG 92 this AM. Will hold basal insulin at this time and follow fasting AM BSGs * Novolog will continue, dosing per "moderate" stress PLAN FOR INPATIENT GLYCEMIC CONTROL: * Hold outpatient oral diabetes medications * Basal insulin * None at this time * Bolus insulin * NovoLog per scale ACHS or Q6hrs while NPO * Goal Range: Low 110 mg/dL - High 140 mg/dL * Correction Factor: 25 mg/dL/unit * Nutritional / Prandial insulin per carb ratio of 1 unit per 10 grams CHO consumed PLAN FOR DISCHARGE: * May resume home regimen of metformin and repaglinide if no contraindications present
[2020-03-08] MEDS: ALBUT/IPRATROP 3MG/0.5MG NEB 3 ML VIAL NEB PRN ×2 (00:08→10:56)
[2020-03-08] MEDS: PIPERACILLIN/TAZOBACTAM 4.5 GM in DEXTROSE 5% 100 ML IV SCH (04:33)
[2020-03-08] MEDS: NORMOSOL-R 1,000 ML IV SCH (04:54)
[2020-03-08] MEDS: HEPARIN SOD 5,000 UNIT/0.5 ML VIAL SQ SCH ×3 (05:24→21:09)
[2020-03-08 05:28] LABS: Basophils # (auto) 0.01 K/uL (0-0.2); Basophils % (auto) 0.1 %; Eosinophils # (auto) 0.03 K/uL (0-0.5); Eosinophils % (auto) 0.2 %; Hematocrit (blood only) 37.2 % (42-52); Hemoglobin 12.9 g/dL (14.0-18.0); Immature Granulocytes # (auto) 0.04 K/uL (0.00-0.02); Immature Granulocytes % (auto) 0.3 %; Lymphocytes # (auto) 0.38 K/uL (1.2-3.4); Lymphocytes % (auto) 3.1 %; Mean Corpuscular Hemoglobin 32.5 pg (25-34); Mean Corpuscular Hgb Conc 34.7 g/dL (32-36); Mean Corpuscular Volume 93.7 fL (80-100); Mean Platelet Volume 10.5 fL (7.4-10.4); Monocytes # (auto) 0.61 K/uL (0.11-0.59); Neutrophils # (auto) 11.05 K/uL (1.4-6.5); Neutrophils % (auto) 91.3 %; Platelet Count 104 K/uL (130-400); RDW Coefficient of Variation 14.8 % (11.5-14.5); RDW Standard Deviation 50.9 fL (36.4-46.3); Red Blood Count 3.97 M/uL (4.7-6.1); White Blood Count 12.12 K/uL (4.8-10.8)
[2020-03-08 06:07] LABS: Albumin Level 2.4 gm/dl (3.4-5.0); Bilirubin Direct 4.5 mg/dl (0-0.2); Bilirubin,Total 5.7 mg/dl (0.2-1); Calcium 7.6 mg/dl (8.5-10.1); Creatinine Clr Calc Pharmacy 62.3 ml/min; Est GFR (African American) 77.7; Magnesium 2.8 mg/dl (1.8-2.4); Phosphorus 1.9 mg/dl (2.5-4.9); Total Protein 5.5 gm/dl (6.4-8.2)
--- NOTE | 2020-03-08 07:46 | Critical Care Progress Note ---
Date of Service March 08, 2020 Assessment & Plan (1) Admitted to intensive care unit: Reason Critically Ill: 84-year-old male presents to the ICU with septic shock requiring vasopressor support. Neuro - Dementia/metabolic encephalopathy: Improved Cardiac - Hypotension/shock: Resolved A. fib RVRnot currently issue, -Patient does have history of proximal A. fib and does not appear to be on any long-term anticoagulation Respiratory - Hypoxiaresolved -Noted that patient is DNI if he were to decompensate -On room air GI - N.p.o.: Speech and swallow eval -Can have diet patient was not intubated at baseline Transaminitismost likely related to shock liver in the setting of hypotension -Patient did demonstrate hepatomegaly and hepatic steatosis on CT abdomen, Patient has history of numerous hyperintense pancreatic lesions consistent with IPMN on imaging. A repeat MRCP was recommended but family did not pursue due to patient's advanced age/advanced dementia Discussed with GI, similar presentation previously no desire for active interventions they have signed off appreciate their input RENAL/LYTES - AKIresolved - Foleystrict I's note -Discontinue [facility]et ENDO - DM type IIholding oral home meds and will transition to subcu insulin -A1c: 6.6 -ICU hyperglycemic protocol No history of thyroid disease HEME - H&H within normal limits, monitor routine CBCs ID - Sepsisgram-negative bacteremia -Repeat blood cultures ordered -Discontinue vancomycin, de-escalate to Rocephin day 3/14 -Could consider Omnicef since the patient has defervesced and blood cultures remain negative to date LINES/IV ACCESS - DVT PROPHYLAXIS - SCDs, heparin CODE STATUSDNR/DNI Patient is stable for downgrade out of ICU (2) Septic shock: (3) Metabolic acidosis: (4) Acute metabolic encephalopathy: (5) Pancreatic lesion: (6) Diabetes mellitus type 2, controlled: (7) Atrial fibrillation: (8) Dementia: (9) Hypertension: (10) Elevated LFTs: (11) GERD (gastroesophageal reflux disease): Admission and Anticipated Discharge Date Admission Date: March 05, 2020 Subjective Patient not able to participate with expressing complaints, no overnight events. Review of Systems Review of Systems: Unobtainable due to reduced consciousness Results & Data Results & Data ([facility]) Vital Signs (Past 12 Hours) Vital Signs Temp Pulse Pulse Resp BP Pulse Ox 01/08/21 01:30 94 H 20 95 03/08/20 01:00 93 H 18 96 03/08/20 00:50 92 H 23 136/92 95 03/08/20 00:30 99 H 19 95 03/08/20 00:08 91 H 20 96 03/08/20 00:00 36.7 C 94 H 21 88 L 03/07/20 23:50 93 H 19 125/78 96 03/07/20 23:30 90 22 94 03/07/20 23:00 120 H 19 95 03/07/20 22:50 93 H 22 112/81 94 03/07/20 22:30 92 H 29 H 94 03/07/20 22:00 84 22 95 03/07/20 21:51 93 H 20 95 03/07/20 21:30 94 H 20 97 03/07/20 21:00 102 H 20 94 03/07/20 20:45 89 20 133/73 96 03/07/20 20:30 86 26 H 96 03/07/20 20:14 87 20 132/88 95 03/07/20 20:00 36.8 C 78 18 96 03/07/20 19:45 87 18 103/76 96 Coding Level of Care Code 31065 Subseq Hosp Care Lvl 3 Diagnoses Admitted to intensive care unit Z78.9 Septic shock A41.9; R65.21 Metabolic acidosis E87.2 Acute metabolic encephalopathy G93.41 Pancreatic lesion K86.9 Diabetes mellitus type 2, controlled E11.9 Atrial fibrillation I48.91 Dementia F03.90 Hypertension I10 Elevated LFTs R94.5 GERD (gastroesophageal reflux disease) K21.9
--- NOTE | 2020-03-08 07:52 | Hospitalist Progress Note ---
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 He has grown out pansensitive E. coli and Klebsiella Oxytoca in his blood, repeat blood cultures been ordered and are NGTD, his white blood cell count is flat today. Initially hypotensive with SBP in 70s. Received 2.5 L NSS but remained hypotensive and central line with placed and Levophed started with improvement of BP Hypoxic initially but improved with oxymask. Now 98% on 4L mask Febrile at 39.3 C. Lactic acid significantly elevated at 12.7, procalcitonin elevated at 42, T bili 5.1. AST 422. ALT 433 CT abd/pelvis without contrast limited but no abnormalities of biliary tract or pancreas seen History of sepsis and elevated LFTs in the past - found to have numerous hyperintense pancreatic lesions consistent with IPMN on imaging. Repeat MRCP recommended but family did not pursue due to patient's age/advanced dementia Discussed case with GI, who will follow. Not a candidate for MRCP until more stable. Family hesitant when discussing any intervention like ERCP Continue antibiotics Off Pressors and transfer to [facility] Atrial fibrillation with RVR HR initially 146 with ECG showing A. fib with RVR but improved to 110s with IV fluids, HR currently 94 Dementia Vascular dementia at baseline with some behavioral disturbances Goals of care d/w with and daughter by Dr Cochran who confirmed patient's previously stated wishes for DNR/DNI. DVT Ppx: SQ heparin Code status: DNR PCP: Jae Dispo: ICU. Discharge planning ordered. Case D/W briefly c ICU RNs Labs Checked Telemetry today ROS-No Headache, No Visual Changes, No Nausea, No Vomiting, No Fever, No Chills, No Neck Pain or Stiffness, No Chest Pain, No Palpitations, No SOB, No [place], No Cough, No Sputum, No Wheezing, No Abdominal Pain, No Diarrhea, No Hematemesis, No Hemoptysis, No Unexpected Weight Loss, No Flank pain, No Melena, No Hematochezia, No Frequency, No Urgency, No Burning, No Hematuria, No Rashes, No Diaphoresis. Appetite is Normal Physical Exam Gen-AAO x 3, NAD, Afebrile, Demented Head-NCAT, EOMI, PERRLA, Anicteric Sclera, No Posterior Pharyngeal Erythema Neck-Supple, No JVD, No Thyromegaly, No Masses, No LAD, No Bruits Lungs-Clear to Auscultation Bilaterally, No Rales, No Rhonchi, No Wheezing, No Crepitus Chest-No S4, +S1, +S2, No S3, No Murmurs, No Rubs, No Gallops, No Ectopy Abdomen-Soft, Bowel Sounds Present, Non Tender, Non Distended, No Hepatomegaly, No Splenomegaly, No Palpable Masses, No Rebound, No Rigidity, No Guarding Musculoskeletal-Full Range of Motion Bilaterally, No CVAT Extremities-No Cyanosis, No Clubbing, No Edema Nuero-Cranial Nerves II-XII grossly intact, Motor WNL, DTRs WNL, Strength WNL, Non Focal Psych-Normal Mood Admission and Anticipated Discharge Date Admission Date: March 05, 2020 Results & Data Results & Data ([facility]) Vital Signs (Past 12 Hours) Vital Signs Temp Pulse Pulse Resp BP Pulse Ox 03/08/20 01:30 94 H 20 95 03/08/20 01:00 93 H 18 96 03/08/20 00:50 92 H 23 136/92 95 03/08/20 00:30 99 H 19 95 03/08/20 00:08 91 H 20 96 03/08/20 00:00 36.7 C 94 H 21 88 L 03/07/20 23:50 93 H 19 125/78 96 03/07/20 23:30 90 22 94 03/07/20 23:00 120 H 19 95 03/07/20 22:50 93 H 22 112/81 94 03/07/20 22:30 92 H 29 H 94 03/07/20 22:00 84 22 95 03/07/20 21:51 93 H 20 95 03/07/20 21:30 94 H 20 97 01/07/21 21:00 102 H 20 94 03/07/20 20:45 89 20 133/73 96 03/07/20 20:30 86 26 H 96 03/07/20 20:14 87 20 132/88 95 03/07/20 20:00 36.8 C 78 18 96
[2020-03-08] MEDS: INSULIN ASPART 100 UNITS/ML 3 ML PEN SC SCH ×4 (08:44→21:47)
[2020-03-08] MEDS: cefTRIAXone SODIUM 2,000 MG in DEXTROSE 5% 50 ML IV SCH (08:46)
[2020-03-08] MEDS: ATENOLOL 25 MG TABLET PO SCH (08:46)
[2020-03-08] MEDS: CLOPIDOGREL BISULFATE 75 MG TAB PO SCH (12:05)
[2020-03-08] MEDS: REPAGLINIDE 1 MG TAB PO SCH ×2 (12:06→16:46)
[2020-03-08] MEDS: PRAVASTATIN SOD 20 MG TAB PO SCH (12:06)
[2020-03-08] MEDS: OXYBUTYNIN CHLORIDE 5 MG TAB PO SCH ×2 (12:07→21:09)
[2020-03-08] MEDS: FUROSEMIDE 40 MG TAB PO SCH (12:07)
[2020-03-08] MEDS ORDERED: FUROSEMIDE 40 MG in SYRINGE 0 ML IV ONE (16:15)
[2020-03-08] MEDS: DEXTROSE 50% 50 ML SYRINGE IV PRN (17:36)
[2020-03-08] MEDS: TAMSULOSIN HCL 0.4 MG CAP PO SCH (21:09)
[2020-03-09] MEDS: HEPARIN SOD 5,000 UNIT/0.5 ML VIAL SQ SCH ×3 (06:07→22:20)
[2020-03-09 07:43] LABS: Albumin Globulin Ratio 0.7 (0.9-2); BUN Creatinine Ratio 20.5 (10-20); Bilirubin,Total 5.8 mg/dl (0.2-1); Creatinine Clr Calc Pharmacy 64.2 ml/min; Est GFR (African American) 80.6; Est GFR (Non-African American) 69.5; Potassium 3.2 mmol/L (3.5-5.1)
[2020-03-09] MEDS: INSULIN ASPART 100 UNITS/ML 3 ML PEN SC SCH ×4 (08:17→21:01)
[2020-03-09] MEDS: DEXTROSE 50% 50 ML SYRINGE IV PRN (08:19)
[2020-03-09 08:23] LABS: Base Excess ABG 2.2 mEq/L (-9-1.8); HCO3 ABG 26 mmol/L (19-24); Oxygen Saturation ABG 84.1 % (90-95); PCO2 ABG 38 mmHg (35-46); PO2 ABG 50 mmHg (80-95); pH ABG 7.46 (7.35-7.45)
[2020-03-09 08:24] LABS: Allen Test Pos (Pos)
[2020-03-09] MEDS: OXYBUTYNIN CHLORIDE 5 MG TAB PO SCH ×2 (08:31→21:15)
[2020-03-09] MEDS: REPAGLINIDE 1 MG TAB PO SCH ×3 (08:31→16:29)
[2020-03-09] MEDS: CEROVITE ADV FORMULA TAB PO SCH (08:32)
[2020-03-09] MEDS: PRAVASTATIN SOD 20 MG TAB PO SCH (08:32)
[2020-03-09] MEDS: FUROSEMIDE 40 MG TAB PO SCH (08:32)
[2020-03-09] MEDS: ATENOLOL 25 MG TABLET PO SCH (08:32)
[2020-03-09] MEDS: CLOPIDOGREL BISULFATE 75 MG TAB PO SCH (08:32)
[2020-03-09] MEDS: ENALAPRIL MALEATE 10 MG TAB PO SCH (08:33)
[2020-03-09] MEDS: cefTRIAXone SODIUM 2,000 MG in DEXTROSE 5% 50 ML IV SCH (08:48)
--- NOTE | 2020-03-09 10:23 | Hospitalist Progress Note ---
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 He has grown out pansensitive E. coli and Klebsiella Oxytoca in his blood, repeat blood cultures been ordered and are NGTD Initially hypotensive with SBP in 70s. Received 2.5 L NSS but remained hypotensive and central line with placed and Levophed started with improvement of BP Hypoxic initially but improved with oxymask. Now 98% on 4L mask Febrile at 39.3 C. Lactic acid significantly elevated at 12.7, procalcitonin elevated at 42, T bili 5.1. AST 422. ALT 433 CT abd/pelvis without contrast limited but no abnormalities of biliary tract or pancreas seen History of sepsis and elevated LFTs in the past - found to have numerous hyperintense pancreatic lesions consistent with IPMN on imaging. Repeat MRCP recommended but family did not pursue due to patient's age/advanced dementia Discussed case with GI, who will follow. Not a candidate for MRCP until more stable. Family hesitant when discussing any intervention like ERCP Continue antibiotics On Tele Atrial fibrillation with RVR HR initially 146 with ECG showing A. fib with RVR but improved to 110s with IV fluids, HR currently 94 Dementia Vascular dementia at baseline with some behavioral disturbances Goals of care d/w with and daughter by Dr Cochran who confirmed patient's previously stated wishes for DNR/DNI. DVT Ppx: SQ heparin Code status: DNR PCP: Jae Dispo: ICU. Discharge planning ordered. He is unresponsive and jaundiced today, I told his that he is rapidly declining and the prognosis is grave, Continue what we're doing, but do not intubate or perform CPR, PICC ordered Labs Checked ROS-Offers no history Physical Exam Gen-Somnolent, Afebrile, Demented, Jaundiced, follows some commands Head-NCAT, EOMI, PERRLA, Dry MM, +icteric Sclera, No Posterior Pharyngeal Erythema Neck-Supple, No JVD, No Thyromegaly, No Masses, No LAD, No Bruits Lungs-Clear to Auscultation Bilaterally, No Rales, No Rhonchi, No Wheezing, No Crepitus Chest-No S4, +S1, +S2, No S3, No Murmurs, No Rubs, No Gallops, No Ectopy Abdomen-Soft, Bowel Sounds Present, Non Tender, Non Distended, No Hepatomegaly, No Splenomegaly, No Palpable Masses, No Rebound, No Rigidity, No Guarding Musculoskeletal-Full Range of Motion Bilaterally, No CVAT Extremities-No Cyanosis, No Clubbing, No Edema Nuero-Cranial Nerves II-XII grossly intact, Motor WNL, DTRs WNL, Strength WNL, Non Focal Psych-Unresponsive Admission and Anticipated Discharge Date Admission Date: March 05, 2020 Results & Data Results & Data ([facility]) Vital Signs (Past 12 Hours) Vital Signs Temp Pulse Resp BP Pulse Ox 03/09/20 07:52 36.6 C 84 18 127/82 94 03/08/20 22:48 36.5 C 86 18 125/81 96
[2020-03-09] MEDS: TAMSULOSIN HCL 0.4 MG CAP PO SCH (22:20)
[2020-03-10] MEDS: HEPARIN SOD 5,000 UNIT/0.5 ML VIAL SQ SCH ×3 (06:22→21:57)
[2020-03-10 06:58] LABS: Hemoglobin 12.6 g/dL (14.0-18.0); Mean Corpuscular Hemoglobin 32.1 pg (25-34); Mean Corpuscular Hgb Conc 34.1 g/dL (32-36); Mean Corpuscular Volume 94.4 fL (80-100); Mean Platelet Volume 10.7 fL (7.4-10.4); Nucleated RBC # (auto) 0.02 K/uL (0-0); Nucleated RBC % (auto) 0.4 %; Platelet Count 115 K/uL (130-400); RDW Coefficient of Variation 15.2 % (11.5-14.5); RDW Standard Deviation 52.6 fL (36.4-46.3); Red Blood Count 3.92 M/uL (4.7-6.1); White Blood Count 5.26 K/uL (4.8-10.8)
[2020-03-10 07:06] LABS: INR 1.1 (0.9-1.1); Prothrombin Time 11.5 Seconds (9.0-12.0)
[2020-03-10 07:18] LABS: Basophils # (auto) 0.02 K/uL (0-0.2); Basophils % (auto) 0.4 %; Eosinophils # (auto) 0.22 K/uL (0-0.5); Eosinophils % (auto) 4.2 %; Immature Granulocytes # (auto) 0.29 K/uL (0.00-0.02); Immature Granulocytes % (auto) 5.5 %; Lymphocytes # (auto) 0.89 K/uL (1.2-3.4); Lymphocytes % (auto) 16.9 %; Monocytes # (auto) 0.54 K/uL (0.11-0.59); Monocytes % (auto) 10.3 %; Neutrophils % (auto) 62.7 %
[2020-03-10 07:27] LABS: Albumin Level 2.3 gm/dl (3.4-5.0); BUN Creatinine Ratio 22.4 (10-20); Calcium 8.5 mg/dl (8.5-10.1); Creatinine Clr Calc Pharmacy 74.6 ml/min; Est GFR (African American) 92.8; Est GFR (Non-African American) 80.1; Potassium 3.4 mmol/L (3.5-5.1)
[2020-03-10 07:31] LABS: Albumin Globulin Ratio 0.7 (0.9-2); Bilirubin,Total 3.7 mg/dl (0.2-1); Globulin 3.1 gm/dl (2.5-4.0); Total Protein 5.4 gm/dl (6.4-8.2)
[2020-03-10] MEDS: CEROVITE ADV FORMULA TAB PO SCH (09:03)
[2020-03-10] MEDS: PRAVASTATIN SOD 20 MG TAB PO SCH (09:03)
[2020-03-10] MEDS: CLOPIDOGREL BISULFATE 75 MG TAB PO SCH (09:03)
[2020-03-10] MEDS: FUROSEMIDE 40 MG TAB PO SCH (09:03)
[2020-03-10] MEDS: ENALAPRIL MALEATE 10 MG TAB PO SCH (09:03)
[2020-03-10] MEDS: REPAGLINIDE 1 MG TAB PO SCH ×3 (09:04→17:39)
[2020-03-10] MEDS: ATENOLOL 25 MG TABLET PO SCH (09:04)
[2020-03-10] MEDS: cefTRIAXone SODIUM 2,000 MG in DEXTROSE 5% 50 ML IV SCH (09:07)
[2020-03-10] MEDS: INSULIN ASPART 100 UNITS/ML 3 ML PEN SC SCH ×4 (09:19→20:41)
[2020-03-10] MEDS: OXYBUTYNIN CHLORIDE 5 MG TAB PO SCH ×2 (09:38→20:38)
--- NOTE | 2020-03-10 09:59 | Hospitalist Progress Note ---
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 He has grown out pansensitive E. coli and Klebsiella Oxytoca in his blood, repeat blood cultures are NGTD Initially hypotensive with SBP in 70s. Received 2.5 L NSS but remained hypotensive and central line with placed and Levophed started with improvement of BP Hypoxic initially but improved with oxymask. Now 98% on 4L mask Febrile at 39.3 C. Lactic acid significantly elevated at 12.7, procalcitonin elevated at 42, T bili 5.1. AST 422. ALT 433 CT abd/pelvis without contrast limited but no abnormalities of biliary tract or pancreas seen History of sepsis and elevated LFTs in the past - found to have numerous hyperintense pancreatic lesions consistent with IPMN on imaging. Repeat MRCP recommended but family did not pursue due to patient's age/advanced dementia Discussed case with GI, who will follow. Not a candidate for MRCP until more stable. Family hesitant when discussing any intervention like ERCP Continue antibiotics WBC normal now and LFTs are trending down On Tele Atrial fibrillation with RVR HR initially 146 with ECG showing A. fib with RVR but improved to 110s with IV fluids, HR currently 89 Dementia Vascular dementia at baseline with some behavioral disturbances Goals of care d/w with and daughter by Dr Cochran who confirmed patient's previously stated wishes for DNR/DNI. DVT Ppx: SQ heparin Code status: DNR PCP: Jae Dispo: ICU. Discharge planning ordered. More responsive and cooperative, following commands today, still jaundiced today, I told his 03/09 that he the prognosis is poor, Continue what we're doing, but do not intubate or perform CPR, PICC ordered 03/10 Labs Checked ROS-Offers no history Physical Exam Gen-More alert, Afebrile, Demented, Jaundiced, follows commands Head-NCAT, EOMI, PERRLA, Dry MM, +icteric Sclera, No Posterior Pharyngeal Erythema Neck-Supple, No JVD, No Thyromegaly, No Masses, No LAD, No Bruits Lungs-Clear to Auscultation Bilaterally, No Rales, No Rhonchi, No Wheezing, No Crepitus Chest-No S4, +S1, +S2, No S3, No Murmurs, No Rubs, No Gallops, No Ectopy Abdomen-Soft, Bowel Sounds Present, Non Tender, Non Distended, No Hepatomegaly, No Splenomegaly, No Palpable Masses, No Rebound, No Rigidity, No Guarding Musculoskeletal-Full Range of Motion Bilaterally, No CVAT Extremities-No Cyanosis, No Clubbing, No Edema Nuero-Cranial Nerves II-XII grossly intact, Motor WNL, DTRs WNL, Strength WNL, Non Focal Psych-Somnolent Admission and Anticipated Discharge Date Admission Date: March 05, 2020 Results & Data Results & Data ([facility]) Vital Signs (Past 12 Hours) Vital Signs Temp Pulse Resp BP BP Pulse Ox 03/10/20 08:39 36.5 C 89 18 136/87 98 03/10/20 04:07 114/81 03/09/20 22:49 36.6 C 90 16 154/100 H 100
--- NOTE | 2020-03-10 15:35 | Pharmacy Report ---
Pharmacy Glycemic Sign Off Nt - Date of Service March 10, 2020 - Assessment & Plan ASSESSMENT: * Pharmacy was consulted by Sandip Richards on 03/05/20 for glycemic control and to write orders per [facility] inpatient glycemic control protocol. * Patient has been requiring minimal insulin for adequate glycemic control * He was given 0-5 units of Novolog per day for the past 4 days * Basal insulin was discontinued on 03/07 (he only received one dose on 03/06) * Carb coverage was removed on 03/08 * BSGs are all at/below goal range * Do not anticipate further changes in patient status that would quickly deteriorate glycemic control (i.e. patient to be NPO for upcoming procedure, steroids tapering, starting tube feedings, etc). * Please see recommendations for outpatient antidiabetic regimen below. PLAN FOR INPATIENT GLYCEMIC CONTROL: No changes needed to current regimen. * No basal * Continue NovoLog per scale ACHS/Q6hrs while NPO * Goal range = 120 -160 mg/dl * CF = 30 mg/dl/unit * CR = none * Pharmacy is signing off of glycemic consult and will no longer be making adjustments to inpatient regimen. Please feel free to re-consult if needed. Thank you.
[2020-03-10] MEDS: TAMSULOSIN HCL 0.4 MG CAP PO SCH (20:38)
[2020-03-11 05:58] LABS: Basophils # (auto) 0.02 K/uL (0-0.2); Basophils % (auto) 0.3 %; Eosinophils # (auto) 0.21 K/uL (0-0.5); Eosinophils % (auto) 3.4 %; Hematocrit (blood only) 34.9 % (42-52); Immature Granulocytes # (auto) 0.29 K/uL (0.00-0.02); Immature Granulocytes % (auto) 4.7 %; Lymphocytes # (auto) 0.89 K/uL (1.2-3.4); Lymphocytes % (auto) 14.5 %; Mean Corpuscular Hemoglobin 32.6 pg (25-34); Mean Corpuscular Hgb Conc 34.4 g/dL (32-36); Mean Corpuscular Volume 94.8 fL (80-100); Mean Platelet Volume 10.5 fL (7.4-10.4); Monocytes # (auto) 0.65 K/uL (0.11-0.59); Monocytes % (auto) 10.6 %; Neutrophils # (auto) 4.06 K/uL (1.4-6.5); Neutrophils % (auto) 66.5 %; Platelet Count 138 K/uL (130-400); RDW Coefficient of Variation 15.2 % (11.5-14.5); RDW Standard Deviation 52.1 fL (36.4-46.3); Red Blood Count 3.68 M/uL (4.7-6.1); White Blood Count 6.12 K/uL (4.8-10.8)
[2020-03-11] MEDS: HEPARIN SOD 5,000 UNIT/0.5 ML VIAL SQ SCH ×3 (06:19→21:10)
[2020-03-11 06:47] LABS: INR 1.1 (0.9-1.1); Prothrombin Time 11.7 Seconds (9.0-12.0)
[2020-03-11 06:57] LABS: Albumin Level 2.1 gm/dl (3.4-5.0); BUN Creatinine Ratio 19.6 (10-20); Calcium 8.5 mg/dl (8.5-10.1); Creatinine Clr Calc Pharmacy 86.1 ml/min; Est GFR (African American) 98.5; Potassium 3.3 mmol/L (3.5-5.1)
[2020-03-11 07:04] LABS: Albumin Globulin Ratio 0.7 (0.9-2); Bilirubin,Total 2.8 mg/dl (0.2-1); Total Protein 5.1 gm/dl (6.4-8.2)
[2020-03-11] MEDS: INSULIN ASPART 100 UNITS/ML 3 ML PEN SC SCH ×4 (08:51→21:10)
[2020-03-11] MEDS: OXYBUTYNIN CHLORIDE 5 MG TAB PO SCH ×2 (08:52→21:09)
[2020-03-11] MEDS: REPAGLINIDE 1 MG TAB PO SCH ×3 (08:52→18:05)
[2020-03-11] MEDS: CLOPIDOGREL BISULFATE 75 MG TAB PO SCH (08:53)
[2020-03-11] MEDS: PRAVASTATIN SOD 20 MG TAB PO SCH (08:54)
[2020-03-11] MEDS: ATENOLOL 25 MG TABLET PO SCH (08:54)
[2020-03-11] MEDS: CEROVITE ADV FORMULA TAB PO SCH (08:54)
[2020-03-11] MEDS: ENALAPRIL MALEATE 10 MG TAB PO SCH (08:54)
[2020-03-11] MEDS: cefTRIAXone SODIUM 2,000 MG in DEXTROSE 5% 50 ML IV SCH (09:03)
--- NOTE | 2020-03-11 09:04 | Hospitalist Progress Note ---
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 He has grown out pansensitive E. coli and Klebsiella Oxytoca in his blood, repeat blood cultures are NGTD Initially hypotensive with SBP in 70s. Received 2.5 L NSS but remained hypotensive and central line with placed and Levophed started with improvement of BP Hypoxic initially but improved with oxymask. Now 98% on 4L mask Febrile at 39.3 C. Lactic acid significantly elevated at 12.7, procalcitonin elevated at 42, T bili 5.1. AST 422. ALT 433 CT abd/pelvis without contrast limited but no abnormalities of biliary tract or pancreas seen History of sepsis and elevated LFTs in the past - found to have numerous hyperintense pancreatic lesions consistent with IPMN on imaging. Repeat MRCP recommended but family did not pursue due to patient's age/advanced dementia Discussed case with GI, who will follow. Not a candidate for MRCP until more stable. Family hesitant when discussing any intervention like ERCP Continue antibiotics WBC normal now and LFTs are trending down Atrial fibrillation with RVR HR initially 146 with ECG showing A. fib with RVR but improved to 110s with IV fluids, HR currently 77 Dementia Vascular dementia at baseline with some behavioral disturbances Goals of care d/w with and daughter by Dr Cochran who confirmed patient's previously stated wishes for DNR/DNI. DVT Ppx: SQ heparin Code status: DNR PCP: Jae Dispo: ICU. Discharge planning ordered. More responsive and cooperative, Improves mentally each day, not jaundiced today, I told his 03/09 that he the prognosis is poor, Continue what we're doing, but do not intubate or perform CPR, PICC ordered 03/10 for blood draws, meds Labs Checked ROS-Offers no reliable history, Demented Physical Exam Gen-More alert, Afebrile, Demented, follows commands Head-NCAT, EOMI, PERRLA, Dry MM, +icteric Sclera, No Posterior Pharyngeal Erythema Neck-Supple, No JVD, No Thyromegaly, No Masses, No LAD, No Bruits Lungs-Clear to Auscultation Bilaterally, No Rales, No Rhonchi, No Wheezing, No Crepitus Chest-No S4, +S1, +S2, No S3, No Murmurs, No Rubs, No Gallops, No Ectopy Abdomen-Soft, Bowel Sounds Present, Non Tender, Non Distended, No Hepatomegaly, No Splenomegaly, No Palpable Masses, No Rebound, No Rigidity, No Guarding Musculoskeletal-Full Range of Motion Bilaterally, No CVAT Extremities-No Cyanosis, No Clubbing, No Edema Nuero-Cranial Nerves II-XII grossly intact, Motor WNL, DTRs WNL, Strength WNL, Non Focal Psych-More conversant today Admission and Anticipated Discharge Date Admission Date: March 05, 2020 Results & Data Results & Data ([facility]) Vital Signs (Past 12 Hours) Vital Signs Temp Pulse Resp BP BP Pulse Ox 03/11/20 07:12 36.7 C 77 18 145/85 H 97 03/10/20 23:13 36.7 C 86 16 139/87 96
[2020-03-11] MEDS: POTASSIUM CHLORIDE 20 MEQ/15 ML UDC PO SCH ×2 (09:57→21:08)
[2020-03-11] MEDS: POTASSIUM CHLORIDE / WTR 10 MEQ/100 ML PLCT IV SCH ×2 (09:58→11:16)
[2020-03-11] MEDS: FUROSEMIDE 40 MG TAB PO SCH (10:05)
[2020-03-11] MEDS: TAMSULOSIN HCL 0.4 MG CAP PO SCH (21:09)
[2020-03-12 05:49] LABS: Hematocrit (blood only) 34.5 % (42-52); Hemoglobin 11.7 g/dL (14.0-18.0); Mean Corpuscular Hemoglobin 32.6 pg (25-34); Mean Corpuscular Hgb Conc 33.9 g/dL (32-36); Mean Corpuscular Volume 96.1 fL (80-100); Mean Platelet Volume 10.6 fL (7.4-10.4); Platelet Count 156 K/uL (130-400); RDW Coefficient of Variation 15.5 % (11.5-14.5); RDW Standard Deviation 54.1 fL (36.4-46.3); Red Blood Count 3.59 M/uL (4.7-6.1); White Blood Count 6.98 K/uL (4.8-10.8)
[2020-03-12] MEDS: HEPARIN SOD 5,000 UNIT/0.5 ML VIAL SQ SCH ×3 (06:25→21:54)
[2020-03-12 06:29] LABS: Albumin Globulin Ratio 0.6 (0.9-2); BUN Creatinine Ratio 19.2 (10-20); Bilirubin,Total 2.3 mg/dl (0.2-1); Calcium 7.8 mg/dl (8.5-10.1); Creatinine Clr Calc Pharmacy 82.6 ml/min; Est GFR (African American) 96.8; Est GFR (Non-African American) 83.5; Globulin 3.3 gm/dl (2.5-4.0); Total Protein 5.3 gm/dl (6.4-8.2)
[2020-03-12 07:24] LABS: Potassium 3.6 mmol/L (3.5-5.1)
[2020-03-12] MEDS: INSULIN ASPART 100 UNITS/ML 3 ML PEN SC SCH ×4 (10:07→21:50)
[2020-03-12] MEDS: POTASSIUM CHLORIDE 20 MEQ/15 ML UDC PO SCH ×2 (10:08→20:51)
[2020-03-12] MEDS: ATENOLOL 25 MG TABLET PO SCH (10:09)
[2020-03-12] MEDS: OXYBUTYNIN CHLORIDE 5 MG TAB PO SCH ×2 (10:10→20:45)
[2020-03-12] MEDS: REPAGLINIDE 1 MG TAB PO SCH ×3 (10:11→18:05)
[2020-03-12] MEDS: FUROSEMIDE 40 MG TAB PO SCH (10:11)
[2020-03-12] MEDS: CLOPIDOGREL BISULFATE 75 MG TAB PO SCH (10:12)
[2020-03-12] MEDS: PRAVASTATIN SOD 20 MG TAB PO SCH (10:12)
[2020-03-12] MEDS: ENALAPRIL MALEATE 10 MG TAB PO SCH (10:13)
[2020-03-12] MEDS: CEROVITE ADV FORMULA TAB PO SCH (10:14)
[2020-03-12] MEDS: cefTRIAXone SODIUM 2,000 MG in DEXTROSE 5% 50 ML IV SCH (10:17)
--- NOTE | 2020-03-12 12:52 | Hospitalist Progress Note ---
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 He has grown out pansensitive E. coli and Klebsiella Oxytoca in his blood, repe at blood cultures are NGTD, on 03/05 he was placed on IV Vanco and Zosyn and switched to Rocephin on 03/08, Cefdinir on DC and stop abx 03/16/20 Initially hypotensive with SBP in 70s. Received 2.5 L NSS but remained hypotensive and central line with placed and Levophed started with improvement of BP Hypoxic initially but improved with oxymask. Now 98% on 4L mask Febrile at 39.3 C. Lactic acid significantly elevated at 12.7, procalcitonin elevated at 42, T bili 5.1. AST 422. ALT 433 CT abd/pelvis without contrast limited but no abnormalities of biliary tract or pancreas seen History of sepsis and elevated LFTs in the past - found to have numerous hyperintense pancreatic lesions consistent with IPMN on imaging. Repeat MRCP recommended but family did not pursue due to patient's age/advanced dementia Discussed case with GI, who will follow. Not a candidate for MRCP until more stable. Family hesitant when discussing any intervention like ERCP Continue antibiotics WBC normal now and LFTs are sill trending down Atrial fibrillation with RVR HR initially 146 with ECG showing A. fib with RVR but improved to 110s with IV fluids, HR currently 86 Dementia Vascular dementia at baseline with some behavioral disturbances Goals of care d/w with and daughter by Dr Cochran who confirmed patient's previously stated wishes for DNR/DNI. DVT Ppx: SQ heparin Code status: DNR PCP: Jae Dispo: Patient on Med/Surg, DNR/DNI-SNF on Discharge await placement. CM looking into [facility] or [facility], Stable for DC More responsive and cooperative, Improves mentally each day, not jaundiced today, I told his 03/09 that he the prognosis is poor, Continue what we're doing, but do not intubate or perform CPR, US Guided Peripheral ordered 03/10 for blood draws and meds, DC [employer] Labs Checked ROS-Offers no reliable history, Demented Physical Exam Gen-More alert, Afebrile, Demented, follows commands Head-NCAT, EOMI, PERRLA, Dry MM, +icteric Sclera, No Posterior Pharyngeal Erythema Neck-Supple, No JVD, No Thyromegaly, No Masses, No LAD, No Bruits Lungs-Clear to Auscultation Bilaterally, No Rales, No Rhonchi, No Wheezing, No Crepitus Chest-No S4, +S1, +S2, No S3, No Murmurs, No Rubs, No Gallops, No Ectopy Abdomen-Soft, Bowel Sounds Present, Non Tender, Non Distended, No Hepatomegaly, No Splenomegaly, No Palpable Masses, No Rebound, No Rigidity, No Guarding Musculoskeletal-Full Range of Motion Bilaterally, No CVAT Extremities-No Cyanosis, No Clubbing, No Edema Nuero-Cranial Nerves II-XII grossly intact, Motor WNL, DTRs WNL, Strength WNL, Non Focal Psych-Cooperative Admission and Anticipated Discharge Date Admission Date: March 05, 2020 Results & Data Results & Data ([facility]) Vital Signs (Past 12 Hours) Vital Signs Temp Pulse Resp BP BP Pulse Ox 03/12/20 10:07 86 125/72 03/12/20 07:12 36.3 C L 70 20 130/84 96
[2020-03-12] MEDS: TAMSULOSIN HCL 0.4 MG CAP PO SCH (20:45)
[2020-03-13] MEDS: HEPARIN SOD 5,000 UNIT/0.5 ML VIAL SQ SCH ×3 (05:23→21:16)
[2020-03-13 06:45] LABS: Hemoglobin 12.2 g/dL (14.0-18.0); Mean Corpuscular Hemoglobin 31.9 pg (25-34); Mean Corpuscular Volume 96.9 fL (80-100); Mean Platelet Volume 10.2 fL (7.4-10.4); Nucleated RBC # (auto) 0.02 K/uL (0-0); Nucleated RBC % (auto) 0.2 %; Platelet Count 158 K/uL (130-400); RDW Coefficient of Variation 15.7 % (11.5-14.5); RDW Standard Deviation 54.8 fL (36.4-46.3); Red Blood Count 3.82 M/uL (4.7-6.1); White Blood Count 7.59 K/uL (4.8-10.8)
[2020-03-13 07:28] LABS: Albumin Globulin Ratio 0.7 (0.9-2); Albumin Level 2.1 gm/dl (3.4-5.0); BUN Creatinine Ratio 19.6 (10-20); Bilirubin,Total 8.2 mg/dl (0.2-1); Calcium 8.3 mg/dl (8.5-10.1); Creatinine Clr Calc Pharmacy 80.4 ml/min; Est GFR (African American) 95.7; Est GFR (Non-African American) 82.6; Globulin 3.1 gm/dl (2.5-4.0); Potassium 3.5 mmol/L (3.5-5.1); Total Protein 5.2 gm/dl (6.4-8.2)
[2020-03-13] MEDS: REPAGLINIDE 1 MG TAB PO SCH ×3 (08:45→18:26)
[2020-03-13] MEDS: POTASSIUM CHLORIDE 20 MEQ/15 ML UDC PO SCH ×3 (09:14→21:15)
[2020-03-13] MEDS: PRAVASTATIN SOD 20 MG TAB PO SCH (09:14)
[2020-03-13] MEDS: CLOPIDOGREL BISULFATE 75 MG TAB PO SCH (09:14)
[2020-03-13] MEDS: FUROSEMIDE 40 MG TAB PO SCH (09:14)
[2020-03-13] MEDS: OXYBUTYNIN CHLORIDE 5 MG TAB PO SCH ×2 (09:14→21:15)
[2020-03-13] MEDS: ENALAPRIL MALEATE 10 MG TAB PO SCH (09:14)
[2020-03-13] MEDS: CEROVITE ADV FORMULA TAB PO SCH (09:14)
[2020-03-13] MEDS: ATENOLOL 25 MG TABLET PO SCH (09:18)
[2020-03-13] MEDS: cefTRIAXone SODIUM 2,000 MG in DEXTROSE 5% 50 ML IV SCH (09:54)
[2020-03-13] MEDS: INSULIN ASPART 100 UNITS/ML 3 ML PEN SC SCH ×4 (09:54→21:27)
--- NOTE | 2020-03-13 18:00 | Hospitalist Progress Note ---
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 Initially hypotensive with SBP in 70s. Received 2.5 L NSS but remained hypotensive and central line with placed and Levophed started with improvement of BP Hypoxic initially but improved with oxymask. Now 98% on 4L mask Febrile at 39.3 C. Lactic acid significantly elevated at 12.7, procalcitonin elevated at 42, T bili 5.1. AST 422. ALT 433 CT abd/pelvis without contrast limited but no abnormalities of biliary tract or pancreas seen History of sepsis and elevated LFTs in the past - found to have numerous hyperintense pancreatic lesions consistent with IPMN on imaging. Repeat MRCP recommended but family did not pursue due to patient's age/advanced dementia GI was consulted Family does not want to proceed with MRCP since they don't want any invasive procedure like ERCP He was initially placed on IV Vanco and Zosyn then switched to Rocephin on 03/08, Cefdinir on DC and stop abx on 03/16/20 Blood cx grew E.Coli and Klebsiella Oxytoca in blood Liver enzymes increased today Will hold statin for now due to elevate LFT Atrial fibrillation with RVR HR initially 146 with ECG showing A. fib with RVR but improved to 110s with IV fluids, HR currently 86 Stable Dementia Vascular dementia at baseline with some behavioral disturbances Goals of care d/w with and daughteron admission who confirmed patient's previously stated wishes for DNR/DNI. DVT Ppx: SQ heparin Code status: DNR PCP: Jae Dispo: Will discharge to placement once medically stable Admission and Anticipated Discharge Date Admission Date: March 05, 2020 Subjective Pt was seen and examined Lying in bed with no distress Pt said that he feels weak Nurse said that pt ate about 70% of his meal Later nurse said that pt had indigestion Spoke to Gail to provide with updates and answered all her questions said that pt symptoms started with indigestion prior to come to the hospital Pt denies any chest pain, palpitation, dizziness, abdominal pain and SOB Physical Exam Physical Exam: General- No acute distress Head- atraumatic Eyes- PERRL, EOMI, ENT- oropharynx clear Neck- supple, no JVD Lungs- clear to auscultation Heart- regular rhythm; no murmur Abdomen- normal bowel sounds, soft, nontender Extremities- no calf tenderness Neuro- alert, oriented x 3; PERRL, EOMI; no facial palsy; no dysarthria Skin- warm & dry Results & Data Results & Data ([facility]) Vital Signs (Past 12 Hours) Vital Signs Temp Pulse Resp BP BP Pulse Ox 03/13/20 15:22 36.8 C 79 16 108/67 96 03/13/20 11:59 133/76 03/13/20 09:17 109/68 03/13/20 09:12 90 100/68 03/13/20 07:10 36.8 C 86 20 147/83 H 98
[2020-03-13] MEDS ORDERED: ALUMINUM/MAGNESIUM/SIMETH (MAALOX MAX) 30 ML UDC PO ONE (18:25)
[2020-03-13] MEDS: TAMSULOSIN HCL 0.4 MG CAP PO SCH (21:15)
[2020-03-14] MEDS: HEPARIN SOD 5,000 UNIT/0.5 ML VIAL SQ SCH (06:00)
[2020-03-14] MEDS: REPAGLINIDE 1 MG TAB PO SCH ×3 (08:34→17:43)
[2020-03-14] MEDS: INSULIN ASPART 100 UNITS/ML 3 ML PEN SC SCH ×4 (08:36→20:48)
[2020-03-14] MEDS: OXYBUTYNIN CHLORIDE 5 MG TAB PO SCH ×2 (08:41→20:44)
[2020-03-14] MEDS: CLOPIDOGREL BISULFATE 75 MG TAB PO SCH (08:41)
[2020-03-14] MEDS: POTASSIUM CHLORIDE 20 MEQ/15 ML UDC PO SCH ×2 (08:42→20:44)
[2020-03-14] MEDS: FUROSEMIDE 40 MG TAB PO SCH (08:42)
[2020-03-14] MEDS: CEROVITE ADV FORMULA TAB PO SCH (08:43)
[2020-03-14] MEDS: PRAVASTATIN SOD 20 MG TAB PO SCH (08:43)
[2020-03-14] MEDS: ATENOLOL 25 MG TABLET PO SCH (08:44)
[2020-03-14] MEDS: ENALAPRIL MALEATE 10 MG TAB PO SCH (08:44)
[2020-03-14] MEDS: cefTRIAXone SODIUM 2,000 MG in DEXTROSE 5% 50 ML IV SCH (08:50)
[2020-03-14 09:37] LABS: Albumin Level 2.2 gm/dl (3.4-5.0); BUN Creatinine Ratio 22.8 (10-20); Calcium 8.1 mg/dl (8.5-10.1); Creatinine Clr Calc Pharmacy 78.4 ml/min; Est GFR (African American) 94.7; Est GFR (Non-African American) 81.7; Potassium 3.5 mmol/L (3.5-5.1)
[2020-03-14 09:51] LABS: Albumin Globulin Ratio 0.7 (0.9-2); Globulin 3.2 gm/dl (2.5-4.0); Total Protein 5.4 gm/dl (6.4-8.2)
--- NOTE | 2020-03-14 11:08 | Gastroenterology Progress Note ---
Date of Service March 14, 2020 Assessment & Plan (1) Septic shock: 84 y/o male admitted w septic shock, blood cx growing gram negative bacilli. 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 Non contrasted CT abd/pelvis during this admission also w/o biliary dilation or CBD dilation though study non optimal due to lack of contrast and motion degraded artifact - GI asked to evaluate given uptrending LFTs Discussed with family who now woudl like to arrangeMRI and ERCP if positive - NPO - MRCP - COVID-19 - Stop blood thinners - ERCP tomorrow pending results of MR and family wishes - Continue therapy per prior notes Thank you for allowing us to participate in the care of this patient. Please call with any acute changes, questions or concerns. Please see addendum below with additional recommendation from my supervising physician. Admission and Anticipated Discharge Date Admission Date: March 05, 2020 Supervising Physician Co-Signing Physician Notes I saw and evaluated the patient. He is unable to give any historical information due to underlying vascular dementia. He has been seen by our service last week for suspected cholangitis and at the time the patient's family had declined any evaluations. We were called by the internal medicine service today and the family has now asked us to do further evaluation. We have made arrangements for MRCP today and likely ERCP on Wednesday. Due to the patient's underlying mental status we will need to obtain consent from his power of attorney lawyer which I believe is his . Plan MRCP ordered Plan for ERCP tomorrow, may need to consider EUS pending results of MRI Hold Plavix and heparin Make patient n.p.o. for present time Continue with broad-spectrum antibiotic coverage Subjective GI asked to re-evaluate given uptrending LFTs Discussed with family. Pt demented Not answering questions appropriately Review of Systems Review of Systems: Unobtainable due to cognitive status Physical Exam Constitutional: well nourished and + ill appearing; no acute distress Neck: trachea midline Respiratory: normal respiratory effort Gastrointestinal (Abdomen): Percussion/Palpation: + abdomen tender (RUQ w/ palpation) and abdomen soft Skin: + jaundice Results & Data ([facility]) Vital Signs (Past 12 Hours) Vital Signs Temp Pulse Resp BP Pulse Ox 03/14/20 08:38 80 143/86 H 03/14/20 07:33 36.8 C 79 20 125/74 95 03/13/20 23:17 37.1 C 79 19 130/79 99 Laboratory Results 03/14/20 03/14/20 03/13/20 Range/Units 09:04 08:08 20:30 Sodium 139 (136-145) mmol/L Potassium 3.5 (3.5-5.1) mmol/L Chloride 109 H (98-107) mmol/L Carbon Dioxide 26 (21-32) mmol/L Anion Gap 4.0 (3-11) BUN 18 (7-18) mg/dl Creatinine 0.78 (0.6-1.4) mg/dl Est Cr Clr Drug Dosing 78.4 ml/min Est GFR ( Amer) 94.7 Est GFR (Non-Af Amer) 81.7 BUN/Creatinine Ratio 22.8 H (10-20) Glucose 118 H (70-99) mg/dl POC Glucose 92 177 H (70-99) mg/dl Calcium 8.1 L (8.5-10.1) mg/dl Total Bilirubin 13.0 H D (0.2-1) mg/dl AST 360 H (15-37) U/L ALT 396 H (12-78) U/L Alkaline Phosphatase 603 H (45-117) U/L Total Protein 5.4 L (6.4-8.2) gm/dl Albumin 2.2 L (3.4-5.0) gm/dl Globulin 3.2 (2.5-4.0) gm/dl Albumin/Globulin Ratio 0.7 L (0.9-2) 03/13/20 03/13/20 Range/Units 17:15 12:10 Sodium (136-145) mmol/L Potassium (3.5-5.1) mmol/L Chloride (98-107) mmol/L Carbon Dioxide (21-32) mmol/L Anion Gap (3-11) BUN (7-18) mg/dl Creatinine (0.6-1.4) mg/dl Est Cr Clr Drug Dosing ml/min Est GFR ( Amer) Est GFR (Non-Af Amer) BUN/Creatinine Ratio (10-20) Glucose (70-99) mg/dl POC Glucose 177 H 200 H (70-99) mg/dl Calcium (8.5-10.1) mg/dl Total Bilirubin (0.2-1) mg/dl AST (15-37) U/L ALT (12-78) U/L Alkaline Phosphatase (45-117) U/L Total Protein (6.4-8.2) gm/dl Albumin (3.4-5.0) gm/dl Globulin (2.5-4.0) gm/dl Albumin/Globulin Ratio (0.9-2)
--- NOTE | 2020-03-14 13:34 | Magnetic Resonance Report ---
MR MRCP HISTORY: Sepsis. Right upper quadrant pain. Follow-up pancreatic lesions. evaluation for cbd stones, possible cholangitis TECHNIQUE: MRCP of the abdomen was performed without contrast according to standard departmental prot ocol. COMPARISON STUDY: MRCP 05/01/2019. FINDINGS: Old T11 and L1 compression deformities remain unchanged. Colonic diverticulosis. Trace bila teral pleural effusions and bibasilar consolidation. This is progressed. Motion artifact results in s uboptimal evaluation of the abdomen. No definite hepatic or splenic masses. The adrenal glands are un remarkable. Stable T2 hyperintense lesions within the right kidney consistent with cysts. No hydronep hrosis. No retroperitoneal lymphadenopathy. Normal caliber abdominal aorta. Mild gallbladder wall thi ckening, unchanged. There is mild periportal edema. Normal caliber common bile duct measuring up to 5 mm in diameter. No filling defects within the common bile duct to suggest a stone. The main pancreat ic duct is normal in course and caliber. Mild bilateral perinephric edema, unchanged. There are few s cattered T2 hyperintense lesions within the pancreas. Dominant lesion within the pancreatic head aldo ures 1.2 cm. 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 Sludge versus tiny stones within the gallbladder. There is a beaded appearance of the proximal intr ahepatic ducts and cystic ducts. This is located at the same level and therefore favors artifact. Thi s was not present on the prior study. IMPRESSION: 1. Normal caliber common bile duct and intrahepatic bile ducts. No filling defects within the common bile duct to suggest a stone. 2. Sludge versus tiny stones within the gallbladder. Mild gallbladder wall thickening, unchanged. 3. Mild periportal edema. 4. Stable small T2 hyperintense pancreatic lesions measuring up to 1.2 cm. 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 ACT 112: Negative or not required by law. Electronically signed by: Kareem Henderson M.D. 03/14/2020 1:32 PM
--- NOTE | 2020-03-14 19:52 | Hospitalist Progress Note ---
Date of Service March 14, 2020 Assessment & Plan (1) Septic shock: (2) Ascending cholangitis: (3) Acute metabolic encephalopathy: (4) Pancreatic lesion: (5) Metabolic acidosis: (6) Atrial fibrillation with rapid ventricular response: (7) Dementia: (8) Hypertension: This is an 84-year-old male with PMH of vascular dementia, paroxysmal atrial fibrillation, hypertension, type 2 diabetes, IPMN, history of prostate cancer and other medical problems listed below who presents from home with abdominal pain and fatigue since one [employer] and was found to have septic shock and A Fib with RVR. Initially hypotensive with SBP in 70s. Received 2.5 L NSS but remained hypotensive and central line with placed and Levophed started with improvement of BP Hypoxic initially but improved with oxymask. Now 98% on 4L mask Febrile at 39.3 C. Lactic acid significantly elevated at 12.7, procalcitonin elevated at 42, T bili 5.1. AST 422. ALT 433 CT abd/pelvis without contrast limited but no abnormalities of biliary tract or pancreas seen History of sepsis and elevated LFTs in the past - found to have numerous hyperintense pancreatic lesions consistent with IPMN on imaging. Repeat MRCP recommended but family did not pursue due to patient's age/advanced dementia GI was consulted Family does not want to proceed with MRCP since they don't want any invasive procedure like ERCP He was initially placed on IV Vanco and Zosyn then switched to Rocephin on 03/08, Cefdinir on DC and stop abx on 03/16/20 Blood cx grew E.Coli and Klebsiella Oxytoca in blood Liver enzymes continue to increase case discussed with Gastro who spoke to family Family agreed to proceed with MRCP and possible ERCP MRCP showed Normal caliber common bile duct and intrahepatic bile ducts. No filling defects within the common bile duct to suggest a stone. Sludge versus tiny stones within the gallbladder. Mild gallbladder wall thickening, unchanged. Mild periportal edema. Stable small T2 hyperintense pancreatic lesions measuring up to 1.2 cm. Plan for EUS/ERCP tomorrow Will make NPO after midnight Continue to hold statin for now due to elevate LFT Continue monitor CMP Atrial fibrillation with RVR HR initially 146 with ECG showing A. fib with RVR but improved to 110s with IV fluids, HR currently 86 Stable Dementia Vascular dementia at baseline with some behavioral disturbances Goals of care d/w with and daughter on admission who confirmed patient's previously stated wishes for DNR/DNI. DVT Ppx: SQ heparin Code status: DNR PCP: Jae Dispo: Will discharge to placement once medically stable Admission and Anticipated Discharge Date Admission Date: March 05, 2020 Subjective Pt was seen an examined for follow up of elevated liver enzymes and jaundice Lying in bed very weak and more sleepy today Denies any chest pain, palpitation, dizziness, SOB and fever Physical Exam Physical Exam: General- No acute distress Head- atraumatic Eyes- PERRL, EOMI, ENT- oropharynx clear Neck- supple, no JVD Lungs- clear to auscultation Heart- regular rhythm; no murmur Abdomen- normal bowel sounds, soft, nontender Extremities- no calf tenderness Neuro- alert, oriented x 3; PERRL, EOMI; no facial palsy; no dysarthria Skin- warm & dry, Jaundice Results & Data Results & Data ([facility]) Vital Signs (Past 12 Hours) Vital Signs Temp Pulse Resp BP Pulse Ox 03/14/20 15:27 36.8 C 68 16 122/77 97 03/14/20 13:36 36.9 C 74 14 119/77 96 03/14/20 08:38 80 143/86 H
[2020-03-14] MEDS: TAMSULOSIN HCL 0.4 MG CAP PO SCH (20:44)
[2020-03-14] MEDS ORDERED: Nursing to Pharmacy Communication SCH (23:45)
[2020-03-15] MEDS: INSULIN ASPART 100 UNITS/ML 3 ML PEN SC SCH ×4 (05:46→20:18)
[2020-03-15 07:10] LABS: Albumin Globulin Ratio 0.6 (0.9-2); BUN Creatinine Ratio 27.1 (10-20); Bilirubin,Total 7.1 mg/dl (0.2-1); Calcium 8.4 mg/dl (8.5-10.1); Creatinine Clr Calc Pharmacy 91.2 ml/min; Est GFR (African American) 100.8; Globulin 3.2 gm/dl (2.5-4.0); Potassium 3.2 mmol/L (3.5-5.1); Total Protein 5.2 gm/dl (6.4-8.2)
--- NOTE | 2020-03-15 07:55 | Anesthesiology Consultation ---
Date of Service March 15, 2020 Assessment & Plan (1) Encounter for pre-operative examination: Chart Review Chart Review: entry manager initiated History Surgery Operation Date: 03/15/20 07:00 Proposed Procedures p Endoscopic Retrograde Cholangiopancreatogram - Larissa Clay DO Height/Weight Height: 5 ft 11 in Weight: 90.8 kg Allergies Allergy/AdvReac Type Severity Reaction Status Date / Time No Known Allergies Allergy Verified 03/05/20 15:50 Medications Home Medications Medication Instructions Recorded Confirmed Last Taken atenolol 25 mg PO DAILY 04/30/19 03/05/20 03/05/20 clopidogrel 75 mg PO DAILY 04/30/19 03/05/20 03/04/20 loratadine [Claritin] 10 mg PO DAILY PRN 04/30/19 03/05/20 Unknown metformin 1,000 mg PO BID 04/30/19 03/05/20 03/04/20 multivitamin with minerals 2 tab PO DAILY 04/30/19 03/05/20 03/04/20 nitroglycerin [Nitrostat] 0.4 mg SUBLINGUAL DIRECTED PRN 04/30/19 03/05/20 Unknown omeprazole 20 mg PO DAILYBB 04/30/19 03/05/20 03/04/20 oxybutynin chloride 5 mg PO BID 04/30/19 03/05/20 03/05/20 AM DOSE pravastatin 20 mg PO DAILY 04/30/19 03/05/20 03/04/20 quinapril 20 mg PO DAILY 04/30/19 03/05/20 03/05/20 repaglinide 1 mg PO AC 04/30/19 03/05/20 03/04/20 tamsulosin 0.4 mg PO HS 04/30/19 03/05/20 03/04/20 acetaminophen [Tylenol Extra 500 mg PO TID 03/05/20 03/05/20 03/05/20 Strength] AM DOSE furosemide 40 mg PO QAM 03/05/20 03/05/20 03/04/20 atenolol 25 mg PO QAM #30 tab 03/12/20 Unknown potassium chloride 20 meq PO BID #473 ml 03/12/20 Unknown Active Medications Generic Name Dose Route Start Last Admin Trade Name Freq PRN Reason Stop Dose Admin Albuterol 3 ml 03/07/20 01:16 03/08/20 10:56 Albut/Ipratrop 3mg/0.5mg Neb 3 Ml Vial NEB 04/06/20 02:59 3 ml Q4R PRN Administration Wheezing Atenolol 25 mg 03/07/20 12:00 03/14/20 08:44 Atenolol 25 Mg Tablet PO 04/06/20 11:59 25 mg QAM JAMES Administration Clopidogrel Bisulfate 75 mg 03/08/20 10:32 03/14/20 08:41 Clopidogrel Bisulfate 75 Mg Tab PO 04/07/20 10:31 75 mg DAILY JAMES Administration Dextrose 25 - 50 ml 03/05/20 21:16 03/09/20 08:19 Dextrose 50% 50 Ml Syringe IV 04/04/20 21:15 25 ml UD PRN Administration Hypoglycemia Protocol Protocol Enalapril Maleate 20 mg 03/09/20 09:00 03/14/20 08:44 Enalapril Maleate 10 Mg Tab PO 04/08/20 08:59 20 mg DAILY JAMES Administration Furosemide 40 mg 03/08/20 10:32 03/14/20 08:42 Furosemide 40 Mg Tab PO 04/07/20 10:31 40 mg QAM JAMES Administration Heparin Sodium (Porcine) 5,000 units 03/06/20 06:00 03/14/20 06:00 Heparin Sod 5,000 Unit/0.5 Ml Vial SQ 04/05/20 05:59 Not Given Q8 JAMES Ceftriaxone Sodium 2,000 mg/ 70 mls @ 100 mls/hr 03/08/20 09:00 03/14/20 09:55 Dextrose IV 03/22/20 08:59 Infused Q24H JAMES Infusion Protocol Insulin Aspart 0 units 03/15/20 06:00 03/15/20 05:46 Insulin Aspart 100 Units/Ml 3 Ml Pen SC 04/14/20 05:59 Not Given Q6 JAMES Multivitamins/Minerals 1 tab 03/09/20 09:00 03/14/20 08:43 Cerovite Adv Formula Tab PO 04/08/20 08:59 1 tab DAILY JAMES Administration Oxybutynin Chloride 5 mg 03/08/20 10:32 03/14/20 20:44 Oxybutynin Chloride 5 Mg Tab PO 04/07/20 10:31 5 mg BID JAMES Administration Potassium Chloride 20 meq 03/11/20 09:30 03/14/20 20:44 Potassium Chloride 20 Meq/15 Ml Udc PO 04/10/20 09:29 20 meq BID JAMES Administration Pravastatin Sodium 20 mg 03/08/20 10:32 03/14/20 08:43 Pravastatin Sod 20 Mg Tab PO 04/07/20 10:31 20 mg DAILY JAMES Administration Repaglinide 1 mg 03/08/20 11:30 03/14/20 17:43 Repaglinide 1 Mg Tab PO 04/07/20 11:29 1 mg AC JAMES Administration Tamsulosin HCl 0.4 mg 03/08/20 21:00 03/14/20 20:44 Tamsulosin Hcl 0.4 Mg Cap PO 04/07/20 20:59 0.4 mg HS JAMES Administration Past Medical History Medical History Atrial fibrillation Dementia Diabetes mellitus type 2, controlled GERD (gastroesophageal reflux disease) HTN (hypertension) Hypertension Macular degeneration 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 repeat MRCP recommended in 6 months Past Family History Family History Other No pertinent family history in first degree relatives Past Surgical History Surgical History H/O prostate biopsy Social History Smoking Status: Unknown if ever smoked Hx Alcohol Use: No Hx Substance Use: No Physical Exam Vital Signs Last Vital Signs Temp 98.4 F 03/15/20 07:41 Pulse 83 03/15/20 07:41 Resp 16 03/15/20 07:41 BP 111/79 03/15/20 07:41 Pulse Ox 100 03/15/20 07:41 Testing Laboratory Results 03/13/20 06:09 03/15/20 05:28 PT 11.7 Seconds (9.0-12.0) 03/11/20 06:23 INR 1.1 (0.9-1.1) 03/11/20 06:23 APTT 24.8 Seconds (21.0-31.0) 03/05/20 14:27 Hemoglobin A1c 6.6 % (4.5-5.6) H 03/06/20 04:37 Urine Color Dark Yellow 03/05/20 14:45 Urine Appearance Clear (Clear) 03/05/20 14:45 Urine pH 7.0 (4.5-7.5) 03/05/20 14:45 Ur Specific Blanchard 1.018 (1.000-1.030) 03/05/20 14:45 Urine Protein Negative (Negative) 03/05/20 14:45 Urine Glucose (UA) Negative (Negative) 03/05/20 14:45 Urine Ketones Trace (Negative) H 03/05/20 14:45 Urine Nitrite Negative (Negative) 03/05/20 14:45 Ur Leukocyte Esterase Negative (Negative) 03/05/20 14:45 Urine WBC (Auto) 1-5 /hpf (0-5) 03/05/20 14:45 Urine RBC (Auto) 10-30 /hpf (0-4) H 03/05/20 14:45 U Hyaline Cast (Auto) 5-10 /lpf (0-5) H 03/05/20 14:45 U Epithel Cells (Auto) >30 /lpf (0-5) H 03/05/20 14:45 Urine Bacteria (Auto) Negative (Negative) 03/05/20 14:45 03/07/20 08:18 Aerobic Blood Culture - Final Blood No growth in Aerobic bottle after 5 days. Anaerobic Blood Culture - Final No growth in Anaerobic bottle after 5 days. 03/07/20 08:28 Aerobic Blood Culture - Preliminary Blood Klebsiella oxytoca Anaerobic Blood Culture - Final No growth in Anaerobic bottle after 5 days. 03/05/20 14:27 Aerobic Blood Culture - Final Blood Escherichia coli Anaerobic Blood Culture - Final 03/05/20 14:27 Aerobic Blood Culture - Final Blood Escherichia coli Klebsiella oxytoca Anaerobic Blood Culture - Final Escherichia coli 03/15/20 03/15/20 03/14/20 05:40 00:03 20:17 POC Glucose 109 H 145 H 228 H Electrocardiogram Date: 03/05/20 Poor data quality, interpretation may be adversely affected Atrial fibrillation with rapid ventricular response, rate 142 bpm Low voltage QRS Right bundle branch block T wave abnormality, consider lateral ischemia Abnormal ECG When compared with ECG of 30-APR-2019 15:19, Significant changes have occurred Confirmed by Gadiel Osman ([id number]) on 03/05/2020 3:54:24 PM Echocardiogram Date: 03/06/20 LV systolic function is borderline reduced No regional wall motion abnormalities noted There is mild conecntric LVH EF 45-50% Mild MR Moderate TR Compared with study of 03/13/2017, LV systolic function borderline reduced
--- NOTE | 2020-03-15 08:26 | Gastroenterology Progress Note ---
Date of Service March 15, 2020 Assessment & Plan (1) Septic shock: 84 y/o male admitted w septic shock, blood cx growing gram negative bacilli. 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 Non contrasted CT abd/pelvis during this admission also w/o biliary dilation or CBD dilation though study non optimal due to lack of contrast and motion degraded artifact - GI asked to evaluate given uptrending LFTs Family contacted and agreeable to EUS/ERCP. will be available via home/cell phone in chart all day for consent. - NPO - Hold AC - Plan for EUS/ERCP today - Continue therapy per prior notes Thank you for allowing us to participate in the care of this patient. Please call with any acute changes, questions or concerns. Please see addendum below with additional recommendation from my supervising physician. Admission and Anticipated Discharge Date Admission Date: March 05, 2020 Supervising Physician Co-Signing Physician Notes I saw and evaluated the patient. We are planning to do further evaluation of his jaundice and suspected cholangitis with upper endoscopy endoscopic ultrasound and probable ERCP. Due to the patient's history of dementia he is not able to give consent therefore I contacted his spouse Ms. Gail Ordaz to obtain consent. Discussed the potential complications include bleeding, infection, perforation, pancreatitis, aspiration, , the need for follow-up procedures and failed biliary cannulation. Plan Upper endoscopy with EUS followed by ERCP for biliary decompression Subjective Pt was seen and evaluated, chart reviewed. Woke to name Unable to provide any pertinent history of ROS Family contacted last evening to review MRCP, agreeable to EUS +/- ERCP given EUS findings Review of Systems Review of Systems: Unobtainable due to cognitive status Physical Exam Constitutional: + ill appearing; no acute distress Neck: trachea midline Respiratory: normal respiratory effort Cardiovascular: Rate/Rhythm: regular rate and regular rhythm Gastrointestinal (Abdomen): Percussion/Palpation: + abdomen tender (groans w/ palpation of RUQ) and abdomen soft; no guarding and abdomen not rigid Skin: + jaundice Results & Data ([facility]) Vital Signs (Past 12 Hours) Vital Signs Temp Pulse Resp BP Pulse Ox 03/15/20 07:41 36.9 C 83 16 111/79 100 03/14/20 23:15 36.9 C 82 18 116/72 100 Laboratory Results 03/15/20 03/15/2021 Range/Units 07:10 07:10 05:40 Sodium (136-145) mmol/L Potassium (3.5-5.1) mmol/L Chloride (98-107) mmol/L Carbon Dioxide (21-32) mmol/L Anion Gap (3-11) BUN (7-18) mg/dl Creatinine (0.6-1.4) mg/dl Est Cr Clr Drug Dosing ml/min Est GFR ( Amer) Est GFR (Non-Af Amer) BUN/Creatinine Ratio (10-20) Glucose (70-99) mg/dl POC Glucose 109 H (70-99) mg/dl Calcium (8.5-10.1) mg/dl Total Bilirubin (0.2-1) mg/dl AST (15-37) U/L ALT (12-78) U/L Alkaline Phosphatase (45-117) U/L Total Protein (6.4-8.2) gm/dl Albumin (3.4-5.0) gm/dl Globulin (2.5-4.0) gm/dl Albumin/Globulin Ratio (0.9-2) COVID-19 Eval Order Covid19 [facility] SARS-CoV-2, RNA, NAAT NEGATIVE (NEGATIVE) 03/15/20 03/15/20 03/14/20 Range/Units 05:28 00:03 20:17 Sodium 141 (136-145) mmol/L Potassium 3.2 L (3.5-5.1) mmol/L Chloride 110 H (98-107) mmol/L Carbon Dioxide 23 (21-32) mmol/L Anion Gap 8.0 (3-11) BUN 18 (7-18) mg/dl Creatinine 0.67 (0.6-1.4) mg/dl Est Cr Clr Drug Dosing 91.2 ml/min Est GFR ( Amer) 100.8 Est GFR (Non-Af Amer) 87.0 BUN/Creatinine Ratio 27.1 H (10-20) Glucose 103 H (70-99) mg/dl POC Glucose 145 H 228 H (70-99) mg/dl Calcium 8.4 L (8.5-10.1) mg/dl Total Bilirubin 7.1 H (0.2-1) mg/dl AST 185 H (15-37) U/L ALT 306 H (12-78) U/L Alkaline Phosphatase 518 H (45-117) U/L Total Protein 5.2 L (6.4-8.2) gm/dl Albumin 2.0 L (3.4-5.0) gm/dl Globulin 3.2 (2.5-4.0) gm/dl Albumin/Globulin Ratio 0.6 L (0.9-2) COVID-19 Eval Order SARS-CoV-2, RNA, NAAT (NEGATIVE) 03/14/20 03/14/20 03/14/20 Range/Units 17:10 11:56 09:04 Sodium 139 (136-145) mmol/L Potassium 3.5 (3.5-5.1) mmol/L Chloride 109 H (98-107) mmol/L Carbon Dioxide 26 (21-32) mmol/L Anion Gap 4.0 (3-11) BUN 18 (7-18) mg/dl Creatinine 0.78 (0.6-1.4) mg/dl Est Cr Clr Drug Dosing 78.4 ml/min Est GFR ( Amer) 94.7 Est GFR (Non-Af Amer) 81.7 BUN/Creatinine Ratio 22.8 H (10-20) Glucose 118 H (70-99) mg/dl POC Glucose 104 H 176 H (70-99) mg/dl Calcium 8.1 L (8.5-10.1) mg/dl Total Bilirubin 13.0 H D (0.2-1) mg/dl AST 360 H (15-37) U/L ALT 396 H (12-78) U/L Alkaline Phosphatase 603 H (45-117) U/L Total Protein 5.4 L (6.4-8.2) gm/dl Albumin 2.2 L (3.4-5.0) gm/dl Globulin 3.2 (2.5-4.0) gm/dl Albumin/Globulin Ratio 0.7 L (0.9-2) COVID-19 Eval Order SARS-CoV-2, RNA, NAAT (NEGATIVE)
[2020-03-15] MEDS: REPAGLINIDE 1 MG TAB PO SCH ×3 (08:43→19:06)
[2020-03-15] MEDS: cefTRIAXone SODIUM 2,000 MG in DEXTROSE 5% 50 ML IV SCH (08:52)
[2020-03-15] MEDS ORDERED: INDOMETHACIN 50 MG SUPP PR ONE (09:57)
[2020-03-15] MEDS ORDERED: ONDANSETRON INJ 2 MG/ML 2 ML VIAL IV PRN (09:59)
[2020-03-15] MEDS ORDERED: ATROPINE SULFATE 0.1 MG/ML 10ML SYR IV PRN (09:59)
[2020-03-15] MEDS ORDERED: LABETALOL HCL IV 5 MG/ML 20ML IV PRN (09:59)
[2020-03-15] MEDS ORDERED: GLYCOPYRROLATE 0.2 MG/ML VIAL ONE (11:07)
[2020-03-15] MEDS ORDERED: ONDANSETRON INJ 2 MG/ML 2 ML VIAL ONE (11:07)
[2020-03-15] MEDS ORDERED: LIDOCAINE HCL 2% 2 ML VIAL/AMP(20MG/ML) INFIL ONE (11:07)
[2020-03-15] MEDS ORDERED: PROPOFOL IV EMULSION 10 MG/ML 20 ML VIAL IV ONE (11:07)
--- NOTE | 2020-03-15 11:17 | GI REPORT ---
Patient Name: Ramu Ordaz Procedure Date: 03/15/2020 11:07 AM Date of : 1935 Admit Type: Inpatient Age: 84 Gender: Male Attending MD: Larissa Clay DO Procedure: Upper GI endoscopy Providers: Larissa Clay DO Referring MD: Carlton HONG Indications: Abnormal CT of the GI tract, Abnormal MRI of the GI tract Medicines: Monitored Anesthesia Care Complications: No immediate complications. Estimated blood loss: Minimal. Estimated Blood Loss: Estimated blood loss was minimal. Procedure: Pre-Anesthesia Assessment: - Prior to the procedure, a History and Physical was performed, and patient medications, allergies and sensitivities were reviewed. The patient's tolerance of previous anesthesia was reviewed. - Patient identification and proposed procedure were verified prior to the procedure by the physician, the nurse and the vice president mission integration. The procedure was verified in the procedure room. - Pre-procedure physical examination revealed no contraindications to sedation. - ASA Grade Assessment: III - A patient with severe systemic disease. - After reviewing the risks and benefits, the patient was deemed in satisfactory condition to undergo the procedure. - The anesthesia plan was to use monitored anesthesia care (MAC). - Immediately prior to administration of medications, the patient was re-assessed for adequacy to receive sedatives. - The heart rate, respiratory rate, oxygen saturations, blood pressure, adequacy of pulmonary ventilation, and response to care were monitored throughout the procedure. - The physical status of the patient was re-assessed after the procedure. - The patient is unable to give consent secondary to the patient's altered mental status. The alternatives, risks and benefits of the procedure were discussed at length with the patient's spouse. The patient's proxy verbalized understanding of the risks as well as the alternatives and wished to proceed with the procedure. After obtaining informed consent, the endoscope was passed under direct vision. Throughout the procedure, the patient's blood pressure, pulse, and oxygen saturations were monitored continuously. The Endoscope was introduced through the mouth, and advanced to the third part of duodenum. The upper GI endoscopy was accomplished without difficulty. The patient tolerated the procedure well. Findings: The examined esophagus was normal. The Z-line was regular and was found 38 cm from the incisors. Diffuse mild inflammation characterized by congestion (edema), erythema and granularity was found in the entire examined stomach. Biopsies were taken with a cold forceps for histology. The pathology specimen was placed into Bottle A. Estimated blood loss was minimal. The examined duodenum was normal. Impression: - Normal esophagus. - Z-line regular, 38 cm from the incisors. - Gastritis. Biopsied. - Normal. Recommendation: - Perform an upper endoscopic ultrasound (UEUS) today. - Await pathology results. Larissa Clay D.O. Larissa Clay, DO 03/15/2020 11:17:06 AM This report has been signed electronically. Note Initiated On: 03/15/2020 11:07 AM Number of Addenda: 0 I attest to the content of the Intraoperative Record and orders documented therein, exceptions below {[id number]}
--- NOTE | 2020-03-15 12:00 | Post Operative Brief Note ---
Immediate Post Op Note v1 Date of Surgery March 15, 2020 Pre & Post Diagnosis Operation Date: 03/15/20 07:00 Pre-Op Diagnosis: SEPTIC SHOCK, ASCENDING CHOLANGITIS Post-Op Diagnosis: Cholelithiasis / cholangitis Gastritisi I identified the patient and participated in the time-out.: Yes Procedure Operation Date: 03/15/20 07:00 Actual Procedures s Endoscopic Retrograde Cholangiopancreatogram - Larissa Clay DO p Esophagogastroduodenoscopy, Upper Endoscopic Ultrasonography, - Larissa Clay DO Surgeon Larissa Clay DO Mechanic Welder None Estimated Blood Loss 1 Findings Consistent with Post-Op Diagnosis
--- NOTE | 2020-03-15 12:05 | Communication Note ---
Date of Service: March 15, 2020 Patient underwent upper endoscopy, endoscopic ultrasound and ERCP today. Findings diffuse gastritis (likely medication related) Choledocholithiasis/cholangitis interventions: Biliary sphincterotomy Gallstones extraction Prophylactic stent placement Biliary stent placement Recommendations Continue use of broad-spectrum antibiotics for another 10 days Hold Plavix for 72 hours Clear liquid diet today General surgery consultation to determine if cholecystectomy an option for the patient Please call the on-call GI service with any questions or concerns over the weekend
--- NOTE | 2020-03-15 12:13 | GI REPORT ---
Patient Name: Ramu Ordaz Procedure Date: 03/15/2020 11:17 AM Date of : 1935 Admit Type: Inpatient Age: 84 Gender: Male Attending MD: Larissa Clay DO Procedure: Upper EUS Providers: Larissa Clay DO Referring MD: VANDA Whitaker Indications: Elevated liver enzymes Medicines: Monitored Anesthesia Care Complications: No immediate complications. Estimated blood loss: Minimal. Estimated Blood Loss: Estimated blood loss was minimal. Procedure: Pre-Anesthesia Assessment: - Prior to the procedure, a History and Physical was performed, and patient medications, allergies and sensitivities were reviewed. The patient's tolerance of previous anesthesia was reviewed. - The patient is unable to give consent secondary to the patient's altered mental status. The alternatives, risks and benefits of the procedure were discussed at length with the patient's spouse. The patient's proxy verbalized understanding of the risks as well as the alternatives and wished to proceed with the procedure. - Patient identification and proposed procedure were verified prior to the procedure by the physician, the nurse and the software test analyst. The procedure was verified in the procedure room. - Pre-procedure physical examination revealed no contraindications to sedation. - ASA Grade Assessment: III - A patient with severe systemic disease. - After reviewing the risks and benefits, the patient was deemed in satisfactory condition to undergo the procedure. - The anesthesia plan was to use monitored anesthesia care (MAC). - Immediately prior to administration of medications, the patient was re-assessed for adequacy to receive sedatives. - The heart rate, respiratory rate, oxygen saturations, blood pressure, adequacy of pulmonary ventilation, and response to care were monitored throughout the procedure. - The physical status of the patient was re-assessed after the procedure. After obtaining informed consent, the endoscope was passed under direct vision. Throughout the procedure, the patient's blood pressure, pulse, and oxygen saturations were monitored continuously. The Scope was introduced through the mouth, and advanced to the third part of duodenum. The upper EUS was accomplished without difficulty. The patient tolerated the procedure well. Findings: ENDOSONOGRAPHIC FINDING: : There was no sign of significant endosonographic abnormality in the ampulla. No masses were identified. Moderate hyperechoic material consistent with sludge was visualized endosonographically in the common bile duct. Multiple stones were visualized endosonographically in the lower third of the main bile duct. The stones measured up to 5 mm in greatest dimension. The stones were round. They were hyperechoic. Multiple stones were visualized endosonographically in the gallbladder. They were hyperechoic. Moderate hyperechoic material consistent with sludge was visualized endosonographically in the gallbladder. The gallbladder wall was thickened measuring 5 mm. There was no sign of significant endosonographic abnormality in the pancreatic body, pancreatic tail, pancreatic neck and main pancreatic duct. No masses. A hypoechoic lesion suggestive of a cyst was identified in the pancreatic head. It is not in obvious communication with the pancreatic duct. The lesion measured 14 mm by 8 mm in maximal cross-sectional diameter. There were a few compartments thinly septated. The outer wall of the lesion was not seen. There was no associated mass. There was no internal debris within the fluid-filled cavity. No lymphadenopathy seen. Impression: - There was no sign of significant pathology in the ampulla. - Hyperechoic material consistent with sludge was visualized endosonographically in the common bile duct. - Multiple stones were visualized endosonographically in the lower third of the main bile duct. - Multiple stones were visualized endosonographically in the gallbladder. - Hyperechoic material consistent with sludge was visualized endosonographically in the gallbladder. - There was no sign of significant pathology in the pancreatic body, pancreatic tail, pancreatic neck and main pancreatic duct. - A cystic lesion was seen in the pancreatic head. Tissue has not been obtained. 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 Fine-needle aspiration not performed today given underlying cholangitis and patient's advanced dementia. - No specimens collected. Recommendation: - Perform an ERCP today. -Repeat CT of abdomen in 1 year for follow-up of the pancreatic cyst Larissa Clay D.O. Larissa Clay DO 03/15/2020 12:13:03 PM This report has been signed electronically. Note Initiated On: 03/15/2020 11:17 AM Number of Addenda: 0 I attest to the content of the Intraoperative Record and orders documented therein, exceptions below {[id number]}
--- NOTE | 2020-03-15 12:18 | GI REPORT ---
Patient Name: Ramu Ordaz Procedure Date: 03/15/2020 11:29 AM Date of : 1935 Admit Type: Inpatient Age: 84 Gender: Male Attending MD: Larissa Clay DO Procedure: ERCP Providers: Larissa Clay DO Referring MD: Carlton HONG Indications: Abnormal endoscopic ultrasound of the biliary system, Suspected ascending cholangitis Medicines: Monitored Anesthesia Care Complications: No immediate complications. Estimated blood loss: Minimal. Estimated Blood Loss: Estimated blood loss was minimal. Procedure: Pre-Anesthesia Assessment: - Prior to the procedure, a History and Physical was performed, and patient medications, allergies and sensitivities were reviewed. The patient's tolerance of previous anesthesia was reviewed. - The patient is unable to give consent secondary to the patient's altered mental status. The alternatives, risks and benefits of the procedure were discussed at length with the patient's spouse. The patient's proxy verbalized understanding of the risks as well as the alternatives and wished to proceed with the procedure. - Patient identification and proposed procedure were verified prior to the procedure by the physician, the nurse and the bed machine operator. The procedure was verified in the procedure room. - Pre-procedure physical examination revealed no contraindications to sedation. - ASA Grade Assessment: III - A patient with severe systemic disease. - After reviewing the risks and benefits, the patient was deemed in satisfactory condition to undergo the procedure. - The anesthesia plan was to use monitored anesthesia care (MAC). - Immediately prior to administration of medications, the patient was re-assessed for adequacy to receive sedatives. - The heart rate, respiratory rate, oxygen saturations, blood pressure, adequacy of pulmonary ventilation, and response to care were monitored throughout the procedure. - The physical status of the patient was re-assessed after the procedure. After obtaining informed consent, the scope was passed under direct vision. Throughout the procedure, the patient's blood pressure, pulse, and oxygen saturations were monitored continuously. The Scope was introduced through the mouth, and advanced to the duodenum and used to inject contrast into the bile duct. The ERCP was accomplished without difficulty. The patient tolerated the procedure well. Findings: The office automation technician film was normal. The esophagus was successfully intubated under direct vision without detailed examination of the pharynx, larynx, and associated structures, and upper GI tract. The upper GI tract was grossly normal. The major papilla was adjacent to a diverticulum. The major papilla was congested. The ventral pancreatic duct was inadvertently cannulated with the short-nosed traction sphincterotome and guidewire without any complications. The wire was left in place to aid in biliary cannulation. The bile duct was then deeply cannulated with the short-nosed traction sphincterotome and guidewire. Contrast was injected. I personally interpreted the bile duct images. Contrast extended to the entire biliary tree. The lower third of the main bile duct contained filling defect(s) thought to be a stone. The main bile duct was moderately dilated. The largest diameter was 9 mm. Biliary sphincterotomy was made with a monofilament Fusion OMNI sphincterotome using ERBE electrocautery. The sphincterotomy oozed blood. To discover objects, the biliary tree was swept with a 15 mm balloon starting at the bifurcation. Sludge was swept from the duct. Three small pale stones were removed. No stones remained. Pus was swept from the duct. One 10 Fr by 8 cm biliary stent with a single external flap and a single internal flap was placed 8 cm into the common bile duct. Bile flowed through the stent. The stent was in good position. One 5 Fr by 7 cm pancreatic stent with a full external pigtail and no internal flaps was placed 7 cm into the ventral pancreatic duct. Clear fluid flowed through the stent. The stent was in good position. The endoscope was withdrawn from the patient. Indomethacin 100 mg was given via suppository to decrease the risk of post-ERCP pancreatitis (PEP). Impression: - The major papilla was adjacent to a diverticulum. - The major papilla appeared congested. - Choledocholithiasis and cholangitis was found. Complete removal was accomplished by biliary sphincterotomy and balloon extraction. - One biliary stent was placed into the common bile duct. - One prophylactic pancreatic stent was placed into the ventral pancreatic duct. - Indomethacin given to decrease risk of post-ERCP pancreatitis. Recommendation: - [facility]. - Clear liquid diet today. - Use broad spectrum antibiotics for 10 days. - Refer to a surgeon to discuss cholecystectomy. - Repeat ERCP in 6 weeks to remove stent. Larissa Clay D.O. Larissa Clay, 03/15/2020 12:18:15 PM This report has been signed electronically. Note Initiated On: 03/15/2020 11:29 AM Number of Addenda: 0 I attest to the content of the Intraoperative Record and orders documented therein, exceptions below {[id number]}
--- NOTE | 2020-03-15 12:30 | Anesthesiology Progress Note ---
Date of Service March 15, 2020 Anesthesia Post Procedure Vital Signs Vital Signs: Temp Pulse Pulse Resp BP Pulse Ox 03/15/20 12:10 36.4 C L 85 18 103/67 96 03/15/20 12:01 36.3 C L 84 12 100/58 L 96 03/15/20 09:46 37.1 C 78 18 160/93 H 99 03/15/20 07:41 36.9 C 83 16 111/79 100 03/14/20 23:15 36.9 C 82 18 116/72 100 03/14/20 15:27 36.8 C 68 16 122/77 97 03/14/20 13:36 36.9 C 74 14 119/77 96 Transfer of Care Handoff Completed per policy Notes Mental Status: alert / awake / arousable Patient Amnestic to Procedure: Yes Nausea / Vomiting: adequately controlled Pain: adequately controlled Airway Patency, RR, SpO2: stable & adequate BP & HR: stable & adequate Hydration State: stable & adequate Anesthetic Complications: no major complications apparent
--- NOTE | 2020-03-15 12:38 | Fluoroscopy Report ---
[place] ERCP biliary ductal HISTORY: 84 years-old Male ERCP IN OR COMPARISON: CT abdomen pelvis 03/05/2020 TECHNIQUE: 6 spot fluoroscopic images of the abdominal right upper quadrant were obtained utilizing 4 2 seconds fluoroscopy time FINDINGS: Endoscope is noted within the duodenum. There is cannulation of the pancreatic and common bile ducts with retrograde injection of contrast into the biliary tree. Areas of apparent irregular narrowing ve rsus partial distention are noted within the common hepatic and cystic ducts. Balloon sweep of the co mmon bile duct. Partial opacification of the gallbladder. Subsequent images demonstrate deployment of a common bile duct stent which appears to be in satisfactory positioning. IMPRESSION: Status post placement of a common bile duct stent. ACT 112: Negative or not required by law. The above report was generated using voice recognition software. It may contain grammatical, syntax o r spelling errors. Electronically signed by: Garrett Perez M.D. 03/15/2020 12:37 PM
[2020-03-15] MEDS: POTASSIUM CHLORIDE / WTR 10 MEQ/100 ML PLCT IV SCH ×2 (13:32→14:31)
[2020-03-15] MEDS: OXYBUTYNIN CHLORIDE 5 MG TAB PO SCH ×2 (13:58→20:20)
[2020-03-15] MEDS: POTASSIUM CHLORIDE 20 MEQ/15 ML UDC PO SCH ×2 (13:58→20:17)
[2020-03-15] MEDS: CEROVITE ADV FORMULA TAB PO SCH (13:59)
[2020-03-15] MEDS: ENALAPRIL MALEATE 10 MG TAB PO SCH (14:12)
[2020-03-15] MEDS: FUROSEMIDE 40 MG TAB PO SCH (14:13)
[2020-03-15] MEDS: ATENOLOL 25 MG TABLET PO SCH (14:13)
[2020-03-15] MEDS ORDERED: Nursing to Pharmacy Communication SCH (16:45)
--- NOTE | 2020-03-15 19:27 | Hospitalist Progress Note ---
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 Initially hypotensive with SBP in 70s. Received 2.5 L NSS but remained hypotensive and central line with placed and Levophed started with improvement of BP Hypoxic initially but improved with oxymask. Now 98% on 4L mask Febrile at 39.3 C. Lactic acid significantly elevated at 12.7, procalcitonin elevated at 42, T bili 5.1. AST 422. ALT 433 CT abd/pelvis without contrast limited but no abnormalities of biliary tract or pancreas seen History of sepsis and elevated LFTs in the past - found to have numerous hyperintense pancreatic lesions consistent with IPMN on imaging. Repeat MRCP recommended but family did not pursue due to patient's age/advanced dementia GI was consulted Family does not want to proceed with MRCP since they don't want any invasive procedure like ERCP He was initially placed on IV Vanco and Zosyn then switched to Rocephin on 03/08, Cefdinir on DC and stop abx on 03/16/20 Blood cx grew E.Coli and Klebsiella Oxytoca in blood Liver enzymes continue to increase Case discussed with Gastro who spoke to family Family agreed to proceed with MRCP and possible ERCP MRCP showed Normal caliber common bile duct and intrahepatic bile ducts. No filling defects within the common bile duct to suggest a stone. Sludge versus tiny stones within the gallbladder. Mild gallbladder wall thickening, unchanged. Mild periportal edema. Stable small T2 hyperintense pancreatic lesions measuring up to 1.2 cm. EUS showed gastritis ERCP showed choledocholithiasis/cholangitis. Gallstones extraction. Biliary stent placement GI recommended to continue broad-spectrum antibiotics for another 10 days Continue to hold Plavix for 72 hours Will start on clear liquid diet today Will consult general surgery consultation to evharsh for possible cholecystectomy Continue to hold statin for now due to elevate LFT Continue monitor CMP Atrial fibrillation with RVR HR initially 146 with ECG showing A. fib with RVR but improved to 110s with IV fluids, HR currently 86 Stable Dementia Vascular dementia at baseline with some behavioral disturbances Goals of care d/w with and daughter on admission who confirmed patient's previously stated wishes for DNR/DNI. DVT Ppx: SQ heparin Code status: DNR PCP: Jae Dispo: Will discharge to placement once medically stable Admission and Anticipated Discharge Date Admission Date: March 05, 2020 Subjective Pt was seen and examined for follow up of elevating liver enzymes Lying in bed with no distress Complaint of abdominal tenderness Denies any chest pain, palpitation, dizziness and SOB Physical Exam Physical Exam: General- No acute distress Head- atraumatic Eyes- PERRL, EOMI, ENT- oropharynx clear Neck- supple, no JVD Lungs- clear to auscultation Heart- regular rhythm; no murmur Abdomen- normal bowel sounds, soft, +tender Extremities- no calf tenderness Neuro- alert, PERRL, EOMI; no facial palsy; no dysarthria Skin- warm & dry, Jaundice Results & Data Results & Data ([facility]) Vital Signs (Past 12 Hours) Vital Signs Temp Pulse Pulse Pulse Resp BP Pulse Ox 03/15/20 14:46 36.4 C L 70 144/93 H 97 03/15/20 13:47 36.4 C L 84 145/82 H 88 L 03/15/20 13:00 36.3 C L 76 16 143/89 H 96 03/15/20 12:30 36.8 C 79 18 149/88 H 100 03/15/20 12:10 36.4 C L 85 18 103/67 96 03/15/20 12:01 36.3 C L 84 12 100/58 L 96 03/15/20 09:46 37.1 C 78 18 160/93 H 99 03/15/20 07:41 36.9 C 83 16 111/79 100
[2020-03-15] MEDS: TAMSULOSIN HCL 0.4 MG CAP PO SCH (20:20)
[2020-03-16 08:28] LABS: Hematocrit (blood only) 37.4 % (42-52); Hemoglobin 12.4 g/dL (14.0-18.0); Mean Corpuscular Hemoglobin 32.7 pg (25-34); Mean Corpuscular Hgb Conc 33.2 g/dL (32-36); Mean Corpuscular Volume 98.7 fL (80-100); Mean Platelet Volume 10.6 fL (7.4-10.4); Platelet Count 265 K/uL (130-400); RDW Coefficient of Variation 15.8 % (11.5-14.5); RDW Standard Deviation 56.8 fL (36.4-46.3); Red Blood Count 3.79 M/uL (4.7-6.1); White Blood Count 6.95 K/uL (4.8-10.8)
[2020-03-16] MEDS: ATENOLOL 25 MG TABLET PO SCH (08:36)
[2020-03-16] MEDS: OXYBUTYNIN CHLORIDE 5 MG TAB PO SCH ×2 (08:36→21:10)
[2020-03-16] MEDS: CEROVITE ADV FORMULA TAB PO SCH (08:37)
[2020-03-16] MEDS: ENALAPRIL MALEATE 10 MG TAB PO SCH (08:37)
[2020-03-16] MEDS: REPAGLINIDE 1 MG TAB PO SCH ×3 (08:37→17:57)
[2020-03-16] MEDS: FUROSEMIDE 40 MG TAB PO SCH (08:37)
[2020-03-16] MEDS: POTASSIUM CHLORIDE 20 MEQ/15 ML UDC PO SCH ×3 (08:38→21:18)
[2020-03-16] MEDS: cefTRIAXone SODIUM 2,000 MG in DEXTROSE 5% 50 ML IV SCH (08:45)
[2020-03-16 09:31] LABS: Albumin Globulin Ratio 0.6 (0.9-2); Albumin Level 2.4 gm/dl (3.4-5.0); BUN Creatinine Ratio 24.3 (10-20); Bilirubin Direct 3.4 mg/dl (0-0.2); Bilirubin,Total 4.7 mg/dl (0.2-1); Calcium 8.4 mg/dl (8.5-10.1); Creatinine Clr Calc Pharmacy 71.9 ml/min; Est GFR (African American) 91.4; Est GFR (Non-African American) 78.9; Globulin 3.9 gm/dl (2.5-4.0); Potassium 3.8 mmol/L (3.5-5.1); Total Protein 6.3 gm/dl (6.4-8.2)
[2020-03-16] MEDS: INSULIN ASPART 100 UNITS/ML 3 ML PEN SC SCH ×4 (11:13→21:12)
--- NOTE | 2020-03-16 14:17 | Gastroenterology Progress Note ---
Date of Service March 16, 2020 Assessment & Plan (1) Ascending cholangitis: (2) Choledocholithiasis: s/p ERCP 03/15, doing well Recs: --diet as tolerated --surgical evaluation for CCY --needs repeat ERCP in 6 weeks to remove stent --continue abx Admission and Anticipated Discharge Date Admission Date: March 05, 2020 Subjective no events overnight, VSS except for low temperature noted this morning. LFTs are improving, s/p ERCP with sphincterotomy and stent placement for choledocholitiasis on 03/15. He feels well currently. Review of Systems Constitutional: no fever and no chills Respiratory: no cough, no dyspnea and no dyspnea on exertion Cardiovascular: no chest pain and no dyspnea Gastrointestinal: as per Subjective / HPI Psychiatric: no depression and no anxiety Physical Exam Constitutional: WD/WN, vitals as above Respiratory: normal respiratory effort, lungs clear to auscultation Cardiovascular: RRR, no murmur, no edema Gastrointestinal (Abdomen): normal bowel sounds, soft, nontender, no hepatosplenomegaly Musculoskeletal: no lower extremity edema Psychiatric: A+Ox3, euthymic affect Results & Data Results & Data ([facility]) Vital Signs (Past 12 Hours) Vital Signs Temp Pulse Resp BP Pulse Ox 03/16/20 07:53 36.4 C L 82 18 116/75 92 PG Care Time/CCT Total # of Minutes Spent Total Time Spent with Patient: Total time spent is greater than 50% in coordination of care (as documented) at patient's floor/unit and/or counseling patient: Coding Level of Care Code 87745 Subseq Hosp Care Lvl 3 Diagnoses Ascending cholangitis K83.09 Choledocholithiasis K80.50
[2020-03-16] MEDS ORDERED: ALUMINUM/MAGNESIUM/SIMETH (MAALOX MAX) 30 ML UDC PO STA (16:54)
--- NOTE | 2020-03-16 17:07 | Hospitalist Progress Note ---
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 Initially hypotensive with SBP in 70s. Received 2.5 L NSS but remained hypotensive and central line with placed and Levophed started with improvement of BP Hypoxic initially but improved with oxymask. Now 98% on 4L mask Febrile at 39.3 C. Lactic acid significantly elevated at 12.7, procalcitonin elevated at 42, T bili 5.1. AST 422. ALT 433 CT abd/pelvis without contrast limited but no abnormalities of biliary tract or pancreas seen History of sepsis and elevated LFTs in the past - found to have numerous hyperintense pancreatic lesions consistent with IPMN on imaging. Repeat MRCP recommended but family did not pursue due to patient's age/advanced dementia GI was consulted Family does not want to proceed with MRCP since they don't want any invasive procedure like ERCP He was initially placed on IV Vanco and Zosyn then switched to Rocephin on 03/08, Cefdinir on DC and stop abx on 03/16/20 Blood cx grew E.Coli and Klebsiella Oxytoca in blood Liver enzymes continue to increase Case discussed with Gastro who spoke to family Family agreed to proceed with MRCP and possible ERCP MRCP showed Normal caliber common bile duct and intrahepatic bile ducts. No filling defects within the common bile duct to suggest a stone. Sludge versus tiny stones within the gallbladder. Mild gallbladder wall thickening, unchanged. Mild periportal edema. Stable small T2 hyperintense pancreatic lesions measuring up to 1.2 cm. EUS showed gastritis ERCP showed choledocholithiasis/cholangitis. Gallstones extraction. Biliary stent placement GI recommended to continue antibiotics for another 10 days (can transition to Cipro/flagyl or augmentin on discharge) Continue to hold Plavix for 72 hours Diet advance to full liquid Liver enzymes trending down GI follow up for stent removal in 6 weeks Will need general surgery consultation to eval for possible cholecystectomy, but does not want him to get eval for any surgery at this time. She wants him to get stronger and go to rehab, then in the next few weeks she will decide about the gallbladder removal at a tertiary facility due to high risk surgical candidate. Continue to hold statin for now due to elevate LFT Continue monitor CMP Atrial fibrillation with RVR HR initially 146 with ECG showing A. fib with RVR but improved to 110s with IV fluids, HR currently 86 Stable Dementia Vascular dementia at baseline with some behavioral disturbances Goals of care d/w with and daughter on admission who confirmed patient's previously stated wishes for DNR/DNI. Weakness PT/OT eval would like him to get to rehab Fall precaution DVT Ppx: SQ heparin Code status: DNR PCP: Jae Dispo: Will discharge to placement once medically stable Admission and Anticipated Discharge Date Admission Date: March 05, 2020 Subjective Pt was seen and examined for follow up of elevating liver enzymes Sitting in chair with no distress Pt is looking much better today He is more awake and alert today He said that he had some indigestion early I spoke to him about surgical eval for the gallbladder He said that he would prefer not to do any surgery but if the procedure will help him to go home, he will do it spoke to over the phone and provided with update and answered all her questions would like to wait until he gets stronger to discuss about surgery in the next few weeks She said that she would like him to get done at a tertiary hospital Pt said that he would like to go home, but would like him to go to rehab Denies any chest pain, palpitation, dizziness and sob Physical Exam Physical Exam: General- No acute distress Head- atraumatic Eyes- PERRL, EOMI, ENT- oropharynx clear Neck- supple, no JVD Lungs- clear to auscultation Heart- regular rhythm; no murmur Abdomen- normal bowel sounds, soft, +tender Extremities- no calf tenderness Neuro- alert, PERRL, EOMI; no facial palsy; no dysarthria Skin- warm & dry, Jaundice Results & Data Results & [facility] ([facility]) Vital Signs (Past 12 Hours) Vital Signs Temp Pulse Resp BP Pulse Ox 03/16/20 16:00 36.4 C L 81 18 91/67 L 98 01/16/21 07:53 36.4 C L 82 18 116/75 92
[2020-03-16] MEDS: TAMSULOSIN HCL 0.4 MG CAP PO SCH (21:10)
[2020-03-17 07:31] LABS: Albumin Level 2.1 gm/dl (3.4-5.0); BUN Creatinine Ratio 30.6 (10-20); Calcium 8.3 mg/dl (8.5-10.1); Est GFR (African American) 102.1; Est GFR (Non-African American) 88.1; Potassium 3.4 mmol/L (3.5-5.1)
[2020-03-17 07:47] LABS: Albumin Globulin Ratio 0.6 (0.9-2); Bilirubin,Total 3.4 mg/dl (0.2-1); Globulin 3.7 gm/dl (2.5-4.0); Total Protein 5.8 gm/dl (6.4-8.2)
[2020-03-17] MEDS ORDERED: POTASSIUM CHLORIDE CRTAB 20 MEQ TABCR PO ONE (08:30)
[2020-03-17] MEDS ORDERED: Nursing to Pharmacy Communication SCH (08:45)
[2020-03-17] MEDS: cefTRIAXone SODIUM 2,000 MG in DEXTROSE 5% 50 ML IV SCH (09:21)
[2020-03-17] MEDS: ENALAPRIL MALEATE 10 MG TAB PO SCH (09:25)
[2020-03-17] MEDS: FUROSEMIDE 40 MG TAB PO SCH (09:26)
[2020-03-17] MEDS: CEROVITE ADV FORMULA TAB PO SCH (09:26)
[2020-03-17] MEDS: ATENOLOL 25 MG TABLET PO SCH (09:26)
[2020-03-17] MEDS: REPAGLINIDE 1 MG TAB PO SCH ×3 (09:26→17:33)
[2020-03-17] MEDS: OXYBUTYNIN CHLORIDE 5 MG TAB PO SCH ×2 (09:27→19:58)
[2020-03-17] MEDS: INSULIN ASPART 100 UNITS/ML 3 ML PEN SC SCH ×4 (09:54→21:54)
[2020-03-17] MEDS: POTASSIUM CHLORIDE CRTAB 20 MEQ TABCR PO SCH ×2 (10:03→19:58)
--- NOTE | 2020-03-17 16:04 | Hospitalist Progress Note ---
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 Initially hypotensive with SBP in 70s. Received 2.5 L NSS but remained hypotensive and central line with placed and Levophed started with improvement of BP Hypoxic initially but improved with oxymask. Now 98% on 4L mask Febrile at 39.3 C. Lactic acid significantly elevated at 12.7, procalcitonin elevated at 42, T bili 5.1. AST 422. ALT 433 CT abd/pelvis without contrast limited but no abnormalities of biliary tract or pancreas seen History of sepsis and elevated LFTs in the past - found to have numerous hyperintense pancreatic lesions consistent with IPMN on imaging. Repeat MRCP recommended but family did not pursue due to patient's age/advanced dementia GI was consulted Family does not want to proceed with MRCP since they don't want any invasive procedure like ERCP He was initially placed on IV Vanco and Zosyn then switched to Rocephin on 03/08, Cefdinir on DC and stop abx on 03/16/20 Blood cx grew E.Coli and Klebsiella Oxytoca in blood Liver enzymes continue to increase Case discussed with Gastro who spoke to family Family agreed to proceed with MRCP and possible ERCP MRCP showed Normal caliber common bile duct and intrahepatic bile ducts. No filling defects within the common bile duct to suggest a stone. Sludge versus tiny stones within the gallbladder. Mild gallbladder wall thickening, unchanged. Mild periportal edema. Stable small T2 hyperintense pancreatic lesions measuring up to 1.2 cm. EUS showed gastritis ERCP showed choledocholithiasis/cholangitis. Gallstones extraction. Biliary stent placement GI recommended to continue antibiotics for another 10 days (can transition to Cipro/flagyl or augmentin on discharge) Plavix held for 72hrs, will resume tomorrow. Diet advance to full liquid and tolerated Liver enzymes continue trending down GI follow up for stent removal in 6 weeks Will need general surgery consultation to eval for possible cholecystectomy, but does not want him to get eval for any surgery at this time. She wants him to get stronger and go to rehab, then in the next few weeks she will decide about the gallbladder removal at a tertiary facility due to high risk surgical candidate. Continue to hold statin for now due to elevate LFT Continue monitor CMP Atrial fibrillation with RVR HR initially 146 with ECG showing A. fib with RVR but improved to 110s with IV fluids, HR currently 86 Stable Dementia Vascular dementia at baseline with some behavioral disturbances Goals of care d/w with and daughter on admission who confirmed patient's previously stated wishes for DNR/DNI. Weakness PT/OT eval would like him to get to rehab Fall precaution DVT Ppx: SQ heparin Code status: DNR PCP: Jae Dispo: Will discharge to placement once medically stable Admission and Anticipated Discharge Date Admission Date: March 05, 2020 Subjective Pt was seen and examined for follow up of elevating liver enzymes Lying in bed with no distress Pt said that he feels much better spoke to yesterday over the phone and provided with update and answered all her questions Pt said that he would like to go home because he has not seen his for week Denies any chest pain, palpitation, dizziness and sob Physical Exam Physical Exam: General- No acute distress Head- atraumatic Eyes- PERRL, EOMI, ENT- oropharynx clear Neck- supple, no JVD Lungs- clear to auscultation Heart- regular rhythm; no murmur Abdomen- normal bowel sounds, soft, +tender Extremities- no calf tenderness Neuro- alert, PERRL, EOMI; no facial palsy; no dysarthria Skin- warm & dry, Jaundice Results & Data Results & Data ([facility]) Vital Signs (Past 12 Hours) Vital Signs Temp Pulse Resp BP Pulse Ox 03/17/20 15:09 36.5 C 76 18 111/67 98 03/17/20 07:42 36.6 C 73 18 129/82 92
[2020-03-17] MEDS ORDERED: ACETAMINOPHEN 500 MG TAB PO PRN (17:14)
[2020-03-17] MEDS: TAMSULOSIN HCL 0.4 MG CAP PO SCH (19:58)
[2020-03-17] MEDS: INSULIN GLARGINE SOLOSTAR 100 UNITS/ML 3 ML PEN SC SCH (21:53)
[2020-03-18 08:12] LABS: Albumin Level 2.1 gm/dl (3.4-5.0); BUN Creatinine Ratio 28.4 (10-20); Calcium 8.6 mg/dl (8.5-10.1); Est GFR (African American) 102.1; Est GFR (Non-African American) 88.1; Potassium 3.8 mmol/L (3.5-5.1)
[2020-03-18 08:15] LABS: Albumin Globulin Ratio 0.6 (0.9-2); Globulin 3.6 gm/dl (2.5-4.0); Total Protein 5.7 gm/dl (6.4-8.2)
[2020-03-18] MEDS: REPAGLINIDE 1 MG TAB PO SCH ×3 (08:22→17:28)
[2020-03-18] MEDS: INSULIN ASPART 100 UNITS/ML 3 ML PEN SC SCH ×4 (08:23→20:50)
[2020-03-18] MEDS: ATENOLOL 25 MG TABLET PO SCH (08:24)
[2020-03-18] MEDS: OXYBUTYNIN CHLORIDE 5 MG TAB PO SCH ×2 (08:24→20:51)
[2020-03-18] MEDS: ENALAPRIL MALEATE 10 MG TAB PO SCH (08:24)
[2020-03-18] MEDS: FUROSEMIDE 40 MG TAB PO SCH (08:24)
[2020-03-18] MEDS: CEROVITE ADV FORMULA TAB PO SCH (08:25)
[2020-03-18] MEDS: POTASSIUM CHLORIDE CRTAB 20 MEQ TABCR PO SCH ×2 (08:25→20:51)
[2020-03-18] MEDS: cefTRIAXone SODIUM 2,000 MG in DEXTROSE 5% 50 ML IV SCH (08:33)
[2020-03-18] MEDS: CLOPIDOGREL BISULFATE 75 MG TAB PO SCH (08:33)
--- NOTE | 2020-03-18 16:47 | Hospitalist Progress Note ---
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 Initially hypotensive with SBP in 70s. Received 2.5 L NSS but remained hypotensive and central line with placed and Levophed started with improvement of BP Hypoxic initially but improved with oxymask. Now 98% on 4L mask Febrile at 39.3 C. Lactic acid significantly elevated at 12.7, procalcitonin elevated at 42, T bili 5.1. AST 422. ALT 433 CT abd/pelvis without contrast limited but no abnormalities of biliary tract or pancreas seen History of sepsis and elevated LFTs in the past - found to have numerous hyperintense pancreatic lesions consistent with IPMN on imaging. Repeat MRCP recommended but family did not pursue due to patient's age/advanced dementia GI was consulted Family does not want to proceed with MRCP since they don't want any invasive procedure like ERCP He was initially placed on IV Vanco and Zosyn then switched to Rocephin on 03/08, Cefdinir on DC and stop abx on 03/16/20 Blood cx grew E.Coli and Klebsiella Oxytoca in blood Liver enzymes continue to increase Case discussed with Gastro who spoke to family Family agreed to proceed with MRCP and possible ERCP MRCP showed Normal caliber common bile duct and intrahepatic bile ducts. No filling defects within the common bile duct to suggest a stone. Sludge versus tiny stones within the gallbladder. Mild gallbladder wall thickening, unchanged. Mild periportal edema. Stable small T2 hyperintense pancreatic lesions measuring up to 1.2 cm. EUS showed gastritis ERCP showed choledocholithiasis/cholangitis. Gallstones extraction. Biliary stent placement GI recommended to continue antibiotics for another 10 days (can transition to Cipro/flagyl or augmentin on discharge) Plavix held for 72hrs, will resume tomorrow. Diet advance to Puree diet Liver enzymes continue trending down GI follow up for stent removal in 6 weeks Will need general surgery consultation to eval for possible cholecystectomy, but does not want him to get eval for any surgery at this time. She wants him to get stronger and go to rehab, then in the next few weeks she will decide about the gallbladder removal at a tertiary facility due to high risk surgical candidate. Continue to hold statin for now due to elevate LFT Continue monitor CMP Clinically improved significantly Atrial fibrillation with RVR HR initially 146 with ECG showing A. fib with RVR but improved to 110s with IV fluids, HR currently 86 Stable Dementia Vascular dementia at baseline with some behavioral disturbances Goals of care d/w with and daughter on admission who confirmed patient's previously stated wishes for DNR/DNI. Weakness PT/OT eval would like him to get to rehab Fall precaution DVT Ppx: SQ heparin Code status: DNR PCP: Jae Dispo: Will discharge to placement once medically stable Admission and Anticipated Discharge Date Admission Date: March 05, 2020 Subjective Pt was seen and examined for follow up of elevating liver enzymes Sitting in chair with no distress Pt said that he feels much better Pt would like to go home because he has not seen his for week Denies any chest pain, palpitation, dizziness and sob Physical Exam Physical Exam: General- No acute distress Head- atraumatic Eyes- PERRL, EOMI, ENT- oropharynx clear Neck- supple, no JVD Lungs- clear to auscultation Heart- regular rhythm; no murmur Abdomen- normal bowel sounds, soft, +tender Extremities- no calf tenderness Neuro- alert, PERRL, EOMI; no facial palsy; no dysarthria Skin- warm & dry, Jaundice Results & Data Results & Data ([facility]) Vital Signs (Past 12 Hours) Vital Signs Temp Pulse Resp BP Pulse Ox 03/18/20 15:03 36.4 C L 67 18 110/68 92 03/18/20 07:22 36.8 C 88 16 135/91
[2020-03-18] MEDS: INSULIN GLARGINE SOLOSTAR 100 UNITS/ML 3 ML PEN SC SCH (20:49)
[2020-03-18] MEDS: TAMSULOSIN HCL 0.4 MG CAP PO SCH (20:51)
[2020-03-19] MEDS: INSULIN ASPART 100 UNITS/ML 3 ML PEN SC SCH ×3 (08:18→17:40)
[2020-03-19] MEDS: REPAGLINIDE 1 MG TAB PO SCH ×2 (09:09→17:39)
[2020-03-19] MEDS: cefTRIAXone SODIUM 2,000 MG in DEXTROSE 5% 50 ML IV SCH (09:09)
[2020-03-19] MEDS: CLOPIDOGREL BISULFATE 75 MG TAB PO SCH (09:09)
[2020-03-19] MEDS: CEROVITE ADV FORMULA TAB PO SCH (09:09)
[2020-03-19] MEDS: OXYBUTYNIN CHLORIDE 5 MG TAB PO SCH (09:10)
[2020-03-19] MEDS: POTASSIUM CHLORIDE CRTAB 20 MEQ TABCR PO SCH (09:10)
[2020-03-19] MEDS: FUROSEMIDE 40 MG TAB PO SCH (09:10)
[2020-03-19] MEDS: ATENOLOL 25 MG TABLET PO SCH (09:10)
[2020-03-19] MEDS: ENALAPRIL MALEATE 10 MG TAB PO SCH (09:10)
[2020-03-19 10:31] LABS: Albumin Level 2.2 gm/dl (3.4-5.0); BUN Creatinine Ratio 22.6 (10-20); Calcium 8.5 mg/dl (8.5-10.1); Creatinine Clr Calc Pharmacy 74.5 ml/min; Est GFR (African American) 92.8; Est GFR (Non-African American) 80.1; Potassium 4.2 mmol/L (3.5-5.1)
[2020-03-19 10:35] LABS: Albumin Globulin Ratio 0.6 (0.9-2); Bilirubin,Total 2.5 mg/dl (0.2-1); Globulin 3.6 gm/dl (2.5-4.0); Total Protein 5.8 gm/dl (6.4-8.2)
[2020-03-19] MEDS ORDERED: ALUMINUM/MAGNESIUM SUSP 30 ML UDC PO PRN (15:19)
--- NOTE | 2020-03-19 16:28 | Hospitalist Progress Note ---
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 Initially hypotensive with SBP in 70s. Received 2.5 L NSS but remained hypotensive and central line with placed and Levophed started with improvement of BP Hypoxic initially but improved with oxymask. Now 98% on 4L mask Febrile at 39.3 C. Lactic acid significantly elevated at 12.7, procalcitonin elevated at 42, T bili 5.1. AST 422. ALT 433 CT abd/pelvis without contrast limited but no abnormalities of biliary tract or pancreas seen History of sepsis and elevated LFTs in the past - found to have numerous hyperintense pancreatic lesions consistent with IPMN on imaging. Repeat MRCP recommended but family did not pursue due to patient's age/advanced dementia GI was consulted Family does not want to proceed with MRCP since they don't want any invasive procedure like ERCP He was initially placed on IV Vanco and Zosyn then switched to Rocephin on 03/08, Cefdinir on DC and stop abx on 03/16/20 Blood cx grew E.Coli and Klebsiella Oxytoca in blood Liver enzymes continue to increase Case discussed with Gastro who spoke to family Family agreed to proceed with MRCP and possible ERCP MRCP showed Normal caliber common bile duct and intrahepatic bile ducts. No filling defects within the common bile duct to suggest a stone. Sludge versus tiny stones within the gallbladder. Mild gallbladder wall thickening, unchanged. Mild periportal edema. Stable small T2 hyperintense pancreatic lesions measuring up to 1.2 cm. EUS showed gastritis ERCP showed choledocholithiasis/cholangitis. Gallstones extraction. Biliary stent placement GI recommended to continue antibiotics for another 10 days (can transition to Cipro/flagyl or augmentin on discharge) Plavix held for 72hrs, will resume tomorrow. Diet advance to Puree diet Liver enzymes continue trending down GI follow up for stent removal in 6 weeks Will need general surgery consultation to eval for possible cholecystectomy, but does not want him to get eval for any surgery at this time. She wants him to get stronger and go to rehab, then in the next few weeks she will decide about the gallbladder removal at a tertiary facility due to high risk surgical candidate. Statin was on hold due to elevate LFT, will resume on discharge Continue monitor CMP Clinically improved significantly Denture Speech on board and recommended puree diet for now Diet can advance as tolerated once pt has his denture said that she gave the denture when pt was in ER She is calling the nursing station to make sure they did not lose his denture Atrial fibrillation with RVR HR initially 146 with ECG showing A. fib with RVR but improved to 110s with IV fluids, HR currently 86 Stable Dementia Vascular dementia at baseline with some behavioral disturbances Goals of care d/w with and daughter on admission who confirmed patient's previously stated wishes for DNR/DNI. Weakness PT/OT eval would like him to get to rehab Fall precaution DVT Ppx: SQ heparin Code status: DNR PCP: Jae Dispo: Will discharge to placement today Admission and Anticipated Discharge Date Admission Date: March 05, 2020 Subjective Pt was seen and examined for follow up of elevating liver enzymes Sitting in chair with no distress Pt said that he feels much better Spoke to today and provided with updates and answered all his questions Pt would like to go home because he has not seen his for week, but wants him to go to rehab Denies any chest pain, palpitation, dizziness and sob Physical Exam Physical Exam: General- No acute distress Head- atraumatic Eyes- PERRL, EOMI, ENT- oropharynx clear Neck- supple, no JVD Lungs- clear to auscultation Heart- regular rhythm; no murmur Abdomen- normal bowel sounds, soft, +tender Extremities- no calf tenderness Neuro- alert, PERRL, EOMI; no facial palsy; no dysarthria Skin- warm & dry, Jaundice Results & Data Results & Data ([facility]) Vital Signs (Past 12 Hours) Vital Signs Temp Pulse Resp BP Pulse Ox 03/19/20 07:38 36.5 C 85 18 137/66 97
--- NOTE | 2020-03-20 11:25 | Discharge Summary ---
Date of Service March 19, 2020 Admission HPI Per Admitting Provider This is an 84-year-old male with PMH of vascular dementia, paroxysmal atrial fibrillation, hypertension, type 2 diabetes, IPMN, history of prostate cancer and other medical problems listed below who presents from home with abdominal pain and fatigue since yesterday. states that patient was oriented to self at baseline but otherwise confused. She has noticed decline since New Year's where patient is more fatigued and generally weak. Was complaining of abdominal pain yesterday. Had a similar admission back in April when patient presented with lethargy and confusion and was admitted to [facility] with sepsis. No abnormalities were present in the biliary tract on CT. The patient had mild gallbladder wall thickening, no biliary or pancreatic duct dilatation on MRCP. Patient had numerous hyperintense pancreatic lesions consistent with IPMN. Follow up MRCP was recommended in 6 months but was not pursued due to frail condition. In ED, patient found to be hypotensive and hypoxic. Received 2 L NSS remained hypotensive so central line was placed and nor epi started with improvement of BP. Heart rate initially 146 with ECG showing A. fib with RVR but improved to 110s with IV fluids. Saturating 95% on oxygen mask 6 L/min. Leukocytosis of 3.31. VBG pH 7.27. Lactic acid significantly elevated at 12.7. Procalcitonin elevated at 42. T bili 5.1. AST 422 ALT 433. Discussed case with Dr. Toussaint who will manage patient in ICU while receiving pressor support. Unable to obtain ROS 2/2 cognitive state. Discussed goals of care with and daughter, who confirmed patient's previously stated wishes for DNR/DNI. Okay to continue IV fluids, antibiotics and pressor support with continued conversation during admission. Admission Exam Per Admitting Provider General Appearance: vitals as above, acutely ill, does not respond to commands Head: normocephalic, atraumatic Eyes: normal inspection, PERRL, conjunctivae normal, anicteric sclerae ENT: external ear and nose normal, oropharynx normal Neck: normal visual inspection, trachea midline, no thyromegaly Respiratory: normal respiratory effort, lungs clear to auscultation but diminished at bases. No rales or rhonchi. No accessory muscle use Cardiovascular: Tachycardic, regular rate and rhythm, no murmur appreciated, normal peripheral pulses, no BLE edema. Vessels: no JVD Chest: normal inspection of chest Abdomen/GI: normal bowel sounds, TTP of RUQ but no guarding, no hepatosplenomegaly Extremities/Musculoskeletal: Venous stasis changes to BLE. No cyanosis or clubbing, extremities motor strength 5/5 Neurologic: PERRL, grimacing and nodding hear but unable to follow commands. Moves all extremities spontaneously Psychiatric: Lethargic, not able to answer questions appropriately Skin: no rashes, normal color, cool extremities with dusky appearance Principal Diagnosis (1) Septic shock: (2) Ascending cholangitis: (3) Acute metabolic encephalopathy: (4) Pancreatic lesion: (5) Metabolic acidosis: (6) Atrial fibrillation with rapid ventricular response: (7) Dementia: (8) Hypertension: Discharge Exam General- No acute distress Head- atraumatic Eyes- PERRL, EOMI, ENT- oropharynx clear Neck- supple, no JVD Lungs- clear to auscultation Heart- regular rhythm; no murmur Abdomen- normal bowel sounds, soft, +tender Extremities- no calf tenderness Neuro- alert, PERRL, EOMI; no facial palsy; no dysarthria Skin- warm & dry, Jaundice Discharge Data Allergies Allergy/AdvReac Type Severity Reaction Status Date / Time No Known Allergies Allergy Verified 03/05/20 15:50 Consultations 03/05/20 15:55 ED Decision to Admit Stat 03/05/20 17:06 Consult Chemical Dependency Attendant Routine 03/05/20 17:52 Consult Case Management - Discharge Planning Routine 03/06/20 16:26 Consult Gastroenterology Routine Procedures Performed Operation Date: 03/15/20 07:00 Actual Procedures s Endoscopic Retrograde Cholangiopancreatogram - Larissa Clay DO p , Upper Endoscopic Ultrasonography, - Larissa Clay DO s Esophagogastroduodenoscopy - Larissa Clay DO Ordered Studies 03/05/20 14:26 CT abd pelvis wo con Stat CT head/brain wo con Stat 03/14/20 11:03 MR MRCP Stat 03/15/20 09:56 US upper EUS PACS images Routine 03/15/20 11:30 FL ERCP biliary ductal Routine XR chest 1V portable HISTORY: SEPSIS COMPARISON: Chest 04/30/2019. FINDINGS: No pneumothorax. No pleural effusions. There are low lung volumes. The heart remains enlarged. No new focal lung consolidations to suggest pneumonia. No evidence for pulmonary edema. The right lung is clear. Possible 1.7 cm nodule within the left upper lobe. IMPRESSION: 1. No acute process within the chest. 2. Possible 1.7 cm left upper lobe nodule. Follow-up nonemergent chest CT is recommended for further evaluation. 3. Stable mild cardiomegaly. ACT 112: Positive. There are findings on this exam that require communication between the performing entity and the patient following Patient Test Result Information Act [place] Act 112) guidelines. Electronically signed by: Kareem Henderson M.D. 03/05/2020 3:02 PM Dictated: 03/05/20 1501Transcribed: 03/05/[address] SCAN OF THE ABDOMEN AND PELVIS WITHOUT IV CONTRAST CLINICAL HISTORY: Right-sided abdominal pain. COMPARISON STUDY: Abdominal CT dated 04/30/2019. TECHNIQUE: CT scan of the abdomen and pelvis is performed from the lung bases to the proximal femora. Images are reviewed in the axial, sagittal, and coronal planes. IV contrast was not administered for this examination. Note that the examination was performed in suboptimal fashion without oral and IV contrast. The examination is also degraded by motion artifact, and by streak artifact from the arms which could not be elevated above the abdomen. A dose lowering technique was utilized adhering to the principles of ALARA. CT DOSE: 1973.62 mGycm FINDINGS: Lung bases: The heart is enlarged and without pericardial effusion. The coronary arteries are densely calcified. The lung bases are clear noting dependent atelectasis. There is a small hiatal hernia. Liver: Evaluation of the liver is degraded by motion artifact. The unenhanced liver is mildly enlarged and demonstrates diffusely diminished attenuation consistent with hepatic steatosis. Fatty sparing is noted adjacent to gallbladder fossa. There is no intrahepatic biliary ductal dilatation. Gallbladder: Unremarkable. Spleen: Normal in size and attenuation. Pancreas: The unenhanced pancreas is atrophic and grossly unremarkable. Adrenal glands: Unremarkable. Kidneys: The unenhanced kidneys demonstrate cortical atrophy and are without hydronephrosis. There are no renal calculi identified. Right renal cysts are unchanged and measure up to 5.7 cm. Abdominal vasculature: There is advanced atherosclerotic calcification and mild ectasia of the abdominal aorta. Bowel: There is moderate colonic diverticulosis without CT evidence of acute diverticulitis. No bowel obstruction is seen. There is a small duodenal diverticulum. Mild fecal retention is seen throughout the colon. The appendix is well-visualized and normal. Peritoneum: There is no intraperitoneal free air or abdominal ascites. Lymphadenopathy: None. Pelvic viscera: The prostate gland is enlarged and heterogeneous measuring 5.[address] The bladder is decompressed around a Cadet catheter. Intraluminal gas is likely related to instrumentation. The bladder wall appears thickened and trabeculated suggesting chronic outlet obstruction. There are small bilateral fat-containing inguinal hernias. Skeletal structures: The skeletal structures are osteopenic. There are chronic compression deformities of T11 and L1. Moderate to advanced lumbosacral spondylosis is observed. No lytic or blastic lesions are seen. IMPRESSION: 1. Suboptimal examination without oral and IV contrast. The examination is also compromised by streak and motion artifact. 2. No acute infectious or inflammatory findings are identified in the abdomen or pelvis. 3. Hepatomegaly and hepatic steatosis. 4. Mild colonic fecal retention. No bowel obstruction is seen. 5. Moderate colonic diverticulosis without CT evidence of acute diverticulitis. 6. Additional findings as above. ACT 112: Negative or not required by law. Electronically signed by: Carlo Herring M.D. 03/05/2020 3:50 PM Dictated: 03/05/20 1542Transcribed: 03/05/[address] DOSE: HISTORY: Altered mental status. TECHNIQUE: Multiaxial CT images of the head were performed without the use of intravenous contrast. Automated exposure control was utilized for this study. A dose lowering technique was utilized adhering to the principles of ALARA. Comparison: Head CT 04/30/2019. Findings: The paranasal sinuses and mastoid air cells are clear. The calvarium and skull base are intact. There is no mass, hematoma, midline shift, acute infarct. White matter hypodensity is nonspecific but suggestive of microvascular ischemic change. The ventricles and sulci demonstrate moderate age-related involutional changes. Impression: No significant change compared to the prior study. No acute intracranial abnormality. ACT 112: Negative or not required by law. Electronically signed by: Kareem Henderson M.D. 03/05/2020 3:50 PM Dictated: 03/05/20 1546Transcribed: 03/05/20 1546 MR MRCP HISTORY: Sepsis. Right upper quadrant pain. Follow-up pancreatic lesions. evaluation for cbd stones, possible cholangitis TECHNIQUE: MRCP of the abdomen was performed without contrast according to standard departmental protocol. COMPARISON STUDY: MRCP 05/01/2019. FINDINGS: Old T11 and L1 compression deformities remain unchanged. Colonic diverticulosis. Trace bilateral pleural effusions and bibasilar consolidation. This is progressed. Motion artifact results in suboptimal evaluation of the abdomen. No definite hepatic or splenic masses. The adrenal glands are unremarkable. Stable T2 hyperintense lesions within the right kidney consistent with cysts. No hydronephrosis. No retroperitoneal lymphadenopathy. Normal caliber abdominal aorta. Mild gallbladder wall thickening, unchanged. There is mild periportal edema. Normal caliber common bile duct measuring up to 5 mm in diameter. No filling defects within the common bile duct to suggest a stone. The main pancreatic duct is normal in course and caliber. Mild bilateral perinephric edema, unchanged. There are few scattered T2 hyperintense lesions within the pancreas. Dominant lesion within the pancreatic head measures 1.2 cm. 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 Sludge versus tiny stones within the gallbladder. There is a beaded appearance of the proximal intrahepatic ducts and cystic ducts. This is located at the same level and therefore favors artifact. This was not present on the prior study. IMPRESSION: 1. Normal caliber common bile duct and intrahepatic bile ducts. No filling defects within the common bile duct to suggest a stone. 2. Sludge versus tiny stones within the gallbladder. Mild gallbladder wall thickening, unchanged. 3. Mild periportal edema. 4. Stable small T2 hyperintense pancreatic lesions measuring up to 1.2 cm. 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 ACT 112: Negative or not required by law. Electronically signed by: Kareem Henderson M.D. 03/14/2020 1:32 PM Dictated: 03/14/20 132Transcribed: 03/14/20 132 DICTATED BY: Larissa Clay DO Patient Name: Ramu Ordaz Procedure Date: 03/15/2020 11:29 AM Date of : 1935 Admit Type: Inpatient Age: 84 Gender: Male Attending MD: Larissa Clay DO Procedure: ERCP Providers: Larissa Clay DO Referring MD: Carlton HONG Indications: Abnormal endoscopic ultrasound of the biliary system, Suspected ascending cholangitis Medicines: Monitored Anesthesia Care Complications: No immediate complications. Estimated blood loss: Minimal. Estimated Blood Loss: Estimated blood loss was minimal. Procedure: Pre-Anesthesia Assessment: - Prior to the procedure, a History and Physical was performed, and patient medications, allergies and sensitivities were reviewed. The patient's tolerance of previous anesthesia was reviewed. - The patient is unable to give consent secondary to the patient's altered mental status. The alternatives, risks and benefits of the procedure were discussed at length with the patient's spouse. The patient's proxy verbalized understanding of the risks as well as the alternatives and wished to proceed with the procedure. - Patient identification and proposed procedure were verified prior to the procedure by the physician, the nurse and the chain builder. The procedure was verified in the procedure room. - Pre-procedure physical examination revealed no contraindications to sedation. - ASA Grade Assessment: III - A patient with severe systemic disease. - After reviewing the risks and benefits, the patient was deemed in satisfactory condition to undergo the procedure. - The anesthesia plan was to use monitored anesthesia care (MAC). - Immediately prior to administration of medications, the patient was re-assessed for adequacy to receive sedatives. - The heart rate, respiratory rate, oxygen saturations, blood pressure, adequacy of pulmonary ventilation, and response to care were monitored throughout the procedure. - The physical status of the patient was re-assessed after the procedure. After obtaining informed consent, the scope was passed under direct vision. Throughout the procedure, the patient's blood pressure, pulse, and oxygen saturations were monitored continuously. The Scope was introduced through the mouth, and advanced to the duodenum and used to inject contrast into the bile duct. The ERCP was accomplished without difficulty. The patient tolerated the procedure well. Findings: The policy writer sales film was normal. The esophagus was successfully intubated under direct vision without detailed examination of the pharynx, larynx, and associated structures, and upper GI tract. The upper GI tract was grossly normal. The major papilla was adjacent to a diverticulum. The major papilla was congested. The ventral pancreatic duct was inadvertently cannulated with the short-nosed traction sphincterotome and guidewire without any complications. The wire was left in place to aid in biliary cannulation. The bile duct was then deeply cannulated with the short-nosed traction sphincterotome and guidewire. Contrast was injected. I personally interpreted the bile duct images. Contrast extended to the entire biliary tree. The lower third of the main bile duct contained filling defect(s) thought to be a stone. The main bile duct was moderately dilated. The largest diameter was 9 mm. Biliary sphincterotomy was made with a monofilament Fusion OMNI sphincterotome using ERBE electrocautery. The sphincterotomy oozed blood. To discover objects, the biliary tree was swept with a 15 mm balloon starting at the bifurcation. Sludge was swept from the duct. Three small pale stones were removed. No stones remained. Pus was swept from the duct. One 10 Fr by 8 cm biliary stent with a single external flap and a single internal flap was placed 8 cm into the common bile duct. Bile flowed through the stent. The stent was in good position. One 5 Fr by 7 cm pancreatic stent with a full external pigtail and no internal flaps was placed 7 cm into the ventral pancreatic duct. Clear fluid flowed through the stent. The stent was in good position. The endoscope was withdrawn from the patient. Indomethacin 100 mg was given via suppository to decrease the risk of post-ERCP pancreatitis (PEP). Impression: - The major papilla was adjacent to a diverticulum. - The major papilla appeared congested. - Choledocholithiasis and cholangitis was found. Complete removal was accomplished by biliary sphincterotomy and balloon extraction. - One biliary stent was placed into the common bile duct. - One prophylactic pancreatic stent was placed into the ventral pancreatic duct. - Indomethacin given to decrease risk of post-ERCP pancreatitis. Recommendation: - [facility]. - Clear liquid diet today. - Use broad spectrum antibiotics for 10 days. - Refer to a surgeon to discuss cholecystectomy. - Repeat ERCP in 6 weeks to remove stent. Larissa Clay D.O. Larissa Clay, 03/15/2020 12:18:15 PM This report has been signed electronically. Note Initiated On: 03/15/2020 11:29 AM Number of Addenda: 0 I attest to the content of the Intraoperative Record and orders documented therein, exceptions below {[id number]} Signed By:{f rep sign date/time1]Created/Dictated: 03/15/20 1129Transcribed: 03/15/20 1218 DICTATED BY: Larissa Clay DO Patient Name: Ramu Ordaz Procedure Date: 03/15/2020 11:17 AM Date of : 1935 Admit Type: Inpatient Age: 84 Gender: Male Attending MD: Larissa Clay DO Procedure: Upper EUS Providers: Larissa Clay DO Referring MD: VANDA Whitaker Indications: Elevated liver enzymes Medicines: Monitored Anesthesia Care Complications: No immediate complications. Estimated blood loss: Minimal. Estimated Blood Loss: Estimated blood loss was minimal. Procedure: Pre-Anesthesia Assessment: - Prior to the procedure, a History and Physical was performed, and patient medications, allergies and sensitivities were reviewed. The patient's tolerance of previous anesthesia was reviewed. - The patient is unable to give consent secondary to the patient's altered mental status. The alternatives, risks and benefits of the procedure were discussed at length with the patient's spouse. The patient's proxy verbalized understanding of the risks as well as the alternatives and wished to proceed with the procedure. - Patient identification and proposed procedure were verified prior to the procedure by the physician, the nurse and the chain builder. The procedure was verified in the procedure room. - Pre-procedure physical examination revealed no contraindications to sedation. - ASA Grade Assessment: III - A patient with severe systemic disease. - After reviewing the risks and benefits, the patient was deemed in satisfactory condition to undergo the procedure. - The anesthesia plan was to use monitored anesthesia care (MAC). - Immediately prior to administration of medications, the patient was re-assessed for adequacy to receive sedatives. - The heart rate, respiratory rate, oxygen saturations, blood pressure, adequacy of pulmonary ventilation, and response to care were monitored throughout the procedure. - The physical status of the patient was re-assessed after the procedure. After obtaining informed consent, the endoscope was passed under direct vision. Throughout the procedure, the patient's blood pressure, pulse, and oxygen saturations were monitored continuously. The Scope was introduced through the mouth, and advanced to the third part of duodenum. The upper EUS was accomplished without difficulty. The patient tolerated the procedure well. Findings: ENDOSONOGRAPHIC FINDING: : There was no sign of significant endosonographic abnormality in the ampulla. No masses were identified. Moderate hyperechoic material consistent with sludge was visualized endosonographically in the common bile duct. Multiple stones were visualized endosonographically in the lower third of the main bile duct. The stones measured up to 5 mm in greatest dimension. The stones were round. They were hyperechoic. Multiple stones were visualized endosonographically in the gallbladder. They were hyperechoic. Moderate hyperechoic material consistent with sludge was visualized endosonographically in the gallbladder. The gallbladder wall was thickened measuring 5 mm. There was no sign of significant endosonographic abnormality in the pancreatic body, pancreatic tail, pancreatic neck and main pancreatic duct. No masses. A hypoechoic lesion suggestive of a cyst was identified in the pancreatic head. It is not in obvious communication with the pancreatic duct. The lesion measured 14 mm by 8 mm in maximal cross-sectional diameter. There were a few compartments thinly septated. The outer wall of the lesion was not seen. There was no associated mass. There was no internal debris within the fluid-filled cavity. No lymphadenopathy seen. Impression: - There was no sign of significant pathology in the ampulla. - Hyperechoic material consistent with sludge was visualized endosonographically in the common bile duct. - Multiple stones were visualized endosonographically in the lower third of the main bile duct. - Multiple stones were visualized endosonographically in the gallbladder. - Hyperechoic material consistent with sludge was visualized endosonographically in the gallbladder. - There was no sign of significant pathology in the pancreatic body, pancreatic tail, pancreatic neck and main pancreatic duct. - A cystic lesion was seen in the pancreatic head. Tissue has not been obtained. 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 Fine-needle aspiration not performed today given underlying cholangitis and patient's advanced dementia. - No specimens collected. Recommendation: - Perform an ERCP today. -Repeat CT of abdomen in 1 year for follow-up of the pancreatic cyst Larissa Clay D.O. Larissa Clay, 03/15/2020 12:13:03 PM This report has been signed electronically. Note Initiated On: 03/15/2020 11:17 AM Number of Addenda: 0 I attest to the content of the Intraoperative Record and orders documented therein, exceptions below {[id number]} Signed By:{f rep sign date/time1]Created/Dictated: 03/15/20 1117Transcribed: 03/15/20 1213 [place] ERCP biliary ductal HISTORY: 84 years-old Male ERCP IN OR COMPARISON: CT abdomen pelvis 03/05/2020 TECHNIQUE: 6 spot fluoroscopic images of the abdominal right upper quadrant were obtained utilizing 42 seconds fluoroscopy time FINDINGS: Endoscope is noted within the duodenum. There is cannulation of the pancreatic and common bile ducts with retrograde injection of contrast into the biliary tree. Areas of apparent irregular narrowing versus partial distention are noted within the common hepatic and cystic ducts. Balloon sweep of the common bile duct. Partial opacification of the gallbladder. Subsequent images demonstrate deployment of a common bile duct stent which appears to be in satisfactory positioning. IMPRESSION: Status post placement of a common bile duct stent. ACT 112: Negative or not required by law. The above report was generated using voice recognition software. It may contain grammatical, syntax or spelling errors. Electronically signed by: Garrett Perez M.D. 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 Initially hypotensive with SBP in 70s. Received 2.5 L NSS but remained hypotensive and central line with placed and Levophed started with improvement of BP Hypoxic initially but improved with oxymask. Now 98% on 4L mask Febrile at 39.3 C. Lactic acid significantly elevated at 12.7, procalcitonin elevated at 42, T bili 5.1. AST 422. ALT 433 CT abd/pelvis without contrast limited but no abnormalities of biliary tract or pancreas seen History of sepsis and elevated LFTs in the past - found to have numerous hyperintense pancreatic lesions consistent with IPMN on imaging. Repeat MRCP recommended but family did not pursue due to patient's age/advanced dementia GI was consulted Family does not want to proceed with MRCP since they don't want any invasive procedure like ERCP He was initially placed on IV Vanco and Zosyn then switched to Rocephin on 03/08, Cefdinir on DC and stop abx on 03/16/20 Blood cx grew E.Coli and Klebsiella Oxytoca in blood Liver enzymes continue to increase Case discussed with Gastro who spoke to family Family agreed to proceed with MRCP and possible ERCP MRCP showed Normal caliber common bile duct and intrahepatic bile ducts. No filling defects within the common bile duct to suggest a stone. Sludge versus tiny stones within the gallbladder. Mild gallbladder wall thickening, unchanged. Mild periportal edema. Stable small T2 hyperintense pancreatic lesions measuring up to 1.2 cm. EUS showed gastritis ERCP showed choledocholithiasis/cholangitis. Gallstones extraction. Biliary s tent placement GI recommended to continue antibiotics for another 10 days (can transition to Cipro/flagyl or augmentin on discharge) Plavix held for 72hrs, will resume tomorrow. Diet advance to Puree diet Liver enzymes continue trending down GI follow up for stent removal in 6 weeks Will need general surgery consultation to eval for possible cholecystectomy, but does not want him to get eval for any surgery at this time. She wants him to get stronger and go to rehab, then in the next few weeks she will decide about the gallbladder removal at a tertiary facility due to high risk surgical candidate. Statin was on hold due to elevate LFT, will resume on discharge Continue monitor CMP Clinically improved significantly Denture Speech on board and recommended puree diet for now Diet can advance as tolerated once pt has his denture said that she gave the denture when pt was in ER She is calling the nursing station to make sure they did not lose his denture Atrial fibrillation with RVR HR initially 146 with ECG showing A. fib with RVR but improved to 110s with IV fluids, HR currently 86 Stable Dementia Vascular dementia at baseline with some behavioral disturbances Goals of care d/w with and daughter on admission who confirmed patient's previously stated wishes for DNR/DNI. Weakness PT/OT eval would like him to get to rehab Fall precaution DVT Ppx: SQ heparin Code status: DNR PCP: Jae Dispo: Will discharge to placement today Total Time Total Time Spent Total Time Spent (In Minutes): 40 MINUTES Total Time Includes: Examination of the Patient, Discharge Planning, Medication Reconciliation, Communication With Other Providers and Other Discharge Plan Discharge Items Patient Disposition: Transfer Jail Fac Reason For Visit: SEPTIC SHOCK, ASCENDING CHOLANGITIS Discharge Diagnosis: (1) Septic shock: (2) Ascending cholangitis: (3) Acute metabolic encephalopathy: (4) Pancreatic lesion: (5) Metabolic acidosis: (6) Atrial fibrillation with rapid ventricular response: (7) Dementia: (8) Hypertension: Condition on Discharge: Fair Health Concerns: Will likely decline Activity: As commented below Activity Comment: PT/OT eval and treat Lifting: No more than 5 pounds Bathing: No limitations Exercise/Sports: Gradually increase as tolerated Weightbearing: Full weightbearing Non-emergency contact: Primary Care Provider Call non-emergency contact if: you have any medication questions Follow-up/Referrals: Carlton Rowe DO [Primary Care Provider] - Diet: Carb Consistent or DM2 and Heart Healthy Addtl Attending Provider Instructions: Follow up with your primary care provider once [facility] from prison facility Follow up with Gastroenterology for the Biliary stent removal in about 6 weeks You will need to follow with surgery to arrange for the gallbladder removal Continue physical therapy and occupational therapy Check CMP in 1 week to monitor your liver enzymes Complete the course of the antibiotic Fall precaution Advanced puree diet as tolerated once pt has his denture Aspiration precaution Pending Studies at Discharge: No Stand-Alone Forms: My [facility] Skilled Items Patient informed of condition?: Yes DNR: Yes Discharge Level of Care: Skilled Communicable Disease: Yes Discharge Prognosis: Stable Lines: None Urinary Catheter: No Medications and DC Order Prescriptions: New potassium chloride 20 mEq/15 mL Liquid 20 meq PO BID Qty: 473 RF: 0 amoxicillin-pot clavulanate [Augmentin] 875-125 mg tablet 1 tab PO Q12H Qty: 14 RF: 0 Continued metformin 500 mg Tablet 1,000 mg PO BID RF: 0 atenolol 25 mg Tablet 25 mg PO DAILY RF: 0 clopidogrel 75 mg Tablet 75 mg PO DAILY RF: 0 tamsulosin 0.4 mg Capsule 0.4 mg PO HS RF: 0 nitroglycerin [Nitrostat] 0.4 mg Tablet, Sublingual 0.4 mg sublingual DIRECTED PRN (Reason: Chest Pain) RF: 0 omeprazole 20 mg Capsule,Delayed Release(Dr/Ec) 20 mg PO DAILYBB RF: 0 quinapril 20 mg Tablet 20 mg PO DAILY RF: 0 pravastatin 20 mg Tablet 20 mg PO DAILY RF: 0 multivitamin with minerals Tablet 2 tab PO DAILY RF: 0 oxybutynin chloride 5 mg Tablet 5 mg PO BID RF: 0 loratadine [Claritin] 10 mg Tablet 10 mg PO DAILY PRN (Reason: Allergy Symptoms) RF: 0 repaglinide 1 mg Tablet 1 mg PO AC RF: 0 furosemide 40 mg tablet 40 mg PO QAM RF: 0 acetaminophen [Tylenol Extra Strength] 500 mg Tablet 500 mg PO TID RF: 0 Discharge Orders: Discharge Order (Routine); Ordered 03/19/20 Ordered By: Guillermina Herring Admission Data Admit Date/Time: 03/05/20 16:58 Attending Provider: Guillermina Herring Admit Provider: Guillermina Herring Primary Care Provider: Carlton Rowe Other Providers: Karely Clark ; Arabella, ; Yifan Asher ; Guillermina Herring ; Arden Toussaint ; Gem Curtis Other Interventions: Discharge Summary Assessment (RN) Last Done: 03/19/20 17:06
== END 2020-03-19 18:07 | DRG 871 ==
LOC: ED 14:05 → SUATTDRO 16:58 → 1E 16:58 → 3W 03-08 07:49

== ENCOUNTER 2020-04-02 13:37 | Inpatient (IN) ==
[2020-04-02] MEDS ORDERED: SODIUM CHLORIDE 0.9% 1000ML 1,000 ML IV SCH (14:15)
--- NOTE | 2020-04-02 14:27 | XRay Report ---
XR chest 1V portable HISTORY: 84 years-old Male SEPSIS acute sepsis COMPARISON: Chest radiograph 03/05/2020, 04/30/2019 TECHNIQUE: Portable AP view of the chest FINDINGS: Unchanged mild cardiomegaly. No pneumothorax, pleural effusion, airspace consolidation or overt pulmo nary edema. 1.7 cm nodular density of the left upper lung. Degenerative changes of the shoulders and spine. IMPRESSION: 1. Cardiomegaly without acute process. 2. 1.7 cm nodular opacity of the left upper lung may be secondary to summation density with the overl louisa anterior second rib, however a pulmonary nodule could appear similarly. Correlation with nonemer gent follow-up chest CT recommended. ACT 112: Negative or not required by law. The above report was generated using voice recognition software. It may contain grammatical, syntax o r spelling errors. Electronically signed by: Garrett Perez M.D. 04/02/2020 2:25 PM
--- NOTE | 2020-04-02 14:56 | Emergency Department Note ---
History of Present Illness General Chief complaint: Altered Mental Status Time Seen by Provider: 04/02/20 13:53 Source: patient Mode of arrival: EMS Limitations: altered mental status History of Present Illness Provider complaint: ams Onset (ago): unknown This is an 84-year-old male sent in from a local skilled nursing facility due to concern for acute mental status change and dysarthria. Patient was awake and alert was trying to answer some questions however due to his significant dysarthria this was difficult. Patient did verbalize he knew he was in the hospital. When asked if patient has chronic difficulty speaking he nodded his head yes. There was minimal other information that was conveyed to EMS and subsequently to our staff here. I did spend significant time trying to review the skilled nursing records that came with the patient as well as recent records on the patient from his recent admission for sepsis related to ascending cholangitis. Records also indicate history of TIA. Pt seen during a time of high acuity and national emergency pandemic while wearing PPE. Home Medications Medication Instructions Recorded Confirmed Type atenolol 25 mg PO DAILY 04/30/19 04/02/20 History clopidogrel 75 mg PO QDD 04/30/19 04/02/20 History loratadine [Claritin] 10 mg PO DAILY PRN 04/30/19 04/02/20 History metformin 1,000 mg PO BIDM 04/30/19 04/02/20 History multivitamin with minerals 2 tab PO QAM 04/30/19 04/02/20 History nitroglycerin [Nitrostat] 0.4 mg SUBLINGUAL DIRECTED PRN 04/30/19 04/02/20 History omeprazole 20 mg PO DAILYBB 04/30/19 04/02/20 History oxybutynin chloride 5 mg PO AMHS 04/30/19 04/02/20 History pravastatin 20 mg PO HS 04/30/19 04/02/20 History quinapril 20 mg PO QAM 04/30/19 04/02/20 History tamsulosin 0.4 mg PO HS 04/30/19 04/02/20 History acetaminophen [Tylenol Extra 500 mg PO TID 03/05/20 04/02/20 History Strength] furosemide 40 mg PO QAM 03/05/20 04/02/20 History potassium chloride 20 meq PO AMHS 04/02/20 04/02/20 History repaglinide [Prandin] 1 mg PO BID 04/02/20 04/02/20 History Allergies Allergy/AdvReac Type Severity Reaction Status Date / Time No Known Allergies Allergy Verified 04/02/20 15:46 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 repeat MRCP recommended in 6 months Surgical History H/O prostate biopsy Family History Other No pertinent family history in first degree relatives Social History Smoking Status: Former smoker Smoking End Date: approximately 10 years ago; Hx Alcohol Use: No Hx Substance Use: No Preferred Language: Maltese Communication Ability: Impaired Epic Cupid Analyst Required: No Beliefs That Will Affect Care: None marital status: Current Living Situation: [facility] Current Living Situation Comment: currently at [facility] Other Information That Helps Us Care for You: No Feels Safe at Home: Yes Safety Concerns: Feels Safe At This Time Assistive Devices: None Review of Systems See HPI for pertinent positives & negatives. and A total of 10 systems reviewed and were otherwise negative Physical Exam Vital Signs Vital Signs - 24 hr 04/02/20 13:43 04/02/20 13:56 04/02/20 14:00 Temperature Temperature Source Pulse Rate 93 H 76 77 Pulse Rate [Left] Pulse Rate from SpO2 Sensor 97 H 104 H Respiratory Rate 19 16 14 Respiratory Effort / Characteristics Respiratory Depth Respiratory Pattern Blood Pressure 119/74 90/58 L Blood Pressure [Right Arm] Blood Pressure Mean 89 68 Blood Pressure Mean [Right Arm] Blood Pressure Position [Right Arm] Pulse Oximetry Oxygen Delivery Method Sepsis Recent Fever Within 48 Hours Sepsis New/Unexplained Change in Mental Status Sepsis Action Taken by Nursing 04/02/20 14:01 04/02/20 14:03 04/02/20 14:10 Temperature 36.4 C L Temperature Source Oral Pulse Rate 79 83 79 Pulse Rate [Left] Pulse Rate from SpO2 Sensor 108 H Respiratory Rate 17 23 21 Respiratory Effort / Characteristics Non-Labored Spontaneous Respiratory Depth Normal Respiratory Pattern Regular Blood Pressure 119/74 Blood Pressure [Right Arm] Blood Pressure Mean 89 Blood Pressure Mean [Right Arm] Blood Pressure Position [Right Arm] Pulse Oximetry 98 Oxygen Delivery Method Room Air Sepsis Recent Fever Within 48 Hours No Sepsis New/Unexplained Change in Mental Status N/A Sepsis Action Taken by Nursing No Action Required 04/02/20 14:19 04/02/20 14:20 04/02/20 14:30 Temperature Temperature Source Pulse Rate 76 69 Pulse Rate [Left] Pulse Rate from SpO2 Sensor Respiratory Rate 19 18 Respiratory Effort / Characteristics Respiratory Depth Respiratory Pattern Blood Pressure 102/70 Blood Pressure [Right Arm] Blood Pressure Mean 80 Blood Pressure Mean [Right Arm] Blood Pressure Position [Right Arm] Pulse Oximetry Oxygen Delivery Method Room Air Sepsis Recent Fever Within 48 Hours Sepsis New/Unexplained Change in Mental Status Sepsis Action Taken by Nursing 04/02/20 14:31 04/02/20 14:40 04/02/20 14:50 Temperature Temperature Source Pulse Rate 66 70 78 Pulse Rate [Left] Pulse Rate from SpO2 Sensor 70 74 Respiratory Rate 18 13 15 Respiratory Effort / Characteristics Respiratory Depth Respiratory Pattern Blood Pressure Blood Pressure [Right Arm] Blood Pressure Mean Blood Pressure Mean [Right Arm] Blood Pressure Position [Right Arm] Pulse Oximetry 97 96 Oxygen Delivery Method Sepsis Recent Fever Within 48 Hours Sepsis New/Unexplained Change in Mental Status Sepsis Action Taken by Nursing 04/02/20 14:57 04/02/20 15:00 04/02/20 15:01 Temperature Temperature Source Pulse Rate 71 79 Pulse Rate [Left] 70 Pulse Rate from SpO2 Sensor 72 71 Respiratory Rate 20 17 16 Respiratory Effort / Characteristics Non-Labored Spontaneous Respiratory Depth Normal Respiratory Pattern Blood Pressure 123/70 Blood Pressure [Right Arm] 102/70 Blood Pressure Mean 87 Blood Pressure Mean [Right Arm] 80 Blood Pressure Position [Right Arm] Lying Pulse Oximetry 96 99 94 Oxygen Delivery Method Room Air Sepsis Recent Fever Within 48 Hours Sepsis New/Unexplained Change in Mental Status Sepsis Action Taken by Nursing 04/02/20 15:10 04/02/20 15:20 04/02/20 15:30 Temperature Temperature Source Pulse Rate 72 74 77 Pulse Rate [Left] Pulse Rate from SpO2 Sensor 74 70 Respiratory Rate 19 17 17 Respiratory Effort / Characteristics Respiratory Depth Respiratory Pattern Blood Pressure Blood Pressure [Right Arm] Blood Pressure Mean Blood Pressure Mean [Right Arm] Blood Pressure Position [Right Arm] Pulse Oximetry 93 91 93 Oxygen Delivery Method Sepsis Recent Fever Within 48 Hours Sepsis New/Unexplained Change in Mental Status Sepsis Action Taken by Nursing 04/02/20 15:31 04/02/20 15:40 04/02/20 15:50 Temperature Temperature Source Pulse Rate 76 78 77 Pulse Rate [Left] Pulse Rate from SpO2 Sensor 70 76 79 Respiratory Rate 16 15 12 Respiratory Effort / Characteristics Respiratory Depth Respiratory Pattern Blood Pressure 107/66 Blood Pressure [Right Arm] Blood Pressure Mean 79 Blood Pressure Mean [Right Arm] Blood Pressure Position [Right Arm] Pulse Oximetry 99 91 Oxygen Delivery Method Sepsis Recent Fever Within 48 Hours Sepsis New/Unexplained Change in Mental Status Sepsis Action Taken by Nursing 04/02/20 16:00 04/02/20 16:10 04/02/20 16:12 Temperature Temperature Source Pulse Rate 75 78 85 Pulse Rate [Left] Pulse Rate from SpO2 Sensor Respiratory Rate 22 19 15 Respiratory Effort / Characteristics Respiratory Depth Respiratory Pattern Blood Pressure 112/71 Blood Pressure [Right Arm] Blood Pressure Mean 84 Blood Pressure Mean [Right Arm] Blood Pressure Position [Right Arm] Pulse Oximetry Oxygen Delivery Method Sepsis Recent Fever Within 48 Hours Sepsis New/Unexplained Change in Mental Status Sepsis Action Taken by Nursing 04/02/20 16:20 04/02/20 16:30 04/02/20 16:40 Temperature Temperature Source Pulse Rate 92 H 80 Pulse Rate [Left] 77 Pulse Rate from SpO2 Sensor 81 Respiratory Rate 26 H 18 26 H Respiratory Effort / Characteristics Non-Labored Spontaneous Respiratory Depth Respiratory Pattern Blood Pressure 121/64 Blood Pressure [Right Arm] 121/64 Blood Pressure Mean 83 Blood Pressure Mean [Right Arm] 83 Blood Pressure Position [Right Arm] Lying Pulse Oximetry 97 Oxygen Delivery Method Room Air Sepsis Recent Fever Within 48 Hours Sepsis New/Unexplained Change in Mental Status Sepsis Action Taken by Nursing 04/02/20 16:41 04/02/20 16:50 04/02/20 17:00 Temperature Temperature Source Pulse Rate 94 H 74 81 Pulse Rate [Left] Pulse Rate from SpO2 Sensor 76 78 Respiratory Rate 19 14 17 Respiratory Effort / Characteristics Respiratory Depth Respiratory Pattern Blood Pressure Blood Pressure [Right Arm] Blood Pressure Mean Blood Pressure Mean [Right Arm] Blood Pressure Position [Right Arm] Pulse Oximetry 95 95 Oxygen Delivery Method Sepsis Recent Fever Within 48 Hours Sepsis New/Unexplained Change in Mental Status Sepsis Action Taken by Nursing 04/02/20 17:01 04/02/20 17:19 04/02/20 17:20 Temperature Temperature Source Pulse Rate 77 86 77 Pulse Rate [Left] Pulse Rate from SpO2 Sensor Respiratory Rate 12 16 19 Respiratory Effort / Characteristics Respiratory Depth Respiratory Pattern Blood Pressure 117/74 Blood Pressure [Right Arm] Blood Pressure Mean 88 Blood Pressure Mean [Right Arm] Blood Pressure Position [Right Arm] Pulse Oximetry Oxygen Delivery Method Sepsis Recent Fever Within 48 Hours Sepsis New/Unexplained Change in Mental Status Sepsis Action Taken by Nursing 04/02/20 17:30 04/02/20 17:31 04/02/20 17:40 Temperature Temperature Source Pulse Rate 98 H 84 76 Pulse Rate [Left] Pulse Rate from SpO2 Sensor 79 75 75 Respiratory Rate 21 17 20 Respiratory Effort / Characteristics Respiratory Depth Respiratory Pattern Blood Pressure 100/59 L Blood Pressure [Right Arm] Blood Pressure Mean 72 Blood Pressure Mean [Right Arm] Blood Pressure Position [Right Arm] Pulse Oximetry 95 96 97 Oxygen Delivery Method Sepsis Recent Fever Within 48 Hours Sepsis New/Unexplained Change in Mental Status Sepsis Action Taken by Nursing 04/02/20 17:50 04/02/20 18:00 04/02/20 18:01 Temperature Temperature Source Pulse Rate 80 80 85 Pulse Rate [Left] Pulse Rate from SpO2 Sensor 80 78 Respiratory Rate 18 22 19 Respiratory Effort / Characteristics Respiratory Depth Respiratory Pattern Blood Pressure 125/75 Blood Pressure [Right Arm] Blood Pressure Mean 91 Blood Pressure Mean [Right Arm] Blood Pressure Position [Right Arm] Pulse Oximetry 95 92 94 Oxygen Delivery Method Sepsis Recent Fever Within 48 Hours Sepsis New/Unexplained Change in Mental Status Sepsis Action Taken by Nursing 04/02/20 18:02 04/02/20 18:49 04/02/20 18:50 Temperature Temperature Source Pulse Rate 80 83 Pulse Rate [Left] Pulse Rate from SpO2 Sensor 74 80 Respiratory Rate 22 20 18 Respiratory Effort / Characteristics Respiratory Depth Respiratory Pattern Blood Pressure 125/74 Blood Pressure [Right Arm] Blood Pressure Mean 91 Blood Pressure Mean [Right Arm] Blood Pressure Position [Right Arm] Pulse Oximetry 98 99 100 Oxygen Delivery Method Sepsis Recent Fever Within 48 Hours Sepsis New/Unexplained Change in Mental Status Sepsis Action Taken by Nursing GENERAL: alert, well appearing, well nourished, no distress, non-toxic EYE EXAM: normal conjunctiva, PERRL and EOM's grossly intact, no nystagmus OROPHARYNX: no exudate, no erythema, lips, buccal mucosa, and tongue normal and mucous membranes are moist NECK: supple, no nuchal rigidity, no adenopathy, non-tender LUNGS: Clear to auscultation. Normal chest wall mechanics, no w/r/r HEART: no murmurs, S1 normal and S2 normal ABDOMEN: abdomen soft, non-tender, normo-active bowel sounds, no masses, no rebound or guarding. BACK: Back is symmetrical on inspection and there is no deformity, no midline tenderness, no CVA tenderness. SKIN: no rashes and no bruising UPPER EXTREMITIES: upper extremities are grossly normal. FROM, nml pulses b/l. LOWER EXTREMITIES: No pitting edema. FROM, nml pulses b/l. NEURO EXAM: Normal sensorium, cranial nerves II-XII grossly intact, slurred speech noted, mild facial droop, no gross weakness of arms, no gross weakness of legs. Gross sensation intact. Course Course 1643: Vital signs stable, no change in condition. 1749: Updated patient and at bedside. Patient hemodynamically stable. states she had noticed 2 days ago he seemed more confused than usual, however today his speech was worse. She feels his confusion is slightly less than 2 days ago however he still is more confused compared to baseline. She is also concerned due to his recent sepsis, and states that in the past he has become septic very quickly. Administered Medications Acetaminophen (Acetaminophen 325 Mg Tab) 325 mg PO Q6H PRN PRN Reason: Mild Pain Stop: 05/03/20 00:47 Last Admin: 04/03/20 21:00 Dose: 325 mg Documented by: [id number] Atenolol (Atenolol 25 Mg Tablet) 25 mg PO DAILY JAMES Stop: 05/03/20 08:59 Last Admin: 04/04/20 08:18 Dose: 25 mg Documented by: [id number] Admin: 04/03/20 11:11 Dose: Not Given Documented by: [id number] Clopidogrel Bisulfate (Clopidogrel Bisulfate 75 Mg Tab) 75 mg PO QDD JAMES Stop: 05/03/20 16:29 Last Admin: 04/04/20 15:37 Dose: 75 mg Documented by: [id number] Admin: 04/03/20 16:57 Dose: 75 mg Documented by: [id number] Dextrose (Dextrose 50% 50 Ml Syringe) 25 - 50 ml IV UD PRN; Protocol PRN Reason: Hypoglycemia Protocol Stop: 05/02/20 22:53 Last Admin: 04/02/20 23:23 Dose: 25 ml Documented by: [id number] Enoxaparin Sodium (Enoxaparin Inj 30 Mg/0.3 Ml Syr) [facility] Stop: 05/03/20 08:59 Last Admin: 04/04/20 08:18 Dose: 30 mg Documented by: [id number] Admin: 04/03/20 08:12 Dose: 30 mg Documented by: [id number] Multivitamins/Minerals (Cerovite Adv Formula Tab) 2 [facility] Stop: 05/03/20 08:59 Last Admin: 04/04/20 08:18 Dose: 2 tab Documented by: [id number] Admin: 04/03/20 11:09 Dose: 2 tab Documented by: [id number] Pantoprazole Sodium ([facility] 40 Mg Tab) [facility] Stop: 05/03/20 06:29 Last Admin: 04/04/20 05:46 Dose: 40 mg Documented by: [id number] Admin: 04/03/20 04:14 Dose: Not Given Documented by: [id number] Pravastatin Sodium (Pravastatin Sod 20 Mg Tab) 20 mg PO [facility] Stop: 05/03/20 20:59 Last Admin: 04/03/20 20:59 Dose: 20 mg Documented by: [id number] Tamsulosin HCl (Tamsulosin Hcl 0.4 Mg Cap) 0.4 mg PO [facility] Stop: 05/03/20 20:59 Last Admin: 04/03/20 20:59 Dose: 0.4 mg Documented by: [id number] Discontinued Medications Dextrose (Dextrose 50% 50 Ml Syringe) 50 ml IV NOW [facility] Stop: 04/02/20 16:58 Last Admin: 04/02/20 17:00 Dose: 50 ml Documented by: [id number] Dextrose (Dextrose 50% 50 Ml Syringe) Confirm Administered Dose 50 ml IV .STK- MED ONE Stop: 04/02/20 17:01 Last Admin: 04/02/20 17:01 Dose: Not Given Documented by: [id number] Sodium Chloride (Nss 1000ml) 1,000 mls @ 999 mls/hr IV .[id number] [facility] Stop: 04/02/20 15:15 Last Infusion: 04/02/20 15:56 Dose: 0 mls/hr Documented by: [id number] Admin: 04/02/20 14:31 Dose: 999 mls/hr Documented by: [id number] Sodium Chloride (Nss 1000ml) 1,000 mls @ 75 mls/hr IV .[id number] ONE Stop: 04/03/20 12:13 Last Infusion: 04/02/20 22:54 Dose: 0 mls/hr Documented by: [id number] Admin: 04/02/20 22:54 Dose: 75 mls/hr Documented by: [id number] Dextrose/Sodium Chloride (D5w And Nss) 1,000 mls @ 60 mls/hr IV .[id number] ONE Stop: 04/03/20 16:16 Last Infusion: 04/03/20 17:29 Dose: 0 mls/hr Documented by: [id number] Admin: 04/03/20 00:35 Dose: 60 mls/hr Documented by: [id number] Sodium Chloride (Nss 1000ml) 250 mls @ 999 mls/hr IV .Q16M ONE Stop: 04/04/20 16:49 Last Infusion: 04/04/20 17:34 Dose: 0 mls/hr Documented by: [id number] Admin: 04/04/20 17:03 Dose: 999 mls/hr Documented by: [id number] Insulin Aspart (Insulin Aspart 100 Units/Ml 3 Ml Pen) 0 units SC ACHS JAMES Stop: 05/02/20 22:53 Last Admin: 04/03/20 12:08 Dose: Not Given Documented by: [id number] Admin: 04/03/20 08:10 Dose: Not Given Documented by: [id number] Admin: 04/02/20 23:19 Dose: Not Given Documented by: [id number] Ioversol (Optiray 320 125ml) 116 ml IV ONCE ONE Stop: 04/02/20 17:10 Last Admin: 04/02/20 17:10 Dose: 116 ml Documented by: [id number] Ioversol (Ioversol 100ml) 94 ml IV ONCE ONE Stop: 04/03/20 18:05 Last Admin: 04/03/20 18:04 Dose: 94 ml Documented by: [id number] Medical Decision Making Differential Diagnosis Differential diagnoses includes but is not limited to toxic, metabolic, infectious, traumatic, cardiac, neurologic, hematologic, psychiatric and inflammatory etiologies. Medical Records Attestation: I reviewed the patient's medical records. Home Medications Current Medication List: was personally reviewed by me Laboratory Data Attestation: I reviewed the patient's lab results. Result diagrams: 04/03/20 06:13 04/04/20 07:12 Lab Results 04/02/20 04/02/20 04/02/20 Range/Units 13:57 14:45 15:52 WBC 7.48 (4.8-10.8) K/uL RBC 4.11 L (4.7-6.1) M/uL Hgb 13.6 L (14.0-18.0) g/dL Hct 40.5 L (42-52) % MCV 98.5 (80-100) fL MCH 33.1 (25-34) pg MCHC 33.6 (32-36) g/dL RDW Std Deviation 51.5 H (36.4-46.3) fL RDW Coeff of Adiel 14.4 (11.5-14.5) % Plt Count 259 (130-400) K/uL MPV 10.0 (7.4-10.4) fL Immature Gran % (Auto) 0.7 % Neut % (Auto) 76.6 % Lymph % (Auto) 11.6 % Mchenry % (Auto) 9.9 % Eos % (Auto) 0.9 % Baso % (Auto) 0.3 % Neut # (Auto) 5.73 (1.4-6.5) K/uL Lymph # (Auto) 0.87 L (1.2-3.4) K/uL Mchenry # (Auto) 0.74 H (0.11-0.59) K/uL Eos # (Auto) 0.07 (0-0.5) K/uL Baso # (Auto) 0.02 (0-0.2) K/uL Immature Gran # (Auto) 0.05 H (0.00-0.02) K/uL PT (9.0-12.0) Seconds INR (0.9-1.1) APTT (21.0-31.0) Seconds PTT Ratio Sodium (136-145) mmol/L Potassium (3.5-5.1) mmol/L Chloride (98-107) mmol/L Carbon Dioxide (21-32) mmol/L Anion Gap (3-11) BUN (7-18) mg/dl Creatinine (0.6-1.4) mg/dl Est Cr Clr Drug Dosing ml/min Est GFR ( Amer) Est GFR (Non-Af Amer) BUN/Creatinine Ratio (10-20) Glucose (70-99) mg/dl POC Glucose 72 (70-99) mg/dl Lactate (0.4-2.0) mmol/L Calcium (8.5-10.1) mg/dl Magnesium (1.8-2.4) mg/dl Total Bilirubin (0.2-1) mg/dl AST (15-37) U/L ALT (12-78) U/L Alkaline Phosphatase (45-117) U/L Ammonia (11-32) umol/L Total Creatine Kinase (39-308) U/L Troponin I (0-0.045) ng/ml Total Protein (6.4-8.2) gm/dl Albumin (3.4-5.0) gm/dl Globulin (2.5-4.0) gm/dl Albumin/Globulin Ratio (0.9-2) Procalcitonin (0-0.5) ng/ml TSH (0.300-4.500) uIu/ml Urine Color Dark Yellow Urine Appearance Clear (Clear) Urine pH 7.0 (4.5-7.5) Ur Specific [place] 1.017 (1.000-1.030) Urine Protein Negative (Negative) Urine Glucose (UA) Negative (Negative) Urine Ketones Negative (Negative) Urine Blood Negative (Negative) Urine Nitrite Negative (Negative) Urine Bilirubin 1+ H (Negative) Urine Urobilinogen Negative (Negative) Ur Leukocyte Esterase Trace H (Negative) Urine WBC (Auto) 1-5 (0-5) /hpf Urine RBC (Auto) 0-4 (0-4) /hpf U Hyaline Cast (Auto) 10-30 H (0-5) /lpf U Epithel Cells (Auto) 10-20 H (0-5) /lpf Urine Bacteria (Auto) Negative (Negative) COVID-19 Eval Order SARS-CoV-2, RNA, NAAT (NEGATIVE) 04/02/20 04/02/20 04/02/20 Range/Units 15:52 15:52 15:52 WBC (4.8-10.8) K/uL RBC (4.7-6.1) M/uL Hgb (14.0-18.0) g/dL Hct (42-52) % MCV (80-100) fL MCH (25-34) pg MCHC (32-36) g/dL RDW Std Deviation (36.4-46.3) fL RDW Coeff of Adiel (11.5-14.5) % Plt Count (130-400) K/uL MPV (7.4-10.4) fL Immature Gran % (Auto) % Neut % (Auto) % Lymph % (Auto) % Mchenry % (Auto) % Eos % (Auto) % Baso % (Auto) % Neut # (Auto) (1.4-6.5) K/uL Lymph # (Auto) (1.2-3.4) K/uL Mchenry # (Auto) (0.11-0.59) K/uL Eos # (Auto) (0-0.5) K/uL Baso # (Auto) (0-0.2) K/uL Immature Gran # (Auto) (0.00-0.02) K/uL PT 11.0 (9.0-12.0) Seconds INR 1.1 (0.9-1.1) APTT 26.7 (21.0-31.0) Seconds PTT Ratio 1.0 Sodium 138 (136-145) mmol/L Potassium 5.4 H (3.5-5.1) mmol/L Chloride 110 H (98-107) mmol/L Carbon Dioxide 23 (21-32) mmol/L Anion Gap 5.0 (3-11) BUN 23 H (7-18) mg/dl Creatinine 1.36 (0.6-1.4) mg/dl Est Cr Clr Drug Dosing 40.3 ml/min Est GFR ( Amer) 54.2 Est GFR (Non-Af Amer) 46.8 BUN/Creatinine Ratio 17.1 (10-20) Glucose 43 L* (70-99) mg/dl POC Glucose (70-99) mg/dl Lactate 1.5 (0.4-2.0) mmol/L Calcium 8.6 (8.5-10.1) mg/dl Magnesium 2.3 (1.8-2.4) mg/dl Total Bilirubin 1.6 H (0.2-1) mg/dl AST 34 (15-37) U/L ALT 57 (12-78) U/L Alkaline Phosphatase 255 H (45-117) U/L Ammonia (11-32) umol/L Total Creatine Kinase (39-308) U/L Troponin I < 0.015 (0-0.045) ng/ml Total Protein 7.0 (6.4-8.2) gm/dl Albumin 3.2 L (3.4-5.0) gm/dl Globulin 3.8 (2.5-4.0) gm/dl Albumin/Globulin Ratio 0.8 L (0.9-2) Procalcitonin (0-0.5) ng/ml TSH (0.300-4.500) uIu/ml Urine Color Urine Appearance (Clear) Urine pH (4.5-7.5) Ur Specific [place] (1.000-1.030) Urine Protein (Negative) Urine Glucose (UA) (Negative) Urine Ketones (Negative) Urine Blood (Negative) Urine Nitrite (Negative) Urine Bilirubin (Negative) Urine Urobilinogen (Negative) Ur Leukocyte Esterase (Negative) Urine WBC (Auto) (0-5) /hpf Urine RBC (Auto) (0-4) /hpf U Hyaline Cast (Auto) (0-5) /lpf U Epithel Cells (Auto) (0-5) /lpf Urine Bacteria (Auto) (Negative) COVID-19 Eval Order SARS-CoV-2, RNA, NAAT (NEGATIVE) 04/02/20 04/02/20 04/02/20 Range/Units 15:52 16:04 16:04 WBC (4.8-10.8) K/uL RBC (4.7-6.1) M/uL Hgb (14.0-18.0) g/dL Hct (42-52) % MCV (80-100) fL MCH (25-34) pg MCHC (32-36) g/dL RDW Std Deviation (36.4-46.3) fL RDW Coeff of Adiel (11.5-14.5) % Plt Count (130-400) K/uL MPV (7.4-10.4) fL Immature Gran % (Auto) % Neut % (Auto) % Lymph % (Auto) % Mchenry % (Auto) % Eos % (Auto) % Baso % (Auto) % Neut # (Auto) (1.4-6.5) K/uL Lymph # (Auto) (1.2-3.4) K/uL Mchenry # (Auto) (0.11-0.59) K/uL Eos # (Auto) (0-0.5) K/uL Baso # (Auto) (0-0.2) K/uL Immature Gran # (Auto) (0.00-0.02) K/uL PT (9.0-12.0) Seconds INR (0.9-1.1) APTT (21.0-31.0) Seconds PTT Ratio Sodium (136-145) mmol/L Potassium (3.5-5.1) mmol/L Chloride (98-107) mmol/L Carbon Dioxide (21-32) mmol/L Anion Gap (3-11) BUN (7-18) mg/dl Creatinine (0.6-1.4) mg/dl Est Cr Clr Drug Dosing ml/min Est GFR ( Amer) Est GFR (Non-Af Amer) BUN/Creatinine Ratio (10-20) Glucose (70-99) mg/dl POC Glucose (70-99) mg/dl Lactate (0.4-2.0) mmol/L Calcium (8.5-10.1) mg/dl Magnesium (1.8-2.4) mg/dl Total Bilirubin (0.2-1) mg/dl AST (15-37) U/L ALT (12-78) U/L Alkaline Phosphatase (45-117) U/L Ammonia (11-32) umol/L Total Creatine Kinase (39-308) U/L Troponin I (0-0.045) ng/ml Total Protein (6.4-8.2) gm/dl Albumin (3.4-5.0) gm/dl Globulin (2.5-4.0) gm/dl Albumin/Globulin Ratio (0.9-2) Procalcitonin 0.14 (0-0.5) ng/ml TSH (0.300-4.500) uIu/ml Urine Color Urine Appearance (Clear) Urine pH (4.5-7.5) Ur Specific [place] (1.000-1.030) Urine Protein (Negative) Urine Glucose (UA) (Negative) Urine Ketones (Negative) Urine Blood (Negative) Urine Nitrite (Negative) Urine Bilirubin (Negative) Urine Urobilinogen (Negative) Ur Leukocyte Esterase (Negative) Urine WBC (Auto) (0-5) /hpf Urine RBC (Auto) (0-4) /hpf U Hyaline Cast (Auto) (0-5) /lpf U Epithel Cells (Auto) (0-5) /lpf Urine Bacteria (Auto) (Negative) COVID-19 Eval Order Covid19 [email or web address] SARS-CoV-2, RNA, NAAT NEGATIVE (NEGATIVE) 04/02/20 04/02/20 04/02/20 Range/Units 16:56 17:26 20:46 WBC (4.8-10.8) K/uL RBC (4.7-6.1) M/uL Hgb (14.0-18.0) g/dL Hct (42-52) % MCV (80-100) fL MCH (25-34) pg MCHC (32-36) g/dL RDW Std Deviation (36.4-46.3) fL RDW Coeff of Adiel (11.5-14.5) % Plt Count (130-400) K/uL MPV (7.4-10.4) fL Immature Gran % (Auto) % Neut % (Auto) % Lymph % (Auto) % Mchenry % (Auto) % Eos % (Auto) % Baso % (Auto) % Neut # (Auto) (1.4-6.5) K/uL Lymph # (Auto) (1.2-3.4) K/uL [place]henry # (Auto) (0.11-0.59) K/uL Eos # (Auto) (0-0.5) K/uL Baso # (Auto) (0-0.2) K/uL Immature Gran # (Auto) (0.00-0.02) K/uL PT (9.0-12.0) Seconds INR (0.9-1.1) APTT (21.0-31.0) Seconds PTT Ratio Sodium (136-145) mmol/L Potassium 5.2 H (3.5-5.1) mmol/L Chloride (98-107) mmol/L Carbon Dioxide (21-32) mmol/L Anion Gap (3-11) BUN (7-18) mg/dl Creatinine (0.6-1.4) mg/dl Est Cr Clr Drug Dosing ml/min Est GFR ( Amer) Est GFR (Non-Af Amer) BUN/Creatinine Ratio (10-20) Glucose (70-99) mg/dl POC Glucose 48 L* 146 H (70-99) mg/dl Lactate (0.4-2.0) mmol/L Calcium (8.5-10.1) mg/dl Magnesium (1.8-2.4) mg/dl Total Bilirubin (0.2-1) mg/dl AST (15-37) U/L ALT (12-78) U/L Alkaline Phosphatase (45-117) U/L Ammonia (11-32) umol/L Total Creatine Kinase 121 (39-308) U/L Troponin I (0-0.045) ng/ml Total Protein (6.4-8.2) gm/dl Albumin (3.4-5.0) gm/dl Globulin (2.5-4.0) gm/dl Albumin/Globulin Ratio (0.9-2) Procalcitonin (0-0.5) ng/ml TSH 1.800 (0.300-4.500) uIu/ml Urine Color Urine Appearance (Clear) Urine pH (4.5-7.5) Ur Specific [place] (1.000-1.030) Urine Protein (Negative) Urine Glucose (UA) (Negative) Urine Ketones (Negative) Urine Blood (Negative) Urine Nitrite (Negative) Urine Bilirubin (Negative) Urine Urobilinogen (Negative) Ur Leukocyte Esterase (Negative) Urine WBC (Auto) (0-5) /hpf Urine RBC (Auto) (0-4) /hpf U Hyaline Cast (Auto) (0-5) /lpf U Epithel Cells (Auto) (0-5) /lpf Urine Bacteria (Auto) (Negative) COVID-19 Eval Order SARS-CoV-2, RNA, NAAT (NEGATIVE) 04/02/20 04/02/20 04/02/20 Range/Units 20:46 23:15 23:16 WBC (4.8-10.8) K/uL RBC (4.7-6.1) M/uL Hgb (14.0-18.0) g/dL Hct (42-52) % MCV (80-100) fL MCH (25-34) pg MCHC (32-36) g/dL RDW Std Deviation (36.4-46.3) fL RDW Coeff of Adiel (11.5-14.5) % Plt Count (130-400) K/uL MPV (7.4-10.4) fL Immature Gran % (Auto) % Neut % (Auto) % Lymph % (Auto) % [place] % (Auto) % Eos % (Auto) % Baso % (Auto) % Neut # (Auto) (1.4-6.5) K/uL Lymph # (Auto) (1.2-3.4) K/uL [place] # (Auto) (0.11-0.59) K/uL Eos # (Auto) (0-0.5) K/uL Baso # (Auto) (0-0.2) K/uL Immature Gran # (Auto) (0.00-0.02) K/uL PT (9.0-12.0) Seconds INR (0.9-1.1) APTT (21.0-31.0) Seconds PTT Ratio Sodium (136-145) mmol/L Potassium (3.5-5.1) mmol/L Chloride (98-107) mmol/L Carbon Dioxide (21-32) mmol/L Anion Gap (3-11) BUN (7-18) mg/dl Creatinine (0.6-1.4) mg/dl Est Cr Clr Drug Dosing ml/min Est GFR ( Amer) Est GFR (Non-Af Amer) BUN/Creatinine Ratio (10-20) Glucose (70-99) mg/dl POC Glucose 58 L* 58 L* (70-99) mg/dl Lactate (0.4-2.0) mmol/L Calcium (8.5-10.1) mg/dl Magnesium (1.8-2.4) mg/dl Total Bilirubin (0.2-1) mg/dl AST (15-37) U/L ALT (12-78) U/L Alkaline Phosphatase (45-117) U/L Ammonia < 10.0 L (11-32) umol/L Total Creatine Kinase (39-308) U/L Troponin I (0-0.045) ng/ml Total Protein (6.4-8.2) gm/dl Albumin (3.4-5.0) gm/dl Globulin (2.5-4.0) gm/dl Albumin/Globulin Ratio (0.9-2) Procalcitonin (0-0.5) ng/ml TSH (0.300-4.500) uIu/ml Urine Color Urine Appearance (Clear) Urine pH (4.5-7.5) Ur Specific [place] (1.000-1.030) Urine Protein (Negative) Urine Glucose (UA) (Negative) Urine Ketones (Negative) Urine Blood (Negative) Urine Nitrite (Negative) Urine Bilirubin (Negative) Urine Urobilinogen (Negative) Ur Leukocyte Esterase (Negative) Urine WBC (Auto) (0-5) /hpf Urine RBC (Auto) (0-4) /hpf U Hyaline Cast (Auto) (0-5) /lpf U Epithel Cells (Auto) (0-5) /lpf Urine Bacteria (Auto) (Negative) COVID-19 Eval Order SARS-CoV-2, RNA, NAAT (NEGATIVE) 04/03/20 04/03/20 04/03/20 Range/Units 00:32 02:16 06:13 WBC 8.49 (4.8-10.8) K/uL RBC 3.58 L (4.7-6.1) M/uL Hgb 11.7 L (14.0-18.0) g/dL Hct 34.6 L (42-52) % MCV 96.6 (80-100) fL MCH 32.7 (25-34) pg MCHC 33.8 (32-36) g/dL RDW Std Deviation 51.6 H (36.4-46.3) fL RDW Coeff of Adiel 14.4 (11.5-14.5) % Plt Count 229 (130-400) K/uL MPV 10.0 (7.4-10.4) fL Immature Gran % (Auto) 0.8 % Neut % (Auto) 67.9 % Lymph % (Auto) 16.7 % [place]hen[place] % (Auto) 12.1 % Eos % (Auto) 2.0 % Baso % (Auto) 0.5 % Neut # (Auto) 5.76 (1.4-6.5) K/uL Lymph # (Auto) 1.42 (1.2-3.4) K/uL [place] # (Auto) 1.03 H (0.11-0.59) K/uL Eos # (Auto) 0.17 (0-0.5) K/uL Baso # (Auto) 0.04 (0-0.2) K/uL Immature Gran # (Auto) 0.07 H (0.00-0.02) K/uL PT (9.0-12.0) Seconds INR (0.9-1.1) APTT (21.0-31.0) Seconds PTT Ratio Sodium (136-145) mmol/L Potassium (3.5-5.1) mmol/L Chloride (98-107) mmol/L Carbon Dioxide (21-32) mmol/L Anion Gap (3-11) BUN (7-18) mg/dl Creatinine (0.6-1.4) mg/dl Est Cr Clr Drug Dosing ml/min Est GFR ( Amer) Est GFR (Non-Af Amer) BUN/Creatinine Ratio (10-20) Glucose (70-99) mg/dl POC Glucose 97 79 (70-99) mg/dl Lactate (0.4-2.0) mmol/L Calcium (8.5-10.1) mg/dl Magnesium (1.8-2.4) mg/dl Total Bilirubin (0.2-1) mg/dl AST (15-37) U/L ALT (12-78) U/L Alkaline Phosphatase (45-117) U/L Ammonia (11-32) umol/L Total Creatine Kinase (39-308) U/L Troponin I (0-0.045) ng/ml Total Protein (6.4-8.2) gm/dl Albumin (3.4-5.0) gm/dl Globulin (2.5-4.0) gm/dl Albumin/Globulin Ratio (0.9-2) Procalcitonin (0-0.5) ng/ml TSH (0.300-4.500) uIu/ml Urine Color Urine Appearance (Clear) Urine pH (4.5-7.5) Ur Specific [place] (1.000-1.030) Urine Protein (Negative) Urine Glucose (UA) (Negative) Urine Ketones (Negative) Urine Blood (Negative) Urine Nitrite (Negative) Urine Bilirubin (Negative) Urine Urobilinogen (Negative) Ur Leukocyte Esterase (Negative) Urine WBC (Auto) (0-5) /hpf Urine RBC (Auto) (0-4) /hpf U Hyaline Cast (Auto) (0-5) /lpf U Epithel Cells (Auto) (0-5) /lpf Urine Bacteria (Auto) (Negative) COVID-19 Eval Order SARS-CoV-2, RNA, NAAT (NEGATIVE) 04/03/20 04/03/20 04/03/20 Range/Units 06:13 07:11 11:10 WBC (4.8-10.8) K/uL RBC (4.7-6.1) M/uL Hgb (14.0-18.0) g/dL Hct (42-52) % MCV (80-100) fL MCH (25-34) pg MCHC (32-36) g/dL RDW Std Deviation (36.4-46.3) fL RDW Coeff of Adiel (11.5-14.5) % Plt Count (130-400) K/uL MPV (7.4-10.4) fL Immature Gran % (Auto) % Neut % (Auto) % Lymph % (Auto) % [place] % (Auto) % Eos % (Auto) % Baso % (Auto) % Neut # (Auto) (1.4-6.5) K/uL Lymph # (Auto) (1.2-3.4) K/uL [place] # (Auto) (0.11-0.59) K/uL Eos # (Auto) (0-0.5) K/uL Baso # (Auto) (0-0.2) K/uL Immature Gran # (Auto) (0.00-0.02) K/uL PT (9.0-12.0) Seconds INR (0.9-1.1) APTT (21.0-31.0) Seconds PTT Ratio Sodium 137 (136-145) mmol/L Potassium 4.4 D (3.5-5.1) mmol/L Chloride 112 H (98-107) mmol/L Carbon Dioxide 17 L (21-32) mmol/L Anion Gap 7.0 (3-11) BUN 18 (7-18) mg/dl Creatinine 0.96 D (0.6-1.4) mg/dl Est Cr Clr Drug Dosing 57.0 ml/min Est GFR ( Amer) 82.6 Est GFR (Non-Af Amer) 71.3 BUN/Creatinine Ratio 18.8 (10-20) Glucose 84 (70-99) mg/dl POC Glucose 98 124 H (70-99) mg/dl Lactate (0.4-2.0) mmol/L Calcium 8.2 L (8.5-10.1) mg/dl Magnesium (1.8-2.4) mg/dl Total Bilirubin (0.2-1) mg/dl AST (15-37) U/L ALT (12-78) U/L Alkaline Phosphatase (45-117) U/L Ammonia (11-32) umol/L Total Creatine Kinase (39-308) U/L Troponin I (0-0.045) ng/ml Total Protein (6.4-8.2) gm/dl Albumin (3.4-5.0) gm/dl Globulin (2.5-4.0) gm/dl Albumin/Globulin Ratio (0.9-2) Procalcitonin (0-0.5) ng/ml TSH (0.300-4.500) uIu/ml Urine Color Urine Appearance (Clear) Urine pH (4.5-7.5) Ur Specific [place] (1.000-1.030) Urine Protein (Negative) Urine Glucose (UA) (Negative) Urine Ketones (Negative) Urine Blood (Negative) Urine Nitrite (Negative) Urine Bilirubin (Negative) Urine Urobilinogen (Negative) Ur Leukocyte Esterase (Negative) Urine WBC (Auto) (0-5) /hpf Urine RBC (Auto) (0-4) /hpf U Hyaline Cast (Auto) (0-5) /lpf U Epithel Cells (Auto) (0-5) /lpf Urine Bacteria (Auto) (Negative) COVID-19 Eval Order SARS-CoV-2, RNA, NAAT (NEGATIVE) Imaging Data Radiologist's Impression: XR chest 1V portable HISTORY: 84 years-old Male SEPSIS acute sepsis COMPARISON: Chest radiograph 03/05/2020, 04/30/2019 TECHNIQUE: Portable AP view of the chest FINDINGS: Unchanged mild cardiomegaly. No pneumothorax, pleural effusion, airspace consolidation or overt pulmonary edema. 1.7 cm nodular density of the left upper lung. Degenerative changes of the shoulders and spine. IMPRESSION: 1. Cardiomegaly without acute process. 2. 1.7 cm nodular opacity of the left upper lung may be secondary to summation density with the overlying anterior second rib, however a pulmonary nodule could appear similarly. Correlation with nonemergent follow-up chest CT recommended. ACT 112: Negative or not required by law. The above report was generated using voice recognition software. It may contain grammatical, syntax or spelling errors. Electronically signed by: Garrett Perez M.D. 04/02/2020 2:[address] OF THE BRAIN; CT ANGIOGRAM OF THE BRAIN; CT ANGIOGRAM OF THE NECK CLINICAL HISTORY: Change in mental status. Dysarthria. COMPARISON STUDY: CT of the brain dated 03/05/2020. MR angiogram of the brain dated 03/13/2017. Carotid artery ultrasound dated 03/12/2017. TECHNIQUE: Unenhanced axial CT scan of the brain is performed. Subsequently, following the IV administration of 116 of Optiray 320, CT angiogram of the head and neck was performed from the aortic arch to the vertex. Images are reviewed in the axial, sagittal, and coronal planes. 3-D MIPS images are created and assessed. IV contrast was administered without complication. All measurements were calculated based on NASCET criteria. A dose lowering technique was utilized adhering to the principles of ALARA. CT DOSE: 1162.57 mGy.cm FINDINGS: Brain parenchyma: There is age-related involutional change noting mild-to- moderate subcortical and periventricular microangiopathic disease. There is no hemorrhage, mass effect, or evidence of acute territorial ischemia by CT criteria. There is no evidence of enhancing mass lesion on the angiogram phase images. The ventricles, sulci, and cisterns are prominent secondary to involutional change. [place]-white matter differentiation is preserved. No extra- axial fluid collection is seen. Thoracic aorta: There is atherosclerotic calcification of the thoracic aorta. Visualized portions of the thoracic aorta are normal in caliber. The aortic arch demonstrates bovine variant anatomy. Right carotid arterial system: The right common carotid artery is widely patent, as are the right internal and external carotid arteries. Atherosclerotic plaque is noted in the carotid bulb. Left carotid arterial system: The left common carotid artery is widely patent, as are the left internal and external carotid arteries. Vertebral arteries: The vertebral arteries are widely patent bilaterally noting left-sided dominance. Subclavian arteries: Widely patent bilaterally. Intracranial vasculature: There is atherosclerotic calcification of the cavernous carotid and vertebral arteries. There is origin of left posterior cerebral artery. The internal carotid arteries are patent at the skull base, as are the anterior and middle cerebral arteries bilaterally. The vertebrobasilar system and posterior cerebral arteries are widely patent. The left vertebral artery is dominant. There is no aneurysm, high-grade stenosis, or focal vessel cut off seen throughout the intracranial circulation. Jugular veins: Patent bilaterally. Dural sinuses: Patent. Lung apices: There is a 2.3 cm spiculated nodule in the left upper lobe seen on image #12 of the neck angiogram examination. Soft tissues: The visualized pharyngeal soft tissues are normal in appearance noting angiographic phase technique. The oropharyngeal airway appears widely patent. The salivary and thyroid glands are normal in appearance. No cervical lymphadenopathy is seen. Skeletal structures: The skeletal structures are osteopenic. The calvarium appears intact. The cervical spine is maintained noting multilevel degenerative change. No lytic or blastic lesion is seen. Orbits: The bony orbits are intact. Orbital contents are normal as visualized noting bilateral ocular lens implants. Sinuses and mastoids: The paranasal sinuses are clear. The mastoid air cells are well pneumatized. IMPRESSION: 1. There is no hemorrhage, mass effect, or evidence of acute territorial ischemia by CT criteria. 2. Unremarkable CT angiogram of the brain. 3. Unremarkable CT angiogram of the neck. 4. There is a 2.3 cm spiculated pulmonary nodule in the left upper lobe. This should be considered lung cancer until proven otherwise. Pulmonology follow-up is recommended. ACT 112: Positive. There are findings on this exam that require communication between the performing entity and the patient following Patient Test Result Information Act ([place] Act 112) guidelines. Electronically signed by: Carlo Herring M.D. 04/02/2020 5:30 PM ULTRASOUND RIGHT UPPER QUADRANT ABDOMEN CLINICAL HISTORY: Biliary stent. Cholelithiasis. COMPARISON STUDY: Abdominal CT dated 03/05/2020. TECHNIQUE: Real-time, grayscale, and color flow sonography of the right upper quadrant of the abdomen was performed. Images are reviewed in the transverse and longitudinal planes. The examination is degraded by lack of patient cooperation. FINDINGS: Liver: The liver is normal in size and demonstrates heterogeneously increased echotexture consistent with steatosis. Note that this degrades acoustic penetration of the liver. There is no intrahepatic biliary ductal dilatation. The main portal vein is patent. Gallbladder: The gallbladder is contracted and not well evaluated. There are shadowing gallstones and biliary sludge. No pericholecystic fluid is seen. A sonographic Bautista's sign is reportedly absent. A stent is present within the common bile duct. The duct measures up to 0.6 cm in diameter. Pancreas: Visualized portions of the pancreatic head are normal in appearance. The majority of the pancreas was not visualized. The splenic vein is patent. Right kidney: Survey images of the right kidney demonstrate cortical atrophy. Echotexture is normal. There is no hydronephrosis. A large parapelvic cyst is incidentally noted. Ascites: None. IMPRESSION: 1. The gallbladder is contracted and contains both stones and sludge. There is no sonographic evidence of acute cholecystitis at the time of examination. 2. A common bile duct stent is in place. 3. There is no intrahepatic biliary ductal dilatation. 4. Hepatic steatosis. ACT 112: Negative or not required by law. Electronically signed by: Carlo Herring M.D. 04/02/2020 6:42 PM ECG Data Attestation: I personally reviewed and interpreted this ECG as follows: Indication: + weakness Rate (beats per minute): 77 Rhythm: + atrial fibrillation ECG Intervals/blocks: + Right Bundle branch block and + Normal QT ECG [place]: + Normal ECG ST segments: + Nonspecific ST abnormalities Additional Comments: Baseline artifact noted MDM Narrative This is an elderly male sent in by local skilled nursing due to concern for altered mental status possible stroke. Patient with complicated past medical history, and minimal information available during my initial evaluation. Labs are drawn and sent, patient placed on a manager cardiac cath and patient sent for imaging. While patient's labs are improved especially in light of recent abnormalities during his admission for sepsis, we continue to monitor the patient. Patient's neuro imaging and chest x-ray reassuring. Patient also had repeat ultrasound due to recent ascending cholangitis which was reassuring. No new ectopy or dysrhythmia noted on telemetry and patient remained hemodynamically stable. Patient was cautiously rehydrated due to unknown cardiac status initially. Patient remained hemodynamically stable while in the emergency room. Discussed all results with patient and at bedside. concern for potential for evolving sepsis again as he has had worsening dysarthria and confusion prior to being septic previously. Patient was noted to have intermittent hypoglycemia, this would however respond to dextrose infusion. Patient calm and cooperative throughout. Due to concern for altered mental status and worsening dysarthria, case discussed with hospitalist for additional evaluation and management. An order was placed for continuous cardiac monitoring. The monitor shows a rate of _98_ with _atrial fibrillation_ rhythm. Impression & Plan AMS (altered mental status), Dysarthria, Atrial fibrillation, Pulmonary nodule, Hypoglycemia Discharge Plan Visit Data Chief Complaint: Altered Mental Status ED Provider: Sabra Fermin Discharge Problem: AMS (altered mental status), Dysarthria, Atrial fibrillation, Pulmonary nodule, Hypoglycemia Patient Disposition: Admitted As Inpatient Discharge Instructions Interventions: ED Discharge Assessment Last Done: 04/02/20 22:04 Discharge Problem: AMS (altered mental status) Qualifiers: Altered mental status type: unspecified Qualified Code(s): R41.82 - Altered mental status, unspecified Atrial fibrillation Qualifiers: Atrial fibrillation type: persistent (not longstanding) Qualified Code(s): I48.19 - Other persistent atrial fibrillation
[2020-04-02 15:08] LABS: Appearance Urine Clear (Clear); Bacteria Urine Automated Negative (Negative); Blood Urine Negative (Negative); Color Urine Dark Yellow; Glucose Urine UA Negative (Negative); Ketones Urine Negative (Negative); Leukocyte Esterase Urine Trace (Negative); Nitrite Urine Negative (Negative); Protein Urine Negative (Negative); RBC Urine Automated 0-4 /hpf (0-4); Specific Gravity Urine 1.017 (1.000-1.030); Urobilinogen Urine Negative (Negative)
[2020-04-02 15:19] LABS: Bilirubin Urine 1+ (Negative)
[2020-04-02 16:25] LABS: Basophils # (auto) 0.02 K/uL (0-0.2); Basophils % (auto) 0.3 %; Eosinophils # (auto) 0.07 K/uL (0-0.5); Eosinophils % (auto) 0.9 %; Hematocrit (blood only) 40.5 % (42-52); Hemoglobin 13.6 g/dL (14.0-18.0); Immature Granulocytes # (auto) 0.05 K/uL (0.00-0.02); Immature Granulocytes % (auto) 0.7 %; Lymphocytes # (auto) 0.87 K/uL (1.2-3.4); Lymphocytes % (auto) 11.6 %; Mean Corpuscular Hemoglobin 33.1 pg (25-34); Mean Corpuscular Hgb Conc 33.6 g/dL (32-36); Mean Corpuscular Volume 98.5 fL (80-100); Monocytes # (auto) 0.74 K/uL (0.11-0.59); Monocytes % (auto) 9.9 %; Neutrophils # (auto) 5.73 K/uL (1.4-6.5); Neutrophils % (auto) 76.6 %; Platelet Count 259 K/uL (130-400); RDW Coefficient of Variation 14.4 % (11.5-14.5); RDW Standard Deviation 51.5 fL (36.4-46.3); Red Blood Count 4.11 M/uL (4.7-6.1); White Blood Count 7.48 K/uL (4.8-10.8)
[2020-04-02 16:37] LABS: INR 1.1 (0.9-1.1); Partial Thromboplastin Time 26.7 Seconds (21.0-31.0)
[2020-04-02 16:50] LABS: Alanine Aminotransferase 57 U/L (12-78); Albumin Level 3.2 gm/dl (3.4-5.0); Aspartate Aminotransferase 34 U/L (15-37); BUN Creatinine Ratio 17.1 (10-20); Blood Urea Nitrogen 23 mg/dl (7-18); Calcium 8.6 mg/dl (8.5-10.1); Carbon Dioxide 23 mmol/L (21-32); Chloride 110 mmol/L (98-107); Creatinine Clr Calc Pharmacy 40.3 ml/min; Est GFR (African American) 54.2; Est GFR (Non-African American) 46.8; Glucose 43 mg/dl (70-99); Magnesium 2.3 mg/dl (1.8-2.4); Potassium 5.4 mmol/L (3.5-5.1); Sodium 138 mmol/L (136-145)
[2020-04-02 16:54] LABS: Albumin Globulin Ratio 0.8 (0.9-2); Alkaline Phosphatase 255 U/L (45-117); Bilirubin,Total 1.6 mg/dl (0.2-1); Globulin 3.8 gm/dl (2.5-4.0); Troponin I < 0.015 ng/ml (0-0.045)
[2020-04-02] MEDS ORDERED: DEXTROSE 50% 50 ML SYRINGE IV STA (16:57)
[2020-04-02] MEDS ORDERED: DEXTROSE 50% 50 ML SYRINGE IV ONE (17:00)
[2020-04-02] MEDS ORDERED: OPTIRAY 320 125ml IV ONE (17:09)
--- NOTE | 2020-04-02 17:31 | CT Scan Report ---
UNENHANCED CT OF THE BRAIN; CT ANGIOGRAM OF THE BRAIN; CT ANGIOGRAM OF THE NECK CLINICAL HISTORY: Change in mental status. Dysarthria. COMPARISON STUDY: CT of the brain dated 03/05/2020. MR angiogram of the brain dated 03/13/2017. Carotid artery ultrasound dated 03/12/2017. TECHNIQUE: Unenhanced axial CT scan of the brain is performed. Subsequently, following the IV adminis tration of 116 of Optiray 320, CT angiogram of the head and neck was performed from the aortic arch t o the vertex. Images are reviewed in the axial, sagittal, and coronal planes. 3-D MIPS images are cre ated and assessed. IV contrast was administered without complication. All measurements were calculate d based on NASCET criteria. A dose lowering technique was utilized adhering to the principles of ALA RA. CT DOSE: 1162.57 mGy.cm FINDINGS: Brain parenchyma: There is age-related involutional change noting [id number] subcortical and pe riventricular microangiopathic disease. There is no hemorrhage, mass effect, or evidence of acute ter ritorial ischemia by CT criteria. There is no evidence of enhancing mass lesion on the angiogram phas e images. The ventricles, sulci, and cisterns are prominent secondary to involutional change. [place]-wh ite matter differentiation is preserved. No extra-axial fluid collection is seen. Thoracic aorta: There is atherosclerotic calcification of the thoracic aorta. Visualized portions of the thoracic aorta are normal in caliber. The aortic arch demonstrates bovine variant anatomy. Right carotid arterial system: The right common carotid artery is widely patent, as are the right int ernal and external carotid arteries. Atherosclerotic plaque is noted in the carotid bulb. Left carotid arterial system: The left common carotid artery is widely patent, as are the left healthcare administration intern al and external carotid arteries. Vertebral arteries: The vertebral arteries are widely patent bilaterally noting left-sided dominance. Subclavian arteries: Widely patent bilaterally. Intracranial vasculature: There is atherosclerotic calcification of the cavernous carotid and vertebr al arteries. There is origin of left posterior cerebral artery. The internal carotid arteries a re patent at the skull base, as are the anterior and middle cerebral arteries bilaterally. The verteb robasilar system and posterior cerebral arteries are widely patent. The left vertebral artery is robinson nant. There is no aneurysm, high-grade stenosis, or focal vessel cut off seen throughout the intracra nial circulation. Jugular veins: Patent bilaterally. Dural sinuses: Patent. Lung apices: There is a 2.3 cm spiculated nodule in the left upper lobe seen on image #12 of the neck angiogram examination. Soft tissues: The visualized pharyngeal soft tissues are normal in appearance noting angiographic pha se technique. The oropharyngeal airway appears widely patent. The salivary and thyroid glands are nor mal in appearance. No cervical lymphadenopathy is seen. Skeletal structures: The skeletal structures are osteopenic. The calvarium appears intact. The cervic al spine is maintained noting multilevel degenerative change. No lytic or blastic lesion is seen. Orbits: The bony orbits are intact. Orbital contents are normal as visualized noting bilateral ocular lens implants. Sinuses and mastoids: The paranasal sinuses are clear. The mastoid air cells are well pneumatized. IMPRESSION: 1. There is no hemorrhage, mass effect, or evidence of acute territorial ischemia by CT criteria. 2. Unremarkable CT angiogram of the brain. 3. Unremarkable CT angiogram of the neck. 4. There is a 2.3 cm spiculated pulmonary nodule in the left upper lobe. This should be considered migel ng cancer until proven otherwise. Pulmonology follow-up is recommended. ACT 112: Positive. There are findings on this exam that require communication between the performing entity and the patient following Patient Test Result Information Act ([place] Act 112) guidelines. Electronically signed by: Carlo Herring M.D. 04/02/2020 5:30 PM
--- NOTE | 2020-04-02 18:43 | Ultrasound Report ---
ULTRASOUND RIGHT UPPER QUADRANT ABDOMEN CLINICAL HISTORY: Biliary stent. Cholelithiasis. COMPARISON STUDY: Abdominal CT dated 03/05/2020. TECHNIQUE: Real-time, grayscale, and color flow sonography of the right upper quadrant of the abdomen was performed. Images are reviewed in the transverse and longitudinal planes. The examination is deg raded by lack of patient cooperation. FINDINGS: Liver: The liver is normal in size and demonstrates heterogeneously increased echotexture consistent with steatosis. Note that this degrades acoustic penetration of the liver. There is no intrahepatic b iliary ductal dilatation. The main portal vein is patent. Gallbladder: The gallbladder is contracted and not well evaluated. There are shadowing gallstones and biliary sludge. No pericholecystic fluid is seen. A sonographic Bautista's sign is reportedly absent. A stent is present within the common bile duct. The duct measures up to 0.6 cm in diameter. Pancreas: Visualized portions of the pancreatic head are normal in appearance. The majority of the pa ncreas was not visualized. The splenic vein is patent. Right kidney: Survey images of the right kidney demonstrate cortical atrophy. Echotexture is normal. There is no hydronephrosis. A large parapelvic cyst is incidentally noted. Ascites: None. IMPRESSION: 1. The gallbladder is contracted and contains both stones and sludge. There is no sonographic evidenc e of acute cholecystitis at the time of examination. 2. A common bile duct stent is in place. 3. There is no intrahepatic biliary ductal dilatation. 4. Hepatic steatosis. ACT 112: Negative or not required by law. Electronically signed by: Carlo Herring M.D. 04/02/2020 6:42 PM
[2020-04-02 21:14] LABS: Potassium 5.2 mmol/L (3.5-5.1)
--- NOTE | 2020-04-02 21:25 | History & Physical Report ---
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 prostate cancer status post radiation chronic anemia, hemoglobin better than baseline likely secondary to hemoconcentration Incidental finding of lung mass on CT imaging/CXR, probable malignancy, past tobacco abuse OBS Medical telemetry DC Prandin on discharge IVF, stop lisinopril given low BP and hyperkalemia Follow urine CS, hold antibiotics for now unless patient becomes septic. Request AM provider to relay CT findings of probable lung malignancy with patient in a.m.; gauge family interest in pursuing work-up. DVT prophylaxis. Lovenox subcu DNR as per patient's prior directives as per , Petr Gail Ordaz. She requests updates from providers through [id number]. Text document was generated using [employer] voice recognition software. It may contain grammatical or spelling errors. Kindly contact undersigned for clarification of any documentation item in question. History of Present Illness Chief Complaint: Altered mental status as per records Primary Care Provider: Dr. Rowe History obtained from patient, family, and records. Limited history from patient secondary to dementia. Medical history significant for PAF, TIA, hypertension, hyperlipidemia, prostate cancer, recurrent cholangitis as per records, DM2 on oral medications, prostate cancer status post radiation, chronic anemia (baseline hemoglobin of 12), past tobacco abuse, dementia. Recent confinement last month for septic shock secondary to ascending cholangitis status post ERCP status post stent placement (03/15). Repeat ERCP to facilitate stent removal after 6 weeks as per documentation. Surgery referral for cholecystectomy deferred as per 's request. Patient discharged to [facility]. Patient noted to be lethargic at [facility] today. Communicating less than usual and having slurred speech. Patient slumped forward. SBP noted to be 80s. BSG noted to be 40s at the ER at some point. 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 Allergies Allergy/AdvReac Type Severity Reaction Status Date / Time No Known Allergies Allergy Verified 04/02/20 15:46 Home Medications Medication Instructions Recorded Confirmed Type atenolol 25 mg PO DAILY 04/30/19 04/02/20 History clopidogrel 75 mg PO QDD 04/30/19 04/02/20 History loratadine [Claritin] 10 mg PO DAILY PRN 04/30/19 04/02/20 History metformin 1,000 mg PO BIDM 04/30/19 04/02/20 History multivitamin with minerals 2 tab PO QAM 04/30/19 04/02/20 History nitroglycerin [Nitrostat] 0.4 mg SUBLINGUAL DIRECTED PRN 04/30/19 04/02/20 History omeprazole 20 mg PO DAILYBB 04/30/19 04/02/20 History oxybutynin chloride 5 mg PO AMHS 04/30/19 04/02/20 History pravastatin 20 mg PO HS 04/30/19 04/02/20 History quinapril 20 mg PO QAM 04/30/19 04/02/20 History tamsulosin 0.4 mg PO HS 04/30/19 04/02/20 History acetaminophen [Tylenol Extra 500 mg PO TID 03/05/20 04/02/20 History Strength] furosemide 40 mg PO QAM 03/05/20 04/02/20 History potassium chloride 20 meq PO AMHS 04/02/20 04/02/20 History repaglinide [Prandin] 1 mg PO BID 04/02/20 04/02/20 History 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 repeat MRCP recommended in 6 months Surgical History H/O prostate biopsy Family History Other No pertinent family history in first degree relatives Social History Smoking Status: Former smoker Smoking End Date: approximately 10 years ago; Hx Alcohol Use: No Hx Substance Use: No Preferred Language: Polish Communication Ability: Impaired Industrial Order Clerk Required: No Beliefs That Will Affect Care: None marital status: Current Living Situation: Prison Current Living Situation Comment: currently at [facility] Other Information That Helps Us Care for You: No Feels Safe at Home: Yes Safety Concerns: Feels Safe At This Time Assistive Devices: Denture - Upper, Denture - Lower and Glasses Review of Systems Review of Systems: Could not be reliably obtained Physical Exam Physical Exam: GENERAL: Demented, slightly uncomfortable, dysarthric, no respiratory distress SKIN: pallor , warm HEENT: Pale palpebral conjunctivae, no ptosis, dry buccal mucosa NECK : Supple, no tenderness CHEST : Decreased breath sounds, no tenderness HEART : Irregular, no obvious murmurs ABDOMEN: Some distention, nontender EXTREMITIES : No LE swelling/tenderness, no other conspicuous deformities noted NEUROLOGIC : Demented, dysarthric, gait and stance not assessed Results & Data Results & Data ([facility]) Vital Signs (Past 12 Hours) Vital Signs Temp Pulse Pulse Resp BP BP Pulse Ox 04/02/20 20:38 82 16 129/75 96 04/02/20 18:50 83 18 125/74 100 04/02/20 18:49 20 99 04/02/20 18:02 80 22 98 04/02/20 18:01 85 19 125/75 94 04/02/20 18:00 80 22 92 04/02/20 17:50 80 18 95 04/02/20 17:40 76 20 97 04/02/20 17:31 84 17 96 04/02/20 17:30 98 H 21 100/59 L 95 04/02/20 17:20 77 19 04/02/20 17:19 86 16 04/02/20 17:01 77 12 117/74 04/02/20 17:00 81 17 04/02/20 16:50 74 14 95 04/02/20 16:41 94 H 19 95 04/02/20 16:40 80 77 26 H 121/64 121/64 97 04/02/20 16:30 92 H 18 04/02/20 16:20 26 H 04/02/20 16:12 85 15 112/71 04/02/20 16:10 78 19 04/02/20 16:00 75 22 04/02/20 15:50 77 12 91 04/02/20 15:40 78 15 04/02/20 15:31 76 16 107/66 99 04/02/20 15:30 77 17 93 04/02/20 15:20 74 17 91 04/02/20 15:10 72 19 93 04/02/20 15:01 79 16 94 04/02/20 15:00 71 17 123/70 99 04/02/20 14:57 70 20 102/70 96 04/02/20 14:50 78 15 96 04/02/20 14:40 70 13 97 04/02/20 14:31 66 18 04/02/20 14:30 69 18 102/70 04/02/20 14:20 76 19 04/02/20 14:10 79 21 04/02/20 14:03 36.4 C L 83 23 119/74 98 04/02/20 14:01 79 17 04/02/20 14:00 77 14 90/58 L 04/02/20 13:56 76 16 04/02/20 13:43 93 H 19 119/74 Laboratory Results Laboratory Results WBC 7.48 K/uL (4.8-10.8) 04/02/20 15:52 RBC 4.11 M/uL (4.7-6.1) L 04/02/20 15:52 Hgb 13.6 g/dL (14.0-18.0) L 04/02/20 15:52 Hct 40.5 % (42-52) L 04/02/20 15:52 MCV 98.5 fL (80-100) 04/02/20 15:52 MCH 33.1 pg (25-34) 04/02/20 15:52 MCHC 33.6 g/dL (32-36) 04/02/20 15:52 RDW Std Deviation 51.5 fL (36.4-46.3) H 04/02/20 15:52 RDW Coeff of Adiel 14.4 % (11.5-14.5) 04/02/20 15:52 Plt Count 259 K/uL (130-400) 04/02/20 15:52 MPV 10.0 fL (7.4-10.4) 04/02/20 15:52 Immature Gran % (Auto) 0.7 % 04/02/20 15:52 Neut % (Auto) 76.6 % 04/02/20 15:52 Lymph % (Auto) 11.6 % 04/02/20 15:52 Beckham % (Auto) 9.9 % 04/02/20 15:52 Eos % (Auto) 0.9 % 04/02/20 15:52 Baso % (Auto) 0.3 % 04/02/20 15:52 Neut # (Auto) 5.73 K/uL (1.4-6.5) 04/02/20 15:52 Lymph # (Auto) 0.87 K/uL (1.2-3.4) L 04/02/20 15:52 Beckham # (Auto) 0.74 K/uL (0.11-0.59) H 04/02/20 15:52 Eos # (Auto) 0.07 K/uL (0-0.5) 04/02/20 15:52 Baso # (Auto) 0.02 K/uL (0-0.2) 04/02/20 15:52 Immature Gran # (Auto) 0.05 K/uL (0.00-0.02) H 04/02/20 15:52 PT 11.0 Seconds (9.0-12.0) 04/02/20 15:52 INR 1.1 (0.9-1.1) 04/02/20 15:52 APTT 26.7 Seconds (21.0-31.0) 04/02/20 15:52 PTT Ratio 1.0 04/02/20 15:52 Sodium 138 mmol/L (136-145) 04/02/20 15:52 Potassium 5.2 mmol/L (3.5-5.1) H 04/02/20 20:46 Chloride 110 mmol/L (98-107) H 04/02/20 15:52 Carbon Dioxide 23 mmol/L (21-32) 04/02/20 15:52 Anion Gap 5.0 (3-11) 04/02/20 15:52 BUN 23 mg/dl (7-18) H 04/02/20 15:52 Creatinine 1.36 mg/dl (0.6-1.4) 04/02/20 15:52 Est Cr Clr Drug Dosing 40.3 ml/min 04/02/20 15:52 Est GFR ( Amer) 54.2 04/02/20 15:52 Est GFR (Non-Af Amer) 46.8 04/02/20 15:52 BUN/Creatinine Ratio 17.1 (10-20) 04/02/20 15:52 Glucose 43 mg/dl (70-99) L* 04/02/20 15:52 POC Glucose 146 mg/dl (70-99) H 04/02/20 17:26 Lactate 1.5 mmol/L (0.4-2.0) 04/02/20 15:52 Calcium 8.6 mg/dl (8.5-10.1) 04/02/20 15:52 Magnesium 2.3 mg/dl (1.8-2.4) 04/02/20 15:52 Total Bilirubin 1.6 mg/dl (0.2-1) H 04/02/20 15:52 AST 34 U/L (15-37) 04/02/20 15:52 ALT 57 U/L (12-78) 04/02/20 15:52 Alkaline Phosphatase 255 U/L (45-117) H 04/02/20 15:52 Ammonia < 10.0 umol/L (11-32) L 04/02/20 20:46 Total Creatine Kinase 121 U/L (39-308) 04/02/20 20:46 Troponin I < 0.015 ng/ml (0-0.045) 04/02/20 15:52 Total Protein 7.0 gm/dl (6.4-8.2) 04/02/20 15:52 Albumin 3.2 gm/dl (3.4-5.0) L 04/02/20 15:52 Globulin 3.8 gm/dl (2.5-4.0) 04/02/20 15:52 Albumin/Globulin Ratio 0.8 (0.9-2) L 04/02/20 15:52 Procalcitonin 0.14 ng/ml (0-0.5) 04/02/20 15:52 Urine Color Dark Yellow 04/02/20 14:45 Urine Appearance Clear (Clear) 04/02/20 14:45 Urine pH 7.0 (4.5-7.5) 04/02/20 14:45 Ur Specific [place] 1.017 (1.000-1.030) 04/02/20 14:45 Urine Protein Negative (Negative) 04/02/20 14:45 Urine Glucose (UA) Negative (Negative) 04/02/20 14:45 Urine Ketones Negative (Negative) 04/02/20 14:45 Urine Blood Negative (Negative) 04/02/20 14:45 Urine Nitrite Negative (Negative) 04/02/20 14:45 Urine Bilirubin 1+ (Negative) H 04/02/20 14:45 Urine Urobilinogen Negative (Negative) 04/02/20 14:45 Ur Leukocyte Esterase Trace (Negative) H 04/02/20 14:45 Urine WBC (Auto) 1-5 /hpf (0-5) 04/02/20 14:45 Urine RBC (Auto) 0-4 /hpf (0-4) 04/02/20 14:45 U Hyaline Cast (Auto) 10-30 /lpf (0-5) H 04/02/20 14:45 U Epithel Cells (Auto) 10-20 /lpf (0-5) H 04/02/20 14:45 Urine Bacteria (Auto) Negative (Negative) 04/02/20 14:45 COVID-19 Eval Order Covid19 [facility]Now [facility] 04/02/20 16:04 SARS-CoV-2, RNA, NAAT NEGATIVE (NEGATIVE) 04/02/20 16:04 Diagnostic Findings MRI brain initial read: Moderate to severe diffuse cerebral atrophy and periventricular white matter T2 hyperintensity consistent with small vessel ischemic disease and/or senescent changes. No mass lesion or midline shift. No intracranial hemorrhage is identified. No areas of diffusion restriction is seen to indicate acute stroke. CTA head neck: 1. There is no hemorrhage, mass effect, or evidence of acute territorial ischemia by CT criteria. 2. Unremarkable CT angiogram of the brain. 3. Unremarkable CT angiogram of the neck. 4. There is a 2.3 cm spiculated pulmonary nodule in the left upper lobe. This should be considered lung cancer until proven otherwise. Pulmonology follow-up is recommended. Gallbladder ultrasound: 1. The gallbladder is contracted and contains both stones and sludge. There is no sonographic evidence of acute cholecystitis at the time of examination. 2. A common bile duct stent is in place. 3. There is no intrahepatic biliary ductal dilatation. 4. Hepatic steatosis. Chest x-ray : 1. Cardiomegaly without acute process. 2. 1.7 cm nodular opacity of the left upper lung may be secondary to summation density with the overlying anterior second rib, however a pulmonary nodule could appear similarly. Correlation with nonemergent follow-up chest CT recommended. EKG as per my interpretation : Rate 75, A. fib, normal axis, right bundle branch block, T wave abnormalities inferior, anterolateral leads
[2020-04-02] MEDS ORDERED: GLUCAGON FOR INJ 1 MG VIAL SQ PRN (22:54)
[2020-04-02] MEDS ORDERED: CARBOHYDRATES FOR HYPOGLYCEMIA PO PRN (22:54)
[2020-04-02] MEDS ORDERED: GLUCOSE 40% GEL 15 GM TUBE PO PRN (22:54)
[2020-04-02] MEDS ORDERED: SODIUM CHLORIDE 0.9% 1000ML 1,000 ML IV ONE (22:54)
[2020-04-02] MEDS ORDERED: GLUCOSE 10 TABS/TUBE PO PRN (22:54)
[2020-04-02] MEDS ORDERED: DEXTROSE 50% 50 ML SYRINGE IV PRN (22:54)
[2020-04-02] MEDS ORDERED: LORATADINE 10 MG TAB PO PRN (22:54)
[2020-04-02] MEDS ORDERED: ACETAMINOPHEN 325 MG TAB PO PRN (22:54)
[2020-04-02] MEDS: INSULIN ASPART 100 UNITS/ML 3 ML PEN SC SCH (23:19)
[2020-04-02] MEDS ORDERED: D5W AND NSS 1,000 ML IV ONE (23:37)
[2020-04-03 02:15] LABS: Thyroid Stimulating Hormone 1.8 uIu/ml (0.300-4.500)
[2020-04-03] MEDS: PANTOprazole 40 MG TAB PO SCH (04:14)
[2020-04-03 06:24] LABS: Basophils # (auto) 0.04 K/uL (0-0.2); Basophils % (auto) 0.5 %; Eosinophils # (auto) 0.17 K/uL (0-0.5); Hematocrit (blood only) 34.6 % (42-52); Hemoglobin 11.7 g/dL (14.0-18.0); Immature Granulocytes # (auto) 0.07 K/uL (0.00-0.02); Immature Granulocytes % (auto) 0.8 %; Lymphocytes # (auto) 1.42 K/uL (1.2-3.4); Lymphocytes % (auto) 16.7 %; Mean Corpuscular Hemoglobin 32.7 pg (25-34); Mean Corpuscular Hgb Conc 33.8 g/dL (32-36); Mean Corpuscular Volume 96.6 fL (80-100); Monocytes # (auto) 1.03 K/uL (0.11-0.59); Monocytes % (auto) 12.1 %; Neutrophils # (auto) 5.76 K/uL (1.4-6.5); Neutrophils % (auto) 67.9 %; Platelet Count 229 K/uL (130-400); RDW Coefficient of Variation 14.4 % (11.5-14.5); RDW Standard Deviation 51.6 fL (36.4-46.3); Red Blood Count 3.58 M/uL (4.7-6.1); White Blood Count 8.49 K/uL (4.8-10.8)
[2020-04-03 06:53] LABS: BUN Creatinine Ratio 18.8 (10-20); Calcium 8.2 mg/dl (8.5-10.1); Est GFR (African American) 82.6; Est GFR (Non-African American) 71.3; Potassium 4.4 mmol/L (3.5-5.1)
--- NOTE | 2020-04-03 06:59 | Magnetic Resonance Report ---
MR brain wo con HISTORY: 84 years-old Male slurred speech acute strokelike symptoms COMPARISON: Head CT 04/02/2020, brain MRI 03/14/2017 TECHNIQUE: Multiplanar multisequence MRI of the brain was obtained without the use of IV contrast. FINDINGS: Motion degraded exam. There is no restricted diffusion to suggest acute or subacute infarct. No acute intracranial hemorrhage, midline shift, abnormal extra-axial collection, hydrocephalus or intracrani al mass. No pathologic blooming artifact on the T2 star series. Age-related involutional changes with ex vacuo ventriculomegaly. Moderate to extensive T2/FLAIR hyperintensities about the white matter ar e suggestive of chronic microvascular ischemic disease. Cerebral venous sinuses and major arterial fl ow voids appear patent. Mastoid air cells are clear. There is a 7 mm focus of polypoid mucosal thicke shalini involving the lateral wall of the right maxillary sinus. Prior bilateral lens repair. The skull and soft tissues are unremarkable. IMPRESSION: 1. No acute intracranial abnormality, specifically there is no evidence of acute or subacute infarct. 2. Age-related involutional changes with ex vacuo ventriculomegaly and chronic microvascular ischemic disease. ACT 112: Negative or not required by law. The above report was generated using voice recognition software. It may contain grammatical, syntax o r spelling errors. Electronically signed by: Garrett Perez M.D. 04/03/2020 6:58 AM
[2020-04-03] MEDS: INSULIN ASPART 100 UNITS/ML 3 ML PEN SC SCH ×2 (08:10→12:08)
[2020-04-03] MEDS: ENOXAPARIN INJ 30 MG/0.3 ML SYR SQ SCH (08:12)
--- NOTE | 2020-04-03 10:51 | Pulmonary Consultation ---
Date of Consultation April 03, 2020 Assessment & Plan (1) Pulmonary nodule: Chest x-ray 04-02-20 personally reviewed: Portable film, good inspiratory effort, bilateral costophrenic and cardiophrenic angles are clean, left upper lobe round opacity appreciated. CT angio of the neck done due 04/02/20 showed left upper lobe nodule 2.3 cm spiculated. --Pulmonary nodule Left upper lobe 2.3 cm spiculated The possibility of malignancy is very high Follow-up dedicated CT chest without contrast --COPD with emphysema Not on any inhalers at home Plan: Follow-up CT chest We will discussed the care with patient's Case was discussed with Dr. Raza. Family does not want anything aggressive done. I think looking at the clinical status of the patient I agree with the plan. Please note the above document was generated using voice recognition software. It may contain grammatical, syntax or spelling errors.Any formal questions or concerns about the content, text or information contained within the body of this dictation should be directly addressed to the provider for clarification. (2) Dementia: History of Present Illness Attending Physician: Georgiana Raza MD History of Present Illness 84-year-old male with past medical history of paroxysmal A. fib, dementia, prostate cancer s/p radiation, recurrent cholangitis, hypertension, dyslipidemia and diabetes was admitted to the hospital because of altered mental status Patient had ERCP and stent placement on 03/15/2020 Pulmonary consulted because of incidental finding of pulmonary nodule 2 cm in the left upper lobe. At the time of examination patient is oriented to only self and place. He has mumbled speech. It is very difficult to get answers/history from the patient. He does answer simple questions. Denies any chest pain, no headache, no nausea, no vomiting. No diarrhea, no dysuria. History obtained from previous records. 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 Allergies Allergy/AdvReac Type Severity Reaction Status Date / Time No Known Allergies Allergy Verified 04/02/20 15:46 Home Medications Medication Instructions Recorded Confirmed Type atenolol 25 mg PO DAILY 04/30/19 04/02/20 History clopidogrel 75 mg PO QDD 04/30/19 04/02/20 History loratadine [Claritin] 10 mg PO DAILY PRN 04/30/19 04/02/20 History metformin 1,000 mg PO BIDM 04/30/19 04/02/20 History multivitamin with minerals 2 tab PO QAM 04/30/19 04/02/20 History nitroglycerin [Nitrostat] 0.4 mg SUBLINGUAL DIRECTED PRN 04/30/19 04/02/20 History omeprazole 20 mg PO DAILYBB 04/30/19 04/02/20 History oxybutynin chloride 5 mg PO AMHS 04/30/19 04/02/20 History pravastatin 20 mg PO HS 04/30/19 04/02/20 History quinapril 20 mg PO QAM 04/30/19 04/02/20 History tamsulosin 0.4 mg PO HS 04/30/19 04/02/20 History acetaminophen [Tylenol Extra 500 mg PO TID 03/05/20 04/02/20 History Strength] furosemide 40 mg PO QAM 03/05/20 04/02/20 History potassium chloride 20 meq PO AMHS 04/02/20 04/02/20 History repaglinide [Prandin] 1 mg PO BID 04/02/20 04/02/20 History Patient History Medical History Atrial fibrillation Dementia Diabetes mellitus type 2, controlled GERD (gastroesophageal reflux disease) HTN (hypertension) Hypertension Macular degeneration 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 repeat MRCP recommended in 6 months Surgical History H/O prostate biopsy Family History Other No pertinent family history in first degree relatives Social History Smoking Status: Former smoker Smoking End Date: approximately 10 years ago; Hx Alcohol Use: No Hx Substance Use: No Preferred Language: Setswana Communication Ability: Impaired Handbag Parts Cutter Required: No Beliefs That Will Affect Care: None marital status: Current Living Situation: [facility] Current Living Situation Comment: currently at [facility] Other Information That Helps Us Care for You: No Feels Safe at Home: Yes Safety Concerns: Feels Safe At This Time Assistive Devices: None Review of Systems Review of Systems: Unobtainable due to mental health condition Physical Exam Physical Exam: Constitutional: No acute distress HEENT: EOMI, PERRLA Respiratory system: Decreased air entry bilaterally, no wheeze, no rhonchi, mild crackles bilateral lower lobes CVS: S1-S2 positive, no murmurs or gallops Abdomen: Soft, nontender, nondistended, positive bowel sounds x4 Extremities: +2 pulses bilaterally radialis/ dorsalis pedis, no cyanosis, no ed esther Neuro: Awake alert oriented to self and place Psych: Normal mood and affect G/U: No Cadet Skin: no rashes, warm and dry Lymphatic: no cervical or axillary lymphadenopathy Results & Data Results & Data ([facility]) Vital Signs (Past 12 Hours) Vital Signs Temp Pulse Resp BP Pulse Ox 04/03/20 07:35 36.3 C L 76 20 99/66 L 100 04/03/20 02:26 36.6 C 80 18 120/83 96 04/02/20 22:57 36.7 C 74 20 126/84 95 04/03/20 06:13 04/03/20 06:13 PG Care Time/CCT Total # of Minutes Spent Total Time Spent with Patient: Total time spent is greater than 50% in coordination of care (as documented) at patient's floor/unit and/or counseling patient: Coding Level of Care Code 18621 Initial Inpt Care Lvl 3 Diagnoses Pulmonary nodule R91.1 Dementia F03.90
[2020-04-03] MEDS: CEROVITE ADV FORMULA TAB PO SCH (11:09)
[2020-04-03] MEDS: ATENOLOL 25 MG TABLET PO SCH (11:11)
--- NOTE | 2020-04-03 11:20 | Communication Note ---
Date of Service: April 03, 2020 pt admitted with confusion /slurred speech -metabolic encephalopathy -possibly due to hypoglycemia ( BSG 43 on admission ) MRI of brain -no evidence of acute CVA no evidence of acute infection recent admission with sepsis due to cholangitis gallbladder USG no evidence of gall bladder infection , normal white count , no fever no significant lab finding except for profound hypoglycemia COVID 19 negative incidental finding on chest Xray and CTA of neck : speculated lung nodule 2.3 cm on left upper lobe concern for malignancy Discussed with , pt was living at home , prior to his hospital admission in 03/2020 with cholangitis /sepsis at baseline -pt has dementia with short term memory loss, word finding difficulty , severe essential tremors of both hands - 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 was diagnosed with severe dysphagia in recent admission to [facility] -was transitioned to Pureed diet pt is currency at [facility] care for Rehab mentions Rehab called her that for past few days pt was found to be getting more confused , yesterday when she called pt was having slurred speech , unable to articulate ( change form his baseline ) in the morning of admission to [facility] yesterday -pt refused breakfast , was getting more lethargic , family was updated that pt is being sent to ER speech eval requested as pt was kept npo due to changed mental status MRI of brain , no acute CVA Chest Xray no infection or infiltration except for incidental finding of left upper lobe lung nodule concern for poor PO intake causing hypoglycemia Nutrition consult requested update given to ( Gail Ordaz and Daughter Pritesh phone # [phone]) over phone pt was a smoker -smoked pipe mostly , quit approx [address] chest with contrast ordered for better identification of lung nodule Pulmonary eval requested Per Pt's -Mr Ordaz Father ( was a smoker ) , brother of lung cancer family not very keen with invasive procedure for diagnosis if pt is not a suitable candidate for treatment wants to have opinion form Pulmonology if lung nodule is not causing any symptoms -family would like conservative approach only willing to have follow up with Pulmonology follow up if in future pt develops symptoms ( SOB /pleural effusion ) to receive palliative tx . pt is DNR/DNI pt will need PT/OT eval prior to discharge social service consult for discharge planning Georgiana Raza MD
--- NOTE | 2020-04-03 15:44 | Electrocardiogram Report ---
Test Reason : Blood Pressure : / mmHG Vent. Rate : 077 BPM Atrial Rate : 080 BPM P-R Int : 000 ms QRS Dur : 146 ms QT Int : 426 ms P-R-T Axes : 000 035 000 degrees QTc Int : 482 ms Poor data quality, interpretation may be adversely affected Atrial fibrillation Right bundle branch block Abnormal ECG When compared with ECG of 05-MAR-2020 14:10, Vent. rate has decreased BY 65 BPM QRS duration has increased T wave inversion less evident in Anterolateral leads Confirmed by Gadiel Osman ([id number]) on 04/03/2020 3:44:26 PM Referred By: Aaron Bell Confirmed By:Gadiel Osman
--- NOTE | 2020-04-03 15:53 | Communication Note ---
Date of Service: April 03, 2020 Hypoglycemia : update received from Pharmacy : recent HbA1c on 03/2020 was 6.6% per current Guideline -strict glycemic control in elderly is not recommended - high risk for hypoglycemia causing untoward morbidity goal HbaA1c ~8 pt likely had been having multiple hypoglycemic episodes as Rehab reports increased Lethargy , intermittent unresponsiveness for past few days .pt does not require any diabetic meds Metformin and Repaglinide /Prandin D/ec per recommendation Diet liberalized to regular to increase calorie intake Georgiana Raza MD
--- NOTE | 2020-04-03 16:56 | Hospitalist Progress Note ---
Date of Service April 03, 2020 Assessment & Plan (1) Acute metabolic encephalopathy due to hypoglycemia: admitted with profound hypoglycemic episode BSG 43 with episode of unresponsiveness at Rehab CT head /MRI of brain negative for acute stroke no evidence of infection noted hold all antidiabetic meds Lung nodule : incidental finding CT chest with contrast confirms left upper lobe irregular nodule suggestive of primary lung CA Pulm consult appreciated severe Dysphagia : noted in prior admission no evidence of acute /sub acute CVA in imaging possible due to progression of dementia? 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 : Nursing to provide supportive care fall and aspiration precaution assistance during meals Hx of prostate CA s/p radiation tx Hx of cholangitis : s/p biliary stent scheduled for stent removal by Minerva SHARMA at end of Apr Gall bladder USG in ER showed no evidence of gall bladder infection Disposition : pt is sent from SNF /short term rehab -[facility] /[facility] plan to return back to [facility] for continued rehab when medically stable PT/OT eval , social service consulted for discharge planning Pt is DNR/DNI Admission and Anticipated Discharge Date Admission Date: April 03, 2020 Subjective Follow up visit for confusion /metabolic encephalopathy/hypoglycemia: pt remains confused , opens eyes to voice speech remains slurred , oriented to person only , able to say he is in hospital after multiple prompting pt is legally Blind has been afebrile since admission, vitals stable no cough or SOB or hypoxia Review of Systems Review of Systems: Unobtainable due to cognitive status (dementia /confusion ) Physical Exam Constitutional: WD/WN, vitals as above Eyes: + anicteric sclerae Neck: trachea midline, no thyromegaly Respiratory: normal respiratory effort Cardiovascular: RRR, no murmur, no edema Gastrointestinal (Abdomen): Percussion/Palpation: abdomen soft Musculoskeletal: generalized weakness Neurologic: + meningeal signs and + confused Speech / Cognition: + abnormal speech and + abnormal cognition (dementia ) Motor/Sensory: + tremor (essential tremor on both hands ) 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
[2020-04-03] MEDS: CLOPIDOGREL BISULFATE 75 MG TAB PO SCH (16:57)
[2020-04-03] MEDS ORDERED: IOVERSOL 100ml IV ONE (18:04)
--- NOTE | 2020-04-03 18:38 | CT Scan Report ---
CT OF THE CHEST WITH IV CONTRAST CLINICAL HISTORY: Pulmonary nodule. COMPARISON STUDY: Chest radiograph April 02, 2020. TECHNIQUE: Following IV administration of 94 mL of Optiray-320, helical axial images of the chest we re obtained. Sagittal and coronal reconstructions were viewed as well as maximal intensity projectio ns on an independent 3-D workstation. Automated exposure control was utilized for the study. A dose lowering technique was utilized adhering to the principles of ALARA. CT DOSE: 481.24 mGy.cm FINDINGS: No enlarged axillary, mediastinal or hilar lymph nodes are present. Moderate cardiomegaly is noted. There is no pericardial effusion. No pneumothorax or pleural effusion is noted. Note is mad e of a 2 cm irregular solid left upper lobe nodule on image 76 of 266. This corresponds to the nodule shown on prior CT of the neck. Right middle lobe opacity reflects atelectasis. There is no consolida tion to suggest pneumonia. Lungs are suboptimally assessed given respiratory motion. No suspicious le sions are shown within the bony thorax. Visualized portions of the upper abdomen partially visualize biliary and pancreatic stents. There is pneumobilia IMPRESSION: 1. 2 cm irregular solid left upper lobe nodule highly suggestive of primary lung malignancy. Pulmonar y consultation is recommended. 2. No thoracic lymphadenopathy. 3. Moderate cardiomegaly. ACT 112: Positive. There are findings on this exam that require communication between the performing entity and the patient following Patient Test Result Information Act ([place] Act 112) guidelines. Electronically signed by: Michael Angela M.D. 04/03/2020 6:37 PM
[2020-04-03] MEDS: PRAVASTATIN SOD 20 MG TAB PO SCH (20:59)
[2020-04-03] MEDS: TAMSULOSIN HCL 0.4 MG CAP PO SCH (20:59)
[2020-04-03] MEDS: ACETAMINOPHEN 325 MG TAB PO PRN (21:00)
[2020-04-04] MEDS: PANTOprazole 40 MG TAB PO SCH (05:46)
[2020-04-04 07:48] LABS: BUN Creatinine Ratio 16.9 (10-20); Calcium 8.3 mg/dl (8.5-10.1); Creatinine Clr Calc Pharmacy 61.5 ml/min; Est GFR (African American) 89.7; Est GFR (Non-African American) 77.4; Magnesium 2.1 mg/dl (1.8-2.4); Potassium 4.3 mmol/L (3.5-5.1)
[2020-04-04 07:49] LABS: Phosphorus 3.1 mg/dl (2.5-4.9)
[2020-04-04] MEDS: ATENOLOL 25 MG TABLET PO SCH (08:18)
[2020-04-04] MEDS: ENOXAPARIN INJ 30 MG/0.3 ML SYR SQ SCH (08:18)
[2020-04-04] MEDS: CEROVITE ADV FORMULA TAB PO SCH (08:18)
--- NOTE | 2020-04-04 08:53 | Pulmonology Progress Note ---
Date of Service April 04, 2020 Assessment & Plan (1) Pulmonary nodule: CT chest 04/03/2020 personally reviewed: Left upper lobe 2.1 cm spiculated mass appreciated. Mild mosaicism. No mediastinal lymphadenopathy. Chest x-ray 04-02-20 personally reviewed: Portable film, good inspiratory effort, bilateral costophrenic and cardiophrenic angles are clean, left upper lobe round opacity appreciated. CT angio of the neck done due 04/02/20 showed left upper lobe nodule 2.3 cm spiculated. --Pulmonary nodule Left upper lobe 2.1 cm spiculated The possibility of malignancy is very high in a patient who has history of smoking The location of the nodule is most likely in the left upper apical segment. There is a small airway going tangential to the nodule. Navigational bronchoscopy is a possibility although it will be difficult as apical segments are very difficult to reach. Patient is also on Plavix. It would need to be held for at least 5 days prior to any procedure. --COPD Not on any inhalers at home Plan: I spoke with daughter as well as her on the phone at [phone], I discussed the finding of the CAT scan, MRI of the brain and discussed that the possibility of having lung cancer is very high given the history of smoking. They had questions regarding the prognosis and how fast it is going to spread. I relayed to them that it is very difficult to say how fast it is going to spread but it will with time increase in size. Given that the patient is 84-year-old with underlying dementia and other multiple comorbidities they would not like anything aggressive to be done as the patient is not in any discomfort right now. I agree with family's decision. Doing anything aggressive looking at the age of the patient and underlying dementia would not be appropriate. No further recommendations from pulmonary perspective. Please recall if needed. Please note the above document was generated using voice recognition software. It may contain grammatical, syntax or spelling errors.Any formal questions or concerns about the content, text or information contained within the body of this dictation should be directly addressed to the provider for clarification. (2) Dementia: Admission and Anticipated Discharge Date Admission Date: April 03, 2020 Subjective Patient seen and examined at bedside. No acute distress, no adverse events overnight. Denies any headache, no shortness of breath, no cough Denies any chest pain. No dizziness, no nausea or vomiting. Good appetite Review of Systems Review of Systems: All systems reviewed & are unremarkable except as noted in Subjective Physical Exam Physical Exam: Constitutional: No acute distress HEENT: EOMI, legally blind Respiratory system: Decreased air entry bilaterally, no wheeze, no rhonchi, mild crackles bilateral lower lobes CVS: S1-S2 positive, no murmurs or gallops Abdomen: Soft, nontender, nondistended, positive bowel sounds x4 Extremities: +2 pulses bilaterally radialis/ dorsalis pedis, no cyanosis, no edema Neuro: Awake alert oriented to self and place, mumbled speech Psych: Normal mood and affect G/U: No Cadet Skin: no rashes, warm and dry Lymphatic: no cervical or axillary lymphadenopathy Results & Data Results & Data ([facility]) Vital Signs (Past 12 Hours) Vital Signs Temp Pulse Pulse Resp BP BP Pulse Ox 04/04/20 07:29 36.8 C 87 20 105/69 100 04/04/20 07:02 83 04/04/20 03:35 36.6 C 75 20 97/59 L 98 04/03/20 22:54 36.9 C 82 20 112/61 94 04/03/20 06:13 04/04/20 07:12 PG Care Time/CCT Total # of Minutes Spent Total Time Spent with Patient: Total time spent is greater than 50% in coordination of care (as documented) at patient's floor/unit and/or counseling patient: Coding Level of Care Code 44837 Subseq Hosp Care Lvl 3 Diagnoses Pulmonary nodule R91.1 Dementia F03.90
[2020-04-04] MEDS: CLOPIDOGREL BISULFATE 75 MG TAB PO SCH (15:37)
[2020-04-04] MEDS ORDERED: SODIUM CHLORIDE 0.9% 1000ML 250 ML IV ONE (16:34)
--- NOTE | 2020-04-04 18:08 | Hospitalist Progress Note ---
Date of Service April 04, 2020 Assessment & Plan (1) Acute metabolic encephalopathy due to hypoglycemia: admitted with profound hypoglycemic episode BSG 43 with episode of unresponsiveness at Rehab CT head /MRI of brain negative for acute stroke no evidence of infection noted all antidiabetics meds kept on hold BSG continues to improve as pt is allowed to eat Lung nodule : incidental finding CT chest with contrast confirms left upper lobe irregular nodule suggestive of primary lung CA Pulm consult appreciated /no aggressive procedure/bronchoscopy for diagnosis, plan of care d/w family members severe Dysphagia : noted in prior admission no evidence of acute /sub acute CVA in imaging possible due to progression of dementia speech eval appreciated Pureed diet with thin liquids -strict aspiration precaution Dementia /Legally blindness of both eyes/severe essential tremor of both hands : Nursing to provide supportive care fall and aspiration precaution assistance during meals Hx of prostate CA s/p radiation tx Hx of cholangitis : s/p biliary stent scheduled for stent removal by Minerva SHARMA at end of Apr Gall bladder USG in ER showed no evidence of gall bladder infection UTI : urine culture -gram negative bacilli started on IV Rocephin Disposition : pt is sent from SNF /short term rehab -[facility] plan to return back to [facility] for continued rehab when medically stable PT/OT eval , social service consulted for discharge planning Pt is DNR/DNI Admission and Anticipated Discharge Date Admission Date: April 03, 2020 Subjective Follow up visit for confusion /metabolic encephalopathy/hypoglycemia: more awake today , was able to be on chair with assistance speech remains slurred but able to to answer simple questions has been afebrile since admission, vitals stable no cough or SOB or hypoxia Review of Systems Review of Systems: Unobtainable due to cognitive status (dementia /Lehtergy ) Physical Exam Constitutional: WD/WN, vitals as above Eyes: + anicteric sclerae Neck: trachea midline, no thyromegaly Respiratory: normal respiratory effort Cardiovascular: RRR, no murmur, no edema Gastrointestinal (Abdomen): Percussion/Palpation: abdomen soft Neurologic: + confused and + obtunded (remains lathergic , but wakes up to voice ) Speech / Cognition: + abnormal speech and + abnormal cognition (dementia ) Motor/Sensory: + tremor (essential tremor on both hands ) Psychiatric: Motor Behavior: + tremor Results & Data Results & Data ([place]) Vital Signs (Past 12 Hours) Vital Signs Temp Pulse Pulse Resp BP BP Pulse Ox 04/04/20 17:30 116 H 20 93/64 L 97 04/04/20 15:19 36.9 C 78 16 85/60 L 92 04/04/20 11:19 86/53 L 04/04/20 11:13 80/55 L 04/04/20 10:59 36.6 C 74 18 98 04/04/20 07:29 36.8 C 87 20 105/69 100 04/04/20 07:02 83
[2020-04-04] MEDS: PRAVASTATIN SOD 20 MG TAB PO SCH (20:46)
[2020-04-05] MEDS: INSULIN ASPART 100 UNITS/ML 3 ML PEN SC SCH ×5 (00:57→21:33)
[2020-04-05] MEDS: PANTOprazole 40 MG TAB PO SCH (06:01)
[2020-04-05] MEDS: ENOXAPARIN INJ 30 MG/0.3 ML SYR SQ SCH (09:40)
[2020-04-05] MEDS: cefTRIAXone SODIUM 2,000 MG in DEXTROSE 5% 50 ML IV SCH (09:40)
[2020-04-05] MEDS: CEROVITE ADV FORMULA TAB PO SCH (09:41)
[2020-04-05] MEDS ORDERED: LIDOCAINE 2% JELLY 5 ML TUBE ONE (15:16)
[2020-04-05] MEDS ORDERED: CARBOHYDRATES FOR HYPOGLYCEMIA PO PRN (15:52)
[2020-04-05] MEDS ORDERED: GLUCOSE 10 TABS/TUBE PO PRN (15:52)
[2020-04-05] MEDS ORDERED: GLUCAGON FOR INJ 1 MG VIAL SQ PRN (15:52)
[2020-04-05] MEDS ORDERED: DEXTROSE 50% 50 ML SYRINGE IV PRN (15:52)
[2020-04-05] MEDS ORDERED: GLUCOSE 40% GEL 15 GM TUBE PO PRN (15:52)
--- NOTE | 2020-04-05 16:16 | Communication Note ---
Date of Service: April 05, 2020 spoke with Pt's Family -Gail Ordaz , Daughter and son's update given pt has been stable for past 24 hrs hypoglycemia has resolved BSG now elevated to > 200 post meals , insulin sliding scale ordered Hypotension /Bradycardia : BP was in low 90's yesterday , now stable in 106-110 pt is a very poor historian , unable to voice complain ( can not tell if he feels dizzy or lightheaded ) remains weak and lethargic - Atenolol kept on hold monitor in tele Chronic Afib/Aflutter : remains rate controlled afib /flutter -HR in 60's -70's Atenolol on hold due to above not a candidate for [facility]ci anticoagulation for stroke prevention -high fall and bleeding risk risk for future stroke -updated to Family , aware pt is scheduled to have a cardiology follow up with Dr Deras on Wednesday04/08/20 will reschedule the appointment and ask Cardiology to discuss with Pt and regarding chronic Afib and risk for stroke without anticoagulation UTI : urine culture : gram negative bacilli on IV Rocephin , recent admission on 03/2020 -had UTI , urine culture : klebsiella urinary retention bladder scan > 150 ml residual urine /pt unable to express any complain of bladder discomfort or dysuria possibly due UTI , has BPH abx as above cont Flomax , hold for SBP < 100 Severe Dysphagia : possible due to progression of dementia 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
[2020-04-05] MEDS: CLOPIDOGREL BISULFATE 75 MG TAB PO SCH (17:36)
--- NOTE | 2020-04-05 19:34 | Hospitalist Progress Note ---
Date of Service April 05, 2020 Assessment & Plan (1) Acute metabolic encephalopathy due to hypoglycemia: admitted with severe hypoglycemia , BSG improved hypoglycemia has resolved BSG now elevated to > 200 post meals , insulin sliding scale ordered Hypotension /Bradycardia : BP was in low 90's yesterday , now stable in 106-110 pt is a very poor historian , unable to voice complain ( can not tell if he feels dizzy or lightheaded ) remains weak and lethargic - Atenolol kept on hold monitor in tele Chronic Afib/Aflutter : remains rate controlled afib /flutter -HR in 60's -70's Atenolol on hold due to above not a candidate for usp anticoagulation for stroke prevention -high fall and bleeding risk risk for future stroke -updated to Family , aware pt is scheduled to have a cardiology follow up with Dr Deras on Wednesday04/08/20 will reschedule the appointment and ask Cardiology to discuss with Pt and regarding chronic Afib and risk for stroke without anticoagulation UTI : urine culture : gram negative bacilli on IV Rocephin , recent admission on 03/2020 -had UTI , urine culture : klebsiella urinary retention bladder scan > 150 ml residual urine /pt unable to express any complain of bladder discomfort or dysuria possibly due UTI , has BPH abx as above cont Flomax , hold for SBP < 100 Severe Dysphagia : possible due to progression of dementia hx of prior CVA on Pureed diet Speech pathology input appreciated scheduled for Video swallow study on Wednesday Confusion /metabolic encephalopathy: baseline dementia , oriented to person only worsening of mental status , lethargy , unresponsiveness due to combination of Hypoglycemia, Hypotension , UTI treatment outline as outlined above mental status waxes and weans cont to observe fall and aspiration precaution DNR/DNI Disposition : appreciate input from PT ,pt will need continued rehab on discharge plan of care d/w pt's family , in agreement with above , all questions answered Admission and Anticipated Discharge Date Admission Date: April 03, 2020 Subjective Follow up visit for confusion /metabolic encephalopathy/hypoglycemia: mental status waxes and weans was lethargic this AM , more awake and alert now baseline advanced dementia , oriented to person only Review of Systems Review of Systems: Unobtainable due to cognitive status Physical Exam Constitutional: WD/WN, vitals as above Eyes: + anicteric sclerae Neck: trachea midline, no thyromegaly Respiratory: normal respiratory effort Cardiovascular: RRR, no murmur, no edema Gastrointestinal (Abdomen): Percussion/Palpation: abdomen soft Neurologic: + confused and + obtunded (remains lathergic , but wakes up to voice ) Speech / Cognition: + abnormal speech and + abnormal cognition (dementia ) Motor/Sensory: + tremor (essential tremor on both hands ) Psychiatric: Motor Behavior: + tremor Results & Data Results & Data ([facility]) Vital Signs (Past 12 Hours) Vital Signs Temp Pulse Pulse Resp BP Pulse Ox 04/05/20 19:00 36.5 C 75 20 94/60 L 98 04/05/20 16:00 85 04/05/20 15:00 36.8 C 88 18 109/68 96 04/05/20 11:44 36.5 C 78 20 105/66 97 04/05/20 07:44 36.7 C 68 20 96/57 L 95
[2020-04-05] MEDS: PRAVASTATIN SOD 20 MG TAB PO SCH (20:42)
[2020-04-06] MEDS: PANTOprazole 40 MG TAB PO SCH (05:45)
[2020-04-06] MEDS: INSULIN ASPART 100 UNITS/ML 3 ML PEN SC SCH ×5 (07:36→20:15)
[2020-04-06] MEDS: CEROVITE ADV FORMULA TAB PO SCH (09:02)
[2020-04-06] MEDS: ENOXAPARIN INJ 30 MG/0.3 ML SYR SQ SCH (09:02)
[2020-04-06] MEDS: cefTRIAXone SODIUM 2,000 MG in DEXTROSE 5% 50 ML IV SCH (09:04)
[2020-04-06] MEDS ORDERED: LACTATED RINGER'S 1,000 ML IV SCH (16:30)
--- NOTE | 2020-04-06 16:42 | CT Scan Report ---
HEAD CT NONCONTRAST CT DOSE: 614.27 mGy.cm HISTORY: fall /confusion TECHNIQUE: Multiaxial CT images of the head were performed without the use of intravenous contrast. A utomated exposure control was utilized for this study. A dose lowering technique was utilized adheri ng to the principles of ALARA. Comparison: Head CT 04/02/2020. Findings: The paranasal sinuses and mastoid air cells are clear. The calvarium and skull base are int act. There is no mass, hematoma, midline shift, acute infarct. White matter hypodensity is nonspecifi c but suggestive of microvascular ischemic change. The ventricles and sulci demonstrate moderate age- related involutional changes. Impression: No significant change compared to the prior study. No acute intracranial abnormality. ACT 112: Negative or not required by law. Electronically signed by: Kareem Henderson M.D. 04/06/2020 4:41 PM
--- NOTE | 2020-04-06 16:48 | Hospitalist Progress Note ---
Date of Service April 06, 2020 Assessment & Plan (1) Acute metabolic encephalopathy due to hypoglycemia: Fall /brief episode of unresponsiveness : slid forward while sitting on chair sustained no injury mental status approx baseline /negative CT head post fall Metabolic encephalopathy : sent from rehab as pt was found unresponsive , severe hypoglycemia , BSG < 50 BSG improved hypoglycemia has resolved/tolerating pureed diet BSG now elevated to > 200 post meals , insulin sliding scale ordered Hypoglycemia possible due to poor PO intake, pt was on Prandin and Metformin Prandin will be discontinued on discharge Hypotension /Bradycardia : BP in low 90's pt is a very poor historian , unable to voice complain ( can not tell if he feels dizzy or lightheaded ) Atenolol D/uli ordered for IV fluid monitor in tele Chronic Afib/Aflutter : remains rate controlled afib /flutter -HR in 60's -70's Atenolol on hold due to above not a candidate for care home anticoagulation for stroke prevention -high fall and bleeding risk risk for future stroke -updated to Family , aware pt is scheduled to have a cardiology follow up with Dr Deras on Wednesday04/08/20 will reschedule the appointment and ask Cardiology to discuss with Pt and regarding chronic Afib and risk for stroke without anticoagulation UTI : urine culture : Klebsiella , resistant to Rocephin IV Rocephin D/uli PO Ciprofloxacin 500 mg PO BID for 7 days ( ist day of tx 04/06/20 ) urinary retention bladder scan > 150 ml residual urine /pt unable to express any complain of bladder discomfort or dysuria possibly due UTI , has BPH abx as above cont Flomax , hold for SBP < 100 Severe Dysphagia : possible due to progression of dementia hx of prior CVA on Pureed diet Speech pathology input appreciated scheduled for Video swallow study on Wednesday04/08/20 Confusion /metabolic encephalopathy: baseline dementia , oriented to person only worsening of mental status , lethargy , unresponsiveness due to combination of Hypoglycemia, Hypotension , UTI treatment outline as outlined above mental status waxes and weans cont to observe fall and aspiration precaution pt is placed 1:1 for fall risk DNR/DNI Disposition : appreciate input from PT ,pt will need continued rehab on discharge pt's Gail Ordaz updated regarding pt's current status including episode of fall happened earlier today . all questions answered Admission and Anticipated Discharge Date Admission Date: April 03, 2020 Subjective pt sustained a fall while sitting on chair at around 4: 10 pm possibly slid forward , nursing found him unresponsive , face down on floor " CODE PURPLE " was called after pt was placed on Bed ; Vitals appears to be stable , Spo2 97% in room air pt was more arousable , moaning , mumbling has been minimally communicative since admission /mostly lethargic Per nursing pt was more awake and alert today -prompted to have be OOB to chair briefly , had chair alarm -which did not go off pt recovered after few minutes stat CT head non contrast done : no acute change updated over phone , pt is moved closer to nursing station , 1: 1 observation for fall risk revisited patient after 10 mins , more awake and alert , sitting up: aid assisting him with dinner ( pureed diet ) eating without any discomfort able to answer simple questions, does not recall the fall denies of any pain Review of Systems Review of Systems: Unobtainable due to cognitive status (advanced dementia ) Physical Exam Constitutional: WD/WN, vitals as above Eyes: + anicteric sclerae Neck: trachea midline, no thyromegaly Respiratory: normal respiratory effort Cardiovascular: RRR, no murmur, no edema Gastrointestinal (Abdomen): Percussion/Palpation: abdomen soft Neurologic: awake and + confused (oriented to person only , baseline dementina ) Speech / Cognition: + abnormal speech and + abnormal cognition (dementia ) Motor/Sensory: + tremor (essential tremor on both hands ) Psychiatric: Orientation: alert and oriented to person Results & Data Results & Data ([facility]) Vital Signs (Past 12 Hours) Vital Signs Temp Pulse Pulse Resp BP Pulse Ox 04/06/20 15:51 36.5 C 59 L 19 114/80 95 04/06/20 14:55 94 H 04/06/20 11:09 37 C 115 H 18 98/65 L 90 04/06/20 07:48 36.4 C L 81 18 119/77 93 04/06/20 07:00 84
[2020-04-06] MEDS: CIPROFLOXACIN 500 MG TAB PO SCH ×2 (17:12→20:14)
[2020-04-06] MEDS: ACETAMINOPHEN 325 MG TAB PO PRN (17:12)
[2020-04-06] MEDS: CLOPIDOGREL BISULFATE 75 MG TAB PO SCH (17:18)
[2020-04-06] MEDS: TAMSULOSIN HCL 0.4 MG CAP PO SCH (20:14)
[2020-04-06] MEDS: PRAVASTATIN SOD 20 MG TAB PO SCH (20:15)
[2020-04-07] MEDS: PANTOprazole 40 MG TAB PO SCH (06:06)
[2020-04-07] MEDS: CIPROFLOXACIN 500 MG TAB PO SCH ×2 (07:58→20:52)
[2020-04-07] MEDS: CEROVITE ADV FORMULA TAB PO SCH (07:58)
[2020-04-07] MEDS: ENOXAPARIN INJ 30 MG/0.3 ML SYR SQ SCH (07:58)
[2020-04-07 07:59] LABS: Hematocrit (blood only) 32.9 % (42-52); Hemoglobin 11.1 g/dL (14.0-18.0); Mean Corpuscular Hemoglobin 32.8 pg (25-34); Mean Corpuscular Hgb Conc 33.7 g/dL (32-36); Mean Corpuscular Volume 97.3 fL (80-100); Mean Platelet Volume 9.4 fL (7.4-10.4); Platelet Count 193 K/uL (130-400); RDW Coefficient of Variation 14.1 % (11.5-14.5); RDW Standard Deviation 50.5 fL (36.4-46.3); Red Blood Count 3.38 M/uL (4.7-6.1); White Blood Count 5.05 K/uL (4.8-10.8)
[2020-04-07] MEDS: INSULIN ASPART 100 UNITS/ML 3 ML PEN SC SCH ×4 (08:04→20:53)
[2020-04-07 08:15] LABS: BUN Creatinine Ratio 27.9 (10-20); Calcium 8.6 mg/dl (8.5-10.1); Creatinine Clr Calc Pharmacy 62.9 ml/min; Est GFR (African American) 90.6; Est GFR (Non-African American) 78.1; Potassium 3.8 mmol/L (3.5-5.1)
--- NOTE | 2020-04-07 15:44 | Hospitalist Progress Note ---
Date of Service April 07, 2020 Assessment & Plan (1) Acute metabolic encephalopathy due to hypoglycemia: Metabolic encephalopathy : mental status improved to approx baseline , able to answer questions sent from rehab as pt was found unresponsive , severe hypoglycemia , BSG < 50 BSG improved hypoglycemia has resolved/tolerating pureed diet BSG now elevated to > 200 post meals , insulin sliding scale ordered Hypoglycemia possible due to poor PO intake, pt was on Prandin and Metformin Prandin will be discontinued on discharge Hypotension /Bradycardia : BP improved after IV fluid d Atenolol D/uli Chronic Afib/Aflutter : remains rate controlled afib /flutter -HR in 60's -70's Atenolol on hold due to above not a candidate for long-term anticoagulation for stroke prevention -high fall and bleeding risk risk for future stroke -updated to Family , aware pt is scheduled to have a cardiology follow up with Dr Deras on Wednesday04/08/20 will reschedule the appointment and ask Cardiology to discuss with Pt and regarding chronic Afib and risk for stroke without anticoagulation UTI : urine culture : Klebsiella , resistant to Rocephin IV Rocephin D/uli PO Ciprofloxacin 500 mg PO BID for 7 days ( ist day of tx 04/06/20 ) urinary retention bladder scan > 150 ml residual urine /pt unable to express any complain of b ladder discomfort or dysuria possibly due UTI , has BPH abx as above cont Flomax , hold for SBP < 100 Severe Dysphagia : possible due to progression of dementia hx of prior CVA on Pureed diet Speech pathology input appreciated scheduled for Video swallow study on Wednesday04/08/20 DNR/DNI Disposition : appreciate input from PT ,pt will need continued rehab on discharge Admission and Anticipated Discharge Date Admission Date: April 03, 2020 Subjective awake and alert today no fever or chills speech remains slurred /able to answer questions vitals been stable Review of Systems Review of Systems: Unobtainable due to cognitive status Physical Exam Constitutional: WD/WN, vitals as above Eyes: + anicteric sclerae Neck: trachea midline, no thyromegaly Respiratory: normal respiratory effort Cardiovascular: RRR, no murmur, no edema Gastrointestinal (Abdomen): Percussion/Palpation: abdomen soft Neurologic: awake and + confused (oriented to person only , baseline dementina ) Speech / Cognition: + abnormal speech and + abnormal cognition (dementia ) Motor/Sensory: + tremor (essential tremor on both hands ) Psychiatric: Orientation: alert and oriented to person Motor Behavior: + tremor Results & Data Results & Data ([facility]) Vital Signs (Past 12 Hours) Vital Signs Temp Pulse Pulse Resp BP Pulse Ox 04/07/20 15:00 69 04/07/20 11:35 36.1 C L 74 16 126/80 99 04/07/20 07:13 36.6 C 72 20 139/92 99 04/07/20 06:57 71
[2020-04-07] MEDS: CLOPIDOGREL BISULFATE 75 MG TAB PO SCH (17:02)
[2020-04-07] MEDS: TAMSULOSIN HCL 0.4 MG CAP PO SCH (20:52)
[2020-04-07] MEDS: PRAVASTATIN SOD 20 MG TAB PO SCH (20:52)
[2020-04-08] MEDS: PANTOprazole 40 MG TAB PO SCH (06:01)
[2020-04-08] MEDS: ENOXAPARIN INJ 30 MG/0.3 ML SYR SQ SCH (09:03)
[2020-04-08] MEDS: CIPROFLOXACIN 500 MG TAB PO SCH ×2 (09:04→20:51)
[2020-04-08] MEDS: CEROVITE ADV FORMULA TAB PO SCH (09:04)
[2020-04-08] MEDS: INSULIN ASPART 100 UNITS/ML 3 ML PEN SC SCH ×4 (09:05→20:53)
--- NOTE | 2020-04-08 11:20 | Fluoroscopy Report ---
FL video swallow HISTORY: assess for aspiration TECHNIQUE: Video fluoroscopic evaluation of swallowing was performed in the AP and lateral projection s by the speech pathology staff. The patient is fed nectar-thick and thin liquid barium, a barium coa germaine wafer, and barium pudding. FLUOROSCOPY TIME: 2.2 minutes. A cine loop submitted. COMPARISON STUDY: None. FINDINGS: There is normal hyoid excursion and epiglottic deflection. There are a few episodes of juan ature spillover with delayed swallowing with the thin liquid barium resulting in aspiration. Delayed swallowing of the nectar thick liquid barium also resulted in penetration without aspiration. No aspi ration with the barium pudding. The patient was unable to masticate the barium cracker. IMPRESSION: 1. Delayed swallowing with the thin liquid barium resulting in aspiration. 2. Please see the speech pathologist report for detailed findings and recommendations. ACT 112: Negative or not required by law. Electronically signed by: Kareem Henderson M.D. 04/08/2020 11:19 AM
[2020-04-08] MEDS: CLOPIDOGREL BISULFATE 75 MG TAB PO SCH (17:38)
--- NOTE | 2020-04-08 19:14 | Hospitalist Progress Note ---
Date of Service April 08, 2020 Assessment & Plan (1) Acute metabolic encephalopathy due to hypoglycemia: Metabolic encephalopathy : mental status improved to approx baseline , able to answer questions sent from rehab as pt was found unresponsive , severe hypoglycemia , BSG < 50 BSG improved hypoglycemia has resolved/tolerating pureed diet , insulin sliding scale ordered Hypoglycemia possible due to poor PO intake, pt was on Prandin and Metformin metformin can be resumed on discharge ( does not cause hypoglycemia Prandin will be discontinued on discharge Hypotension /Bradycardia : resolved, BP stable now received IV fluid HR stable Atenolol D/uli Chronic Afib/Aflutter : remains rate controlled afib /flutter -HR in 60's -70's Atenolol on hold due to above not a candidate for fpc anticoagulation for stroke prevention -high fall and bleeding risk risk for future stroke -updated to Family , aware pt is scheduled to have a cardiology follow up with Dr Deras on Wednesday04/08/20 will reschedule the appointment and ask Cardiology to discuss with Pt and regarding chronic Afib and risk for stroke without anticoagulation UTI : urine culture : Klebsiella , resistant to Rocephin IV Rocephin D/uli PO Ciprofloxacin 500 mg PO BID for 7 days ( ist day of tx 04/06/20 ) urinary retention bladder scan > 150 ml residual urine /pt unable to express any complain of bladder discomfort or dysuria possibly due UTI , has BPH abx as above on Flomax will do a voiding trial tomorrow Severe Dysphagia : possible due to progression of dementia hx of prior CVA on Pureed diet Speech pathology input appreciated Video swallow study today -shows pharyngeal dysphagia , silent aspiration with thin liquids pt will need to be continued with Pureed and necter think DNR/DNI Disposition : plan to discharge to rehab [facility] in am will need arrangements for transport Family /daughter updated over phone Admission and Anticipated Discharge Date Admission Date: April 03, 2020 Subjective follow up visit for metabolic encephalopathy /lethargy /UTI : pt has been awake and alert for last 48 hrs speech remains slurred , but able to communicate no fever or chills Review of Systems Review of Systems: Unobtainable due to cognitive status Physical Exam Constitutional: WD/WN, vitals as above Eyes: + anicteric sclerae Neck: trachea midline, no thyromegaly Respiratory: normal respiratory effort Cardiovascular: RRR, no murmur, no edema Gastrointestinal (Abdomen): Percussion/Palpation: abdomen soft Neurologic: awake and + confused (oriented to person only , baseline dementina ) Speech / Cognition: + abnormal speech and + abnormal cognition (dementia ) Motor/Sensory: + tremor (essential tremor on both hands ) Psychiatric: Orientation: alert and oriented to person Motor Behavior: + tremor Results & Data Results & [facility] ([facility]) Vital Signs (Past 12 Hours) Vital Signs Temp Pulse Pulse Resp BP BP Pulse Ox 04/08/20 16:30 92 H 04/08/20 15:32 36.5 C 87 16 134/85 97 04/08/20 11:18 36.7 C 92 H 16 145/88 H 98 04/08/20 07:47 36.7 C 75 16 136/84 98
[2020-04-08] MEDS: TAMSULOSIN HCL 0.4 MG CAP PO SCH (20:51)
[2020-04-08] MEDS: PRAVASTATIN SOD 20 MG TAB PO SCH (20:52)
[2020-04-09] MEDS: PANTOprazole 40 MG TAB PO SCH (06:15)
[2020-04-09] MEDS: CEROVITE ADV FORMULA TAB PO SCH (07:56)
[2020-04-09] MEDS: CIPROFLOXACIN 500 MG TAB PO SCH (07:57)
[2020-04-09] MEDS: ENOXAPARIN INJ 30 MG/0.3 ML SYR SQ SCH (07:57)
[2020-04-09] MEDS: INSULIN ASPART 100 UNITS/ML 3 ML PEN SC SCH ×2 (08:45→12:20)
--- NOTE | 2020-04-09 10:35 | Discharge Summary ---
Date of Service April 09, 2020 Admission HPI Per Admitting Provider History obtained from patient, family, and records. Limited history from patient secondary to dementia. Medical history significant for PAF, TIA, hypertension, hyperlipidemia, prostate cancer, recurrent cholangitis as per records, DM2 on oral medications, prostate cancer status post radiation, chronic anemia (baseline hemoglobin of 12), past tobacco abuse, dementia. Recent confinement last month for septic shock secondary to ascending cholangitis status post ERCP status post stent placement (03/15). Repeat ERCP to facilitate stent removal after 6 weeks as per documentation. Surgery referral for cholecystectomy deferred as per 's request. Patient discharged to [facility]. Patient noted to be lethargic at [facility] today. Communicating less than usual and having slurred speech. Patient slumped forward. SBP noted to be 80s. BSG noted to be 40s at the ER at some point. 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 Principal Diagnosis CONFUSION /METABOLIC ENCEPHALOPATHY DEMENTIA UTI URINARY TRACT INFECTION Discharge Exam Constitutional WD/WN, vitals as above Eyes + anicteric sclerae Neck trachea midline, no thyromegaly Respiratory normal respiratory effort Cardiovascular RRR, no murmur, no edema Gastrointestinal (Abdomen) Percussion/Palpation: abdomen soft Neurologic awake and + confused (oriented to person only , baseline dementina ) Speech / Cognition: + abnormal speech and + abnormal cognition (dementia ) Motor/Sensory: + tremor (essential tremor on both hands ) Psychiatric Orientation: alert and oriented to person Motor Behavior: + tremor Discharge Data Allergies Allergy/AdvReac Type Severity Reaction Status Date / Time No Known Allergies Allergy Verified 04/02/20 15:46 Consultations 04/02/20 19:55 ED Decision to Admit Stat 04/03/20 09:58 Consult Pulmonology Routine 04/03/20 11:22 Consult Case Management - Discharge Planning Routine Ordered Studies 04/02/20 14:10 CT angio head w con Stat CT angio neck with con Stat CT head/brain wo con Stat 04/02/20 17:52 US gallbladder Stat 04/02/20 22:54 MR brain wo con Urgent 04/03/20 09:56 CT chest diagnostic w con Routine 04/06/20 16:21 CT head/brain wo con Stat 04/08/20 12:30 FL video swallow Routine Hospital Course (1) Acute metabolic encephalopathy due to hypoglycemia: Metabolic encephalopathy : mental status improved to approx baseline , able to answer questions sent from rehab as pt was found unresponsive , severe hypoglycemia , BSG < 50 BSG improved awake and alert now , oriented to person speech remains very slurred , but able to answer question hypoglycemia has resolved/tolerating pureed diet Hypoglycemia possible due to poor PO intake, pt was on Prandin and Metformin metformin is resumed on discharge ( does not cause hypoglycemia ) Prandin discontinued on discharge Hypotension /Bradycardia : resolved, BP stable now received IV fluid HR stable Atenolol D/uli Chronic Afib/Aflutter : remains rate controlled afib /flutter -HR in 60's -70's Atenolol on hold due to above not a candidate for custodial anticoagulation for stroke prevention -high fall and bleeding risk risk for future stroke -updated to Family , aware pt is scheduled to have a cardiology follow up with Dr Deras on Wednesday04/08/20 will reschedule the appointment and ask Cardiology to discuss with Pt and regarding chronic Afib and risk for stroke without anticoagulation UTI : urine culture : Klebsiella , resistant to Rocephin IV Rocephin D/uli PO Ciprofloxacin 500 mg PO BID for 7 days ( ist day of tx 04/06/20 ) - urinary retention developed during this hospital stay mejias /dc ed this am pt was able to void spontaneously after several hours post void bladder scan shows only 63 ml residual urine pt discharged to rehab without mejias Severe Dysphagia : possible due to progression of dementia hx of prior CVA Speech pathology input appreciated Video swallow study -shows pharyngeal dysphagia , silent aspiration with thin liquids pt is continued with Pureed and necter think aspiration precaution DNR/DNI Disposition : discharge to rehab [facility] today Total Time Total Time Spent Total Time Spent (In Minutes): 35 m ins Total Time Includes: Examination of the Patient, Discharge Planning and Medication Reconciliation Discharge Plan Discharge Items Patient Disposition: Transfer Halfway Fac Reason For Visit: AMS Discharge Diagnosis: CONFUSION /METABOLIC ENCEPHALOPATHY DEMENTIA UTI URINARY TRACT INFECTION Activity: As commented below Activity Comment: CONTINUE PHYSICAL THERAPY/OCCUPATIONAL THERAPY AT REHAB Non-emergency contact: Primary Care Provider Call non-emergency contact if: you have any medication questions Follow-up/Referrals: Aaron Bell [Primary Care Provider] - Diet: Carb Consistent or DM2 Diet Texture: Pureed (blended smooth) Liquid Consistency: [place] thick Addtl Attending Provider Instructions: Please take all medications as instructed on discharge list below. It is recommended that you follow-up wtih your primary care physician within 1-2 weeks of hospital discharge to ensure you are still doing well. It was a pleasure taking care of you! Please call if you have any questions or problems. You can reach a [facility] hospitalist on duty at [facility] 24 hours a day by calling [phone] Pending Studies at Discharge: No Stand-Alone Forms: My [facility] Skilled Items Patient informed of condition?: Yes DNR: Yes Discharge Level of Care: Skilled Communicable Disease: No Discharge Prognosis: Stable Lines: None Urinary Catheter: No Medications and DC Order Prescriptions: New ciprofloxacin HCl 500 mg Tablet 500 mg PO BID 3 Days Qty: 6 RF: 0 Daily Probiotic (10 Strains) 4 billion cell capsule 1 cap PO BID 14 Days Qty: 28 RF: 0 Continued clopidogrel 75 mg Tablet 75 mg PO QDD RF: 0 tamsulosin 0.4 mg Capsule 0.4 mg PO HS RF: 0 nitroglycerin [Nitrostat] 0.4 mg Tablet, Sublingual 0.4 mg sublingual DIRECTED PRN (Reason: Chest Pain) RF: 0 omeprazole 20 mg Capsule,Delayed Release(Dr/Ec) 20 mg PO DAILYBB RF: 0 pravastatin 20 mg Tablet 20 mg PO HS RF: 0 multivitamin with minerals Tablet 2 tab PO QAM RF: 0 oxybutynin chloride 5 mg Tablet 5 mg PO AMHS RF: 0 loratadine [Claritin] 10 mg Tablet 10 mg PO DAILY PRN (Reason: Allergy Symptoms) RF: 0 acetaminophen [Tylenol Extra Strength] 500 mg Tablet 500 mg PO TID RF: 0 Changed metformin 500 mg Tablet 500 mg PO BIDM Qty: 0 RF: 0 Discontinued atenolol 25 mg Tablet 25 mg PO DAILY RF: 0 quinapril 20 mg Tablet 20 mg PO QAM RF: 0 repaglinide [Prandin] 1 mg Tablet 1 mg PO BID RF: 0 potassium chloride 20 mEq/15 mL liquid 20 meq PO AMHS RF: 0 furosemide 40 mg tablet 40 mg PO QAM RF: 0 Discharge Orders: Discharge Order (Routine); Ordered 04/09/20 Ordered By: Georgiana Raza Admission Data Admit Date/Time: 04/03/20 15:43 Attending Provider: Georgiana Raza Admit Provider: Kurt Holley Primary Care Provider: Aaron Bell Other Providers: Kurt Holley ; Yifan Asher ; Anibal Issa ; Arabella, Other Interventions: Discharge Summary Assessment (RN) Last Done: 04/09/20 10:36
--- NOTE | 2020-04-09 13:47 | Communication Note ---
Date of Service: April 09, 2020 Cadet catheter d/uli this am for voiding trial Pt voided spontaneously , post void bladder scan reveals 63 ml /urine no significant urinary retention noted pt will need not need Cadet catheter on discharge stable to transfer to [facility] for continued rehab today Georgiana Raza
== END 2020-04-09 17:00 | DRG 71 ==
LOC: ED 13:37 → 2N 13:37 → SUATTDRO 21:36 → 2N 22:04

== ENCOUNTER 2020-04-24 09:14 | Observation (INO) ==
[2020-04-24] MEDS ORDERED: PIPERACILLIN/TAZOBACTAM 4.5 GM in DEXTROSE 5% 100 ML IV STA (09:53)
[2020-04-24] MEDS ORDERED: PIPERACILL/TAZOBAC CONSULT ACTIVE PRN (09:53)
[2020-04-24] MEDS ORDERED: levoFLOXacin/D5W 750 MG/150 ML BAG IV STA (09:53)
[2020-04-24] MEDS ORDERED: SODIUM CHLORIDE 0.9% 1000ML 1,000 ML IV SCH (10:00)
[2020-04-24 10:05] LABS: Hematocrit (blood only) 35.3 % (42-52); Hemoglobin 11.7 g/dL (14.0-18.0); Mean Corpuscular Hemoglobin 32.3 pg (25-34); Mean Corpuscular Hgb Conc 33.1 g/dL (32-36); Mean Corpuscular Volume 97.5 fL (80-100); Mean Platelet Volume 10.1 fL (7.4-10.4); Platelet Count 202 K/uL (130-400); RDW Coefficient of Variation 14.3 % (11.5-14.5); RDW Standard Deviation 51.3 fL (36.4-46.3); Red Blood Count 3.62 M/uL (4.7-6.1); White Blood Count 9.02 K/uL (4.8-10.8)
[2020-04-24 10:14] LABS: Albumin Level 1.7 gm/dl (3.4-5.0); BUN Creatinine Ratio 16.4 (10-20); Calcium 7.5 mg/dl (8.5-10.1); Creatinine Clr Calc Pharmacy 21.7 ml/min; Est GFR (Non-African American) 23.3; Magnesium 1.8 mg/dl (1.8-2.4); Potassium 4.4 mmol/L (3.5-5.1)
--- NOTE | 2020-04-24 10:16 | Emergency Department Note ---
History of Present Illness General Chief complaint: Respiratory Problems Stated complaint: DECREASED MENTAL STATUS/SOB Time Seen by Provider: 04/24/20 09:42 Source: family and RN notes reviewed Limitations: altered mental status History of Present Illness Provider complaint: Unresponsive Onset (ago): hour(s) Location: head Pain Consistency: + constant Relieved By: + none Associated symptoms: + cough (Starting yesterday per the ) and + shortness of breath; no fever/chills and no nausea/vomiting This is an 84-year-old male who presents from [facility] presenting with altered mental status and difficulty breathing. The patient was difficult to wake up this morning. He is altered and confused. He was reported to have noisy respirations and a low pulse ox. The group home was concerned about aspiration pneumonia as he can only have thick liquids. His states that he was coughing yesterday. No report of fever or trauma. No known history of fall. He has not vomited. His states that he had a negative COVID-19 test 4 days ago. She states that he is also DNR/DNI. Home Medications Medication Instructions Recorded Confirmed Type clopidogrel 75 mg PO QPM 04/30/19 04/24/20 History loratadine [Claritin] 10 mg PO DAILY 04/30/19 04/24/20 History multivitamin with minerals 1 tab PO QAM 04/30/19 04/24/20 History nitroglycerin [Nitrostat] 0.4 mg SUBLINGUAL DIRECTED PRN 04/30/19 04/24/20 History omeprazole 20 mg PO DAILYBB 04/30/19 04/24/20 History oxybutynin chloride 5 mg PO AMHS 04/30/19 04/24/20 History pravastatin 20 mg PO HS 04/30/19 04/24/20 History tamsulosin 0.4 mg PO HS 04/30/19 04/24/20 History metformin 500 mg PO BIDM #0 tab 04/08/20 04/24/20 Rx bisacodyl [Dulcolax (bisacodyl)] 10 mg SC DAILY PRN 04/17/20 04/24/20 History magnesium hydroxide [Milk of 30 ml PO DAILY PRN 04/17/20 04/24/20 History Magnesia] Allergies Allergy/AdvReac Type Severity Reaction Status Date / Time No Known Allergies Allergy Verified 04/24/20 10:44 Past Med/Surg History Medical History Shiv Resides at [facility]. Ascending cholangitis Mar 2020 - due to choledocholithiasis, s/p ERCP with biliary stent placement Atrial fibrillation No AC due to high fall and bleeding risk Cognitive communication deficit CVA (cerebral vascular accident) History of per records -no recent issues noted. Pt on Plavix Dementia Diabetes mellitus type 2, controlled Disorder of prostate Dysphagia Possibly due to progression of dementia. Hx of prior CVA- pt was discharged 04/09/20 on pureed and nectar thick diet. GERD (gastroesophageal reflux disease) Hyperlipidemia Hypertension Macular degeneration Metabolic encephalopathy Noted with Apr 2020 admission- was back to baseline on admission. Pt did have hypoglycemia on admission- Prandin was d/c'ed. 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 repeat MRCP recommended in 6 months Personal history of malignant neoplasm of prostate S/p radiation per records Surgical History H/O prostate biopsy History of ERCP Family History Other No pertinent family history in first degree relatives Social History Smoking Status: Unknown if ever smoked Preferred Language: Macedonian Communication Ability: Unable Communication Ability Comment: Patient unable to verbalize at this time Cager Operator Required: No Beliefs That Will Affect Care: None marital status: Current Living Situation: Personal Care Facility Current Living Situation Comment: [facility] Feels Safe at Home: Yes Assistive Devices: Oxygen - Continuous Review of Systems See HPI for pertinent positives & negatives. Unobtainable due to reduced consciousness Physical Exam Vital Signs Vital Signs - 24 hr 04/24/20 09:22 04/24/20 09:32 04/24/20 09:49 Temperature 36.8 C 36.8 C Temperature Source Oral Pulse Rate 111 H 105 H 101 H Pulse Rate from SpO2 Sensor 108 H 105 H Pulse Rhythm Irregular Respiratory Rate 34 H 31 H 25 H Respiratory Effort / Characteristics Grunting Labored Retracting Short of Breath Blood Pressure 76/51 L 70/44 L 89/59 L Blood Pressure Mean 59 52 69 Blood Pressure Position Lying Pulse Oximetry 88 L 96 97 Oxygen Delivery Method Room Air Nasal Cannula Oxygen Flow Rate 2 Sepsis Recent Fever Within 48 Hours No Sepsis New/Unexplained Change in Mental Status No Sepsis Action Taken by Nursing No Action Required 04/24/20 10:00 04/24/20 10:02 04/24/20 10:15 Temperature Temperature Source Pulse Rate 120 H 96 H Pulse Rate from SpO2 Sensor Pulse Rhythm Respiratory Rate 28 H 28 H 30 H Respiratory Effort / Characteristics Blood Pressure 80/62 L 86/56 L 94/62 L Blood Pressure Mean 68 66 72 Blood Pressure Position Pulse Oximetry Oxygen Delivery Method Oxygen Flow Rate Sepsis Recent Fever Within 48 Hours Sepsis New/Unexplained Change in Mental Status Sepsis Action Taken by Nursing 04/24/20 10:18 04/24/20 10:31 04/24/20 10:40 Temperature Temperature Source Pulse Rate 92 H Pulse Rate from SpO2 Sensor 116 H Pulse Rhythm Respiratory Rate 29 H Respiratory Effort / Characteristics Grunting Labored Retracting Short of Breath Blood Pressure 79/58 L Blood Pressure Mean 65 Blood Pressure Position Pulse Oximetry 98 97 98 Oxygen Delivery Method Nasal Cannula Nasal Cannula Nasal Cannula Oxygen Flow Rate 2 2 2 Sepsis Recent Fever Within 48 Hours Sepsis New/Unexplained Change in Mental Status Sepsis Action Taken by Nursing 04/24/20 11:00 04/24/20 11:30 Temperature Temperature Source Pulse Rate 121 H Pulse Rate from SpO2 Sensor 106 H Pulse Rhythm Respiratory Rate 27 H Respiratory Effort / Characteristics Grunting Labored Retracting Short of Breath Grunting Labored Retracting Short of Breath Blood Pressure 95/65 L Blood Pressure Mean 75 Blood Pressure Position Pulse Oximetry 100 Oxygen Delivery Method Nasal Cannula Oxygen Flow Rate 4 Sepsis Recent Fever Within 48 Hours Sepsis New/Unexplained Change in Mental Status Sepsis Action Taken by Nursing The physical exam is limited due to the patient's condition. Constitutional: Vital signs reviewed. Eyes: Pupils are equal round reactive to light. Conjunctiva are noninjected. HENT: Normocephalic atraumatic. Mucous membranes are dry. Respiratory: Rhonchi throughout. Breath sounds are equal bilaterally. Cardiovascular: Tachycardic. Irregularly irregular rhythm. GI: Soft, nondistended and nontender. Bowel sounds are present. Musculoskeletal: Legs are contracted. Integumentary: Petechiae in the lower extremities bilaterally. Neurological: The patient is nonverbal. Does not follow commands. Psychiatric: Unable to assess. Course Administered Medications Vancomycin HCl 1,750 mg/ (Sodium Chloride) 535 mls @ 200 mls/hr IV TODAY@1400 [facility] Stop: 04/24/20 16:41 Last Admin: 04/24/20 14:14 Dose: 200 mls/hr Documented by: [id number] Discontinued Medications Sodium Chloride (Nss 1000ml) 1,000 mls @ 999 mls/hr IV .Q1H1M JAMES Stop: 04/24/20 11:00 Last Infusion: 04/24/20 11:42 Dose: 0 mls/hr Documented by: [id number] Admin: 04/24/20 10:00 Dose: 999 mls/hr Documented by: [id number] Levofloxacin/Dextrose (Levaquin/D5w) 750 mg in 150 mls @ 100 mls/hr IV Q24H STA; Protocol Stop: 04/24/20 11:22 Last Infusion: 04/24/20 13:37 Dose: 0 mls/hr Documented by: [id number] Admin: 04/24/20 11:27 Dose: 100 mls/hr Documented by: [id number] Piperacillin Sod/Tazobactam (Sod 4.5 gm/ Dextrose) 120 mls @ 240 mls/hr IV NOW ONE; Protocol Stop: 04/24/20 10:59 Last Infusion: 04/24/20 11:42 Dose: 0 mls/hr Documented by: [id number] Admin: 04/24/20 10:25 Dose: 240 mls/hr Documented by: [id number] Sodium Chloride (Nss 1000ml) 1,000 mls @ 999 mls/hr IV .Q1H1M ONE Stop: 04/24/20 12:04 Last Infusion: 04/24/20 12:29 Dose: 0 mls/hr Documented by: [id number] Admin: 04/24/20 11:26 Dose: 999 mls/hr Documented by: [id number] Piperacillin Sod/Tazobactam Sod (Piperacillin/Tazobactam 4.5 Gm/120ml D5w) Confirm Administered Dose 4.5 gm .ROUTE .STK-MED ONE Stop: 04/24/20 10:18 Last Admin: 04/24/20 10:28 Dose: Not Given Documented by: [id number] Critical Care Time Critical Care Time: Yes Total Critical Care Time: 40 I have personally spent approximately 40 minutes of critical care time in the direct management of this patient. This includes bedside care, interpretation of diagnostic studies, and testing, discussion with consultants, patient, and family members, and other required patient management activities. These minutes are in excess of all separately billable procedures. Medical Decision Making Differential Diagnosis Sepsis, septic shock, ICH, respiratory failure with hypoxia and hypercapnia, UTI, aspiration pneumonia, COVID-19 Medical Records Attestation: I reviewed the patient's medical records. I did perform a limited focused review of portions of the patient's old chart on the electronic medical record. The patient was admitted to the hospital April 02 for encephalopathy due to UTI. Home Medications Current Medication List: was personally reviewed by me Laboratory Data Attestation: I reviewed the patient's lab results. Result diagrams: 04/24/20 09:40 04/24/20 09:40 Lab Results 04/24/20 04/24/20 04/24/20 Range/Units 09:40 09:40 09:40 WBC 9.02 (4.8-10.8) K/uL RBC 3.62 L (4.7-6.1) M/uL Hgb 11.7 L (14.0-18.0) g/dL Hct 35.3 L (42-52) % MCV 97.5 (80-100) fL MCH 32.3 (25-34) pg MCHC 33.1 (32-36) g/dL RDW Std Deviation 51.3 H (36.4-46.3) fL RDW Coeff of Adiel 14.3 (11.5-14.5) % Plt Count 202 (130-400) K/uL MPV 10.1 (7.4-10.4) fL Immature Gran % (Auto) 1.2 % Neut % (Auto) 82.2 % Lymph % (Auto) 13.7 % Juncos % (Auto) 2.9 % Eos % (Auto) 0.0 % Baso % (Auto) 0.0 % Neut # (Auto) 7.41 H (1.4-6.5) K/uL Lymph # (Auto) 1.24 (1.2-3.4) K/uL Jun[place] # (Auto) 0.26 (0.11-0.59) K/uL Eos # (Auto) 0.00 (0-0.5) K/uL Baso # (Auto) 0.00 (0-0.2) K/uL Immature Gran # (Auto) 0.11 H (0.00-0.02) K/uL Toxic Vacuolation 1+ Dohle Bodies 1+ PT 13.2 H (9.0-12.0) Seconds INR 1.3 H (0.9-1.1) APTT 37.0 H (21.0-31.0) Seconds PTT Ratio 1.4 ABG pH (7.35-7.45) ABG pCO2 (35-46) mmHg ABG pO2 (80-95) mmHg ABG HCO3 (19-24) mmol/L ABG O2 Saturation (90-95) % ABG Base Excess (-9-1.8) mEq/L Barney Test (Pos) Barometric Pressure mm/Hg Oxygen Given Sodium 143 (136-145) mmol/L Potassium 4.4 (3.5-5.1) mmol/L Chloride 114 H (98-107) mmol/L Carbon Dioxide 18 L (21-32) mmol/L Anion Gap 11.0 (3-11) BUN 40 H (7-18) mg/dl Creatinine 2.42 H (0.6-1.4) mg/dl Est Cr Clr Drug Dosing 21.7 ml/min Est GFR ( Amer) 27.0 Est GFR (Non-Af Amer) 23.3 BUN/Creatinine Ratio 16.4 (10-20) Glucose 156 H (70-99) mg/dl Lactate (0.4-2.0) mmol/L Calcium 7.5 L (8.5-10.1) mg/dl Magnesium 1.8 (1.8-2.4) mg/dl Total Bilirubin 1.0 (0.2-1) mg/dl AST 63 H (15-37) U/L ALT 38 (12-78) U/L Alkaline Phosphatase 159 H (45-117) U/L Troponin I 0.052 H* (0-0.045) ng/ml Total Protein 4.7 L (6.4-8.2) gm/dl Albumin 1.7 L (3.4-5.0) gm/dl Globulin 3.0 (2.5-4.0) gm/dl Albumin/Globulin Ratio 0.6 L (0.9-2) Procalcitonin (0-0.5) ng/ml COVID-19 Eval Order SARS-CoV-2 (PCR) (Negative) Influenza Type A (PCR) (Neg) Influenza Type B (PCR) (Neg) RSV (RT-PCR) (Neg) 04/24/20 04/24/20 04/24/20 Range/Units 09:40 10:09 10:09 WBC (4.8-10.8) K/uL RBC (4.7-6.1) M/uL Hgb (14.0-18.0) g/dL Hct (42-52) % MCV (80-100) fL MCH (25-34) pg MCHC (32-36) g/dL RDW Std Deviation (36.4-46.3) fL RDW Coeff of Adiel (11.5-14.5) % Plt Count (130-400) K/uL MPV (7.4-10.4) fL Immature Gran % (Auto) % Neut % (Auto) % Lymph % (Auto) % Juncos % (Auto) % Eos % (Auto) % Baso % (Auto) % Neut # (Auto) (1.4-6.5) K/uL Lymph # (Auto) (1.2-3.4) K/uL Juncos # (Auto) (0.11-0.59) K/uL Eos # (Auto) (0-0.5) K/uL Baso # (Auto) (0-0.2) K/uL Immature Gran # (Auto) (0.00-0.02) K/uL Toxic Vacuolation Dohle Bodies PT (9.0-12.0) Seconds INR (0.9-1.1) APTT (21.0-31.0) Seconds PTT Ratio ABG pH (7.35-7.45) ABG pCO2 (35-46) mmHg ABG pO2 (80-95) mmHg ABG HCO3 (19-24) mmol/L ABG O2 Saturation (90-95) % ABG Base Excess (-9-1.8) mEq/L Barney Test (Pos) Barometric Pressure mm/Hg Oxygen Given Sodium (136-145) mmol/L Potassium (3.5-5.1) mmol/L Chloride (98-107) mmol/L Carbon Dioxide (21-32) mmol/L Anion Gap (3-11) BUN (7-18) mg/dl Creatinine (0.6-1.4) mg/dl Est Cr Clr Drug Dosing ml/min Est GFR ( Amer) Est GFR (Non-Af Amer) BUN/Creatinine Ratio (10-20) Glucose (70-99) mg/dl Lactate (0.4-2.0) mmol/L Calcium (8.5-10.1) mg/dl Magnesium (1.8-2.4) mg/dl Total Bilirubin (0.2-1) mg/dl AST (15-37) U/L ALT (12-78) U/L Alkaline Phosphatase (45-117) U/L Troponin I (0-0.045) ng/ml Total Protein (6.4-8.2) gm/dl Albumin (3.4-5.0) gm/dl Globulin (2.5-4.0) gm/dl Albumin/Globulin Ratio (0.9-2) Procalcitonin 26.76 H (0-0.5) ng/ml COVID-19 Eval Order CovFluRsv at [facility] SARS-CoV-2 (PCR) NEGATIVE (Negative) Influenza Type A (PCR) Negative (Neg) Influenza Type B (PCR) Negative (Neg) RSV (RT-PCR) Negative (Neg) 04/24/20 04/24/20 Range/Units 10:10 10:10 WBC (4.8-10.8) K/uL RBC (4.7-6.1) M/uL Hgb (14.0-18.0) g/dL Hct (42-52) % MCV (80-100) fL MCH (25-34) pg MCHC (32-36) g/dL RDW Std Deviation (36.4-46.3) fL RDW Coeff of Adiel (11.5-14.5) % Plt Count (130-400) K/uL MPV (7.4-10.4) fL Immature Gran % (Auto) % Neut % (Auto) % Lymph % (Auto) % Jun[place] % (Auto) % Eos % (Auto) % Baso % (Auto) % Neut # (Auto) (1.4-6.5) K/uL Lymph # (Auto) (1.2-3.4) K/uL [place] # (Auto) (0.11-0.59) K/uL Eos # (Auto) (0-0.5) K/uL Baso # (Auto) (0-0.2) K/uL Immature Gran # (Auto) (0.00-0.02) K/uL Toxic Vacuolation Dohle Bodies PT (9.0-12.0) Seconds INR (0.9-1.1) APTT (21.0-31.0) Seconds PTT Ratio ABG pH 7.45 (7.35-7.45) ABG pCO2 26 L (35-46) mmHg ABG pO2 77 L (80-95) mmHg ABG HCO3 18 L (19-24) mmol/L ABG O2 Saturation 96.4 H (90-95) % ABG Base Excess -4.7 (-9-1.8) mEq/L Barney Test Pos (Pos) Barometric Pressure 731.0 mm/Hg Oxygen Given 2l Sodium (136-145) mmol/L Potassium (3.5-5.1) mmol/L Chloride (98-107) mmol/L Carbon Dioxide (21-32) mmol/L Anion Gap (3-11) BUN (7-18) mg/dl Creatinine (0.6-1.4) mg/dl Est Cr Clr Drug Dosing ml/min Est GFR ( Amer) Est GFR (Non-Af Amer) BUN/Creatinine Ratio (10-20) Glucose (70-99) mg/dl Lactate 6.2 H* (0.4-2.0) mmol/L Calcium (8.5-10.1) mg/dl Magnesium (1.8-2.4) mg/dl Total Bilirubin (0.2-1) mg/dl AST (15-37) U/L ALT (12-78) U/L Alkaline Phosphatase (45-117) U/L Troponin I (0-0.045) ng/ml Total Protein (6.4-8.2) gm/dl Albumin (3.4-5.0) gm/dl Globulin (2.5-4.0) gm/dl Albumin/Globulin Ratio (0.9-2) Procalcitonin (0-0.5) ng/ml COVID-19 Eval Order SARS-CoV-2 (PCR) (Negative) Influenza Type A (PCR) (Neg) Influenza Type B (PCR) (Neg) RSV (RT-PCR) (Neg) Imaging Data Radiologist's Impression: CT head/brain wo con CLINICAL HISTORY: unresponsive COMPARISON STUDY: 04/06/2020 TECHNIQUE: Axial CT of the brain is performed from the vertex to the skull base. IV contrast was not administered for this examination. A dose lowering technique was utilized adhering to the principles of ALARA. CT DOSE: 729.78 mGycm FINDINGS: No intra or extra-axial mass lesions are visualized. There is no CT evidence of acute cortical infarction. There is no evidence of midline shift. There is no acute hemorrhage. No calvarial fractures are visualized. There are patchy white matter hypodensities likely on a small vessel basis. There is no evidence of pathologic ventricular dilatation. There is no evidence of acute sinusitis IMPRESSION: No acute intracranial findings ACT 112: Negative or not required by law. Electronically signed by: Elmo Thomas M.D. 04/24/2020 10:55 AM Dictated: 04/24/20 1054 Transcribed: 04/24/20 1054 XR chest 1V portable CLINICAL HISTORY: SEPSIS COMPARISON STUDY: April 02, 2020 FINDINGS: The patient is rotated. The heart is enlarged. There are asymmetric increased interstitial markings right greater than left. Likely diagnostic considerations include asymmetric pulmonary edema versus a bilateral infectious/inflammatory process. Clinical and radiographic follow-up is recommended. There is a probable trace right pleural effusion[ IMPRESSION: 1. Asymmetric right greater than left interstitial opacities. Likely diagnostic considerations include asymmetric pulmonary edema versus a bilateral infectious/inflammatory process. Clinical and radiographic follow-up is recommended. ACT 112: Negative or not required by law. Electronically signed by: Elmo Thomas M.D. 04/24/2020 10:24 AM Dictated: 04/24/20 1023 Transcribed: 04/24/20 1023 ECG Data Attestation: I personally reviewed and interpreted this ECG as follows: Indication: + tachycardia Rate (beats per minute): 112 Rhythm: + atrial fibrillation ECG Intervals/blocks: + Right Bundle branch block ECG ST segments: + T-wave inversions ECG Findings: + Other (Limited interpretation due to baseline artifact); no PVCs Comparison ECG Date: from (April 02, 2020) Change: the following changes noted (T wave inversions appear new) MDM Narrative I did evaluate the patient as noted above. I did obtain history from the nurse as well as the patient's due to the patient's mental status. I did call a sepsis alert. He is hypotensive. IV access was established. He was given a liter normal saline IV. Blood cultures were drawn and he was given IV Levaquin and Zosyn. He is hypoxemic and placed on 2 L of oxygen via nasal cannula. I asked his about advanced directives and she stated that he is DNR/DNI. I did place an order for continuous cardiac monitoring. The monitor showed atrial fibrillation with aVR at a rate of 111. I did order and personally review the patient's 12-lead EKG as described above. He has A. fib with aVR with some T wave inversions which appear new. I did order and personally reviewed the images of the patient's chest x-ray as described above. He does have bilateral infiltrates greater on the right side. I was concerned about aspiration pneumonia. I did order a urine analysis. I did order and review the patient's blood work as noted in the electronic medical record. His white count is not elevated. He is anemic. Electrolytes demonstrate a CO2 of 18. He has SANJEEV with a creatinine of 2.4 and BUN of 40. His lactate and procalcitonin are both elevated. Troponin is mildly elevated as well. ABG shows hypoxia with a PaO2 in the 70s. His O2 was bumped to 4 L via nasal cannula. Covid testing is negative. I did order a CT of the head which did not show any acute abnormality. I did review the images myself as well as the radiology report as described above. I did reassess the patient. He continues to have hypotension but his blood pressure improved after the first liter. I did order a second liter and discussed the case with the hospitalist and caser shoe parts. The hospitalist did assume care of the patient and DC'd the second liter of fluids due to concerns for fluid overload. Impression & Plan Sepsis, Elevated troponin, Hypoxia Discharge Plan Visit Data Chief Complaint: Respiratory Problems Stated Complaint: DECREASED MENTAL STATUS/SOB ED Provider: Ramu Rolle Discharge Problem: Sepsis, Elevated troponin, Hypoxia Patient Disposition: Admitted As Inpatient Discharge Instructions Interventions: ED Discharge Assessment Last Done: 04/24/20 13:42
[2020-04-24] MEDS ORDERED: PIPERACILLIN/TAZOBACTAM 4.5 GM/120ML D5W ONE (10:17)
[2020-04-24 10:19] LABS: INR 1.3 (0.9-1.1); Partial Thromboplastin Ratio 1.4; Prothrombin Time 13.2 Seconds (9.0-12.0)
[2020-04-24 10:20] LABS: Albumin Globulin Ratio 0.6 (0.9-2); Total Protein 4.7 gm/dl (6.4-8.2); Troponin I 0.052 ng/ml (0-0.045)
[2020-04-24 10:23] LABS: Base Excess ABG -4.7 mEq/L (-9-1.8); HCO3 ABG 18 mmol/L (19-24); Oxygen Saturation ABG 96.4 % (90-95); PCO2 ABG 26 mmHg (35-46); PO2 ABG 77 mmHg (80-95); pH ABG 7.45 (7.35-7.45)
[2020-04-24 10:24] LABS: Allen Test Pos (Pos)
--- NOTE | 2020-04-24 10:26 | XRay Report ---
XR chest 1V portable CLINICAL HISTORY: SEPSIS COMPARISON STUDY: April 02, 2020 FINDINGS: The patient is rotated. The heart is enlarged. There are asymmetric increased interstitial markings right greater than left. Likely diagnostic considerations include asymmetric pulmonary edema versus a bilateral infectious/inflammatory process. Clinical and radiographic follow-up is recommend ed. There is a probable trace right pleural effusion[ IMPRESSION: 1. Asymmetric right greater than left interstitial opacities. Likely diagnostic considerations includ e asymmetric pulmonary edema versus a bilateral infectious/inflammatory process. Clinical and radiogr aphic follow-up is recommended. ACT 112: Negative or not required by law. Electronically signed by: Elmo Thomas M.D. 04/24/2020 10:24 AM
[2020-04-24 10:30] LABS: Dohle Bodies 1+; Immature Granulocytes # (auto) 0.11 K/uL (0.00-0.02); Immature Granulocytes % (auto) 1.2 %; Lymphocytes # (auto) 1.24 K/uL (1.2-3.4); Lymphocytes % (auto) 13.7 %; Monocytes # (auto) 0.26 K/uL (0.11-0.59); Monocytes % (auto) 2.9 %; Neutrophils # (auto) 7.41 K/uL (1.4-6.5); Neutrophils % (auto) 82.2 %; Toxic Vacuolation 1+
[2020-04-24] MEDS ORDERED: PIPERACILLIN/TAZOBACTAM 4.5 GM in DEXTROSE 5% 100 ML IV ONE (10:30)
--- NOTE | 2020-04-24 10:56 | CT Scan Report ---
CT head/brain wo con CLINICAL HISTORY: unresponsive COMPARISON STUDY: 04/06/2020 TECHNIQUE: Axial CT of the brain is performed from the vertex to the skull base. IV contrast was not administered for this examination. A dose lowering technique was utilized adhering to the principles of ALARA. CT DOSE: 729.78 mGycm FINDINGS: No intra or extra-axial mass lesions are visualized. There is no CT evidence of acute cortical infarc tion. There is no evidence of midline shift. There is no acute hemorrhage. No calvarial fractures ar e visualized. There are patchy white matter hypodensities likely on a small vessel basis. There is no evidence of pathologic ventricular dilatation. There is no evidence of acute sinusitis IMPRESSION: No acute intracranial findings ACT 112: Negative or not required by law. Electronically signed by: Elmo Thomas M.D. 04/24/2020 10:55 AM
[2020-04-24] MEDS ORDERED: SODIUM CHLORIDE 0.9% 1000ML 1,000 ML IV ONE (11:04)
--- NOTE | 2020-04-24 11:04 | History & Physical Report ---
Date of Service April 24, 2020 Assessment & Plan (1) Sepsis: Sepsis alert called in ED. Most likely cause based on work-up to-date is aspiration pneumonia. - Received one liter of NSS in ED with improvement of BP. Second liter running when patient evaluated but pulm exam concerning for fluid overload - will d/c fluids for now and monitor. Did discuss with pt's the possibility of a central line and pressors if BP does not improve with fluids or if worsening. Pt's is agreeable to this intervention if needed. - Broad spectrum IV antibiotics started in ED - initially given Zosyn and levofloxacin. Will change to Cefepime and Vancomycin. Spoke with pharmacy who will assist with dosing in the setting of an SANJEEV - Repeat lactate and trend - Repeat procalcitonin in AM (2) Aspiration pneumonia: Pt with known history of dysphagia and aspiration - recent video swallow/speech eval with recommendation for pureed diet with nectar thick liquids. - Antibiotic coverage as above - NPO until mental status improves - Pt's aware that this will likely be an ongoing issue, states that pt would not want a feeding tube. Discussed that a feeding tube would also not eliminate the risk of aspiration. (3) SANJEEV (acute kidney injury): Suspect due to hypotension and dehydration - Fluids as already given - Follow labs daily (4) Elevated troponin: Likely multi-factorial - Trend troponin Q6 hrs x 3 - Monitor on telemetry - EKG in AM (5) Altered mental status: Suspect due to sepsis - due to underlying progressive dementia, it is difficult to assess patient's baseline although pt's is clear that today he is more confused and less alert than usual - Continue to monitor (6) Atrial fibrillation: Not a candidate for anticoagulation due to fall risk. Atenolol was stopped during last admission due to bradycardia (7) Diabetes mellitus type 2, controlled: - HOLD Metformin - Insulin sliding scale - Accuchecks Q6 hours (8) Dementia: Per pt's , pt's mental status has been progressively worsening, especially over the past two months since he has been at [facility]. (9) Hypertension: Currently hypotensive - will continue to monitor. (10) GERD (gastroesophageal reflux disease): Since pt currently NPO, will change to IV famotidine. Pt seen and reviewed with collaborating physician, Dr. Rivera. Plan of care discussed and as outlined above. I had an extensive discussion with the patient's regarding goals of care. She would like to pursue more aggressive measures initially (IV antibiotics, central line/pressors if needed, BIPAP if needed) for the first 24-48 hours and then reassess. She reports pt does not want CPR or intubation. They also do not want prolonged heroic measures if pt does not start to improve. I explained that we can reassess this regularly. Consider palliative care consult. Subq heparin for DVT prophylaxis. Pt was scheduled for an ERCP on Wednesday as outpatient - GI notified of current status. Filippo Veloz PA-C History of Present Illness Chief Complaint: confusion, decreased oxygen levels Primary Care Provider: Carlton Rowe DO This is an 84 y/o male with a PMH of recent sepsis due to ascending cholangitis, vascular dementia, paroxysmal atrial fibrillation, hypertension, type 2 diabetes with associated neuropathy, IPMN, history of prostate cancer, GERD, dyslipidemia, and severe dysphagia with aspiration of thin liquids on most recent video swallow who presented to the ED via EMS this morning with confusion, hypoxia, and respiratory distress. History from the patient is unobtainable so records from [facility] were reviewed and additional history was obtained from the pt's at the bedside. Of note, pt was admitted to [facility] 03/05-03/19/20 with septic shock due to ascending cholangitis from an obstructing CBD stone. He underwent ERCP with biliary stent placement and was ultimately discharged to [facility] for rehab. He was readmitted to [facility] on 04/02/20 with metabolic encephalopathy due to hypoglycemia that was thought secondary to taking Prandin in the setting of decreased oral intake. He was also found to have a Klebsiella UTI, resistant to Rocephin so treated with ciprofloxacin (finished course about 10 days ago). On 04/09/20, he was discharged back to [facility]. However, per his , he has not been progressing with rehab as expected and actually seems to be getting weaker instead of stronger. Yesterday, when she talked to him on the phone, she noticed that he had a new cough. This was also noted in the nursing notes from the facility. This morning, he was lethargic when they attempted to get him up and was found to be hypoxic and hypotensive so family was notified and agreed to EMS transport to the ED. In the ED, a sepsis alert was called. Infection source thought likely to be aspiration. No other new complaints that pt's is aware of. Pt remains confused in the ED although orientation limited at baseline due to advanced dementia. Allergies Allergy/AdvReac Type Severity Reaction Status Date / Time No Known Allergies Allergy Verified 04/24/20 10:44 Home Medications Medication Instructions Recorded Confirmed Type clopidogrel 75 mg PO QPM 04/30/19 04/24/20 History loratadine [Claritin] 10 mg PO DAILY 04/30/19 04/24/20 History multivitamin with minerals 1 tab PO QAM 04/30/19 04/24/20 History nitroglycerin [Nitrostat] 0.4 mg SUBLINGUAL DIRECTED PRN 04/30/19 04/24/20 History omeprazole 20 mg PO DAILYBB 04/30/19 04/24/20 History oxybutynin chloride 5 mg PO AMHS 04/30/19 04/24/20 History pravastatin 20 mg PO HS 04/30/19 04/24/20 History tamsulosin 0.4 mg PO HS 04/30/19 04/24/20 History metformin 500 mg PO BIDM #0 tab 04/08/20 04/24/20 Rx bisacodyl [Dulcolax (bisacodyl)] 10 mg DE DAILY PRN 04/17/20 04/24/20 History magnesium hydroxide [Milk of 30 ml PO DAILY PRN 04/17/20 04/24/20 History Magnesia] Past Med/Surg History Medical History Nissartjoselin Resides at [facility]. Ascending cholangitis Mar 2020 - due to choledocholithiasis, s/p ERCP with biliary stent placement Atrial fibrillation No AC due to high fall and bleeding risk Cognitive communication deficit CVA (cerebral vascular accident) History of per records -no recent issues noted. Pt on Plavix Dementia Diabetes mellitus type 2, controlled Disorder of prostate Dysphagia Possibly due to progression of dementia. Hx of prior CVA- pt was discharged 04/09/20 on pureed and nectar thick diet. GERD (gastroesophageal reflux disease) Hyperlipidemia Hypertension Macular degeneration Metabolic encephalopathy Noted with Apr 2020 admission- was back to baseline on admission. Pt did have hypoglycemia on admission- Prandin was d/c'ed. 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 repeat MRCP recommended in 6 months Personal history of malignant neoplasm of prostate S/p radiation per records Surgical History H/O prostate biopsy History of ERCP Family History Other No pertinent family history in first degree relatives Social History Smoking Status: Unknown if ever smoked Preferred Language: Tajik Communication Ability: Unable Communication Ability Comment: Patient unable to verbalize at this time Technical Support Manager Required: No Beliefs That Will Affect Care: None marital status: Current Living Situation: Personal Care Facility Current Living Situation Comment: [facility] Feels Safe at Home: Yes Assistive Devices: Oxygen - Continuous Review of Systems Review of Systems: Unobtainable due to cognitive status Physical Exam Constitutional: + ill appearing, + altered mental status and + in distress (mild respiratory) Eyes: + anicteric sclerae and PERRL Neck: trachea midline Thyroid: no thyromegaly Respiratory: + labored breathing and + tachypneic; does not use accessory muscles Auscultation: + rhonchi (throughout with coarse BS); no wheezes Cardiovascular: Rate/Rhythm: + tachycardic and + irregularly irregular Vessels: femoral pulses present and radial pulses present (but thready (1+)) Extremities: + edema (pitting bilateral LE (2+ pedal, 1+ pretibial)) Gastrointestinal (Abdomen): Inspection/Auscultation: + hypoactive bowel sounds Percussion/Palpation: abdomen soft; no guarding Skin: multiple small petechiae bilateral feet and LE, multiple brown rough textured papules and plaque on LE. Areas of erythema on right heel and medial left foot Neurologic: moves all extremities and + confused Results & Data Results & Data ([facility]) Vital Signs (Past 12 Hours) Vital Signs Temp Pulse Resp BP Pulse Ox 04/24/20 10:40 98 04/24/20 10:18 98 04/24/20 09:49 101 H 25 H 89/59 L 97 04/24/20 09:32 36.8 C 105 H 31 H 70/44 L 96 04/24/20 09:22 36.8 C 111 H 34 H 76/51 L 88 L Laboratory Results Laboratory Results - last 24 hr 04/24/20 04/24/20 04/24/20 09:40 09:40 09:40 WBC 9.02 RBC 3.62 L Hgb 11.7 L Hct 35.3 L MCV 97.5 MCH 32.3 MCHC 33.1 RDW Std Deviation 51.3 H RDW Coeff of Adiel 14.3 Plt Count 202 MPV 10.1 Immature Gran % (Auto) 1.2 Neut % (Auto) 82.2 Lymph % (Auto) 13.7 Campbell % (Auto) 2.9 Eos % (Auto) 0.0 Baso % (Auto) 0.0 Neut # (Auto) 7.41 H Lymph # (Auto) 1.24 Campbell # (Auto) 0.26 Eos # (Auto) 0.00 Baso # (Auto) 0.00 Immature Gran # (Auto) 0.11 H Toxic Vacuolation 1+ Dohle Bodies 1+ PT 13.2 H INR 1.3 H APTT 37.0 H PTT Ratio 1.4 ABG pH ABG pCO2 ABG pO2 ABG HCO3 ABG O2 Saturation ABG Base Excess Barney Test Barometric Pressure Oxygen Given Sodium 143 Potassium 4.4 Chloride 114 H Carbon Dioxide 18 L Anion Gap 11.0 BUN 40 H Creatinine 2.42 H Est Cr Clr Drug Dosing 21.7 Est GFR ( Amer) 27.0 Est GFR (Non-Af Amer) 23.3 BUN/Creatinine Ratio 16.4 Glucose 156 H Lactate Calcium 7.5 L Magnesium 1.8 Total Bilirubin 1.0 AST 63 H ALT 38 Alkaline Phosphatase 159 H Troponin I 0.052 H* Total Protein 4.7 L Albumin 1.7 L Globulin 3.0 Albumin/Globulin Ratio 0.6 L Procalcitonin COVID-19 Eval Order SARS-CoV-2 (PCR) Influenza Type A (PCR) Influenza Type B (PCR) RSV (RT-PCR) 04/24/20 04/24/20 04/24/20 09:40 10:09 10:09 WBC RBC Hgb Hct MCV MCH MCHC RDW Std Deviation RDW Coeff of Adiel Plt Count MPV Immature Gran % (Auto) Neut % (Auto) Lymph % (Auto) Campbell % (Auto) Eos % (Auto) Baso % (Auto) Neut # (Auto) Lymph # (Auto) Campbell # (Auto) Eos # (Auto) Baso # (Auto) Immature Gran # (Auto) Toxic Vacuolation Dohle Bodies PT INR APTT PTT Ratio ABG pH ABG pCO2 ABG pO2 ABG HCO3 ABG O2 Saturation ABG Base Excess Barney Test Barometric Pressure Oxygen Given Sodium Potassium Chloride Carbon Dioxide Anion Gap BUN Creatinine Est Cr Clr Drug Dosing Est GFR ( Amer) Est GFR (Non-Af Amer) BUN/Creatinine Ratio Glucose Lactate Calcium Magnesium Total Bilirubin AST ALT Alkaline Phosphatase Troponin I Total Protein Albumin Globulin Albumin/Globulin Ratio Procalcitonin 26.76 H COVID-19 Eval Order CovFluRsv at [facility] SARS-CoV-2 (PCR) NEGATIVE Influenza Type A (PCR) Negative Influenza Type B (PCR) Negative RSV (RT-PCR) Negative 04/24/20 04/24/20 10:10 10:10 WBC RBC Hgb Hct MCV MCH MCHC RDW Std Deviation RDW Coeff of Adiel Plt Count MPV Immature Gran % (Auto) Neut % (Auto) Lymph % (Auto) Campbell % (Auto) Eos % (Auto) Baso % (Auto) Neut # (Auto) Lymph # (Auto) Campbell # (Auto) Eos # (Auto) Baso # (Auto) Immature Gran # (Auto) Toxic Vacuolation Dohle Bodies PT INR APTT PTT Ratio ABG pH 7.45 ABG pCO2 26 L ABG pO2 77 L ABG HCO3 18 L ABG O2 Saturation 96.4 H ABG Base Excess -4.7 Barney Test Pos Barometric Pressure 731.0 Oxygen Given 2l Sodium Potassium Chloride Carbon Dioxide Anion Gap BUN Creatinine Est Cr Clr Drug Dosing Est GFR ( Amer) Est GFR (Non-Af Amer) BUN/Creatinine Ratio Glucose Lactate 6.2 H* Calcium Magnesium Total Bilirubin AST ALT Alkaline Phosphatase Troponin I Total Protein Albumin Globulin Albumin/Globulin Ratio Procalcitonin COVID-19 Eval Order SARS-CoV-2 (PCR) Influenza Type A (PCR) Influenza Type B (PCR) RSV (RT-PCR) Diagnostic Findings Chest X-ray 04/24/20 - IMPRESSION: 1. Asymmetric right greater than left interstitial opacities. Likely diagnostic considerations include asymmetric pulmonary edema versus a bilateral infectious/inflammatory process. Clinical and radiographic follow-up is recommended. CT Head 04/24/20 - IMPRESSION: No acute intracranial findings Medications Administered Discontinued Medications Sodium Chloride (Nss 1000ml) 1,000 mls @ 999 mls/hr IV .Q1H1M JAMES Stop: 04/24/20 11:00 Last Admin: 04/24/20 10:00 Dose: 999 mls/hr Documented by: [id number] Piperacillin Sod/Tazobactam (Sod 4.5 gm/ Dextrose) 120 mls @ 240 mls/hr IV NOW ONE; Protocol Stop: 04/24/20 10:59 Last Admin: 04/24/20 10:25 Dose: 240 mls/hr Documented by: [id number] Piperacillin Sod/Tazobactam Sod (Piperacillin/Tazobactam 4.5 Gm/120ml D5w) Confirm Administered Dose 4.5 gm .ROUTE .STK-MED ONE Stop: 04/24/20 10:18 Last Admin: 04/24/20 10:28 Dose: Not Given Documented by: [id number] Supervising Physician Co-Signing Physician Notes I have seen and examined the patient and have discussed the case with the provider above. I agree with the assessment and plan as stated with the following exceptions. The patient is an 84 yo M with dementia who has a history of aspirating. He was found down at [facility] this morning unresponsive and has severe sepsis from pneumonia (urine still pending). He has chronic issues with aspiration that are known. He presented altered, hypoxic, tachycardic, tachypneic and hypotensive. Resuscitation efforts were started including 1.5L NSS, Zoxyn and Levaquin. He was ordered for 2L NSS but became more tachypneic with rhonchi and wheezing on exam, and IVF were held. Exam otherwise revealed a minimally responsive man with PERRL, normal conjunctivae bilaterally, tachy, reg rate, S1/2 heard without murmurs. Lungs as noted previously. Abdomen is soft, nondistended without guarding. Extremities are warm and well perfused except for the left arm where he has two peripheral IVs running in at high rates. There is a petechial rash around the ankles bilaterally. Repeat lactate is pending. He is in serious condition with a poor prognosis having dementia, multiple recent hospitalizations and severe deconditioning at baseline underlying this severe infection. He has risk factors for MRSA and abx will be changed to Vanc to cover for this, and cefepime which will help with gram negative coverage. Will also add flagyl for additional anaerobe coverage. SANJEEV is present, likely related to ATN from sepsis vs pre-renal azotemia from poor PO intake/dehydration or a combination. Cont with IVF support as tolerated. is fine with BIPAP as needed, pressors as needed. No CPR or intubation. DNR status confirmed on admission. She was in the room during admission interview and assessment. She verbalized understanding of his poor prognosis and the uncertain direction his condition will take over the next 24 hours. He has been admitted multiple times for sepsis. With chronic aspiration, this is very likely to happen again. She expressed no desire to have a feeding tube for him. Will consult palliative care to assist her with goals of care. DO Miguel (1) Atrial fibrillation Atrial fibrillation type: persistent (not longstanding) Qualified Code(s): I48.19 - Other persistent atrial fibrillation (2) Dementia Dementia behavioral disturbance: with behavioral disturbance Dementia type: vascular dementia Qualified Code(s): F01.51 - Vascular dementia with behavioral disturbance (3) Aspiration pneumonia Aspiration pneumonia type: unspecified Laterality: bilateral Lung location: lower lobe of lung Qualified Code(s): J69.0 - Pneumonitis due to inhalation of food and vomit (4) Diabetes mellitus type 2, controlled Diabetes mellitus complication detail: with polyneuropathy Diabetes mellitus complication status: with neurologic complications Diabetes mellitus roasterman insulin use: without roasterman use Qualified Code(s): E11.42 - Type 2 diabetes mellitus with diabetic polyneuropathy (5) Sepsis Acute renal failure type: unspecified Sepsis acute organ dysfunction status: with acute organ dysfunction Sepsis type: sepsis due to unspecified organism Severe sepsis acute organ dysfunction type: acute renal failure Severe sepsis shock status: without septic shock Qualified Code(s): A41.9 - Sepsis, unspecified organism; R65.20 - Severe sepsis without septic shock; N17.9 - Acute kidney failure, unspecified (6) Altered mental status Altered mental status type: unspecified Qualified Code(s): R41.82 - Altered mental status, unspecified (7) GERD (gastroesophageal reflux disease) Esophagitis presence: esophagitis presence not specified Qualified Code(s): K21.9 - Gastro-esophageal reflux disease without esophagitis (8) Hypertension Hypertension type: essential hypertension Qualified Code(s): I10 - Essential (primary) hypertension
[2020-04-24 11:06] LABS: Influenza A virus by PCR Negative (Neg); Influenza B virus by PCR Negative (Neg); RSV by PCR Negative (Neg); SARS CoV2 RNA(COVID-19) InHosp NEGATIVE (Negative)
--- NOTE | 2020-04-24 12:23 | Electrocardiogram Report ---
Test Reason : Blood Pressure : / mmHG Vent. Rate : 112 BPM Atrial Rate : 108 BPM P-R Int : 000 ms QRS Dur : 118 ms QT Int : 368 ms P-R-T Axes : 000 083 007 degrees QTc Int : 502 ms Poor data quality, interpretation may be adversely affected Atrial fibrillation with rapid ventricular response with premature ventricular or aberrantly conducte d complexes Low voltage QRS Right bundle branch block T wave abnormality, consider inferior ischemia Abnormal ECG When compared with ECG of 02-APR-2020 13:47, QRS duration has decreased T wave inversion more evident in Anterior leads Confirmed by Juan José Poe ([id number]) on 04/24/2020 12:23:22 PM Referred By: Confirmed By:Sebas Poe
[2020-04-24] MEDS ORDERED: VANCOMYCIN CONSULT ACTIVE PRN (12:26)
[2020-04-24] MEDS ORDERED: CEFEPIME CONSULT ACTIVE ONE (12:26)
[2020-04-24] MEDS ORDERED: CARBOHYDRATES FOR HYPOGLYCEMIA PO PRN (13:34)
[2020-04-24] MEDS ORDERED: GLUCOSE 10 TABS/TUBE PO PRN (13:34)
[2020-04-24] MEDS ORDERED: DEXTROSE 50% 50 ML SYRINGE IV PRN (13:34)
[2020-04-24] MEDS ORDERED: GLUCAGON FOR INJ 1 MG VIAL SQ PRN (13:34)
[2020-04-24] MEDS ORDERED: GLUCOSE 40% GEL 15 GM TUBE PO PRN (13:34)
[2020-04-24] MEDS ORDERED: NITROGLYCERIN SL 0.4 MG/TAB TAB SL PRN (13:34)
[2020-04-24] MEDS ORDERED: CEFEPIME CONSULT ACTIVE PRN (13:50)
[2020-04-24] MEDS ORDERED: VANCOMYCIN HCL 1,750 MG in SODIUM CHLORIDE 0.9% 500 ML IV SCH (14:00)
--- NOTE | 2020-04-24 14:21 | Pharmacy Report ---
Pharmacy Abx Dose Short Note - Date of Service April 24, 2020 - Assessment & Plan Assessment 84 year old M receiving vancomycin and cefepime for treatment of sepsis/pneumonia. MRSA nasal swab ordered, pct elevated, bcx pending. Recent history of klebsiella aerogenes in the urine and E.coli/klebsiella oxytoca in the blood. will order a loading dose of vancomycin now and get an AM random level given SANJEEV. Day # 1 of antimicrobial therapy. Plan Vancomycin * Loading dose of 1,750mg X 1 * Goal trough level : 15 to 20 mcg/mL * Random level ordered for: 04/25/20 AM labs Cefepime * 2g IV q24h (Target dose 2g IV q8) Pharmacy will continue to follow and will adjust dose/frequency as necessary. Thank you.
[2020-04-24] MEDS ORDERED: CEFEPIME 2,000 MG in SYRINGE 0 ML IV SCH (16:00)
--- NOTE | 2020-04-24 16:32 | Communication Note ---
Date of Service: April 24, 2020 SEPSIS UPDATE NOTE The patient was reevaluated around 1600. His mental status is improved in the sense that he is more awake and alert. He is spontaneously opening his eyes and making efforts of vocalizing words. He is vocalizing unintelligible sounds at this time which are not purposeful. Coarse rhonchi throughout lungs. Vancomycin is running at a rate of 200 cc/h. I have asked the nurse to decrease this to 100 cc/h to continue the dose. Current blood pressure running 90/63 with a pulse in the low 100s. Oxygen saturation maintaining mid to high 90s on 4 L oxygen supplementation. Skin is warm and dry. He overall appears clinically better in response to resuscitation efforts. Lactate repeat was 5.5, repeat again in 6 hours. Troponin has trended 0.052 to now 0.060, elevated likely secondary to demand ischemia in setting of sepsis. Continue vancomycin and cefepime and intermittent IV fluids for hemodynamic support as tolerated. I updated his of his improvement by telephone. DO Miguel
[2020-04-24] MEDS: INSULIN ASPART 100 UNITS/ML 3 ML PEN SC SCH ×2 (16:59→21:30)
[2020-04-24] MEDS: HEPARIN SOD 5,000 UNIT/0.5 ML VIAL SQ SCH (17:06)
[2020-04-24 17:53] LABS: Appearance Urine Cloudy (Clear); Bacteria Urine Automated Negative (Negative); Blood Urine 2+ (Negative); Color Urine Orange; Epithelial Cell Urine Auto >30 /lpf (0-5); Glucose Urine UA Negative (Negative); Ketones Urine Trace (Negative); Leukocyte Esterase Urine 1+ (Negative); Nitrite Urine Positive (Negative); Protein Urine Trace (Negative); RBC Urine Automated 0-4 /hpf (0-4); Specific Gravity Urine 1.032 (1.000-1.030); Urobilinogen Urine Negative (Negative)
[2020-04-24 17:57] LABS: Bilirubin Urine 1+ (Negative)
[2020-04-24] MEDS: metroNIDAZOLE 500 MG/100 ML BAG IV SCH (18:22)
[2020-04-24 18:25] LABS: Mucus Urine Present (None Prsent)
[2020-04-24] MEDS ORDERED: HEPARIN SOD 5,000 UNIT/0.5 ML VIAL SQ SCH (21:00)
--- NOTE | 2020-04-24 21:00 | XRay Report ---
XR chest 1V portable HISTORY: 84 years-old Male congestion acute cough with congestion COMPARISON: Chest radiograph 04/24/2020 at 10:02 AM TECHNIQUE: Portable upright AP view of the chest FINDINGS: Cardiac silhouette is enlarged. Pulmonary vascular congestion with right greater than left reticular opacities. No pneumothorax. Small pleural effusions with mild bibasilar opacities. No significant araceli nge from comparison. Degenerative changes of the shoulders and spine. IMPRESSION: 1. Cardiomegaly with pulmonary vascular congestion and reticular interstitial opacities suggestive of pulmonary edema. 2. Small pleural effusions with bibasilar opacities suggestive of atelectasis versus pneumonitis. ACT 112: Negative or not required by law. The above report was generated using voice recognition software. It may contain grammatical, syntax o r spelling errors. Electronically signed by: Garrett Perez M.D. 04/24/2020 8:58 PM
[2020-04-24] MEDS: ACETAMINOPHEN 1000 MG/100 ML IV IV SCH (21:29)
[2020-04-24 21:55] LABS: BUN Creatinine Ratio 20.9 (10-20); Calcium 8.4 mg/dl (8.5-10.1); Creatinine Clr Calc Pharmacy 20.4 ml/min; Est GFR (Non-African American) 21.6; Potassium 4.7 mmol/L (3.5-5.1)
[2020-04-24 22:02] LABS: Troponin I 0.059 ng/ml (0-0.045)
[2020-04-25] MEDS ORDERED: PNEUMOCOCCAL Polysaccharide Vaccine 25mcg/0.5mL vial/Syr IM ONE (01:45)
[2020-04-25] MEDS: HEPARIN SOD 5,000 UNIT/0.5 ML VIAL SQ SCH ×2 (02:10→09:51)
[2020-04-25] MEDS ORDERED: Nursing to Pharmacy Communication SCH (02:15)
[2020-04-25] MEDS: metroNIDAZOLE 500 MG/100 ML BAG IV SCH ×2 (02:51→09:50)
[2020-04-25] MEDS: ACETAMINOPHEN 1000 MG/100 ML IV IV SCH ×2 (04:45→12:21)
[2020-04-25] MEDS: INSULIN ASPART 100 UNITS/ML 3 ML PEN SC SCH ×2 (06:04→12:18)
[2020-04-25 07:07] LABS: Hemoglobin 12.5 g/dL (14.0-18.0); Immature Granulocytes # (auto) 0.09 K/uL (0.00-0.02); Lymphocytes # (auto) 0.64 K/uL (1.2-3.4); Lymphocytes % (auto) 6.8 %; Mean Corpuscular Hemoglobin 31.7 pg (25-34); Mean Corpuscular Hgb Conc 32.9 g/dL (32-36); Mean Corpuscular Volume 96.4 fL (80-100); Monocytes # (auto) 0.78 K/uL (0.11-0.59); Monocytes % (auto) 8.2 %; Neutrophils # (auto) 7.96 K/uL (1.4-6.5); Platelet Count 211 K/uL (130-400); RDW Coefficient of Variation 14.2 % (11.5-14.5); RDW Standard Deviation 50.5 fL (36.4-46.3); Red Blood Count 3.94 M/uL (4.7-6.1); White Blood Count 9.47 K/uL (4.8-10.8)
[2020-04-25 07:17] LABS: INR 1.3 (0.9-1.1); Prothrombin Time 12.5 Seconds (9.0-12.0)
[2020-04-25 07:39] LABS: Albumin Level 1.9 gm/dl (3.4-5.0); BUN Creatinine Ratio 24.7 (10-20); Calcium 8.1 mg/dl (8.5-10.1); Creatinine Clr Calc Pharmacy 22.8 ml/min; Est GFR (African American) 28.6; Est GFR (Non-African American) 24.7; Potassium 4.6 mmol/L (3.5-5.1)
[2020-04-25 07:41] LABS: Albumin Globulin Ratio 0.5 (0.9-2); Globulin 3.5 gm/dl (2.5-4.0); Total Protein 5.4 gm/dl (6.4-8.2)
--- NOTE | 2020-04-25 08:04 | XRay Report ---
XR chest 1V portable CLINICAL HISTORY: Pulmonary edema. Follow-up study. COMPARISON STUDY: January 22, 2021 FINDINGS: The heart remains enlarged. There are bilateral asymmetric mixed interstitial and alveolar opacities right greater than left. Diagnostic considerations include asymmetric pulmonary edema versu s infectious/inflammatory process. Clinical and radiographic follow-up is recommended. There is equiv ocal slight progression of the right basilar opacities which may in part be secondary to a suboptimal inspiration[ IMPRESSION: Equivocal slight worsening in the bilateral mixed interstitial and alveolar opacities rig ht greater than left. Likely diagnostic considerations include asymmetric pulmonary edema versus infe ctious/inflammatory process ACT 112: Negative or not required by law. Electronically signed by: Elmo Thomas M.D. 04/25/2020 8:02 AM
[2020-04-25] MEDS ORDERED: VANCOMYCIN HCL 1,250 MG in SODIUM CHLORIDE 0.9% 250 ML IV ONE (08:30)
[2020-04-25] MEDS ORDERED: FAMOTIDINE 20 MG in SYRINGE 3 ML IV SCH (09:00)
--- NOTE | 2020-04-25 09:56 | Palliative Care Consultation ---
Date of Consultation April 25, 2020 Assessment & Plan (1) Palliative care encounter: Ramu is an unfortunate 84 year old who presented to the [facility] with increasing lethargy, hypoxia and he was also found to be hypotensive. He has an unfortunate PMH that includes: sepsis, ascending cholangitis, vascular dementia, paroxysmal atrial fibrillation, hypertension, type 2 diabetes, prostate cancer, GERD, dyslipidemia, and severe dysphagia. He has had a recent hospitalization from March 05-March 19 2020 and was found to have ascending cholangitis from an obstructing CBD stone. He did, at that time, undergo an ERCP with biliary stent placement and was discharged to [facility] for SNF rehabilitation. On this admission he was found to have a Klebsiella UTI and recurrent aspiration pneumonia. He was started on Vancomycin. A with aspiration of thin liquids on most recent video swallow who presented to the ED via EMS this morning with confusion, hypoxia, and respiratory distress. A swallowing study was performed indicating that he is silently aspirating and pureed diet with nectar thickened liquids is recommended. patient is already an established DNR/DNI. Palliative Care was consulted to discuss goals of care with family. I met with Ramu in room 204. He was not awake, but did open his eyes on command, but was unable to follow any commands. He was visually tachypneic, had a furrowed brow and appeared overall uncomfortable. I reached out to his , Gail and also was able to conference in his daughter Erica. We were able to discuss his overall decline over the past few months. It has been noted to be remarkably hard not being able to visit with him from a family standpoint. We discussed his overall condition and clinical picture and what options are available i.e. continued current treatment plan while hospitalized and transition to hospice comfort approach at discharge to [facility], transition to comfort measures while here in the hospital, etc. A POLST form has just been completed on 04/12/20 at [facility] indicating DNR/DNI, Comfort Measures Only, trial abx and trial enteral feeding and hydration. The family discussed internally and decided that they would like to focus his care purely on comfort measures and return to [facility] with Hospice support. Case management aware and will discuss logistics and finances with the family. I did discontinue all non comfort focused medications, including the IV abx at the request of family. I ordered Roxanol 5mg PO Q4 PRN for air hunger or pain. Goal to return to [facility] with Hospice services. Hospitalist and Nursing aware of above. Should patient not be discharged today, would like to extend visitation for his , Gail to see him. Palliative Care will follow. (2) Vascular dementia: Per his Gail, this has been worsening over the past few months. FAST stage: All of 6 and up to and including 7E. (3) Altered mental status: Altered mental status type: unspecified Qualified Code(s): R41.82 - Altered mental status, unspecified (4) Dysarthria: Progressive with worsening vascular dementia. Swallowing study suggests silent aspiration. Suggested to resume nectar thickened liquids and pureed food. Transitioning to comfort measures only - allowing patient to eat for comfort, knowing risks associated with such. (5) Aspiration pneumonia: Was receiving IV antibiotics. After family discussion, transitioning to comfort measures only. IV abx and other non comfort focused medications discontinued while here in the hospital. Aspiration pneumonia type: unspecified Laterality: bilateral Lung location: lower lobe of lung Qualified Code(s): J69.0 - Pneumonitis due to inhalation of food and vomit (6) Choledocholithiasis: Followed by GI. ERCP with biliary stent placed on 03/15/20. Evaluated while here for possible stent removal; however, patient is acutely ill. Plan for transition to comfort measures only, no stent removal planned for this time. History of Present Illness Reason for Consultation: Goals of Care Requesting Physician: Dr. Rivera Attending Physician: Guillermina Herring MD History of Present Illness Ramu is an unfortunate 84 year old who presented to the [facility] with increasing lethargy, hypoxia and he was also found to be hypotensive. He has an unfortunate PMH that includes: sepsis, ascending cholangitis, vascular dementia, paroxysmal atrial fibrillation, hypertension, type 2 diabetes, prostate cancer, GERD, dyslipidemia, and severe dysphagia. He has had a recent hospitalization from March 05-March 19 2020 and was found to have ascending cholangitis from an obstructing CBD stone. He did, at that time, undergo an ERCP with biliary stent placement and was discharged to [facility] for SNF rehabilitation. On this admission he was found to have a Klebsiella UTI and recurrent aspiration pneumonia. He was started on Vancomycin. A with aspiration of thin liquids on most recent video swallow who presented to the ED via EMS this morning with confusion, hypoxia, and respiratory distress. A swallowing study was performed indicating that he is silently aspirating and pureed diet with nectar thickened liquids is recommended. patient is already an established DNR/DNI. Palliative Care was consulted to discuss goals of care with family. Please see A/P for further details. Thanks for involving palliative care with this unfortunate individual. Allergies Allergy/AdvReac Type Severity Reaction Status Date / Time No Known Allergies Allergy Verified 04/24/20 10:44 Home Medications Medication Instructions Recorded Confirmed Type clopidogrel 75 mg PO QPM 04/30/19 04/24/20 History loratadine [Claritin] 10 mg PO DAILY 04/30/19 04/24/20 History multivitamin with minerals 1 tab PO QAM 04/30/19 04/24/20 History nitroglycerin [Nitrostat] 0.4 mg SUBLINGUAL DIRECTED PRN 04/30/19 04/24/20 History omeprazole 20 mg PO DAILYBB 04/30/19 04/24/20 History oxybutynin chloride 5 mg PO AMHS 04/30/19 04/24/20 History pravastatin 20 mg PO HS 04/30/19 04/24/20 History tamsulosin 0.4 mg PO HS 04/30/19 04/24/20 History metformin 500 mg PO BIDM #0 tab 04/08/20 04/24/20 Rx bisacodyl [Dulcolax (bisacodyl)] 10 mg VA DAILY PRN 04/17/20 04/24/20 History magnesium hydroxide [Milk of 30 ml PO DAILY PRN 04/17/20 04/24/20 History Magnesia] Patient History Medical History (Updated 04/25/20 @ 12:18 by JOHNNY Valencia) Anarthria Resides at [facility]. Ascending cholangitis Mar 2020 - due to choledocholithiasis, s/p ERCP with biliary stent placement Atrial fibrillation No AC due to high fall and bleeding risk Cognitive communication deficit CVA (cerebral vascular accident) History of per records -no recent issues noted. Pt on Plavix Dementia Diabetes mellitus type 2, controlled Disorder of prostate Dysphagia Possibly due to progression of dementia. Hx of prior CVA- pt was discharged 04/09/20 on pureed and nectar thick diet. GERD (gastroesophageal reflux disease) Hyperlipidemia Hypertension Macular degeneration Metabolic encephalopathy Noted with Apr 2020 admission- was back to baseline on admission. Pt did have hypoglycemia on admission- Prandin was d/c'ed. 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 repeat MRCP recommended in 6 months Personal history of malignant neoplasm of prostate S/p radiation per records Vascular dementia Surgical History H/O prostate biopsy History of ERCP Family History Other No pertinent family history in first degree relatives Social History Smoking Status: Unknown if ever smoked Preferred Language: Kiswahili Communication Ability: Impaired Communication Ability Comment: Patient unable to verbalize at this time In Service Educator Required: No Beliefs That Will Affect Care: None marital status: Current Living Situation: Personal Care Facility Current Living Situation Comment: [facility] Feels Safe at Home: Yes Assistive Devices: Oxygen - Continuous Review of Systems Review of Systems: [place] Symptom Assessment System Pain: 2/3 by observation Shortness of Breath: 2/3 by observation Tiredness: 2/3 by observation Palliative Performance Scale: 20% Physical Exam Constitutional: + acute distress, + ill appearing and + frail appearing; + uncomfortable Respiratory: + tachypneic (RR in the 25-30 at rest intermittently ) Auscultation: + crackles (anterior and posterior R>L sided ) Cardiovascular: Rate/Rhythm: regular rate and regular rhythm Heart Sounds: normal S1 and normal S2; no murmur Extremities: normal capillary refill and + edema (trace lower extremities ) Gastrointestinal (Abdomen): normal bowel sounds, soft, nontender, no hepatosplenomegaly Skin: + pallor Psychiatric: Orientation: alert and oriented to person; + not oriented x 3 Insight: + severely impaired insight Judgement: + severely impaired judgement Results & Data ([facility]) Vital Signs (Past 12 Hours) Vital Signs Temp Pulse Pulse Resp BP Pulse Ox 04/25/20 08:04 91 H 04/25/20 07:33 36.5 C 119 H 18 108/80 100 04/25/20 03:49 36.6 C 106 H 20 101/63 98 04/25/20 00:00 36.9 C 100 H 20 107/70 98 04/24/20 22:56 107 H PG Care Time/CCT Total # of Minutes Spent Total Time Spent with Patient: Total time spent is greater than 50% in coordination of care (as documented) at patient's floor/unit and/or counseling patient: Total time spent 100 minutes with > 50% of that time spent assessing the patient, discussing goals of care with the family, providing symptom management and collaborating with the IDT Coding Level of Care Code 75592 Inpt Consult Level 4 Diagnoses Palliative care encounter Z51.5 Vascular dementia F01.50 Altered mental status R41.82 Altered mental status type: unspecified Dysarthria R47.1 Aspiration pneumonia J69.0 Aspiration pneumonia type: unspecified Laterality: bilateral Lung location: lower lobe of lung Choledocholithiasis K80.50 Time Spent (min) 100
--- NOTE | 2020-04-25 10:16 | Communication Note ---
Date of Service: April 25, 2020 Pt is a 84 y/o male w hx of choledocholithiasis s/p ERCP w biliary stent placement on 03/15/2020. He is scheduled for repeat ERCP on 04/26 for biliary rina nt removal. He was admitted last night w sepsis (blood cx growing gram positive cocci), aspiration pneumonia. Currently he's evaluated in his room. On 3L O2 via NC. + crackles on R lung bases, diminished sounds overall. + tachycardia. We will cancel ERCP procedure tomorrow and reschedule once pt is medically stable
--- NOTE | 2020-04-25 11:04 | Pharmacy Report ---
Pharmacy Abx Dose Short Note - Date of Service April 25, 2020 - Assessment & Plan Assessment 84 year old M receiving VANCOMYCIN + CEFEPIME + FLAGYL for treatment of sepsis, pneumonia, MRSA bacteremia. Pharmacy has been consulted to dose vancomycin + cefepime Both sets of BLCX's growing GPC in clusters --> PCR testing identified the organism as MRSA Repeat BLCX's have been drawn Currently sat well on 3L NC, MAPs > 70, Lactate trending down, procal basically unchanged over last 24 hrs Renal fxn appears stable based upon SCr, + UOP however not quantifiable to assess renal impairment yet Plan Vancomycin * 1750mg loading dose x 1 given yesterday @ 1414 * Random level drawn at 0650 this AM = 15.4 * Redose vanco today, 1250mg (~15mg/kg) IV x 1 * Repeat random level in 18 hours * Goal trough for MRSA pneumonia / bacteremia: 15-20mcg/mL Cefepime * eCrCl 11-29cc/min; continue 2gm Q 24hours Pharmacy will continue to follow and will adjust dose/frequency as necessary. Thank you.
[2020-04-25] MEDS ORDERED: MoRPHine SULFATE 5 MG/0.25 ML UDP PO PRN (12:08)
--- NOTE | 2020-04-25 13:56 | Hospitalist Progress Note ---
Date of Service April 25, 2020 Assessment & Plan (1) Sepsis: (2) Aspiration pneumonia: (3) SANJEEV (acute kidney injury): (4) Elevated troponin: (5) Altered mental status: (6) Atrial fibrillation: (7) Diabetes mellitus type 2, controlled: (8) Dementia: (9) Hypertension: (10) Metabolic encephalopathy: (11) GERD (gastroesophageal reflux disease): Present admission with confusion, hypoxia, and respiratory distress. CXR on admission showed Asymmetric right greater than left interstitial opacities. CT head showed no acute finding CXR showed equivocal slight worsening in the bilateral mixed interstitial and alveolar opacities right greater than left. Elevated lactic acid and procalcitonin Received IV Zosyn and Levaquin on admission Blood cx positive for gram positive cocci in clusters Abx were changed to cefepime and Vanco IV Pt has a very poor prognosis and recurrent hospital admission in the last month palliative care was consulted Brenda from palliative care spoke to and daughter Gail The family discussed internally and decided that they would like to focus his care purely on comfort measures and return to [facility] with Hospice support. Pallitative care discontinued all non comfort focused medications, including the IV abx at the request of family Case management was notified Goal to return to [facility] with Hospice services Roxanol prn for air hunger or pain Admission and Anticipated Discharge Date Admission Date: April 24, 2020 Subjective Pt was seen and examined for follow up. Lying in bed sleeping in bed Palliative care spoke to and daughter Gail on a conference call and pt was transition to comfort care Currently looks comfortable Physical Exam Physical Exam: General- sleeping comfortable Head- atraumatic Eyes- PERRL, EOMI, ENT- oropharynx clear Neck- supple, no JVD Lungs- Coarse BS Heart- +tachycardia Abdomen- normal bowel sounds, soft, nontender Extremities- no calf tenderness Neuro- sleeping, move extremities Skin- warm & dry Results & Data Results & Data ([facility]) Vital Signs (Past 12 Hours) Vital Signs Temp Pulse Pulse Resp BP Pulse Ox 04/25/20 12:14 36.9 C 95 H 20 104/77 100 04/25/20 08:04 91 H 04/25/20 07:33 36.5 C 119 H 18 108/80 100 04/25/20 03:49 36.6 C 106 H 20 101/63 98 (1) Atrial fibrillation Atrial fibrillation type: persistent (not longstanding) Qualified Code(s): I48.19 - Other persistent atrial fibrillation (2) Dementia Dementia behavioral disturbance: with behavioral disturbance Dementia type: vascular dementia Qualified Code(s): F01.51 - Vascular dementia with behavioral disturbance (3) Aspiration pneumonia Aspiration pneumonia type: unspecified Laterality: bilateral Lung location: lower lobe of lung Qualified Code(s): J69.0 - Pneumonitis due to inhalation of food and vomit (4) Diabetes mellitus type 2, controlled Diabetes mellitus complication detail: with polyneuropathy Diabetes mellitus complication status: with neurologic complications Diabetes mellitus mcc insulin use: without donor floor technician use Qualified Code(s): E11.42 - Type 2 diabetes mellitus with diabetic polyneuropathy (5) Sepsis Acute renal failure type: unspecified Sepsis acute organ dysfunction status: with acute organ dysfunction Sepsis type: sepsis due to unspecified organism Severe sepsis acute organ dysfunction type: acute renal failure Severe sepsis shock status: without septic shock Qualified Code(s): A41.9 - Sepsis, unspecified organism; R65.20 - Severe sepsis without septic shock; N17.9 - Acute kidney failure, unspecified (6) Altered mental status Altered mental status type: unspecified Qualified Code(s): R41.82 - Altered mental status, unspecified (7) GERD (gastroesophageal reflux disease) Esophagitis presence: esophagitis presence not specified Qualified Code(s): K21.9 - Gastro-esophageal reflux disease without esophagitis (8) Hypertension Hypertension type: essential hypertension Qualified Code(s): I10 - Essential (primary) hypertension
--- NOTE | 2020-04-25 15:42 | Communication Note ---
Date of Service: April 25, 2020 By CMS guidelines, a determination that the admission or continued stay is not medically necessary has been made by a member of the Utilization Review c ommittee and a physician for this hospital stay. The patient has been set up for Hospice through case management support services and will be discharged back to his residence on Hospice care support. Therefore, a Code 44 will be completed and the inpatient admission will be changed to outpatient. DO [facility] Hospitalist UR Route Process Administrator
--- NOTE | 2020-04-26 09:00 | Discharge Summary ---
Date of Service April 26, 2020 Admission HPI Per Admitting Provider This is an 84 y/o male with a PMH of recent sepsis due to ascending cholangitis, vascular dementia, paroxysmal atrial fibrillation, hypertension, type 2 diabetes with associated neuropathy, IPMN, history of prostate cancer, GERD, dyslipidemia, and severe dysphagia with aspiration of thin liquids on most recent video swallow who presented to the ED via EMS this morning with confusion, hypoxia, and respiratory distress. History from the patient is unobtainable so records from [facility] were reviewed and additional history was obtained from the pt's at the bedside. Of note, pt was admitted to [facility] 03/05-03/19/20 with septic shock due to ascending cholangitis from an obstructing CBD stone. He underwent ERCP with biliary stent placement and was ultimately discharged to [facility] for rehab. He was ash dmitted to [facility] on 04/02/20 with metabolic encephalopathy due to hypoglycemia that was thought secondary to taking Prandin in the setting of decreased oral intake. He was also found to have a Klebsiella UTI, resistant to Rocephin so treated with ciprofloxacin (finished course about 10 days ago). On 04/09/20, he was discharged back to [facility]. However, per his , he has not been progressing with rehab as expected and actually seems to be getting weaker instead of stronger. Yesterday, when she talked to him on the phone, she noticed that he had a new cough. This was also noted in the nursing notes from the facility. This morning, he was lethargic when they attempted to get him up and was found to be hypoxic and hypotensive so family was notified and agreed to EMS transport to the ED. In the ED, a sepsis alert was called. Infection source thought likely to be aspiration. No other new complaints that pt's is aware of. Pt remains confused in the ED although orientation limited at baseline due to advanced dementia. Admission Exam Per Admitting Provider Constitutional: + ill appearing, + altered mental status and + in distress (mild respiratory) Eyes: + anicteric sclerae and PERRL Neck: trachea midline Thyroid: no thyromegaly Respiratory: + labored breathing and + tachypneic; does not use accessory muscles Auscultation: + rhonchi (throughout with coarse BS); no wheezes Cardiovascular: + tachycardic and + irregularly irregular Vessels: femoral pulses present and radial pulses present (but thready (1+)) Extremities: + edema (pitting bilateral LE (2+ pedal, 1+ pretibial)) Gastrointestinal: + hypoactive bowel sounds Percussion/Palpation: abdomen soft; no guarding Skin: multiple small petechiae bilateral feet and LE, multiple brown rough textured papules and plaque on LE. Areas of erythema on right heel and medial left foot Neurologic: moves all extremities and + confused Principal Diagnosis (1) Sepsis: (2) Aspiration pneumonia: (3) SANJEEV (acute kidney injury): (4) Elevated troponin: (5) Altered mental status: (6) Atrial fibrillation: (7) Diabetes mellitus type 2, controlled: (8) Dementia: (9) Hypertension: (10) GERD (gastroesophageal reflux disease): Discharge Exam General- sleeping comfortable Head- atraumatic Eyes- PERRL, EOMI, ENT- oropharynx clear Neck- supple, no JVD Lungs- Coarse BS Heart- +tachycardia Abdomen- normal bowel sounds, soft, nontender Extremities- no calf tenderness Neuro- sleeping, move extremities Skin- warm & dry Discharge Data Allergies Allergy/AdvReac Type Severity Reaction Status Date / Time No Known Allergies Allergy Verified 04/24/20 10:44 Consultations 04/24/20 11:01 ED Decision to Admit Stat 04/24/20 17:26 Consult Palliative Care Routine Procedures Performed Operation Date: 04/26/20 11:45 <No data on this case meets the specified criteria> Ordered Studies 04/24/20 09:48 CT head/brain wo con Stat XR chest 1V portable CLINICAL HISTORY: Pulmonary edema. Follow-up study. COMPARISON STUDY: January 22, 2021 FINDINGS: The heart remains enlarged. There are bilateral asymmetric mixed interstitial and alveolar opacities right greater than left. Diagnostic considerations include asymmetric pulmonary edema versus infectious/inflammatory process. Clinical and radiographic follow-up is recommended. There is equivocal slight progression of the right basilar opacities which may in part be secondary to a suboptimal inspiration[ IMPRESSION: Equivocal slight worsening in the bilateral mixed interstitial and alveolar opacities right greater than left. Likely diagnostic considerations include asymmetric pulmonary edema versus infectious/inflammatory process ACT 112: Negative or not required by law. Electronically signed by: Elmo Thomas M.D. 04/25/2020 8:02 AM Dictated: 04/25/20 0801Transcribed: 04/25/20 0801 XR chest 1V portable HISTORY: 84 years-old Male congestion acute cough with congestion COMPARISON: Chest radiograph 04/24/2020 at 10:02 AM TECHNIQUE: Portable upright AP view of the chest FINDINGS: Cardiac silhouette is enlarged. Pulmonary vascular congestion with right greater than left reticular opacities. No pneumothorax. Small pleural effusions with mild bibasilar opacities. No significant change from comparison. Degenerative changes of the shoulders and spine. IMPRESSION: 1. Cardiomegaly with pulmonary vascular congestion and reticular interstitial opacities suggestive of pulmonary edema. 2. Small pleural effusions with bibasilar opacities suggestive of atelectasis versus pneumonitis. ACT 112: Negative or not required by law. The above report was generated using voice recognition software. It may contain grammatical, syntax or spelling errors. Electronically signed by: Garrett Perez M.D. 04/24/2020 8:58 PM Dictated: 04/24/202056Transcribed: 04/24/202056 CT head/brain wo con CLINICAL HISTORY: unresponsive COMPARISON STUDY: 04/06/2020 TECHNIQUE: Axial CT of the brain is performed from the vertex to the skull base. IV contrast was not administered for this examination. A dose lowering technique was utilized adhering to the principles of ALARA. CT DOSE: 729.78 mGycm FINDINGS: No intra or extra-axial mass lesions are visualized. There is no CT evidence of acute cortical infarction. There is no evidence of midline shift. There is no acute hemorrhage. No calvarial fractures are visualized. There are patchy white matter hypodensities likely on a small vessel basis. There is no evidence of pathologic ventricular dilatation. There is no evidence of acute sinusitis IMPRESSION: No acute intracranial findings ACT 112: Negative or not required by law. Electronically signed by: Elmo Thomas M.D. 04/24/2020 10:55 AM Dictated: 04/24/20 1054Transcribed: 04/24/20 1054 XR chest 1V portable CLINICAL HISTORY: SEPSIS COMPARISON STUDY: April 02, 2020 FINDINGS: The patient is rotated. The heart is enlarged. There are asymmetric increased interstitial markings right greater than left. Likely diagnostic considerations include asymmetric pulmonary edema versus a bilateral infectious/inflammatory process. Clinical and radiographic follow-up is recommended. There is a probable trace right pleural effusion[ IMPRESSION: 1. Asymmetric right greater than left interstitial opacities. Likely diagnostic considerations include asymmetric pulmonary edema versus a bilateral infectious/inflammatory process. Clinical and radiographic follow-up is recommended. ACT 112: Negative or not required by law. Electronically signed by: Elmo Thomas M.D. 04/24/2020 10:24 AM Dictated: 04/24/20 1023Transcribed: 04/24/20 1023 Hospital Course (1) Sepsis: (2) Aspiration pneumonia: (3) SANJEEV (acute kidney injury): (4) Elevated troponin: (5) Altered mental status: (6) Atrial fibrillation: (7) Diabetes mellitus type 2, controlled: (8) Dementia: (9) Hypertension: (10) Metabolic encephalopathy: (11) GERD (gastroesophageal reflux disease): Present admission with confusion, hypoxia, and respiratory distress. CXR on admission showed Asymmetric right greater than left interstitial opacities. CT head showed no acute finding CXR showed equivocal slight worsening in the bilateral mixed interstitial and alveolar opacities right greater than left. Elevated lactic acid and procalcitonin Received IV Zosyn and Levaquin on admission Blood cx positive for gram positive cocci in clusters Abx were changed to cefepime and Vanco IV Pt has a very poor prognosis and recurrent hospital admission in the last month palliative care was consulted Brenda from palliative care spoke to and daughter Gail The family discussed internally and decided that they would like to focus his care purely on comfort measures and return to [facility] with Hospice support. Pallitative care discontinued all non comfort focused medications, including the IV abx at the request of family Case management was notified Goal to return to [facility] with Hospice services Roxanol prn for air hunger or pain Total Time Total Time Spent Total Time Spent (In Minutes): 35 minutes Total Time Includes: Examination of the Patient, Discharge Planning, Medication Reconciliation, Communication With Other Providers and Other Discharge Plan Discharge Items Patient Disposition: Hospice - Medical Facility Reason For Visit: SEPSIS,ASPIRATION PNEUMONIA Discharge Diagnosis: (1) Sepsis: (2) Aspiration pneumonia: (3) SANJEEV (acute kidney injury): (4) Elevated troponin: (5) Altered mental status: (6) Atrial fibrillation: (7) Diabetes mellitus type 2, controlled: (8) Dementia: (9) Hypertension: (10) GERD (gastroesophageal reflux disease): Activity: Resume your previous activity Non-emergency contact: Primary Care Provider Call non-emergency contact if: you have any medication questions Follow-up/Referrals: Carlton Rowe, [Primary Care Provider] - Diet: Other - See Diet Comment Liquid Consistency: [place] thick Addtl Attending Provider Instructions: Transition to comfort care only Continue Roxanol as needed for air hunger and pain Fall precaution Continue oxygen supplement for comfort care as needed puree diet as tolerated with aspiration precaution Pending Studies at Discharge: Yes Studies:: blood culture Stand-Alone Forms: My [facility] Skilled Items Patient informed of condition?: Yes DNR: Yes Discharge Level of Care: Skilled Communicable Disease: No Discharge Prognosis: Other Lines: None Urinary Catheter: Yes Medications and DC Order Prescriptions: New morphine concentrate 100 mg/5 mL (20 mg/mL) Solution 5 mg PO Q4H PRN (Reason: dyspnea and pain) Qty: 15 RF: 0 Discontinued clopidogrel 75 mg Tablet 75 mg PO QPM RF: 0 tamsulosin 0.4 mg Capsule 0.4 mg PO HS RF: 0 nitroglycerin [Nitrostat] 0.4 mg Tablet, Sublingual 0.4 mg sublingual DIRECTED PRN (Reason: Chest Pain) RF: 0 omeprazole 20 mg Capsule,Delayed Release(Dr/Ec) 20 mg PO DAILYBB RF: 0 pravastatin 20 mg Tablet 20 mg PO HS RF: 0 multivitamin with minerals Tablet 1 tab PO QAM RF: 0 oxybutynin chloride 5 mg Tablet 5 mg PO AMHS RF: 0 loratadine [Claritin] 10 mg Tablet 10 mg PO DAILY RF: 0 metformin 500 mg Tablet 500 mg PO BIDM Qty: 0 RF: 0 magnesium hydroxide [Milk of Magnesia] 400 mg/5 mL Suspension 30 ml PO DAILY PRN (Reason: Constipation) RF: 0 bisacodyl [Dulcolax (bisacodyl)] 10 mg Suppository 10 mg NE DAILY PRN (Reason: Constipation) RF: 0 Discharge Orders: Discharge Order (Routine); Ordered 04/25/20 Ordered By: Guillermina Herring Admission Data Admit Date/Time: 04/24/20 12:14 Attending Provider: Guillermina Herring Admit Provider: Mabel Rivera Primary Care Provider: Carlton Rowe Other Providers: Mabel Rivera ; Sabra Castaneda ; [facility], Other Interventions: Discharge Summary Assessment (RN) Last Done: 04/25/20 16:25
== END 2020-04-25 17:24 | disposition hospice, inpatient (51) ==
LOC: ED 09:14 → 2E 12:14 → SUATTDRO 12:14 → INTOOBSV 12:14 → 2E 13:42